=== PATIENT | male | born 1955 | race Caucasian/White ===

== ENCOUNTER 2023-12-14 16:21 | Emergency (ER) | payer OTHER, MEDICAID, SELFPAY ==
[2023-12-14] VITALS (13 sets, daily range): BP systolic 98–132; BP diastolic 53–67; PULSE 51–62; RESP 15–25; TEMP 36.4; O2SAT 93–96; BMI 36.1
--- NOTE | 2023-12-14 16:37 | DI.CT.S_ITS ---
PROCEDURE: CT ANGIO CHEST PE PROTOCOL INDICATIONS: Chest pain, shortness of breath, tachycardia TECHNIQUE: After the administration of intravenous contrast, 2 mm thick sections acquired from the pulmonary apices to the posterior costophrenic angles. 3-dimensional maximum intensity projection (MIP) coronal and sagittal reformats were then acquired through the thorax. For radiation dose reduction, the following was used: automated exposure control, adjustment of mA and/or kV according to patient size. COMPARISON: None. FINDINGS: Image quality: Artifact from left shoulder arthroplasty. Poor contrast opacification of the pulmonary arteries.. Pulmonary arteries: Pulmonary arteries are normal in size, and demonstrate no intraluminal filling defects to suggest central pulmonary embolism. Lower Neck: No enlarged lymph nodes. Thyroid: No thyroid nodules which require sonographic follow up, per consensus guidelines. Axillae: No enlarged lymph nodes. Chest Wall: Subcutaneous emphysema and stranding over the left shoulder and visualized upper arm, possibly postsurgical in etiology.. Bones: Left shoulder arthroplasty.. Degenerative changes of the spine. Lungs and Pleura: No pneumothorax or pleural effusions. Atelectasis versus consolidation at the left base. Heart: Heart size is mildly enlarged. No pericardial effusion. Thoracic Vessels: No aortic aneurysm. Mediastinum and Lin: No enlarged lymph nodes. Esophagus: No wall thickening. No hiatal hernia. Upper Abdomen: Nonobstructing 3 mm right renal stone. IMPRESSION: Poor contrast opacification of the pulmonary arteries. No pulmonary emboli are seen to the lobar pulmonary arteries. Left basilar atelectasis versus consolidation. Left shoulder arthroplasty. Subcutaneous emphysema and stranding surrounding the left shoulder, may be postsurgical in etiology. Dictated by: Barber Wilcox M.D. on 12/14/2023 at 19:21 Approved by: Barber Wilcox M.D. on 12/14/2023 at 19:26
--- NOTE | 2023-12-14 16:53 | ED_ITS ---
HPI - General Adult <Gary Clark DO - Last Filed: 12/15/23 07:13> General Chief complaint: Shortness of Breath/Dyspnea Stated complaint: post lt shoulder surg/SOB Time Seen by Provider: 12/14/23 16:36 Source: patient and family Mode of arrival: Wheelchair History of Present Illness HPI narrative: 68-year-old male. Has a history of a saddle pulmonary embolus. Has been on anticoagulation up until a couple days ago when he was switched to Lovenox and this was in preparation for a shoulder surgery for which she had yesterday. He was a total shoulder replacement on the left. He stated that today he started to develop shortness of breath. No chest pain. States that it is difficult for him to take a deep breath. No fevers. No lower extremity swelling. No coughing. Related Data Allergies Allergy/AdvReac Type Severity Reaction Status Date / Time methocarbamol Allergy Verified 12/14/23 16:26 Review of Systems <DO Aron Ram Last Filed: 12/15/23 07:13> Review of Systems ROS Unobtainable: All systems reviewed & are unremarkable except as noted in HPI and below Patient History <Gary Clark DO - Last Filed: 12/15/23 07:13> Social History Smoking Status: Former smoker Smoking Status: Former smoker Substance Use Type: does not use Exam <Gary Clark DO - Last Filed: 12/15/23 07:13> Initial Vital Signs Initial Vital Signs: Vital Signs Temperature 97.5 F L 12/14/23 16:26 Pulse Rate 60 12/14/23 16:26 Respiratory Rate 16 12/14/23 16:26 Blood Pressure 111/53 L 12/14/23 16:26 Pulse Oximetry 94 12/14/23 16:26 Oxygen Delivery Method Room Air 12/14/23 16:26 Const General: cooperative, comfortable and No ill appearing [facility] Head: normal to inspection and normocephalic Resp Effort & Inspection: normal respiratory effort and no cough Auscultation: clear to auscultation bilaterally, no rales, no rhonchi and no wheezes Cardio Rate: regular rate Rhythm: regular rhythm Skin Other: Surgical dressing clean an in place over the left shoulder Neuro Sensory Exam: no sensory deficits noted Extrem Other: Left shoulder in sling. No lower extremity swelling <Laura Chávez DO - Last Filed: 12/15/23 03:20> Initial Vital Signs Initial Vital Signs: Vital Signs Temperature 97.5 F L 12/14/23 16:26 Pulse Rate 60 12/14/23 16:26 Respiratory Rate 16 12/14/23 16:26 Blood Pressure 111/53 L 12/14/23 16:26 Pulse Oximetry 94 12/14/23 16:26 Oxygen Delivery Method Room Air 12/14/23 16:26 Course <Gary Clark DO - Last Filed: 12/15/23 07:13> Orders Ordered: Discontinued Medications Albuterol (Albuterol Hfa Prepack) 1 box MISC DIRECTED ONE Stop: 12/14/23 20:32 Last Admin: 12/14/23 20:46 Dose: 1 box Documented By: Albuterol/Ipratropium (Albuterol/Ipratropium 3 Ml Ampul) 3 ml INH NOW ONE Stop: 12/14/23 20:32 Last Admin: 12/14/23 20:46 Dose: 3 ml Documented By: AB Vital Signs Vital signs: Vital Signs - 8 hr 12/14/23 19:30 12/14/23 19:30 12/14/23 20:00 Pulse Rate 55 L Respiratory Rate 21 Blood Pressure 114/56 L 103/58 L Pulse Oximetry 96 Oxygen Delivery Method Room Air 12/14/23 20:00 12/14/23 20:30 12/14/23 20:31 Pulse Rate 53 L 54 L Respiratory Rate 15 20 Blood Pressure 127/58 L Pulse Oximetry 93 95 Oxygen Delivery Method Room Air Room Air 12/14/23 20:31 12/14/23 21:00 12/14/23 21:00 Pulse Rate 54 L 62 Respiratory Rate 22 22 Blood Pressure 132/67 Pulse Oximetry 94 94 Oxygen Delivery Method Room Air Room Air 12/14/23 21:24 Pulse Rate 60 Respiratory Rate 18 Blood Pressure Pulse Oximetry 95 Oxygen Delivery Method <Laura Chávez DO - Last Filed: 12/15/23 03:20> Orders Ordered: Discontinued Medications Albuterol (Albuterol Hfa Prepack) 1 box MISC DIRECTED ONE Stop: 12/14/23 20:32 Last Admin: 12/14/23 20:46 Dose: 1 box Documented By: Albuterol/Ipratropium (Albuterol/Ipratropium 3 Ml Ampul) 3 ml INH NOW ONE Stop: 12/14/23 20:32 Last Admin: 12/14/23 20:46 Dose: 3 ml Documented By: AB Vital Signs Vital signs: Vital Signs - 8 hr 12/14/23 19:30 12/14/23 19:30 12/14/23 20:00 Pulse Rate 55 L Respiratory Rate 21 Blood Pressure 114/56 L 103/58 L Pulse Oximetry 96 Oxygen Delivery Method Room Air 12/14/23 20:00 12/14/23 20:30 12/14/23 20:31 Pulse Rate 53 L 54 L Respiratory Rate 15 20 Blood Pressure 127/58 L Pulse Oximetry 93 95 Oxygen Delivery Method Room Air Room Air 12/14/23 20:31 12/14/23 21:00 12/14/23 21:00 Pulse Rate 54 L 62 Respiratory Rate 22 22 Blood Pressure 132/67 Pulse Oximetry 94 94 Oxygen Delivery Method Room Air Room Air 12/14/23 21:24 Pulse Rate 60 Respiratory Rate 18 Blood Pressure Pulse Oximetry 95 Oxygen Delivery Method Medical Decision Making <Gary Clark DO - Last Filed: 12/15/23 07:13> Lab Data 12/14/23 17:38 12/14/23 17:38 Labs: Lab Results 12/14/23 Range/Units 17:38 WBC 12.9 H (4.5-11.0) X10^3/uL RBC 4.23 L (4.5-5.9) X10^6/uL Hgb 12.8 L (13.5-17.5) g/dL Hct 38.8 L (41-53) % MCV 91.6 (80-100) fL MCH 30.3 (26-34) PG MCHC 33.1 (30-36) % RDW 14.4 (11.6-14.8) % Plt Count 169 (150-400) X10^3/uL Neut % (Auto) 82.4 H (50-75) % Lymph % (Auto) 9.0 L (25-40) % [place] % (Auto) 8.0 (3-14) % Eos % (Auto) 0.2 L (2-4) % Baso % (Auto) 0.4 (0-2) % Neut # (Auto) 72403 H (5226-0035) /uL Lymph # (Auto) 1200 (0878-0637) /uL [place] # (Auto) 1000 H (0-900) /uL Eos # (Auto) 0 (0-450) /uL Baso # (Auto) 100 (0-100) /uL Sodium 139 (137-145) mmol/L Potassium 4.0 (3.4-5.1) mmol/L Chloride 109 H (98-107) mmol/L Carbon Dioxide 27 (22-32) mmol/L BUN 22 H (9-20) mg/dL Creatinine 1.23 (0.66-1.25) mg/dL Estimated GFR > 60 (>60) mL/min BUN/Creatinine Ratio 17.9 (6-22) Glucose 129 H (80-110) mg/dL Calcium 8.9 (8.4-10.2) mg/dL Total Creatine Kinase 408 H (55-170) U/L Troponin I < 0.012 (0.01-0.034) ng/mL ECG Data Attestation: I personally reviewed and interpreted this ECG as follows: Interpretation: Sinus bradycardia Ventricular rate of 56 Normal axis Normal QRS No ST T wave changes MDM Narrative Medical decision making narrative: Patient states he can not take a deep breath. He has not hypoxic. Not tachypneic. Has a history of pulmonary embolism. Has been off of anticoagulation because of a left shoulder surgery. Plan will be to obtain labs. Will proceed with CT scan for evaluation. Care turned over to new provider to follow-up and disposition. <Laura Chávez DO - Last Filed: 12/15/23 03:20> Lab Data Labs: Lab Results 12/14/23 Range/Units 17:38 WBC 12.9 H (4.5-11.0) X10^3/uL RBC 4.23 L (4.5-5.9) X10^6/uL Hgb 12.8 L (13.5-17.5) g/dL Hct 38.8 L (41-53) % MCV 91.6 (80-100) fL MCH 30.3 (26-34) PG MCHC 33.1 (30-36) % RDW 14.4 (11.6-14.8) % Plt Count 169 (150-400) X10^3/uL Neut % (Auto) 82.4 H (50-75) % Lymph % (Auto) 9.0 L (25-40) % [place] % (Auto) 8.0 (3-14) % Eos % (Auto) 0.2 L (2-4) % Baso % (Auto) 0.4 (0-2) % Neut # (Auto) 43232 H (9983-9769) /uL Lymph # (Auto) 1200 (7912-7672) /uL [place] # (Auto) 1000 H (0-900) /uL Eos # (Auto) 0 (0-450) /uL Baso # (Auto) 100 (0-100) /uL Sodium 139 (137-145) mmol/L Potassium 4.0 (3.4-5.1) mmol/L Chloride 109 H (98-107) mmol/L Carbon Dioxide 27 (22-32) mmol/L BUN 22 H (9-20) mg/dL Creatinine 1.23 (0.66-1.25) mg/dL Estimated GFR > 60 (>60) mL/min BUN/Creatinine Ratio 17.9 (6-22) Glucose 129 H (80-110) mg/dL Calcium 8.9 (8.4-10.2) mg/dL Total Creatine Kinase 408 H (55-170) U/L Troponin I < 0.012 (0.01-0.034) ng/mL Imaging Data CT scan - chest: Radiologist's Impression: PROCEDURE: CT ANGIO CHEST PE PROTOCOL INDICATIONS: Chest pain, shortness of breath, tachycardia TECHNIQUE: After the administration of intravenous contrast, 2 mm thick sections acquired from the pulmonary apices to the posterior costophrenic angles. 3-dimensional maximum intensity projection (MIP) coronal and sagittal reformats were then acquired through the thorax. For radiation dose reduction, the following was used: automated exposure control, adjustment of mA and/or kV according to patient size. COMPARISON: None. FINDINGS: Image quality: Artifact from left shoulder arthroplasty. Poor contrast opacification of the pulmonary arteries.. Pulmonary arteries: Pulmonary arteries are normal in size, and demonstrate no intraluminal filling defects to suggest central pulmonary embolism. Lower Neck: No enlarged lymph nodes. Thyroid: No thyroid nodules which require sonographic follow up, per consensus guidelines. Axillae: No enlarged lymph nodes. Chest Wall: Subcutaneous emphysema and stranding over the left shoulder and visualized upper arm, possibly postsurgical in etiology.. Bones: Left shoulder arthroplasty.. Degenerative changes of the spine. Lungs and Pleura: No pneumothorax or pleural effusions. Atelectasis versus consolidation at the left base. Heart: Heart size is mildly enlarged. No pericardial effusion. Thoracic Vessels: No aortic aneurysm. Mediastinum and Lin: No enlarged lymph nodes. Esophagus: No wall thickening. No hiatal hernia. Upper Abdomen: Nonobstructing 3 mm right renal stone. IMPRESSION: Poor contrast opacification of the pulmonary arteries. No pulmonary emboli are seen to the lobar pulmonary arteries. Left basilar atelectasis versus consolidation. Left shoulder arthroplasty. Subcutaneous emphysema and stranding surrounding the left shoulder, may be postsurgical in etiology. Dictated by: Barber Wilcox M.D. on 12/14/2023 at 19:21 Approved by: Barber Wilcox M.D. on 12/14/2023 at 19:26 [facility] Narrative Medical decision making narrative: Patient states he can not take a deep breath. He has not hypoxic. Not tachypneic. Has a history of pulmonary embolism. Has been off of anticoagulation because of a left shoulder surgery. Plan will be to obtain labs. Will proceed with CT scan for evaluation. Care turned over to new provider to follow-up and disposition. Dr. Chávez-patient signed out to me by Dr. Clark I have seen evaluated patient myself. Had outpatient shoulder surgery done yesterday morning in [place]. He has previously had pulmonary embolism today he is noticed it does not feel like he can take deep breath. No fever chills. He does have some ongoing postoperative pain he feels like his nerve block is wearing off. He did take some of his home pain medications. He had a complicated course of COVID-19 in 2020 he was on oxygen for couple months after. He has had an ongoing cough since then. He does have a mild now but does not feel like his is significantly worse. He has no overall swelling. Blood work has been reviewed: WBC 12.9, hemoglobin 12.8 30.8, platelets 169, sodium 139, potassium 4.0, chloride 109, carbon dioxide 27, BUN 22, creatinine 1.2 glucose 129, troponin negative CT imaging does not show pulmonary embolism, questionable left atelectasis versus consolidation some subcutaneous emphysema surrounding left shoulder probably postoperative EKG reviewed Patient not hypoxic blood work shows mild leukocytosis I think it is stress related rather than infectious he is afebrile. He was given albuterol which did help a little. He has given an incentive spirometer to help with probable mild atelectasis postoperatively. At this time no need for antibiotics. Patient was given albuterol which he thinks has helped a little. He was also given spacer. This time patient is not hypoxic tachypneic or tachycardic recommend supportive care at home Discharge Plan Departure Patient Disposition: Home Clinical Impression: Atelectasis of left lung Instructions: Atelectasis Activity Restrictions/Additional Instructions: *You have been diagnosed with atelectasis *What to do: At this time CT scan did not show any evidence of pulmonary embolism. I was you use your albuterol inhaler and spacer as needed for increasing shortness of breath. Also use your incentive spirometer bout 10 times an hour while awake to help expand your lungs after surgery *Continue to take medications as directed Albuterol 1-2 puffs every 4 hours if needed for shortness of breath *Follow up with your primary care provider in 2-3 days or call [phone] *Return to ER if you should have increasing fever chest pain shortness of breath or any new, worsening or concerning symptoms Stand Alone Forms: Patient Portal/API
[2023-12-14 17:47] LABS: Add Manual Diff / Slide Review NO; Basophils Absolute Auto 100 /uL (0-100); Basophils Percent Auto 0.4 % (0-2); Eosinophils Absolute Auto 0 /uL (0-450); Eosinophils Percent Auto 0.2 % (2-4); Hematocrit 38.8 % (41-53); Hemoglobin 12.8 g/dL (13.5-17.5); Lymphocytes Absolute Auto 1200 /uL (1100-4500); Mean Corpuscular HGB Conc 33.1 % (30-36); Mean Corpuscular Hemoglobin 30.3 PG (26-34); Mean Corpuscular Volume 91.6 fL (80-100); Monocytes Absolute Auto 1000 /uL (0-900); Neutrophils Absolute Auto 10600 /uL (1500-7000); Neutrophils Percent Auto 82.4 % (50-75); Platelet Count 169 X10^3/uL (150-400); Red Blood Cell Count 4.23 X10^6/uL (4.5-5.9); Red Cell Distribution Width 14.4 % (11.6-14.8); White Blood Cell Count 12.9 X10^3/uL (4.5-11.0)
[2023-12-14 17:59] LABS: BUN Creatinine Ratio 17.9 (6-22); Blood Urea Nitrogen 22 mg/dL (9-20); Calcium 8.9 mg/dL (8.4-10.2); Carbon Dioxide 27 mmol/L (22-32); Chloride 109 mmol/L (98-107); Creatine Kinase 408 U/L (55-170); Estimated Glomerular Filt Rate > 60 mL/min (>60); Glucose 129 mg/dL (80-110); HEMOLYSIS < 15 (0-50); Sodium 139 mmol/L (137-145)
[2023-12-14 18:11] LABS: Troponin I < 0.012 ng/mL (0.01-0.034)
[2023-12-14] MEDS: ALBUTEROL HFA PREPACK 1 BOX MISC (20:46)
[2023-12-14] MEDS: ALBUTEROL/IPRATROPIUM 3 ML AMPUL INH (20:46)
== END 2023-12-14 21:42 | disposition home or self-care (01) ==
PROVIDERS: Emergency Medicine; Emergency Provider Emergency Medicine
DX: J98.11 Atelectasis (principal); R00.1 Bradycardia, unspecified; Z86.711 Personal history of pulmonary embolism; Z87.891 Personal history of nicotine dependence
CPT/HCPCS: 36415; 71275; 80048; 82550; 84484; 85025; 93005; 99284; Q9967

== ENCOUNTER 2023-12-22 14:20 | Emergency (ER) | payer OTHER, MEDICAID, SELFPAY ==
[2023-12-22] VITALS (8 sets, daily range): BP systolic 133–151; BP diastolic 63–68; PULSE 60–67; RESP 13–19; TEMP 36.4; O2SAT 94–97; BMI 37.5
--- NOTE | 2023-12-22 15:12 | DI.RAD.S_ITS ---
PROCEDURE: XR CHEST 1V INDICATIONS: Flu like symptoms TECHNIQUE: One view of the chest was acquired. COMPARISON: [facility], CT, CT ANGIO CHEST PE PROTOCOL, 12/14/2023, 16:47. [facility], CR, XR SHOULDER 2+ VIEWS LEFT, 12/21/2023, 13:32. [facility], CR, XR CHEST 2 VIEWS, 02/15/2023, 16:22. FINDINGS: Surgical changes and devices: Left shoulder arthroplasty hardware is seen. Lungs and pleura: On this semiupright portable chest examination, no large pneumothorax or large pleural effusions are seen. No focal infiltrates are seen. Mediastinum: Mediastinal contours appear normal. Heart size is normal. Bones and chest wall: No suspicious bony lesions. Age-appropriate bony degenerative changes are seen. Overlying soft tissues appear unremarkable. IMPRESSION: No acute cardiopulmonary abnormality is seen. Dictated by: Eddie Sykes M.D. on 12/22/2023 at 14:46 Approved by: Eddie Sykes M.D. on 12/22/2023 at 14:48
[2023-12-22 15:51] LABS: Add Manual Diff / Slide Review NO; Basophils Absolute Auto 100 /uL (0-100); Basophils Percent Auto 0.7 % (0-2); Eosinophils Absolute Auto 500 /uL (0-450); Eosinophils Percent Auto 5.7 % (2-4); Hematocrit 37.2 % (41-53); Hemoglobin 12.4 g/dL (13.5-17.5); Lymphocytes Absolute Auto 1200 /uL (1100-4500); Lymphocytes Percent Auto 14.7 % (25-40); Mean Corpuscular HGB Conc 33.4 % (30-36); Mean Corpuscular Hemoglobin 30.4 PG (26-34); Monocytes Absolute Auto 800 /uL (0-900); Monocytes Percent Auto 9.8 % (3-14); Neutrophils Absolute Auto 5600 /uL (1500-7000); Neutrophils Percent Auto 69.1 % (50-75); Platelet Count 247 X10^3/uL (150-400); Red Blood Cell Count 4.09 X10^6/uL (4.5-5.9); Red Cell Distribution Width 14.4 % (11.6-14.8); White Blood Cell Count 8.1 X10^3/uL (4.5-11.0)
[2023-12-22 15:56] LABS: Prothrombin Time 22.7 SECONDS (9.4-12.5)
[2023-12-22 15:58] LABS: PTT Partial Thromboplastin Tim 56 SECONDS (25.1-36.5)
[2023-12-22 16:01] LABS: Alanine Aminotransferase 19 IU/L (<50); Albumin 4.3 g/dL (3.5-5.0); Albumin Globulin Ratio 1.6 (1.0-2.8); Alkaline Phosphatase 75 U/L (38-126); Aspartate Aminotransferase 23 IU/L (17-59); BUN Creatinine Ratio 16.4 (6-22); Bilirubin Total 0.6 mg/dL (0.2-1.3); Blood Urea Nitrogen 22 mg/dL (9-20); Calcium 9.4 mg/dL (8.4-10.2); Carbon Dioxide 26 mmol/L (22-32); Chloride 109 mmol/L (98-107); Creatine Kinase 147 U/L (55-170); Estimated Glomerular Filt Rate 58 mL/min (>60); Globulin 2.7 g/dL (1.7-4.1); Glucose 101 mg/dL (80-110); HEMOLYSIS < 15 (0-50); Lipase 78 U/L (23-300); Magnesium 2.1 mg/dL (1.6-2.3); Potassium 4.2 mmol/L (3.4-5.1); Sodium 141 mmol/L (137-145)
[2023-12-22 16:12] LABS: Troponin I < 0.012 ng/mL (0.01-0.034)
[2023-12-22 16:37] LABS: NT-proBNP (BNP-Adult 18+) 124 pg/mL (<125)
--- NOTE | 2023-12-22 16:47 | ED_ITS ---
HPI - SOB/Dyspnea General Chief Complaint: Shortness of Breath/Dyspnea Stated Complaint: PITTING IN FEET FROM WATER RETENTION FROM SURGERY Time Seen by Provider: 12/22/23 16:34 Source: patient and family Mode of arrival: Ambulatory History of Present Illness HPI Narrative: Patient is a 68-year-old male history of saddle pulmonary embolus has been on Xarelto anticoagulation, recently had left shoulder surgery was taken off Xarelto for couple days then put on Lovenox he was actually seen evaluated here on December 13 with increasing shortness of breath. At that time he had a CT scan which did not show PE but did show some atelectasis. He reports that since then he has been sleeping in a recliner he can not quite get his legs elevated. Over the last week he has noted a 10 lb weight gain and significant swelling in his legs. He really can not say that he has any orthopnea he has not had any fever chills or cough. He is slightly short of breath with exertion but has not really been moving a lot. He has restarted his Xarelto on it has been on Xarelto for at least 2 weeks. He really complains of swelling in his legs. He has no prior history of congestive heart failure. Related Data Home Medications Medication Instructions Recorded Confirmed amlodipine 10 mg tablet 10 mg PO DAILY 12/22/23 12/22/23 atomoxetine 80 mg capsule 80 mg PO QAM 12/22/23 12/22/23 atorvastatin 10 mg tablet 10 mg PO ONCE PM 12/22/23 12/22/23 latanoprost 0.005 % eye drops 1 drp EYE-BOTH DAILY 12/22/23 12/22/23 lisinopril 40 mg tablet 40 mg PO DAILY 12/22/23 12/22/23 omeprazole 20 mg capsule,delayed 20 mg PO DAILY 12/22/23 12/22/23 release oxycodone 5 mg tablet 5 mg PO Q6H PRN moderate pain 12/22/23 12/22/23 rivaroxaban 20 mg tablet (Xarelto) 20 mg PO DAILY 12/22/23 12/22/23 Previous Rx's Medication Instructions Recorded furosemide 20 mg tablet (Lasix) 20 mg PO DAILY #7 tabs 12/22/23 Allergies Allergy/AdvReac Type Severity Reaction Status Date / Time methocarbamol Allergy Verified 12/22/23 14:34 Patient History Social History Smoking Status: Former smoker Smoking Status: Former smoker Substance Use Type: does not use Exam Initial Vital Signs Initial Vital Signs: Vital Signs Temperature 97.6 F 12/22/23 14:29 Pulse Rate 67 12/22/23 14:29 Respiratory Rate 16 12/22/23 14:29 Blood Pressure 151/68 H 12/22/23 14:29 Pulse Oximetry 94 12/22/23 14:29 Oxygen Delivery Method Room Air 12/22/23 14:29 GENERAL: Alert pleasant well-appearing 68 year male and in no acute distress. HEENT: Head atraumatic,EOMI, pupils reactive, face symmetric, moist mucous membranes CARDIOVASCULAR: Regular rate and rhythm without murmurs, rubs or gallops. RESPIRATORY: Breath sounds equal bilaterally, no wheezes rales or rhonchi. ABDOMEN: Soft, nontender. Normoactive bowel sounds all 4 quadrants. No guarding or rebound. EXTREMITIES: Normal range of motion, no clubbing. +3 pitting edema bilaterally Neurovascularly intact Postoperative changes noted in left shoulder with contusion distal radial pulse intact NEUROLOGICAL: Alert and oriented x4.Normal gait and speech. SKIN: Warm, dry, no laceration, no petechiae, no rashes or lesions. Course Orders Ordered: ED Orders 12/22/23 15:12 XR chest 1V Stat 12/22/23 15:13 EKG-12 Lead Stat 12/22/23 15:14 BNP [NT-proBNP (BNP-Adult 18+)] Stat 12/22/23 15:40 Complete Blood Count AUTO DIFF Stat Comprehensive Metabolic Panel Stat Lipase Stat Magnesium Stat PTT Partial Thromboplastin [place] Stat Prothrombin Time INR Stat Troponin & CK Cardiac Panel Stat Discontinued Medications Furosemide (Furosemide 40 Mg/4 Ml Vial) 20 mg IV NOW ONE Stop: 12/22/23 16:59 Last Admin: 12/22/23 17:23 Dose: 20 mg Documented By: SB Vital Signs Vital signs: Vital Signs - 8 hr 12/22/23 14:29 12/22/23 15:21 12/22/23 15:27 Temperature 97.6 F Pulse Rate 67 63 60 Respiratory Rate 16 15 Blood Pressure 151/68 H Pulse Oximetry 94 96 95 Oxygen Delivery Method Room Air 12/22/23 15:27 12/22/23 15:30 12/22/23 15:30 Temperature Pulse Rate 60 Respiratory Rate 13 Blood Pressure 141/66 H 133/63 Pulse Oximetry 94 Oxygen Delivery Method Room Air 12/22/23 16:00 12/22/23 16:00 12/22/23 16:30 Temperature Pulse Rate 61 Respiratory Rate 18 Blood Pressure 141/65 H 136/65 Pulse Oximetry 95 Oxygen Delivery Method 12/22/23 16:30 12/22/23 17:00 12/22/23 17:00 Temperature Pulse Rate 61 63 Respiratory Rate 17 19 Blood Pressure 136/65 Pulse Oximetry 97 95 Oxygen Delivery Method 12/22/23 17:28 12/22/23 17:28 Temperature Pulse Rate 60 Respiratory Rate 16 Blood Pressure 133/63 Pulse Oximetry 96 Oxygen Delivery Method Room Air MDM - SOB/Dyspnea Lab Data 12/22/23 15:40 12/22/23 15:40 Labs: Lab Results 12/22/23 12/22/23 Range/Units 15:14 15:40 WBC 8.1 (4.5-11.0) X10^3/uL RBC 4.09 L (4.5-5.9) X10^6/uL Hgb 12.4 L (13.5-17.5) g/dL Hct 37.2 L (41-53) % MCV 91.0 (80-100) fL MCH 30.4 (26-34) PG MCHC 33.4 (30-36) % RDW 14.4 (11.6-14.8) % Plt Count 247 (150-400) X10^3/uL Neut % (Auto) 69.1 (50-75) % Lymph % (Auto) 14.7 L (25-40) % [place] % (Auto) 9.8 (3-14) % Eos % (Auto) 5.7 H (2-4) % Baso % (Auto) 0.7 (0-2) % Neut # (Auto) 5600 (4192-0486) /uL Lymph # (Auto) 1200 (7559-2671) /uL [place] # (Auto) 800 (0-900) /uL Eos # (Auto) 500 H (0-450) /uL Baso # (Auto) 100 (0-100) /uL PT 22.7 H (9.4-12.5) SECONDS INR 2.0 H (0.9-1.3) APTT 56 H (25.1-36.5) SECONDS Sodium 141 (137-145) mmol/L Potassium 4.2 (3.4-5.1) mmol/L Chloride 109 H (98-107) mmol/L Carbon Dioxide 26 (22-32) mmol/L BUN 22 H (9-20) mg/dL Creatinine 1.34 H (0.66-1.25) mg/dL Estimated GFR 58 L (>60) mL/min BUN/Creatinine Ratio 16.4 (6-22) Glucose 101 (80-110) mg/dL Calcium 9.4 (8.4-10.2) mg/dL Magnesium 2.1 (1.6-2.3) mg/dL Total Bilirubin 0.6 (0.2-1.3) mg/dL AST 23 (17-59) IU/L ALT 19 (<50) IU/L Alkaline Phosphatase 75 (38-126) U/L Total Creatine Kinase 147 D (55-170) U/L Troponin I < 0.012 (0.01-0.034) ng/mL NT-Pro-B Natriuret Pep 124 (<125) pg/mL Total Protein 7.0 (6.3-8.2) g/dL Albumin 4.3 (3.5-5.0) g/dL Globulin 2.7 (1.7-4.1) g/dL Albumin/Globulin Ratio 1.6 (1.0-2.8) Lipase 78 (23-300) U/L Imaging Data Chest x-ray: Radiologist's Impression: PROCEDURE: XR CHEST 1V INDICATIONS: Flu like symptoms TECHNIQUE: One view of the chest was acquired. COMPARISON: [facility], CT, CT ANGIO CHEST PE PROTOCOL, 12/14/2023, 16:47. [facility], CR, XR SHOULDER 2+ VIEWS LEFT, 12/21/2023, 13:32. [facility], CR, XR CHEST 2 VIEWS, 02/15/2023, 16:22. FINDINGS: Surgical changes and devices: Left shoulder arthroplasty hardware is seen. Lungs and pleura: On this semiupright portable chest examination, no large pneumothorax or large pleural effusions are seen. No focal infiltrates are seen. Mediastinum: Mediastinal contours appear normal. Heart size is normal. Bones and chest wall: No suspicious bony lesions. Age-appropriate bony degenerative changes are seen. Overlying soft tissues appear unremarkable. IMPRESSION: No acute cardiopulmonary abnormality is seen. Dictated by: Eddie Sykes M.D. on 12/22/2023 at 14:46 ECG Data Interpretation: Sinus rhythm rate 60 NE interval 194 QRS [address] changes MDM Narrative Medical decision making narrative: Patient 68-year-old male postoperative left shoulder surgery presenting today with increased bilateral lower extremity edema and weight gain. He has no known history of congestive heart failure he has not hypoxic and afebrile. On exam he has significant bilateral +3 pitting edema Blood work has been reviewed no leukocytosis or anemia, INR 2.0, creatinine is 1.34 previously 1.23 electrolytes stable, troponin negative BNP 124 Chest x-ray no cardiopulmonary process Patient has no prior history of congestive heart failure. He has been sleeping with his legs lowered for couple of weeks I think this is contributing to his edema. BNP is not elevated at 124. He has not hypoxic or tachycardic he had a CT scan last week which does not show pulmonary embolism and he has been on Xarelto ever since. I think less likely PE. We discussed wearing compression socks will put him on diuretic for a couple of days. He was given his 1st dose of Lasix here in the ED 20 mg IV. Discharge Plan Departure Patient Disposition: Home Clinical Impression: Bilateral edema of lower extremity Instructions: DI for Peripheral Edema -- Bilateral Activity Restrictions/Additional Instructions: *You have been diagnosed with lower extremity edema *What to do: At this time tried elevate your legs as much as possible I do recommend that you try and get up and walk around least 1-2 times an hour as well. While sleeping try wearing compression socks which will also help with the swelling *Continue to take medications as directed Lasix 20 mg once a day for 4 days ( you will have extra. ) *Follow up with your primary care provider in 2-3 days or call [phone] *Return to ER if you should have increasing shortness of breath swelling fever or any new, worsening or concerning symptoms Prescriptions: New furosemide [Lasix] 20 mg tablet 20 mg PO DAILY Qty: 7 0RF No Action amlodipine 10 mg tablet 10 mg PO DAILY latanoprost 0.005 % drops 1 drp EYE-BOTH DAILY atorvastatin 10 mg tablet 10 mg PO ONCE PM omeprazole 20 mg capsule,delayed release(DR/EC) 20 mg PO DAILY lisinopril 40 mg tablet 40 mg PO DAILY oxycodone 5 mg tablet 5 mg PO Q6H PRN (Reason: moderate pain) atomoxetine 80 mg capsule 80 mg PO QAM Xarelto 20 mg tablet 20 mg PO DAILY Referrals: Miscellaneous,Doctor, MD [Primary Care Provider] - Stand Alone Forms: Patient Portal/API
[2023-12-22] MEDS: FUROSEMIDE 40 MG/4 ML VIAL 20 MG IV (17:23)
== END 2023-12-22 17:45 | disposition home or self-care (01) ==
PROVIDERS: Emergency Provider Emergency Medicine
DX: R60.0 Localized edema (principal); Z98.890 Other specified postprocedural states; Z79.01 Long term (current) use of anticoagulants; Z79.899 Other long term (current) drug therapy
CPT/HCPCS: 36415; 71045; 80053; 82550; 83690; 83735; 83880; 84484; 85025; 85610; 85730; 93005; 93041; 96374; 99284; J1940

== ENCOUNTER 2024-07-08 13:45 | Outpatient (RCR) | payer MEDICARE, MEDICAID, SELFPAY ==
--- NOTE | 2024-01-10 15:30 | PT.OIE ---
Current Diagnoses Other specific arthropathies, not elsewhere classified, left shoulder (01/10/24) Unspecified rotator cuff tear or rupture of left shoulder, not specified as traumatic (01/10/24) Weakness (01/10/24) Visit Care Team Role Provider Type Srini Siddiqui PA-C Family Provider Non-Staff Primary Care Provider Specialty: Medical Address: [address] [place] [address], [id number] Email: Jay Brown PA-C Attending Provider Non-Staff Referring Provider Specialty: Medical Address: [address] [place] [address], [id number] Email: Physical Therapy Initial Evaluation PT-OP-A Visit Information Start: 01/10/24 07:24 Freq: Status: Active Protocol: Document 01/10/24 08:18 NM (Rec: 01/10/24 09:46 NM [id number]) Out-Patient Physical Therapy Visit Information Visit Information Visit Type Initial Evaluation Visit Note pt late to session DOS: 12/13/23 Visit Start Time 08:20 Visit Stop Time 09:05 Visit Number 1 Evaluation Information Evaluation Date 01/10/24 Precautions Precautions Reverse TSA precautions: no ext/ADD/IR (subscapularis not repaired) sling for comfort see protocol for restrictions 6 weeks: 01/24/24; 8 weeks: 02/06; 12 weeks: 03/07/24 Phase I: 3-6 weeks: PROM up to FF 120 (scaption plane) and ER to tolerance(scaption), submaximal pain free isometrics in scapular plane ( avoid ext); AAROM of cervical spine, wrist, elbow, hand Phase II after week 6 as appropriate PT-OP-B Current Condition Start: 01/10/24 07:24 Freq: Status: Active Protocol: Document 01/10/24 08:18 NM (Rec: 01/10/24 09:46 NM [id number]) Current Condition History of Current Condition Onset Date DOS 12/13/23 Current Complaints mobility, pain, strength History of Current Condition Pt had surgery for L rTSA on , by Dr. Blas. He states that Dr. Blas repaired his rotator cuff in 2021, but it atrophied and retore again, which is when pt opted for shoulder replacement. Pt had rotator cuff arthropathy. 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 Previously, he had L shoulder snapping, popping, grinding. He has had his first follow up post-op, reports that everything going well. Pt reports that he was having trouble with sling and gave up on it. He was sleeping in reclining chair with arm across chest. Currently sleeping in bed, rolled toward his shoulder. Pt reports that a week ago, he had aching pain in his L shoulder after he grabbed a Trina pitcher with his L, felt a nasty pain in his L shoulder and was unable to lift anything including a teacup for days. Reports that was gradually getting better, until last night (01/08). Reports that he was holding the rosales with his L hand, which caused him to feel a sharp pain. He is left handed but able to use R hand for writing/eating/ADLs. He had follow up with doctor on . Pt reports that his has been helping him with dressing and all activities, but he feels bad that she has to do it all and wants to help. has been driving and helping pt with [employer] job. Has had 1 fall pre- surgery, but fell on R shoulder; states ankles giving out. He has not been performing any of the exercises from his doctor on Sunday. 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, 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 Current Functional Impairments (Reported) Functional Limitations- ADL's dressing assisting with dressing, ADLs, showering, grooming not sleeping with pillow behind arm Functional Limitations- Mobility/Gait strength loss Functional Limitations- 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- does [employer] ( unable to lift with both hands ), only using R hand right now Functional Limitations- Other going to bathroom driving PT-OP-C Subjective Start: 01/10/24 07:24 Freq: Status: Active Protocol: Document 01/10/24 08:18 NM (Rec: 01/10/24 09:46 NM [id number]) OP-PT Subjective Patient Comments Patient Comments see hx above for pt report Patient Questionnaires Quick Dash- Upper Extremity Quick Dash UE Score 70% impaired OP-PT Pain Assessment Location L shoulder Pain Location Details ant shldr, post shldr, post cuff/delt Intensity 5 Scale Used Numeric (0 - 10) Description Aching Description- Other reports 10/10 worst (tweak) Frequency Constant Radiating Location to elbow Variations/Patterns hx of back pain Pain Aggravating Factors Position,Activity Other Pain Aggravating Factors waking up d/t shldr pain 3x/ night (likes to sleep on L side) Pain Alleviating Factors Cold,Medication Other Pain Alleviating Factors ice 9 hours Home Pain Medication Use Pain Medications Used Yes: oxycodone, gabapentin, tylenol, ibuprofen Patient Goal get off medication completely Pain Behaviors Pain Behaviors Facial Grimacing,Guarding, Holding Area PT-OP-F Manual Assessment Start: 01/10/24 07:24 Freq: Status: Active Protocol: Document 01/10/24 08:18 NM (Rec: 01/10/24 09:46 NM [id number]) Manual Assessments Soft Tissue Assessment Soft Tissue Mobility Assessment Increased tenderness, decreased length of latissimus dorsi and pectoralis Joint Mobility Assessment Joint Mobility Assessment Empty end feel with forward flexion and scaption ER. No L shoulder clicking, popping, dislocation with passive ROM. Full elbow and wrist AROM PT-OP-H Neuro Start: 01/10/24 07:24 Freq: Status: Active Protocol: Document 01/10/24 08:18 NM (Rec: 01/10/24 09:46 NM [id number]) Sensation Evaluation Comments Summary Comments BUE equally intact to light touch sensation, small decrease on L side near axilla PT-OP-J Posture/Palpation/Skin Start: 01/10/24 07:24 Freq: Status: Active Protocol: Document 01/10/24 08:18 NM (Rec: 01/10/24 09:46 NM [id number]) Posture Evaluation Position Sitting Head/C-Spine Posture Forward Head T-Spine Posture Increased Kyphosis Shoulder Posture (L) Rounded,(R) Rounded,(L) Forward,(R) Forward,(L) Elevated Scapula Posture (L) Protracted,(R) Protracted, (L) Elevated Arm Posture (L) Internally Rotated,(R) Internally Rotated Comments Posture Comments Elbow positioned by side at 0 deg abd, no use of sling Palpation Assessment Location L shoulder Palpation Details Tenderness along anterior shoulder with palpation and posterior cuff. Denies pain with palpation Skin Assessment Incisional Assessment Incision Appearance/Comments clean/dry/intact. Glue beginning to peel. Good healing w/o signs of infection , redness Small indention above scar from infection from previous rotator cuff repair PT-OP-K Range of Motion Start: 01/10/24 07:24 Freq: Status: Active Protocol: Document 01/10/24 08:18 NM (Rec: 01/10/24 09:46 NM [id number]) Shoulder Goniometric Range of Motion Shoulder L PROM Flexion 115 Comments ER in scaption plane 20 deg; empty end feel R AROM Flexion 155 Abduction 150 External Rotation at 0 degrees Abduction 70 Comments scaption: 150 deg PT-OP-M Strength Start: 01/10/24 07:24 Freq: Status: Active Protocol: Document 01/10/24 08:18 NM (Rec: 01/10/24 09:46 NM [id number]) Shoulder Strength Shoulder Manual Muscle Testing Left Comments Did not formally assess due to precautions and protocol Right Flexion 4 Good Abduction (C5) 4 Good External Rotation 4 Good Internal Rotation 4 Good PT-OP-Q Treatments Start: 01/10/24 07:24 Freq: Status: Active Protocol: Document 01/10/24 08:18 NM (Rec: 01/10/24 09:46 NM [id number]) Therapeutic Exercises 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 sleeping position- pillow behind elbow to limit extension. Education to always be able to see elbow, no extension/IR/ADD 2. sitting position- pillow behind elbow to limit extension, arm supported and resting on pillow next to side 3. ADL/dressing positioning/ training- use of R arm when dressing 1st, assisting for now, practice wearing coat . Education not to reach across body with L arm, no washing armpits, washing hair, tuck in shirt dandre behind back 4. education on sling wear for comfort per protocol Self-Care/Home Management Treatment Education Patient Education Home Exercise Program,Pain Management Other Education HEP: submaximal towel squeezes , pendulums Education on not using ice continuously, use of ice 20 on /20 off pattern as needed with decreasing frequency Education on protocol, expected rehabilitation progression. Review of precautions, no AROM, no lifting PT-OP-T Assessment and Plan Start: 01/10/24 07:24 Freq: Status: Active Protocol: Document 01/10/24 08:18 NM (Rec: 01/10/24 09:46 NM [id number]) Physical Therapy Assessment Rehab Potential Rehabilitation Potential Good Evaluation Complexity Number of Personal Factors/Comorbidities 3 or More Number of Body Systems Impaired 1-2 Clinical Presentation at Evaluation Stable Impairments Impairments Activity Tolerance,Edema, Functional Activities, Functional Mobility,Gait, Integument,Pain,Posture,ROM, Sensation,Soft Tissue Mobility ,Strength Other Concerns Barriers to Rehabilitation Pt has hx of previously failed rotator cuff repair, not following protocol after surgery this time including 2 instances of lifting objects and attempting to actively use L arm Goals Five Impairment sleep Impairment pt wakes 3x/night Short Term Goal (STG) Pt will report that he is waking <3x/night due to L shoulder pain in order to demonstrate improved pain management and QOL STG Duration 03/06/24 [employer] Area Intelligence Officer Goal (LTG) Pt will report that he does not wake up at night due to L shoulder pain in order to demonstrate improved pain management and QOL LTG Duration 04/04/24 Four Impairment pain Impairment currently 5/10 pain at rest, 10/10 reported with activity Short Term Goal (STG) Pt will report 5/10 pain or less in L shoulder with activity in order to demonstrate improved symptom management and QOL STG Duration 03/06/24 [employer] Officer Goal (LTG) Pt will report 2/10 pain or less in L shoulder with activity in order to demonstrate improved symptom management and QOL LTG Duration 04/04/24 Three Impairment function, activity 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 Short Term Goal (STG) Pt will report that he is able to play piano with L shoulder pain <2/10 in order to demonstrate improved QOL and activity tolerance STG Duration 12/27/23 [employer] Officer Goal (LTG) Pt will report that he is able to play piano without limitation and without increase in baseline pain in order to demonstrate improved QOL and activity tolerance LTG Duration 04/04/24 Two Impairment strength Impairment did not assess due to precautions Short Term Goal (STG) Pt will have at least 3+/5 L shoulder flexion and abduction in scaption plane strength with pain less than 5/10 in order to demonstrate improved ability to lift objects STG Duration 03/06/24 [facility] Goal (LTG) Pt will have at least 4/5 L shoulder flexion and abduction in scaption plane strength in order to demonstrate improved ability to lift objects LTG Duration 04/04/24 One Impairment ROM Impairment PROM currently 115 deg FF, 20 deg ER in scaption plane Short Term Goal (STG) Pt will have at least 120 deg of passive L forward flexion, full passive ER in scaption plane with pain <2/10 STG Duration 02/21/24 [employer] Officer Goal (LTG) Pt will have at least 110 deg of active L forward shoulder flexion and functional ER of at least 30 degrees in scaption plane in order to demonstrate improved reaching and shoulder mobility for dressing/ADLs LTG Duration 04/04/24 Assessment Summary Assessment Pt is a 68 y.o. male presenting s/p L rTSA on . He is currently 4 weeks post-op. Pt had most recent follow up with surgeon on 01/06, where he had x-rays indicating joint was intact. Pt has hx of rotator cuff repair failure and arthopathy. He does not present with a sling and reports that he has not been wearing the sling for several weeks. Pt also has had 2 instances since surgery of using his L arm to attempt to lift a teacup and rosales, which resulted in extreme pain . Currently, pt has impairments in L shoulder strength, range of motion, pain management, and sleep. He has 115 deg of passive L shoulder flexion and 20 deg of passive L shoulder ER in scaption. Left shoulder strength not formally assessed due to precautions. 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 PT discussed exam findings with pt and created goals with pt. PT provided initial HEP and extensive education regarding positioning of shoulder. PT also reviewed precautions with pt, recommended use of sling, and education on avoiding AROM and lifting until pt is cleared by MD. PT also provided education to pt's about dressing and grooming assistance. Pt and pt 's verbalize agreement. Pt would benefit from skilled PT for L shoulder mobility and strengthening per protocol in order to improve ability to perform ADLs and QOL. Physical Therapy Plan Frequency and Duration Frequency of Treatment 2x/Week Duration of treatment (weeks) 12 Plan of Care Start Date 01/10/24 Plan of Care End Date 04/04/24 Therapeutic Interventions Therapeutic Interventions Gait Training,Home Exercise Program,Joint Mobilizations, Manual Therapy,Neuromuscular Re-education,Orthotic/ Prosthetic Management,Patient/ Caregiver Education,Self-Care/ Home Management,Sensory Integration,Soft Tissue Mobilization,Taping, Therapeutic Activities, Therapeutic Exercises Modalities Cold Pack/Ice Massage,Electric Stimulation,Hot Packs, Ultrasound Next Visit Focus/Plan Next Note Type Treatment Note Next Visit Plan PROM up to 120 FF and ER to tolerance in scapular plane until 6 weeks, then progress to phase II if appropriate Sub-maximal pain free deltoid isometrics in scapular plane ( no shoulder ext) table walks, pendulums, scapular retractions w/o shoulder ext, resisted wrist and biology laboratory assistant exercises clarify if gentle elbow resistance allowed due to biceps tenodesis
--- NOTE | 2024-01-15 15:45 | PT.OTN ---
Current Diagnoses Other specific arthropathies, not elsewhere classified, left shoulder (01/15/24) Unspecified rotator cuff tear or rupture of left shoulder, not specified as traumatic (01/15/24) Weakness (01/15/24) Physical Therapy Treatment Note PT-OP-A Visit Information Start: 01/10/24 07:24 Freq: Status: Active Protocol: Document 01/15/24 13:02 NM (Rec: 01/15/24 13:51 NM [id number]) Out-Patient Physical Therapy Visit Information Visit Information Visit Type Treatment Note Visit Start Time 13:01 Visit Stop Time 13:45 Visit Number 2 Evaluation Information Evaluation Date 01/10/24 Precautions Precautions Reverse TSA precautions: no ext/ADD/IR (subscapularis not repaired) sling for comfort see protocol for restrictions 6 weeks: 01/24/24; 8 weeks: 02/06; 12 weeks: 03/07/24 Phase I: 3-6 weeks: PROM up to FF 120 (scaption plane) and ER to tolerance(scaption), submaximal pain free isometrics in scapular plane ( avoid ext); AAROM of cervical spine, wrist, elbow, hand Phase II after week 6 as appropriate PT-OP-B Current Condition Start: 01/10/24 07:24 Freq: Status: Active Protocol: Document 01/10/24 08:18 NM (Rec: 01/10/24 09:46 NM [id number]) Current Condition History of Current Condition Onset Date DOS 12/13/23 Current Complaints mobility, pain, strength History of Current Condition Pt had surgery for L rTSA on , by Dr. Blas. He states that Dr. Blas repaired his rotator cuff in 2021, but it atrophied and retore again, which is when pt opted for shoulder replacement. Pt had rotator cuff arthropathy. 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 Previously, he had L shoulder snapping, popping, grinding. He has had his first follow up post-op, reports that everything going well. Pt reports that he was having trouble with sling and gave up on it. He was sleeping in reclining chair with arm across chest. Currently sleeping in bed, rolled toward his shoulder. Pt reports that a week ago, he had aching pain in his L shoulder after he grabbed a Trina pitcher with his L, felt a nasty pain in his L shoulder and was unable to lift anything including a teacup for days. Reports that was gradually getting better, until last night (01/08). Reports that he was holding the rosales with his L hand, which caused him to feel a sharp pain. He is left handed but able to use R hand for writing/eating/ADLs. He had follow up with doctor on . Pt reports that his has been helping him with dressing and all activities, but he feels bad that she has to do it all and wants to help. has been driving and helping pt with [employer] job. Has had 1 fall pre- surgery, but fell on R shoulder; states ankles giving out. He has not been performing any of the exercises from his doctor on Sunday. 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, 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 Current Functional Impairments (Reported) Functional Limitations- ADL's dressing assisting with dressing, ADLs, showering, grooming not sleeping with pillow behind arm Functional Limitations- Mobility/Gait strength loss Functional Limitations- 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 Pt reports that he laid down the other night without a pillow behind him; states it felt like it went out of joint. Pain reduced significantly with pendulums. Not wearing sling still. States constantly aches . He tried to grab a yogurt with his left arm while performing job. is reminding him of limitations and trying to assist, but pt reports feeling bad that is having to help him. L shoulder 3/10 at start of session PT-OP-F Manual Assessment Start: 01/10/24 07:24 Freq: Status: Active Protocol: Document 01/10/24 08:18 NM (Rec: 01/10/24 09:46 NM [id number]) Manual Assessments Soft Tissue Assessment Soft Tissue Mobility Assessment Increased tenderness, decreased length of latissimus dorsi and pectoralis Joint Mobility Assessment Joint Mobility Assessment Empty end feel with forward flexion and scaption ER. No L shoulder clicking, popping, dislocation with passive ROM. Full elbow and wrist AROM PT-OP-H Neuro Start: 01/10/24 07:24 Freq: Status: Active Protocol: Document 01/10/24 08:18 NM (Rec: 01/10/24 09:46 NM [id number]) Sensation Evaluation Comments Summary Comments BUE equally intact to light touch sensation, small decrease on L side near axilla PT-OP-J Posture/Palpation/Skin Start: 01/10/24 07:24 Freq: Status: Active Protocol: Document 01/10/24 08:18 NM (Rec: 01/10/24 09:46 NM [id number]) Posture Evaluation Position Sitting Head/C-Spine Posture Forward Head T-Spine Posture Increased Kyphosis Shoulder Posture (L) Rounded,(R) Rounded,(L) Forward,(R) Forward,(L) Elevated Scapula Posture (L) Protracted,(R) Protracted, (L) Elevated Arm Posture (L) Internally Rotated,(R) Internally Rotated Comments Posture Comments Elbow positioned by side at 0 deg abd, no use of sling Palpation Assessment Location L shoulder Palpation Details Tenderness along anterior shoulder with palpation and posterior cuff. Denies pain with palpation Skin Assessment Incisional Assessment Incision Appearance/Comments clean/dry/intact. Glue beginning to peel. Good healing w/o signs of infection , redness Small indention above scar from infection from previous rotator cuff repair PT-OP-K Range of Motion Start: 01/10/24 07:24 Freq: Status: Active Protocol: Document 01/10/24 08:18 NM (Rec: 01/10/24 09:46 NM [id number]) Shoulder Goniometric Range of Motion Shoulder L PROM Flexion 115 Comments ER in scaption plane 20 deg; empty end feel R AROM Flexion 155 Abduction 150 External Rotation at 0 degrees Abduction 70 Comments scaption: 150 deg PT-OP-M Strength Start: 01/10/24 07:24 Freq: Status: Active Protocol: Document 01/10/24 08:18 NM (Rec: 01/10/24 09:46 NM [id number]) Shoulder Strength Shoulder Manual Muscle Testing Left Comments Did not formally assess due to precautions and protocol Right Flexion 4 Good Abduction (C5) 4 Good External Rotation 4 Good Internal Rotation 4 Good PT-OP-Q Treatments Start: 01/10/24 07:24 Freq: Status: Active Protocol: Document 01/15/24 13:02 NM (Rec: 01/15/24 13:51 NM [id number]) Therapeutic Exercises Sitting Exercises scapular retraction Side left Equipment Used arms resting in front on pillow, L UE neutral and w/o ext Reps/Minutes 10x5 Comments decreased scapular retraction; cued retract/down, inc w/ reps table slides Sitting Exercise Name FF in scaption plane (with trunk flexion) Equipment Used towel in front for less friction Reps/Minutes 2x5 with 1 (up to 80 deg) Comments cued for form, maintain pain free and passive w/i ROM limits Standing Exercises isometrics Standing Exercise Name abduction Side left Resistance 10x5 Equipment Used 25% force, pillow against wall and Reps/Minutes 1. 1x10 with 3 hold against PT hand, 2. 2x5 with 3 hold @ wall Comments cued submaximal, pain free isometric; no increase baseline pain pendulums Standing Exercise Name PROM- fwd/back, CW, CCW Side left Equipment Used R arm positioned on table, leaning over, body performing movements Reps/Minutes 2x30 ea Comments improved passive motion today, cued neutral trunk Manual Therapy Treatment Manual Techniques PROM Type fwd flexion in scaption, ER in scaption Body Position Supine Reps/Duration 2x10 ea Comments Performed to pt tolerance, closely monitored for pain. Slow progression up to 90 deg fwd flexion and 20 deg ER in scaption plane. Increased muscle guarding, which causes pt to become tense and resist. PROM limit decreased until pt relaxes. Cued for diaphragmatic breathing for pain reduction, muscle relaxation Education on importance of early mobilization per protocol recommendations to promote improved ROM, decrease risk of shoulder freezing. Pt verbalizes agreement Self-Care/Home Management Treatment Education Patient Education Home Exercise Program,Joint Protection,Pain Management Caregiver Education Education to regarding PROM, HEP, current restrictions regarding activity tolerance and ability to perform Other Education 8 minutes- Education/review of current ROM restrictions. Clear emphasis of PROM only, no AROM, no lifting/no holding objects, use of sling for protection and reminder. Review of positioning in bed with pillow behind elbow to limit extension and for pain reduction. PT-OP-T Assessment and Plan Start: 01/10/24 07:24 Freq: Status: Active Protocol: Document 01/15/24 13:02 NM (Rec: 01/15/24 13:51 NM [id number]) Physical Therapy Assessment Goals Five Impairment sleep Impairment pt wakes 3x/night Short Term Goal (STG) Pt will report that he is waking <3x/night due to L shoulder pain in order to demonstrate improved pain management and QOL STG Duration 03/06/24 [employer] Goal (LTG) Pt will report that he does not wake up at night due to L shoulder pain in order to demonstrate improved pain management and QOL LTG Duration 04/04/24 Four Impairment pain Impairment currently 5/10 pain at rest, 10/10 reported with activity Short Term Goal (STG) Pt will report 5/10 pain or less in L shoulder with activity in order to demonstrate improved symptom management and QOL STG Duration 03/06/24 [employer] Goal (LTG) Pt will report 2/10 pain or less in L shoulder with activity in order to demonstrate improved symptom management and QOL LTG Duration 04/04/24 Three Impairment function, activity 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 Short Term Goal (STG) Pt will report that he is able to play piano with L shoulder pain <2/10 in order to demonstrate improved QOL and activity tolerance STG Duration 12/27/23 [employer] Goal (LTG) Pt will report that he is able to play piano without limitation and without increase in baseline pain in order to demonstrate improved QOL and activity tolerance LTG Duration 04/04/24 Two Impairment strength Impairment did not assess due to precautions Short Term Goal (STG) Pt will have at least 3+/5 L shoulder flexion and abduction in scaption plane strength with pain less than 5/10 in order to demonstrate improved ability to lift objects STG Duration 03/06/24 [employer] Goal (LTG) Pt will have at least 4/5 L shoulder flexion and abduction in scaption plane strength in order to demonstrate improved ability to lift objects LTG Duration 04/04/24 One Impairment ROM Impairment PROM currently 115 deg FF, 20 deg ER in scaption plane Short Term Goal (STG) Pt will have at least 120 deg of passive L forward flexion, full passive ER in scaption plane with pain <2/10 STG Duration 02/21/24 [employer] Goal (LTG) Pt will have at least 110 deg of active L forward shoulder flexion and functional ER of at least 30 degrees in scaption plane in order to demonstrate improved reaching and shoulder mobility for dressing/ADLs LTG Duration 04/04/24 Assessment Summary Assessment Pt tolerated session fair. He demonstrates increased muscle guarding and reports not wanting to move his arm due to fear of pain. He has not been compliant with following PROM restrictions and has had several attempts since evaluation of trying to use L arm AROM or to hold objects. PT provided extensive education again during session about pt's current limitations regarding ROM, lifting to both pt and . PT also strongly recommending to pt that he continue use of sling per protocol and as a reminder to limit LUE. Pt has L shoulder PROM up to 90 deg forward flexion, 20 deg ER in scaption plane. Initiated deltoid isometric into abduction at submaximal effort , in addition to scapular retraction activitation. PT reached out to referring surgeon's clinic regarding any restrictions related to biceps tenodesis. Pt would benefit from skilled PT for L shoulder mobility and strength per protocol in order to improve ability to participate in ADLs and return to PLOF. Physical Therapy Plan Frequency and Duration Frequency of Treatment 2x/Week Duration of treatment (weeks) 12 Plan of Care Start Date 01/10/24 Plan of Care End Date 04/04/24 Therapeutic Interventions Therapeutic Interventions Gait Training,Home Exercise Program,Joint Mobilizations, Manual Therapy,Neuromuscular Re-education,Orthotic/ Prosthetic Management,Patient/ Caregiver Education,Self-Care/ Home Management,Sensory Integration,Soft Tissue Mobilization,Taping, Therapeutic Activities, Therapeutic Exercises Modalities Cold Pack/Ice Massage,Electric Stimulation,Hot Packs, Ultrasound Next Visit Focus/Plan Next Note Type Treatment Note Next Visit Plan PROM up to 120 FF and ER to tolerance in scapular plane until 6 weeks, then progress to phase II if appropriate Sub-maximal pain free deltoid isometrics in scapular plane ( no shoulder ext) table walks, pendulums, scapular retractions w/o shoulder ext, resisted wrist and filling carrier exercises clarify if gentle elbow resistance allowed due to biceps tenodesis
--- NOTE | 2024-01-17 16:36 | PT.OTN ---
Current Diagnoses Other specific arthropathies, not elsewhere classified, left shoulder (01/17/24) Unspecified rotator cuff tear or rupture of left shoulder, not specified as traumatic (01/17/24) Weakness (01/17/24) Physical Therapy Treatment Note PT-OP-A Visit Information Start: 01/10/24 07:24 Freq: Status: Active Protocol: Document 01/17/24 14:37 AB (Rec: 01/17/24 16:35 AB [id number]) Out-Patient Physical Therapy Visit Information Visit Information Visit Type Treatment Note Visit Note pt late to session DOS: 12/13/23 Visit Start Time 15:23 Visit Stop Time 16:15 Visit Number 3 Number of REFORMATORY ATTENDANT Visits 1 Evaluation Information Evaluation Date 01/10/24 Precautions Precautions Reverse TSA precautions: no ext/ADD/IR (subscapularis not repaired) sling for comfort see protocol for restrictions 6 weeks: 01/24/24; 8 weeks: 02/06; 12 weeks: 03/07/24 Phase I: 3-6 weeks: PROM up to FF 120 (scaption plane) and ER to tolerance(scaption), submaximal pain free isometrics in scapular plane ( avoid ext); AAROM of cervical spine, wrist, elbow, hand Phase II after week 6 as appropriate PT-OP-B Current Condition Start: 01/10/24 07:24 Freq: Status: Active Protocol: Document 01/10/24 08:18 NM (Rec: 01/10/24 09:46 NM [id number]) Current Condition History of Current Condition Onset Date DOS 12/13/23 Current Complaints mobility, pain, strength History of Current Condition Pt had surgery for L rTSA on , by Dr. Blas. He states that Dr. Blas repaired his rotator cuff in 2021, but it atrophied and retore again, which is when pt opted for shoulder replacement. Pt had rotator cuff arthropathy. 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 Previously, he had L shoulder snapping, popping, grinding. He has had his first follow up post-op, reports that everything going well. Pt reports that he was having trouble with sling and gave up on it. He was sleeping in reclining chair with arm across chest. Currently sleeping in bed, rolled toward his shoulder. Pt reports that a week ago, he had aching pain in his L shoulder after he grabbed a Trina pitcher with his L, felt a nasty pain in his L shoulder and was unable to lift anything including a teacup for days. Reports that was gradually getting better, until last night (01/08). Reports that he was holding the rosales with his L hand, which caused him to feel a sharp pain. He is left handed but able to use R hand for writing/eating/ADLs. He had follow up with doctor on . Pt reports that his has been helping him with dressing and all activities, but he feels bad that she has to do it all and wants to help. has been driving and helping pt with [employer] job. Has had 1 fall pre- surgery, but fell on R shoulder; states ankles giving out. He has not been performing any of the exercises from his doctor on Sunday. 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 Current Functional Impairments (Reported) Functional Limitations- ADL's dressing assisting with dressing, ADLs, showering, grooming not sleeping with pillow behind arm Functional Limitations- Mobility/Gait strength loss Functional Limitations- 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 Patient reports he does have pain when in bed when moving. Patient advised to sleep in the recliner until seeing the MD again. 18 deg ER in scapular plane and 118 deg flexion in scapular plane PROM left shoulder start of session. PT-OP-F Manual Assessment Start: 01/10/24 07:24 Freq: Status: Active Protocol: Document 01/10/24 08:18 NM (Rec: 01/10/24 09:46 NM [id number]) Manual Assessments Soft Tissue Assessment Soft Tissue Mobility Assessment Increased tenderness, decreased length of latissimus dorsi and pectoralis Joint Mobility Assessment Joint Mobility Assessment Empty end feel with forward flexion and scaption ER. No L shoulder clicking, popping, dislocation with passive ROM. Full elbow and wrist AROM PT-OP-H Neuro Start: 01/10/24 07:24 Freq: Status: Active Protocol: Document 01/10/24 08:18 NM (Rec: 01/10/24 09:46 NM [id number]) Sensation Evaluation Comments Summary Comments BUE equally intact to light touch sensation, small decrease on L side near axilla PT-OP-J Posture/Palpation/Skin Start: 01/10/24 07:24 Freq: Status: Active Protocol: Document 01/10/24 08:18 NM (Rec: 01/10/24 09:46 NM [id number]) Posture Evaluation Position Sitting Head/C-Spine Posture Forward Head T-Spine Posture Increased Kyphosis Shoulder Posture (L) Rounded,(R) Rounded,(L) Forward,(R) Forward,(L) Elevated Scapula Posture (L) Protracted,(R) Protracted, (L) Elevated Arm Posture (L) Internally Rotated,(R) Internally Rotated Comments Posture Comments Elbow positioned by side at 0 deg abd, no use of sling Palpation Assessment Location L shoulder Palpation Details Tenderness along anterior shoulder with palpation and posterior cuff. Denies pain with palpation Skin Assessment Incisional Assessment Incision Appearance/Comments clean/dry/intact. Glue beginning to peel. Good healing w/o signs of infection , redness Small indention above scar from infection from previous rotator cuff repair PT-OP-K Range of Motion Start: 01/10/24 07:24 Freq: Status: Active Protocol: Document 01/10/24 08:18 NM (Rec: 01/10/24 09:46 NM [id number]) Shoulder Goniometric Range of Motion Shoulder L PROM Flexion 115 Comments ER in scaption plane 20 deg; empty end feel R AROM Flexion 155 Abduction 150 External Rotation at 0 degrees Abduction 70 Comments scaption: 150 deg PT-OP-M Strength Start: 01/10/24 07:24 Freq: Status: Active Protocol: Document 01/10/24 08:18 NM (Rec: 01/10/24 09:46 NM [id number]) Shoulder Strength Shoulder Manual Muscle Testing Left Comments Did not formally assess due to precautions and protocol Right Flexion 4 Good Abduction (C5) 4 Good External Rotation 4 Good Internal Rotation 4 Good PT-OP-Q Treatments Start: 01/10/24 07:24 Freq: Status: Active Protocol: Document 01/17/24 14:37 AB (Rec: 01/17/24 16:35 AB [id number]) Therapeutic Exercises Sitting Exercises scapular retraction Side bilateral Equipment Used arms resting in front on pillow, L UE neutral and w/o ext Reps/Minutes 10x 2 5sec Comments tactile table slides Sitting Exercise Name FF in scaption plane (with trunk flexion) Equipment Used towel in front for less friction Reps/Minutes 2x5 with 1 X 5 standing X 5 seated Comments cued for form, maintain pain free and passive w/i ROM limits Standing Exercises isometrics Standing Exercise Name abduction Side left Resistance 10x5 Equipment Used less 25% force, pillow against wall and Reps/Minutes 1. 1x10 with 3 hold against PT hand, 2. 2x5 with 3 hold @ wall Comments Verbal cues for pain free pendulums Standing Exercise Name PROM- fwd/back, CW, CCW Side left Equipment Used R arm positioned on table, leaning over, body performing movements Reps/Minutes X10 fwd back X 3 CW and CCW Comments improved passive motion today, cued neutral trunk Therapeutic Activity Therapeutic Activity donning and doffing sling. Reps/Minutes X2 Comments Visual and verbal cues. Patient ed to connect to lower waist strap connection of strap rides up into arm pit. Manual Therapy Treatment Manual Techniques PROM Type fwd flexion in scaption, ER in scaption Body Position Supine Comments Monitored for pain PT-OP-T Assessment and Plan Start: 01/10/24 07:24 Freq: Status: Active Protocol: Document 01/17/24 14:37 AB (Rec: 01/17/24 16:35 AB [id number]) Physical Therapy Assessment Assessment Summary Assessment Patient is 5 weeks post op. 35 deg PROM ER in scapular plane left UE post manual therapy. Patient able to chanelle and doff with very minimal verbal cues . Physical Therapy Plan Frequency and Duration Frequency of Treatment 2x/Week Duration of treatment (weeks) 12 Plan of Care Start Date 01/10/24 Plan of Care End Date 04/04/24 Next Visit Focus/Plan Next Note Type Treatment Note Next Visit Plan PROM up to 120 FF and ER to tolerance in scapular plane until 6 weeks, then progress to phase II if appropriate Sub-maximal pain free deltoid isometrics in scapular plane ( no shoulder ext) table walks, pendulums, scapular retractions w/o shoulder ext, resisted wrist and oceanology teacher exercises clarify if gentle elbow resistance allowed due to biceps tenodesis
--- NOTE | 2024-01-21 15:45 | PT.OTN ---
Current Diagnoses Other specific arthropathies, not elsewhere classified, left shoulder (01/21/24) Unspecified rotator cuff tear or rupture of left shoulder, not specified as traumatic (01/21/24) Weakness (01/21/24) Physical Therapy Treatment Note PT-OP-A Visit Information Start: 01/10/24 07:24 Freq: Status: Active Protocol: Document 01/21/24 13:48 NM (Rec: 01/21/24 14:36 NM [id number]) Out-Patient Physical Therapy Visit Information Visit Information Visit Type Treatment Note Visit Note DOS 12/13/23 Visit Start Time 13:48 Visit Stop Time 14:30 Visit Number 4 Evaluation Information Evaluation Date 01/10/24 Precautions Precautions Reverse TSA precautions: no ext/ADD/IR (subscapularis not repaired) sling for comfort see protocol for restrictions 6 weeks: 01/24/24; 8 weeks: 02/06; 12 weeks: 03/07/24 Phase I: 3-6 weeks: PROM up to FF 120 (scaption plane) and ER to tolerance(scaption), submaximal pain free isometrics in scapular plane ( avoid ext); AAROM of cervical spine, wrist, elbow, hand Phase II after week 6 as appropriate PT-OP-B Current Condition Start: 01/10/24 07:24 Freq: Status: Active Protocol: Document 01/10/24 08:18 NM (Rec: 01/10/24 09:46 NM [id number]) Current Condition History of Current Condition Onset Date DOS 12/13/23 Current Complaints mobility, pain, strength History of Current Condition Pt had surgery for L rTSA on , by Dr. Blas. He states that Dr. Blas repaired his rotator cuff in 2021, but it atrophied and retore again, which is when pt opted for shoulder replacement. Pt had rotator cuff arthropathy. 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 Previously, he had L shoulder snapping, popping, grinding. He has had his first follow up post-op, reports that everything going well. Pt reports that he was having trouble with sling and gave up on it. He was sleeping in reclining chair with arm across chest. Currently sleeping in bed, rolled toward his shoulder. Pt reports that a week ago, he had aching pain in his L shoulder after he grabbed a [employer] pitcher with his L, felt a nasty pain in his L shoulder and was unable to lift anything including a teacup for days. Reports that was gradually getting better, until last night (01/08). Reports that he was holding the rosales with his L hand, which caused him to feel a sharp pain. He is left handed but able to use R hand for writing/eating/ADLs. He had follow up with doctor on . Pt reports that his has been helping him with dressing and all activities, but he feels bad that she has to do it all and wants to help. has been driving and helping pt with [employer] job. Has had 1 fall pre- surgery, but fell on R shoulder; states ankles giving out. He has not been performing any of the exercises from his doctor on Sunday. 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, 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 Current Functional Impairments (Reported) Functional Limitations- ADL's dressing assisting with dressing, ADLs, showering, grooming not sleeping with pillow behind arm Functional Limitations- Mobility/Gait strength loss Functional Limitations- 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 States he tried to wet his hair earlier while bending forward and using both arms, which hurt hisL arm. Reports that wearing sling helps with pain. office reports that pt doesn't need to wear the sling but pt thinks he needs to wear 5 more weeks. Reports that pain levels compared to last weeks. Has been partially compliant with HEP but reports doesn't want to move arm because of possibility of pain. has been performing gentle PROM. Sleeping in bed on back with pillow under arm PT-OP-F Manual Assessment Start: 01/10/24 07:24 Freq: Status: Active Protocol: Document 01/10/24 08:18 NM (Rec: 01/10/24 09:46 NM [id number]) Manual Assessments Soft Tissue Assessment Soft Tissue Mobility Assessment Increased tenderness, decreased length of latissimus dorsi and pectoralis Joint Mobility Assessment Joint Mobility Assessment Empty end feel with forward flexion and scaption ER. No L shoulder clicking, popping, dislocation with passive ROM. Full elbow and wrist AROM PT-OP-H Neuro Start: 01/10/24 07:24 Freq: Status: Active Protocol: Document 01/10/24 08:18 NM (Rec: 01/10/24 09:46 NM [id number]) Sensation Evaluation Comments Summary Comments BUE equally intact to light touch sensation, small decrease on L side near axilla PT-OP-J Posture/Palpation/Skin Start: 01/10/24 07:24 Freq: Status: Active Protocol: Document 01/10/24 08:18 NM (Rec: 01/10/24 09:46 NM [id number]) Posture Evaluation Position Sitting Head/C-Spine Posture Forward Head T-Spine Posture Increased Kyphosis Shoulder Posture (L) Rounded,(R) Rounded,(L) Forward,(R) Forward,(L) Elevated Scapula Posture (L) Protracted,(R) Protracted, (L) Elevated Arm Posture (L) Internally Rotated,(R) Internally Rotated Comments Posture Comments Elbow positioned by side at 0 deg abd, no use of sling Palpation Assessment Location L shoulder Palpation Details Tenderness along anterior shoulder with palpation and posterior cuff. Denies pain with palpation Skin Assessment Incisional Assessment Incision Appearance/Comments clean/dry/intact. Glue beginning to peel. Good healing w/o signs of infection , redness Small indention above scar from infection from previous rotator cuff repair PT-OP-K Range of Motion Start: 01/10/24 07:24 Freq: Status: Active Protocol: Document 01/10/24 08:18 NM (Rec: 01/10/24 09:46 NM [id number]) Shoulder Goniometric Range of Motion Shoulder L PROM Flexion 115 Comments ER in scaption plane 20 deg; empty end feel R AROM Flexion 155 Abduction 150 External Rotation at 0 degrees Abduction 70 Comments scaption: 150 deg PT-OP-M Strength Start: 01/10/24 07:24 Freq: Status: Active Protocol: Document 01/10/24 08:18 NM (Rec: 01/10/24 09:46 NM [id number]) Shoulder Strength Shoulder Manual Muscle Testing Left Comments Did not formally assess due to precautions and protocol Right Flexion 4 Good Abduction (C5) 4 Good External Rotation 4 Good Internal Rotation 4 Good PT-OP-Q Treatments Start: 01/10/24 07:24 Freq: Status: Active Protocol: Document 01/21/24 13:48 NM (Rec: 01/21/24 14:36 NM [id number]) Therapeutic Exercises Sitting Exercises scapular shrugs Side bilateral Resistance AROM Equipment Used arms in front on pillows, neutral Reps/Minutes 1x10 with 3 hold Comments cued i don't know motion scapular retraction Side bilateral Equipment Used arms resting in front on pillow, L UE neutral and w/o ext Reps/Minutes 2x10 w/ 3 hold Comments cued verbal and tactile retract/add, gentle force, upright/neutral posture table slides Sitting Exercise Name FF in scaption plane (with trunk flexion) Reps/Minutes 2x5 with 2 hold Comments cued rest your head to maintain passive ROM, pain free; cued for form 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 1x10 with 3 hold, 2. 1x10 with 3 hold w/ wrist ext Standing Exercises isometrics Standing Exercise Name abduction Side left Equipment Used 25% force, towel roll between arm/body for form/pure abd Reps/Minutes 2x10 with 3 hold Comments verbal cues for pain free pendulums Standing Exercise Name PROM- fwd/back, CW, CCW Side left Equipment Used R arm positioned on table, leaning over, body performing movements Reps/Minutes x10 ea direction Comments cued neutral trunk, improved arm resting/dangle Manual Therapy Treatment Manual Techniques PROM Type fwd flexion in scaption, ER in scaption Comments up to 110 deg flexion and 30 deg ER in scaption Monitored for pain. Demos muscle guarding, cued for relaxation. Self-Care/Home Management Treatment Education Patient Education Home Exercise Program,Joint Protection,Pain Management Other Education Education to let L arm rest by side. Use sling while working or for general pain reduction but d/c only if surgeon wants Reviewed surgical precautions again, emphasized PROM only for now but educated pt on timeline PT-OP-T Assessment and Plan Start: 01/10/24 07:24 Freq: Status: Active Protocol: Document 01/21/24 13:48 NM (Rec: 01/21/24 14:36 NM [id number]) Physical Therapy Assessment Goals Five Impairment sleep Impairment pt wakes 3x/night Short Term Goal (STG) Pt will report that he is waking <3x/night due to L shoulder pain in order to demonstrate improved pain management and QOL STG Duration 03/06/24 Detention Goal (LTG) Pt will report that he does not wake up at night due to L shoulder pain in order to demonstrate improved pain management and QOL LTG Duration 04/04/24 Four Impairment pain Impairment currently 5/10 pain at rest, 10/10 reported with activity Short Term Goal (STG) Pt will report 5/10 pain or less in L shoulder with activity in order to demonstrate improved symptom management and QOL STG Duration 03/06/24 Detention Goal (LTG) Pt will report 2/10 pain or less in L shoulder with activity in order to demonstrate improved symptom management and QOL LTG Duration 04/04/24 Three Impairment function, activity 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 Short Term Goal (STG) Pt will report that he is able to play piano with L shoulder pain <2/10 in order to demonstrate improved QOL and activity tolerance STG Duration 12/27/23 Detention Goal (LTG) Pt will report that he is able to play piano without limitation and without increase in baseline pain in order to demonstrate improved QOL and activity tolerance LTG Duration 04/04/24 Two Impairment strength Impairment did not assess due to precautions Short Term Goal (STG) Pt will have at least 3+/5 L shoulder flexion and abduction in scaption plane strength with pain less than 5/10 in order to demonstrate improved ability to lift objects STG Duration 03/06/24 Furniture Detailer Goal (LTG) Pt will have at least 4/5 L shoulder flexion and abduction in scaption plane strength in order to demonstrate improved ability to lift objects LTG Duration 04/04/24 One Impairment ROM Impairment PROM currently 115 deg FF, 20 deg ER in scaption plane Short Term Goal (STG) Pt will have at least 120 deg of passive L forward flexion, full passive ER in scaption plane with pain <2/10 STG Duration 02/21/24 Furniture Detailer Goal (LTG) Pt will have at least 110 deg of active L forward shoulder flexion and functional ER of at least 30 degrees in scaption plane in order to demonstrate improved reaching and shoulder mobility for dressing/ADLs LTG Duration 04/04/24 Assessment Summary Assessment Pt currently 5.5 weeks post-op . During PROM, pt able to achieve 110 deg forward flexion in scapular plane and 30 deg ER in scapular plane. Pt cued consistently for correct form, submaximal movements with resisted sole sewer hand, periscapular activation. PT provided verbal and tactile cues for form, correct execution, and for posture. Tends to demonstrate forward flexed posture with rounded shoulders unless cued. Educated on importance of good posture with healing due to length-tension relationship with muscles. Pt continues to have difficulty with donning/ doffing sling but reports increased comfort with wearing it. Pt would benefit from skilled PT for L shoulder strengthening and mobility per protocol in order to improve ability to perform ADLs. Physical Therapy Plan Frequency and Duration Frequency of Treatment 2x/Week Duration of treatment (weeks) 12 Plan of Care Start Date 01/10/24 Plan of Care End Date 04/04/24 Therapeutic Interventions Therapeutic Interventions Gait Training,Home Exercise Program,Joint Mobilizations, Manual Therapy,Neuromuscular Re-education,Orthotic/ Prosthetic Management,Patient/ Caregiver Education,Self-Care/ Home Management,Sensory Integration,Soft Tissue Mobilization,Taping, Therapeutic Activities, Therapeutic Exercises Modalities Cold Pack/Ice Massage,Electric Stimulation,Hot Packs, Ultrasound Next Visit Focus/Plan Next Note Type Treatment Note Next Visit Plan Continue PROM up to 120 deg FF and ER to tolerance in scapular plane; cont deltoid isometrics (increase hold time if pain free). 6 weeks ()- start PROM Ir in scapular plane to tolerance, start AAROM to tolerance in supine w / cane, scapulothoracic rhythmic stabilization in supine PROM up to 120 FF and ER to tolerance in scapular plane until 6 weeks, then progress to phase II if appropriate Sub-maximal pain free deltoid isometrics in scapular plane ( no shoulder ext) table walks, pendulums, scapular retractions w/o shoulder ext, resisted wrist and sole sewer hand exercises clarify if gentle elbow resistance allowed due to biceps tenodesis
--- NOTE | 2024-01-21 16:36 | PT-OP ANOTE ---
PT called Dr. Blas's office again (last call on 01/15) for clarification regarding any precautions for his biceps due to tenodesis. Also asked for clarification on sling use and whether pt can perform flexion isometrics due to biceps. They are sending another message to surgeon
--- NOTE | 2024-01-23 13:26 | PT-OP ANOTE ---
Surgeon's office called on 01/22/24 with restrictions on biceps due to tenodesis: no strengthening for 1st 12 weeks after surgery; as tolerated strengthening after 12 weeks
--- NOTE | 2024-01-24 17:05 | PT.OTN ---
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 1 Evaluation Information Evaluation Date 01/10/24 Precautions Precautions Reverse TSA precautions: no ext/ADD/IR (subscapularis not repaired) sling for comfort see protocol for restrictions 6 weeks: 01/24/24; 8 weeks: 02/06; 12 weeks: 03/07/24 Phase I: 3-6 weeks: PROM up to FF 120 (scaption plane) and ER to tolerance(scaption), submaximal pain free isometrics in scapular plane ( avoid ext); AAROM of cervical spine, wrist, elbow, hand Phase II after week 6 as appropriate PT-OP-B Current Condition Start: 01/10/24 07:24 Freq: Status: Active Protocol: Document 01/10/24 08:18 NM (Rec: 01/10/24 09:46 NM [id number]) Current Condition History of Current Condition Onset Date DOS 12/13/23 Current Complaints mobility, pain, strength History of Current Condition Pt had surgery for L rTSA on , by Dr. Blas. He states that Dr. Blas repaired his rotator cuff in 2021, but it atrophied and retore again, which is when pt opted for shoulder replacement. Pt had rotator cuff arthropathy. 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 Previously, he had L shoulder snapping, popping, grinding. He has had his first follow up post-op, reports that everything going well. Pt reports that he was having trouble with sling and gave up on it. He was sleeping in reclining chair with arm across chest. Currently sleeping in bed, rolled toward his shoulder. Pt reports that a week ago, he had aching pain in his L shoulder after he grabbed a [employer] pitcher with his L, felt a nasty pain in his L shoulder and was unable to lift anything including a teacup for days. Reports that was gradually getting better, until last night (01/08). Reports that he was holding the rosales with his L hand, which caused him to feel a sharp pain. He is left handed but able to use R hand for writing/eating/ADLs. He had follow up with doctor on . Pt reports that his has been helping him with dressing and all activities, but he feels bad that she has to do it all and wants to help. has been driving and helping pt with [employer] job. Has had 1 fall pre- surgery, but fell on R shoulder; states ankles giving out. He has not been performing any of the exercises from his doctor on Sunday. 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, 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 Current Functional Impairments (Reported) Functional Limitations- ADL's dressing assisting with dressing, ADLs, showering, grooming not sleeping with pillow behind arm Functional Limitations- Mobility/Gait strength loss Functional Limitations- Work/School 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 PT-OP-F Manual Assessment Start: 01/10/24 07:24 Freq: Status: Active Protocol: Document 01/10/24 08:18 NM (Rec: 01/10/24 09:46 NM [id number]) Manual Assessments Soft Tissue Assessment Soft Tissue Mobility Assessment Increased tenderness, decreased length of latissimus dorsi and pectoralis Joint Mobility Assessment Joint Mobility Assessment Empty end feel with forward flexion and scaption ER. No L shoulder clicking, popping, dislocation with passive ROM. Full elbow and wrist AROM PT-OP-H Neuro Start: 01/10/24 07:24 Freq: Status: Active Protocol: Document 01/10/24 08:18 NM (Rec: 01/10/24 09:46 NM [id number]) Sensation Evaluation Comments Summary Comments BUE equally intact to light touch sensation, small decrease on L side near axilla PT-OP-J Posture/Palpation/Skin Start: 01/10/24 07:24 Freq: Status: Active Protocol: Document 01/10/24 08:18 NM (Rec: 01/10/24 09:46 NM [id number]) Posture Evaluation Position Sitting Head/C-Spine Posture Forward Head T-Spine Posture Increased Kyphosis Shoulder Posture (L) Rounded,(R) Rounded,(L) Forward,(R) Forward,(L) Elevated Scapula Posture (L) Protracted,(R) Protracted, (L) Elevated Arm Posture (L) Internally Rotated,(R) Internally Rotated Comments Posture Comments Elbow positioned by side at 0 deg abd, no use of sling Palpation Assessment Location L shoulder Palpation Details Tenderness along anterior shoulder with palpation and posterior cuff. Denies pain with palpation Skin Assessment Incisional Assessment Incision Appearance/Comments clean/dry/intact. Glue beginning to peel. Good healing w/o signs of infection , redness Small indention above scar from infection from previous rotator cuff repair PT-OP-K Range of Motion Start: 01/10/24 07:24 Freq: Status: Active Protocol: Document 01/10/24 08:18 NM (Rec: 01/10/24 09:46 NM [id number]) Shoulder Goniometric Range of Motion Shoulder L PROM Flexion 115 Comments ER in scaption plane 20 deg; empty end feel R AROM Flexion 155 Abduction 150 External Rotation at 0 degrees Abduction 70 Comments scaption: 150 deg PT-OP-M Strength Start: 01/10/24 07:24 Freq: Status: Active Protocol: Document 01/10/24 08:18 NM (Rec: 01/10/24 09:46 NM [id number]) Shoulder Strength Shoulder Manual Muscle Testing Left Comments Did not formally assess due to precautions and protocol Right Flexion 4 Good Abduction (C5) 4 Good External Rotation 4 Good Internal Rotation 4 Good PT-OP-Q Treatments Start: 01/10/24 07:24 Freq: Status: Active Protocol: Document 01/24/24 08:07 AB (Rec: 01/24/24 10:32 AB [id number]) Therapeutic Exercises Supine Exercises AROM scaption Supine Exercise Name with elbow flexed Side left Reps/Minutes X10 Sitting Exercises scapular retraction Side bilateral Reps/Minutes X10 X2 Manual Therapy Treatment Soft Tissue Mobilization left shoulder Body Location pec at axilla, scar tissue Mobilization Type Cross-Friction,Myofascial Release Intensity/Depth moderate and superficial Body Position Hooklying Joint Mobilizations scapular Joint left shoulder Direction depression and adduction Grade III Body Position Sidelying Reps/Duration X10 each Manual Techniques scapular Type isometrics Body Location depression and adduction Reps/Duration X10 Comments manual resistance PROM Type fwd flexion in scaption, ER in scaption PT-OP-T Assessment and Plan Start: 01/10/24 07:24 Freq: Status: Active Protocol: Document 01/24/24 08:07 AB (Rec: 01/24/24 10:32 AB [id number]) Physical Therapy Assessment Goals Five Impairment sleep Impairment pt wakes 3x/night Short Term Goal (STG) Pt will report that he is waking <3x/night due to L shoulder pain in order to demonstrate improved pain management and QOL STG Duration 03/06/24 Long-Term Goal (LTG) Pt will report that he does not wake up at night due to L shoulder pain in order to demonstrate improved pain management and QOL LTG Duration 04/04/24 Four Impairment pain Impairment currently 5/10 pain at rest, 10/10 reported with activity Short Term Goal (STG) Pt will report 5/10 pain or less in L shoulder with activity in order to demonstrate improved symptom management and QOL STG Duration 03/06/24 E Business Specialist Goal (LTG) Pt will report 2/10 pain or less in L shoulder with activity in order to demonstrate improved symptom management and QOL LTG Duration 04/04/24 Three Impairment function, activity 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 Short Term Goal (STG) Pt will report that he is able to play piano with L shoulder pain <2/10 in order to demonstrate improved QOL and activity tolerance STG Duration 12/27/23 E Business Specialist Goal (LTG) Pt will report that he is able to play piano without limitation and without increase in baseline pain in order to demonstrate improved QOL and activity tolerance LTG Duration 04/04/24 Two Impairment strength Impairment did not assess due to precautions Short Term Goal (STG) Pt will have at least 3+/5 L shoulder flexion and abduction in scaption plane strength with pain less than 5/10 in order to demonstrate improved ability to lift objects STG Duration 03/06/24 Long-Term Goal (LTG) Pt will have at least 4/5 L shoulder flexion and abduction in scaption plane strength in order to demonstrate improved ability to lift objects LTG Duration 04/04/24 One Impairment ROM Impairment PROM currently 115 deg FF, 20 deg ER in scaption plane Short Term Goal (STG) Pt will have at least 120 deg of passive L forward flexion, full passive ER in scaption plane with pain <2/10 STG Duration 02/21/24 Long-Term Goal (LTG) Pt will have at least 110 deg of active L forward shoulder flexion and functional ER of at least 30 degrees in scaption plane in order to demonstrate improved reaching and shoulder mobility for dressing/ADLs LTG Duration 04/04/24 Assessment Summary Assessment Post manual therapy PROM 32 ER in scapular plane 120 deg flexion in scapular plane. Patient reports feeling a little more sore end of session. Physical Therapy Plan Frequency and Duration Frequency of Treatment 2x/Week Duration of treatment (weeks) 12 Plan of Care Start Date 01/10/24 Plan of Care End Date 04/04/24 Next Visit Focus/Plan Next Note Type Treatment Note Next Visit Plan Continue PROM up to 120 deg FF and ER to tolerance in scapular plane; cont deltoid isometrics (increase hold time if pain free). 6 weeks ()- start PROM Ir in scapular plane to tolerance, start AAROM to tolerance in supine w / cane, scapulothoracic rhythmic stabilization in supine PROM up to 120 FF and ER to tolerance in scapular plane until 6 weeks, then progress to phase II if appropriate Sub-maximal pain free deltoid isometrics in scapular plane ( no shoulder ext) table walks, pendulums, scapular retractions w/o shoulder ext, resisted wrist and pipelines manager exercises No resistance for elbow flexion unit 12 weeks/3 mos post op
--- NOTE | 2024-01-29 16:27 | PT.OTN ---
Current Diagnoses Other specific arthropathies, not elsewhere classified, left shoulder (01/29/24) Unspecified rotator cuff tear or rupture of left shoulder, not specified as traumatic (01/29/24) Weakness (01/29/24) Physical Therapy Treatment Note PT-OP-A Visit Information Start: 01/10/24 07:24 Freq: Status: Active Protocol: Document 01/29/24 08:14 NM (Rec: 01/29/24 09:02 NM [id number]) Out-Patient Physical Therapy Visit Information Visit Information Visit Type Treatment Note Visit Note DOS 12/13/23 Visit Start Time 08:17 Visit Stop Time 09:00 Visit Number 6 Evaluation Information Evaluation Date 01/10/24 Precautions Precautions Reverse TSA precautions: no ext/ADD/IR (subscapularis not repaired) sling for comfort see protocol for restrictions 6 weeks: 01/24/24; 8 weeks: 02/06; 12 weeks: 03/07/24 Phase I: 3-6 weeks: PROM up to FF 120 (scaption plane) and ER to tolerance(scaption), submaximal pain free isometrics in scapular plane ( avoid ext); AAROM of cervical spine, wrist, elbow, hand Phase II after week 6 as appropriate PT-OP-B Current Condition Start: 01/10/24 07:24 Freq: Status: Active Protocol: Document 01/10/24 08:18 NM (Rec: 01/10/24 09:46 NM [id number]) Current Condition History of Current Condition Onset Date DOS 12/13/23 Current Complaints mobility, pain, strength History of Current Condition Pt had surgery for L rTSA on , by Dr. Blas. He states that Dr. Blas repaired his rotator cuff in 2021, but it atrophied and retore again, which is when pt opted for shoulder replacement. Pt had rotator cuff arthropathy. 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 Previously, he had L shoulder snapping, popping, grinding. He has had his first follow up post-op, reports that everything going well. Pt reports that he was having trouble with sling and gave up on it. He was sleeping in reclining chair with arm across chest. Currently sleeping in bed, rolled toward his shoulder. Pt reports that a week ago, he had aching pain in his L shoulder after he grabbed a [employer]ina pitcher with his L, felt a nasty pain in his L shoulder and was unable to lift anything including a teacup for days. Reports that was gradually getting better, until last night (01/08). Reports that he was holding the rosales with his L hand, which caused him to feel a sharp pain. He is left handed but able to use R hand for writing/eating/ADLs. He had follow up with doctor on . Pt reports that his has been helping him with dressing and all activities, but he feels bad that she has to do it all and wants to help. has been driving and helping pt with [employer] job. Has had 1 fall pre- surgery, but fell on R shoulder; states ankles giving out. He has not been performing any of the exercises from his doctor on Sunday. 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, 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 Current Functional Impairments (Reported) Functional Limitations- ADL's dressing assisting with dressing, ADLs, showering, grooming not sleeping with pillow behind arm Functional Limitations- Mobility/Gait strength loss Functional Limitations- 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 States he has been more careful about not using his arm. He has not worked for 4-5 days, been at home. States his pain goes up and down. Just took his last oxycodone but he has been trying to cut back.; still on gabapentin and tylenol. Has been sleeping both on his back with a pillow under arm and recliner PT-OP-F Manual Assessment Start: 01/10/24 07:24 Freq: Status: Active Protocol: Document 01/10/24 08:18 NM (Rec: 01/10/24 09:46 NM [id number]) Manual Assessments Soft Tissue Assessment Soft Tissue Mobility Assessment Increased tenderness, decreased length of latissimus dorsi and pectoralis Joint Mobility Assessment Joint Mobility Assessment Empty end feel with forward flexion and scaption ER. No L shoulder clicking, popping, dislocation with passive ROM. Full elbow and wrist AROM PT-OP-H Neuro Start: 01/10/24 07:24 Freq: Status: Active Protocol: Document 01/10/24 08:18 NM (Rec: 01/10/24 09:46 NM [id number]) Sensation Evaluation Comments Summary Comments BUE equally intact to light touch sensation, small decrease on L side near axilla PT-OP-J Posture/Palpation/Skin Start: 01/10/24 07:24 Freq: Status: Active Protocol: Document 01/10/24 08:18 NM (Rec: 01/10/24 09:46 NM [id number]) Posture Evaluation Position Sitting Head/C-Spine Posture Forward Head T-Spine Posture Increased Kyphosis Shoulder Posture (L) Rounded,(R) Rounded,(L) Forward,(R) Forward,(L) Elevated Scapula Posture (L) Protracted,(R) Protracted, (L) Elevated Arm Posture (L) Internally Rotated,(R) Internally Rotated Comments Posture Comments Elbow positioned by side at 0 deg abd, no use of sling Palpation Assessment Location L shoulder Palpation Details Tenderness along anterior shoulder with palpation and posterior cuff. Denies pain with palpation Skin Assessment Incisional Assessment Incision Appearance/Comments clean/dry/intact. Glue beginning to peel. Good healing w/o signs of infection , redness Small indention above scar from infection from previous rotator cuff repair PT-OP-K Range of Motion Start: 01/10/24 07:24 Freq: Status: Active Protocol: Document 01/10/24 08:18 NM (Rec: 01/10/24 09:46 NM [id number]) Shoulder Goniometric Range of Motion Shoulder L PROM Flexion 115 Comments ER in scaption plane 20 deg; empty end feel R AROM Flexion 155 Abduction 150 External Rotation at 0 degrees Abduction 70 Comments scaption: 150 deg PT-OP-M Strength Start: 01/10/24 07:24 Freq: Status: Active Protocol: Document 01/10/24 08:18 NM (Rec: 01/10/24 09:46 NM [id number]) Shoulder Strength Shoulder Manual Muscle Testing Left Comments Did not formally assess due to precautions and protocol Right Flexion 4 Good Abduction (C5) 4 Good External Rotation 4 Good Internal Rotation 4 Good PT-OP-Q Treatments Start: 01/10/24 07:24 Freq: Status: Active Protocol: Document 01/29/24 08:14 NM (Rec: 01/29/24 09:02 NM [id number]) Therapeutic Exercises Supine Exercises AROM scaption Supine Exercise Name with elbow flexed Side left Reps/Minutes 10 Comments cued slower motion to prevent jerking, minimize pain; 80 deg Sitting Exercises table slides Sitting Exercise Name FF in scaption plane (with trunk flexion) Reps/Minutes 10x2 Comments cued rest your head on table; 100 deg PROM with slight AAROM table slide Standing Exercises pendulums Standing Exercise Name PROM- fwd/back, CW, CCW Side left Equipment Used R arm positioned on table, leaning over, body performing movements Reps/Minutes x10 ea direction Comments cued neutral trunk, improved arm resting/dangle, post manual tx Manual Therapy Treatment Soft Tissue Mobilization left shoulder Body Location pec at axilla, scar tissue Mobilization Type Rolling Intensity/Depth moderate and superficial Body Position Hooklying Comments Monitored for pain and discomfort. Pt has good feedback response to gentle soft tissue mobilization Joint Mobilizations scapular Joint left shoulder Direction depression and adduction Grade II Body Position Sidelying Reps/Duration 10 ea Comments PROM, monitored for pain (did not have any) Manual Techniques AAROM Type Fwd flexion in scaption, ER in scaption Body Location GHJ Body Position Hooklying Comments Arm supported on pillow. PT assisting at elbow. Elbow flexed for both, monitored for pain AAROM to 90 deg FF scapular Type isometrics Body Location depression and adduction Reps/Duration 10 with 1-2 hold ea Comments manual resistance into PT hand , pain free. Cued for shoulder position to prevent forward shoulder PROM Type fwd flexion in scaption, ER in scaption Body Position Hooklying Comments Monitored for pain. Forward flexion performed with elbow flexed and extended; arm supported on pillow. Less guarding today. Up to 120 deg FF, 30 deg ER, and initiated 40 deg IR PROM Self-Care/Home Management Treatment Education Patient Education Home Exercise Program Other Education Educated to perform table slides at home as well during HEP for AAROM PT-OP-T Assessment and Plan Start: 01/10/24 07:24 Freq: Status: Active Protocol: Document 01/29/24 08:14 NM (Rec: 01/29/24 09:02 NM [id number]) Physical Therapy Assessment Goals Five Impairment sleep Impairment pt wakes 3x/night Short Term Goal (STG) Pt will report that he is waking <3x/night due to L shoulder pain in order to demonstrate improved pain management and QOL STG Duration 03/06/24 Fpc Goal (LTG) Pt will report that he does not wake up at night due to L shoulder pain in order to demonstrate improved pain management and QOL LTG Duration 04/04/24 Four Impairment pain Impairment currently 5/10 pain at rest, 10/10 reported with activity Short Term Goal (STG) Pt will report 5/10 pain or less in L shoulder with activity in order to demonstrate improved symptom management and QOL STG Duration 03/06/24 Fpc Goal (LTG) Pt will report 2/10 pain or less in L shoulder with activity in order to demonstrate improved symptom management and QOL LTG Duration 04/04/24 Three Impairment function, activity 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 Short Term Goal (STG) Pt will report that he is able to play piano with L shoulder pain <2/10 in order to demonstrate improved QOL and activity tolerance STG Duration 12/27/23 Fpc Goal (LTG) Pt will report that he is able to play piano without limitation and without increase in baseline pain in order to demonstrate improved QOL and activity tolerance LTG Duration 04/04/24 Two Impairment strength Impairment did not assess due to precautions Short Term Goal (STG) Pt will have at least 3+/5 L shoulder flexion and abduction in scaption plane strength with pain less than 5/10 in order to demonstrate improved ability to lift objects STG Duration 03/06/24 Fpc Goal (LTG) Pt will have at least 4/5 L shoulder flexion and abduction in scaption plane strength in order to demonstrate improved ability to lift objects LTG Duration 04/04/24 One Impairment ROM Impairment PROM currently 115 deg FF, 20 deg ER in scaption plane Short Term Goal (STG) Pt will have at least 120 deg of passive L forward flexion, full passive ER in scaption plane with pain <2/10 STG Duration 02/21/24 Fpc Goal (LTG) Pt will have at least 110 deg of active L forward shoulder flexion and functional ER of at least 30 degrees in scaption plane in order to demonstrate improved reaching and shoulder mobility for dressing/ADLs LTG Duration 04/04/24 Assessment Summary Assessment Pt tolerated well, reporting no increase in pain levels from 10/27. Currently 6.5 weeks post-op. Pt's PROM in scapular plane up to 120 deg forward flexion, 30 deg ER, and initiated passive IR up to 40 deg per protocol. AAROM to 90 deg, AROM to 80 deg. Continued with supine AROM, cueing for form. Pt largely pain free with AROM into forward flexion with elbow bent, but requires cues for gentle movement to prevent jerky motions. Educated to continue with isometrics and table slides at home. Pt would benefit from skilled PT for L shoulder mobility and strengthening per protocol in order to improve activity tolerance and ability to perform ADLs. Physical Therapy Plan Frequency and Duration Frequency of Treatment 2x/Week Duration of treatment (weeks) 12 Plan of Care Start Date 01/10/24 Plan of Care End Date 04/04/24 Therapeutic Interventions Therapeutic Interventions Gait Training,Home Exercise Program,Joint Mobilizations, Manual Therapy,Neuromuscular Re-education,Orthotic/ Prosthetic Management,Patient/ Caregiver Education,Self-Care/ Home Management,Sensory Integration,Soft Tissue Mobilization,Taping, Therapeutic Activities, Therapeutic Exercises Modalities Cold Pack/Ice Massage,Electric Stimulation,Hot Packs, Ultrasound Next Visit Focus/Plan Next Note Type Treatment Note Next Visit Plan -- AAROM>AROM, sofy with post delt into ext with neutral ( elbow equal with body, not past neutral) and increase hold time. PROM into IR (up to 50 deg) Continue [id number] up to 120 deg FF and ER to tolerance in scapular plane; cont deltoid isometrics ( increase hold time if pain free). 6 weeks (01/24/24)- start PROM Ir in scapular plane to tolerance, start AAROM to tolerance in supine w/ cane, scapulothoracic rhythmic stabilization in supine PROM up to 120 FF and ER to tolerance in scapular plane until 6 weeks, then progress to phase II if appropriate Sub-maximal pain free deltoid isometrics in scapular plane ( no shoulder ext) table walks, pendulums, scapular retractions w/o shoulder ext, resisted wrist and process improvement analyst exercises No resistance for elbow flexion unit 12 weeks/3 mos post op
--- NOTE | 2024-02-01 14:25 | PT.OTN ---
Current Diagnoses Other specific arthropathies, not elsewhere classified, left shoulder (02/01/24) Unspecified rotator cuff tear or rupture of left shoulder, not specified as traumatic (02/01/24) Weakness (02/01/24) Physical Therapy Treatment Note PT-OP-A Visit Information Start: 01/10/24 07:24 Freq: Status: Active Protocol: Document 02/01/24 08:10 AB (Rec: 02/01/24 09:01 AB [id number]) Out-Patient Physical Therapy Visit Information Visit Information Visit Type Treatment Note Visit Note DOS 12/13/23 Access Code: [email or web address] Visit Start Time 08:17 Visit Stop Time 08:59 Visit Number 7 Number of PAPER FEEDER Visits 1 Evaluation Information Evaluation Date 01/10/24 Precautions Precautions Reverse TSA precautions: no ext/ADD/IR (subscapularis not repaired) sling for comfort see protocol for restrictions 6 weeks: 01/24/24; 8 weeks: 02/06; 12 weeks: 03/07/24 Phase I: 3-6 weeks: PROM up to FF 120 (scaption plane) and ER to tolerance(scaption), submaximal pain free isometrics in scapular plane ( avoid ext); AAROM of cervical spine, wrist, elbow, hand Phase II after week 6 as appropriate PT-OP-B Current Condition Start: 01/10/24 07:24 Freq: Status: Active Protocol: Document 01/10/24 08:18 NM (Rec: 01/10/24 09:46 NM [id number]) Current Condition History of Current Condition Onset Date DOS 12/13/23 Current Complaints mobility, pain, strength History of Current Condition Pt had surgery for L rTSA on , by Dr. Blas. He states that Dr. Blas repaired his rotator cuff in 2021, but it atrophied and retore again, which is when pt opted for shoulder replacement. Pt had rotator cuff arthropathy. 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 Previously, he had L shoulder snapping, popping, grinding. He has had his first follow up post-op, reports that everything going well. Pt reports that he was having trouble with sling and gave up on it. He was sleeping in reclining chair with arm across chest. Currently sleeping in bed, rolled toward his shoulder. Pt reports that a week ago, he had aching pain in his L shoulder after he grabbed a [employer]ina pitcher with his L, felt a nasty pain in his L shoulder and was unable to lift anything including a teacup for days. Reports that was gradually getting better, until last night (01/08). Reports that he was holding the rosales with his L hand, which caused him to feel a sharp pain. He is left handed but able to use R hand for writing/eating/ADLs. He had follow up with doctor on . Pt reports that his has been helping him with dressing and all activities, but he feels bad that she has to do it all and wants to help. has been driving and helping pt with [employer] job. Has had 1 fall pre- surgery, but fell on R shoulder; states ankles giving out. He has not been performing any of the exercises from his doctor on Sunday. 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, 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 Current Functional Impairments (Reported) Functional Limitations- ADL's dressing assisting with dressing, ADLs, showering, grooming not sleeping with pillow behind arm Functional Limitations- Mobility/Gait strength loss Functional Limitations- 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 Patient reports the shoulder is slowly getting better, pain is less is slowing down on the pain meds. AROM left shoulder scaption 125 deg. PT-OP-F Manual Assessment Start: 01/10/24 07:24 Freq: Status: Active Protocol: Document 01/10/24 08:18 NM (Rec: 01/10/24 09:46 NM [id number]) Manual Assessments Soft Tissue Assessment Soft Tissue Mobility Assessment Increased tenderness, decreased length of latissimus dorsi and pectoralis Joint Mobility Assessment Joint Mobility Assessment Empty end feel with forward flexion and scaption ER. No L shoulder clicking, popping, dislocation with passive ROM. Full elbow and wrist AROM PT-OP-H Neuro Start: 01/10/24 07:24 Freq: Status: Active Protocol: Document 01/10/24 08:18 NM (Rec: 01/10/24 09:46 NM [id number]) Sensation Evaluation Comments Summary Comments BUE equally intact to light touch sensation, small decrease on L side near axilla PT-OP-J Posture/Palpation/Skin Start: 01/10/24 07:24 Freq: Status: Active Protocol: Document 01/10/24 08:18 NM (Rec: 01/10/24 09:46 NM [id number]) Posture Evaluation Position Sitting Head/C-Spine Posture Forward Head T-Spine Posture Increased Kyphosis Shoulder Posture (L) Rounded,(R) Rounded,(L) Forward,(R) Forward,(L) Elevated Scapula Posture (L) Protracted,(R) Protracted, (L) Elevated Arm Posture (L) Internally Rotated,(R) Internally Rotated Comments Posture Comments Elbow positioned by side at 0 deg abd, no use of sling Palpation Assessment Location L shoulder Palpation Details Tenderness along anterior shoulder with palpation and posterior cuff. Denies pain with palpation Skin Assessment Incisional Assessment Incision Appearance/Comments clean/dry/intact. Glue beginning to peel. Good healing w/o signs of infection , redness Small indention above scar from infection from previous rotator cuff repair PT-OP-K Range of Motion Start: 01/10/24 07:24 Freq: Status: Active Protocol: Document 01/10/24 08:18 NM (Rec: 01/10/24 09:46 NM [id number]) Shoulder Goniometric Range of Motion Shoulder L PROM Flexion 115 Comments ER in scaption plane 20 deg; empty end feel R AROM Flexion 155 Abduction 150 External Rotation at 0 degrees Abduction 70 Comments scaption: 150 deg PT-OP-M Strength Start: 01/10/24 07:24 Freq: Status: Active Protocol: Document 01/10/24 08:18 NM (Rec: 01/10/24 09:46 NM [id number]) Shoulder Strength Shoulder Manual Muscle Testing Left Comments Did not formally assess due to precautions and protocol Right Flexion 4 Good Abduction (C5) 4 Good External Rotation 4 Good Internal Rotation 4 Good PT-OP-Q Treatments Start: 01/10/24 07:24 Freq: Status: Active Protocol: Document 02/01/24 08:10 AB (Rec: 02/01/24 09:01 AB [id number]) Therapeutic Exercises Supine Exercises flexion with dowel Supine Exercise Name AAROM with dowel Side left Reps/Minutes X10 and X 5 Comments X10 supine X 5 reclined isometric shoulder extension Supine Exercise Name UE supported on pillow and towel roll to maintain alignment with trunk Side left Reps/Minutes X10 5 sec AROM scaption Supine Exercise Name with elbow flexed Side left Reps/Minutes 10 Comments cued slower motion to prevent jerking, minimize pain; 80 deg Sitting Exercises scapular retraction Side bilateral Reps/Minutes X10 X2 Manual Therapy Treatment Soft Tissue Mobilization left shoulder Body Location pec at axilla, scar tissue Mobilization Type Rolling Intensity/Depth moderate and superficial Body Position Hooklying Comments Monitored for pain and discomfort. Pt has good feedback response to gentle soft tissue mobilization Joint Mobilizations scapular Joint left shoulder Direction depression and adduction Grade II Body Position Sidelying Reps/Duration 10 ea Comments PROM, monitored for pain (did not have any) Manual Techniques scapular Type isometrics Body Location depression and adduction Reps/Duration 10 with 1-2 hold ea Comments manual resistance into PT hand , pain free. Cued for shoulder position to prevent forward shoulder PROM Type fwd flexion in scaption, ER in scaption Body Position Hooklying Comments Monitored for pain. Forward flexion performed with elbow flexed and extended; arm supported on pillow. Less guarding today. Up to 120 deg FF, 30 deg ER, and initiated 40 deg IR PROM PT-OP-T Assessment and Plan Start: 01/10/24 07:24 Freq: Status: Active Protocol: Document 02/01/24 08:10 AB (Rec: 02/01/24 09:01 AB [id number]) Physical Therapy Assessment Goals Five Impairment sleep Impairment pt wakes 3x/night Short Term Goal (STG) Pt will report that he is waking <3x/night due to L shoulder pain in order to demonstrate improved pain management and QOL STG Duration 03/06/24 Guest Relations Representative Goal (LTG) Pt will report that he does not wake up at night due to L shoulder pain in order to demonstrate improved pain management and QOL LTG Duration 04/04/24 Four Impairment pain Impairment currently 5/10 pain at rest, 10/10 reported with activity Short Term Goal (STG) Pt will report 5/10 pain or less in L shoulder with activity in order to demonstrate improved symptom management and QOL STG Duration 03/06/24 Long-Term Goal (LTG) Pt will report 2/10 pain or less in L shoulder with activity in order to demonstrate improved symptom management and QOL LTG Duration 04/04/24 Three Impairment function, activity 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 Short Term Goal (STG) Pt will report that he is able to play piano with L shoulder pain <2/10 in order to demonstrate improved QOL and activity tolerance STG Duration 12/27/23 Guest Relations Representative Goal (LTG) Pt will report that he is able to play piano without limitation and without increase in baseline pain in order to demonstrate improved QOL and activity tolerance LTG Duration 04/04/24 Two Impairment strength Impairment did not assess due to precautions Short Term Goal (STG) Pt will have at least 3+/5 L shoulder flexion and abduction in scaption plane strength with pain less than 5/10 in order to demonstrate improved ability to lift objects STG Duration 03/06/24 Guest Relations Representative Goal (LTG) Pt will have at least 4/5 L shoulder flexion and abduction in scaption plane strength in order to demonstrate improved ability to lift objects LTG Duration 04/04/24 One Impairment ROM Impairment PROM currently 115 deg FF, 20 deg ER in scaption plane Short Term Goal (STG) Pt will have at least 120 deg of passive L forward flexion, full passive ER in scaption plane with pain <2/10 STG Duration 02/21/24 Long-Term Goal (LTG) Pt will have at least 110 deg of active L forward shoulder flexion and functional ER of at least 30 degrees in scaption plane in order to demonstrate improved reaching and shoulder mobility for dressing/ADLs LTG Duration 04/04/24 Assessment Summary Assessment PROM 114 deg scaption left UE post manual therapy. AROM left shoulder scaption 101 deg end of session, rating pain 3.5/ 10 end of session. Physical Therapy Plan Frequency and Duration Frequency of Treatment 2x/Week Duration of treatment (weeks) 12 Plan of Care Start Date 01/10/24 Plan of Care End Date 04/04/24 Next Visit Focus/Plan Next Note Type Treatment Note Next Visit Plan -- AAROM>AROM, sofy with post delt into ext with neutral ( elbow equal with body, not past neutral) and increase hold time. PROM into IR (up to 50 deg) Continue [id number] up to 120 deg FF and ER to tolerance in scapular plane; cont deltoid isometrics ( increase hold time if pain free). 6 weeks (01/24/24)- start PROM Ir in scapular plane to tolerance, start AAROM to tolerance in supine w/ cane, scapulothoracic rhythmic stabilization in supine PROM up to 120 FF and ER to tolerance in scapular plane until 6 weeks, then progress to phase II if appropriate Sub-maximal pain free deltoid isometrics in scapular plane ( no shoulder ext) table walks, pendulums, scapular retractions w/o shoulder ext, resisted wrist and windows laptop technician exercises No resistance for elbow flexion unit 12 weeks/3 mos post op
--- NOTE | 2024-02-04 15:07 | PT.OTN ---
Current Diagnoses Other specific arthropathies, not elsewhere classified, left shoulder (02/04/24) Unspecified rotator cuff tear or rupture of left shoulder, not specified as traumatic (02/04/24) Weakness (02/04/24) Physical Therapy Treatment Note PT-OP-A Visit Information Start: 01/10/24 07:24 Freq: Status: Active Protocol: Document 02/04/24 08:13 AB (Rec: 02/04/24 09:46 AB [id number]) Out-Patient Physical Therapy Visit Information Visit Information Visit Type Treatment Note Visit Note DOS 12/13/23 Access Code: [email or web address] Visit Start Time 09:02 Visit Stop Time 09:43 Visit Number 8 Number of CEMENTER MACHINE Visits 2 Evaluation Information Evaluation Date 01/10/24 Precautions Precautions Reverse TSA precautions: no ext/ADD/IR (subscapularis not repaired) sling for comfort see protocol for restrictions 6 weeks: 01/24/24; 8 weeks: 02/06; 12 weeks: 03/07/24 Phase I: 3-6 weeks: PROM up to FF 120 (scaption plane) and ER to tolerance(scaption), submaximal pain free isometrics in scapular plane ( avoid ext); AAROM of cervical spine, wrist, elbow, hand Phase II after week 6 as appropriate PT-OP-B Current Condition Start: 01/10/24 07:24 Freq: Status: Active Protocol: Document 01/10/24 08:18 NM (Rec: 01/10/24 09:46 NM [id number]) Current Condition History of Current Condition Onset Date DOS 12/13/23 Current Complaints mobility, pain, strength History of Current Condition Pt had surgery for L rTSA on , by Dr. Blas. He states that Dr. Blas repaired his rotator cuff in 2021, but it atrophied and retore again, which is when pt opted for shoulder replacement. Pt had rotator cuff arthropathy. 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 Previously, he had L shoulder snapping, popping, grinding. He has had his first follow up post-op, reports that everything going well. Pt reports that he was having trouble with sling and gave up on it. He was sleeping in reclining chair with arm across chest. Currently sleeping in bed, rolled toward his shoulder. Pt reports that a week ago, he had aching pain in his L shoulder after he grabbed a Trina pitcher with his L, felt a nasty pain in his L shoulder and was unable to lift anything including a teacup for days. Reports that was gradually getting better, until last night (01/08). Reports that he was holding the rosales with his L hand, which caused him to feel a sharp pain. He is left handed but able to use R hand for writing/eating/ADLs. He had follow up with doctor on . Pt reports that his has been helping him with dressing and all activities, but he feels bad that she has to do it all and wants to help. has been driving and helping pt with [employer] job. Has had 1 fall pre- surgery, but fell on R shoulder; states ankles giving out. He has not been performing any of the exercises from his doctor on Sunday. 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 Current Functional Impairments (Reported) Functional Limitations- ADL's dressing assisting with dressing, ADLs, showering, grooming not sleeping with pillow behind arm Functional Limitations- Mobility/Gait strength loss Functional Limitations- 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 Patient reports the shoulder is the same, comments the exercises are going ok. Patient comments he does get sharp pain occaionally when moving the arm out. AROM left shoulder scaption. AROM left shoulder scaption 111 deg start of session in standing. / patient report patient occasionally uses left UE to grab something. PT-OP-F Manual Assessment Start: 01/10/24 07:24 Freq: Status: Active Protocol: Document 01/10/24 08:18 NM (Rec: 01/10/24 09:46 NM [id number]) Manual Assessments Soft Tissue Assessment Soft Tissue Mobility Assessment Increased tenderness, decreased length of latissimus dorsi and pectoralis Joint Mobility Assessment Joint Mobility Assessment Empty end feel with forward flexion and scaption ER. No L shoulder clicking, popping, dislocation with passive ROM. Full elbow and wrist AROM PT-OP-H Neuro Start: 01/10/24 07:24 Freq: Status: Active Protocol: Document 01/10/24 08:18 NM (Rec: 01/10/24 09:46 NM [id number]) Sensation Evaluation Comments Summary Comments BUE equally intact to light touch sensation, small decrease on L side near axilla PT-OP-J Posture/Palpation/Skin Start: 01/10/24 07:24 Freq: Status: Active Protocol: Document 01/10/24 08:18 NM (Rec: 01/10/24 09:46 NM [id number]) Posture Evaluation Position Sitting Head/C-Spine Posture Forward Head T-Spine Posture Increased Kyphosis Shoulder Posture (L) Rounded,(R) Rounded,(L) Forward,(R) Forward,(L) Elevated Scapula Posture (L) Protracted,(R) Protracted, (L) Elevated Arm Posture (L) Internally Rotated,(R) Internally Rotated Comments Posture Comments Elbow positioned by side at 0 deg abd, no use of sling Palpation Assessment Location L shoulder Palpation Details Tenderness along anterior shoulder with palpation and posterior cuff. Denies pain with palpation Skin Assessment Incisional Assessment Incision Appearance/Comments clean/dry/intact. Glue beginning to peel. Good healing w/o signs of infection , redness Small indention above scar from infection from previous rotator cuff repair PT-OP-K Range of Motion Start: 01/10/24 07:24 Freq: Status: Active Protocol: Document 01/10/24 08:18 NM (Rec: 01/10/24 09:46 NM [id number]) Shoulder Goniometric Range of Motion Shoulder L PROM Flexion 115 Comments ER in scaption plane 20 deg; empty end feel R AROM Flexion 155 Abduction 150 External Rotation at 0 degrees Abduction 70 Comments scaption: 150 deg PT-OP-M Strength Start: 01/10/24 07:24 Freq: Status: Active Protocol: Document 01/10/24 08:18 NM (Rec: 01/10/24 09:46 NM [id number]) Shoulder Strength Shoulder Manual Muscle Testing Left Comments Did not formally assess due to precautions and protocol Right Flexion 4 Good Abduction (C5) 4 Good External Rotation 4 Good Internal Rotation 4 Good PT-OP-Q Treatments Start: 01/10/24 07:24 Freq: Status: Active Protocol: Document 02/04/24 08:13 AB (Rec: 02/04/24 09:46 AB [id number]) Therapeutic Exercises Supine Exercises flexion with dowel Supine Exercise Name AAROM with dowel Side left Reps/Minutes X10 isometric shoulder extension Supine Exercise Name UE supported on pillow and towel roll to maintain alignment with trunk AROM scaption Supine Exercise Name with elbow flexed/reclined this session Side left Reps/Minutes 10 Standing Exercises isometrics Standing Exercise Name abduction Side left Reps/Minutes 2x10 with 3 hold Comments verbal cues for pain free Manual Therapy Treatment Soft Tissue Mobilization left shoulder Body Location pec at axilla, scar tissue Mobilization Type Rolling Intensity/Depth moderate and superficial Body Position Hooklying Comments Monitored for pain and discomfort. Pt has good feedback response to gentle soft tissue mobilization Joint Mobilizations scapular Joint left shoulder Direction depression and adduction Grade II Body Position Sidelying Reps/Duration 10 ea Comments PROM, monitored for pain (did not have any) Manual Techniques scapular Type isometrics Body Location depression and adduction Reps/Duration 10 with 1-2 hold ea Comments manual resistance into PT hand , pain free. Cued for shoulder position to prevent forward shoulder PROM Type fwd flexion in scaption, ER in scaption Body Position Hooklying Comments Monitored for pain. Forward flexion performed with elbow flexed and extended; arm supported on pillow. Less guarding today. Up to 120 deg FF, 30 deg ER, and initiated 40 deg IR PROM Self-Care/Home Management Treatment Education Other Education reclined shoulder flexion with elbow bent PT-OP-T Assessment and Plan Start: 01/10/24 07:24 Freq: Status: Active Protocol: Document 02/04/24 08:13 AB (Rec: 02/04/24 09:46 AB [id number]) Physical Therapy Assessment Goals Five Impairment sleep Impairment pt wakes 3x/night Short Term Goal (STG) Pt will report that he is waking <3x/night due to L shoulder pain in order to demonstrate improved pain management and QOL STG Duration 03/06/24 Papier Mache' Molder Goal (LTG) Pt will report that he does not wake up at night due to L shoulder pain in order to demonstrate improved pain management and QOL LTG Duration 04/04/24 Four Impairment pain Impairment currently 5/10 pain at rest, 10/10 reported with activity Short Term Goal (STG) Pt will report 5/10 pain or less in L shoulder with activity in order to demonstrate improved symptom management and QOL STG Duration 03/06/24 Residential Goal (LTG) Pt will report 2/10 pain or less in L shoulder with activity in order to demonstrate improved symptom management and QOL LTG Duration 04/04/24 Three Impairment function, activity 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 Short Term Goal (STG) Pt will report that he is able to play piano with L shoulder pain <2/10 in order to demonstrate improved QOL and activity tolerance STG Duration 12/27/23 Papier Mache' Molder Goal (LTG) Pt will report that he is able to play piano without limitation and without increase in baseline pain in order to demonstrate improved QOL and activity tolerance LTG Duration 04/04/24 Two Impairment strength Impairment did not assess due to precautions Short Term Goal (STG) Pt will have at least 3+/5 L shoulder flexion and abduction in scaption plane strength with pain less than 5/10 in order to demonstrate improved ability to lift objects STG Duration 03/06/24 Residential Goal (LTG) Pt will have at least 4/5 L shoulder flexion and abduction in scaption plane strength in order to demonstrate improved ability to lift objects LTG Duration 04/04/24 One Impairment ROM Impairment PROM currently 115 deg FF, 20 deg ER in scaption plane Short Term Goal (STG) Pt will have at least 120 deg of passive L forward flexion, full passive ER in scaption plane with pain <2/10 STG Duration 02/21/24 Residential Goal (LTG) Pt will have at least 110 deg of active L forward shoulder flexion and functional ER of at least 30 degrees in scaption plane in order to demonstrate improved reaching and shoulder mobility for dressing/ADLs LTG Duration 04/04/24 Assessment Summary Assessment AROM left shoulder scaption end of session in standing 113 deg. Slight increase compared to start of session, patient reports he took only 3 Ibuprofen and 2 Tylenol prior to this session. Physical Therapy Plan Frequency and Duration Frequency of Treatment 2x/Week Duration of treatment (weeks) 12 Plan of Care Start Date 01/10/24 Plan of Care End Date 04/04/24 Next Visit Focus/Plan Next Note Type Treatment Note Next Visit Plan -- AAROM>AROM, sofy with post delt into ext with neutral ( elbow equal with body, not past neutral) and increase hold time. PROM into IR (up to 50 deg) Continue [id number] up to 120 deg FF and ER to tolerance in scapular plane; cont deltoid isometrics ( increase hold time if pain free). 6 weeks (01/24/24)- start PROM Ir in scapular plane to tolerance, start AAROM to tolerance in supine w/ cane, scapulothoracic rhythmic stabilization in supine PROM up to 120 FF and ER to tolerance in scapular plane until 6 weeks, then progress to phase II if appropriate Sub-maximal pain free deltoid isometrics in scapular plane ( no shoulder ext) table walks, pendulums, scapular retractions w/o shoulder ext, resisted wrist and youth worker exercises No resistance for elbow flexion unit 12 weeks/3 mos post op
--- NOTE | 2024-02-07 15:38 | PT.OTN ---
Current Diagnoses Other specific arthropathies, not elsewhere classified, left shoulder (02/07/24) Unspecified rotator cuff tear or rupture of left shoulder, not specified as traumatic (02/07/24) Weakness (02/07/24) Physical Therapy Treatment Note PT-OP-A Visit Information Start: 01/10/24 07:24 Freq: Status: Active Protocol: Document 02/07/24 09:49 NM (Rec: 02/07/24 10:33 NM [id number]) Out-Patient Physical Therapy Visit Information Visit Information Visit Type Treatment Note Visit Start Time 09:49 Visit Stop Time 10:30 Visit Number 9 Evaluation Information Evaluation Date 01/10/24 Precautions Precautions Reverse TSA precautions: no ext/ADD/IR (subscapularis not repaired) sling for comfort see protocol for restrictions 6 weeks: 01/24/24; 8 weeks: 02/06; 12 weeks: 03/07/24 Phase I: 3-6 weeks: PROM up to FF 120 (scaption plane) and ER to tolerance(scaption), submaximal pain free isometrics in scapular plane ( avoid ext); AAROM of cervical spine, wrist, elbow, hand Phase II after week 6 as appropriate PT-OP-B Current Condition Start: 01/10/24 07:24 Freq: Status: Active Protocol: Document 01/10/24 08:18 NM (Rec: 01/10/24 09:46 NM [id number]) Current Condition History of Current Condition Onset Date DOS 12/13/23 Current Complaints mobility, pain, strength History of Current Condition Pt had surgery for L rTSA on , by Dr. Blas. He states that Dr. Blas repaired his rotator cuff in 2021, but it atrophied and retore again, which is when pt opted for shoulder replacement. Pt had rotator cuff arthropathy. 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 Previously, he had L shoulder snapping, popping, grinding. He has had his first follow up post-op, reports that everything going well. Pt reports that he was having trouble with sling and gave up on it. He was sleeping in reclining chair with arm across chest. Currently sleeping in bed, rolled toward his shoulder. Pt reports that a week ago, he had aching pain in his L shoulder after he grabbed a Trina pitcher with his L, felt a nasty pain in his L shoulder and was unable to lift anything including a teacup for days. Reports that was gradually getting better, until last night (01/08). Reports that he was holding the rosales with his L hand, which caused him to feel a sharp pain. He is left handed but able to use R hand for writing/eating/ADLs. He had follow up with doctor on . Pt reports that his has been helping him with dressing and all activities, but he feels bad that she has to do it all and wants to help. has been driving and helping pt with [employer] job. Has had 1 fall pre- surgery, but fell on R shoulder; states ankles giving out. He has not been performing any of the exercises from his doctor on Sunday. 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, 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 Current Functional Impairments (Reported) Functional Limitations- ADL's dressing assisting with dressing, ADLs, showering, grooming not sleeping with pillow behind arm Functional Limitations- Mobility/Gait strength loss Functional Limitations- 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 Took pain meds only 1 yesterday, but thinks he is having withdrawals from oxycodone ( only 1 a day). States 2/10 in L shoulder. Sleeping is better but still sore from leaning on shoulder, still has pillow under arm but lies on in [address] PT-OP-F Manual Assessment Start: 01/10/24 07:24 Freq: Status: Active Protocol: Document 01/10/24 08:18 NM (Rec: 01/10/24 09:46 NM [id number]) Manual Assessments Soft Tissue Assessment Soft Tissue Mobility Assessment Increased tenderness, decreased length of latissimus dorsi and pectoralis Joint Mobility Assessment Joint Mobility Assessment Empty end feel with forward flexion and scaption ER. No L shoulder clicking, popping, dislocation with passive ROM. Full elbow and wrist AROM PT-OP-H Neuro Start: 01/10/24 07:24 Freq: Status: Active Protocol: Document 01/10/24 08:18 NM (Rec: 01/10/24 09:46 NM [id number]) Sensation Evaluation Comments Summary Comments BUE equally intact to light touch sensation, small decrease on L side near axilla PT-OP-J Posture/Palpation/Skin Start: 01/10/24 07:24 Freq: Status: Active Protocol: Document 01/10/24 08:18 NM (Rec: 01/10/24 09:46 NM [id number]) Posture Evaluation Position Sitting Head/C-Spine Posture Forward Head T-Spine Posture Increased Kyphosis Shoulder Posture (L) Rounded,(R) Rounded,(L) Forward,(R) Forward,(L) Elevated Scapula Posture (L) Protracted,(R) Protracted, (L) Elevated Arm Posture (L) Internally Rotated,(R) Internally Rotated Comments Posture Comments Elbow positioned by side at 0 deg abd, no use of sling Palpation Assessment Location L shoulder Palpation Details Tenderness along anterior shoulder with palpation and posterior cuff. Denies pain with palpation Skin Assessment Incisional Assessment Incision Appearance/Comments clean/dry/intact. Glue beginning to peel. Good healing w/o signs of infection , redness Small indention above scar from infection from previous rotator cuff repair PT-OP-K Range of Motion Start: 01/10/24 07:24 Freq: Status: Active Protocol: Document 01/10/24 08:18 NM (Rec: 01/10/24 09:46 NM [id number]) Shoulder Goniometric Range of Motion Shoulder L PROM Flexion 115 Comments ER in scaption plane 20 deg; empty end feel R AROM Flexion 155 Abduction 150 External Rotation at 0 degrees Abduction 70 Comments scaption: 150 deg PT-OP-M Strength Start: 01/10/24 07:24 Freq: Status: Active Protocol: Document 01/10/24 08:18 NM (Rec: 01/10/24 09:46 NM [id number]) Shoulder Strength Shoulder Manual Muscle Testing Left Comments Did not formally assess due to precautions and protocol Right Flexion 4 Good Abduction (C5) 4 Good External Rotation 4 Good Internal Rotation 4 Good PT-OP-Q Treatments Start: 01/10/24 07:24 Freq: Status: Active Protocol: Document 02/07/24 09:49 NM (Rec: 02/07/24 10:33 NM [id number]) Therapeutic Exercises Supine Exercises ER with dowel Supine Exercise Name AAROM in scaption Side left Equipment Used dowel Reps/Minutes 10 Comments 30 deg max; cued pain free, R assisting L flexion with dowel Supine Exercise Name AAROM with dowel Side left Reps/Minutes 10 Comments 120 deg; cued pain free, R assisting L Sitting Exercises scapular retraction Side bilateral Reps/Minutes 2x10 with 5 Comments cued to maintain relaxed shoulders to prevent UT compensation Standing Exercises isometrics Standing Exercise Name 1. ER, 2. IR, 3. ADD, 4. ext in neutral Side left Equipment Used towel for ADD, pillow behind arm for ext; PT providing resistance for ER/IR Reps/Minutes 10x3 hold ea Comments verbal cues for pain free, fatiguing; edu not to perform at home Manual Therapy Treatment Soft Tissue Mobilization left shoulder Body Location pec at axilla, scar tissue, biceps muscle belly, UT, scalenes Mobilization Type Rolling Intensity/Depth moderate and superficial Body Position Hooklying Comments Monitored for pain and discomfort. Pt has good feedback response to gentle soft tissue mobilization Manual Techniques AAROM Type Fwd flexion in scaption, ER in scaption Body Location GHJ Body Position Hooklying Comments Arm supported on pillow. PT assisting at elbow. Elbow flexed for both, monitored for pain AAROM to 90 deg FF PROM Type fwd flexion in scaption, ER in scaption Body Position Hooklying Comments Monitored for pain. Forward flexion performed with elbow flexed and extended; arm supported on pillow. Less guarding today. Up to 120 deg FF, 30 deg ER, and initiated 40 deg IR PROM Self-Care/Home Management Treatment Education Other Education Educated not to drive until cleared by PT-OP-T Assessment and Plan Start: 01/10/24 07:24 Freq: Status: Active Protocol: Document 02/07/24 09:49 NM (Rec: 02/07/24 10:33 NM [id number]) Physical Therapy Assessment Goals Five Impairment sleep Impairment pt wakes 3x/night Short Term Goal (STG) Pt will report that he is waking <3x/night due to L shoulder pain in order to demonstrate improved pain management and QOL 02/07/24: waking at least 2x/ night STG Duration 03/06/24 MET Drum [place]ater Goal (LTG) Pt will report that he does not wake up at night due to L shoulder pain in order to demonstrate improved pain management and QOL LTG Duration 04/04/24 Four Impairment pain Impairment currently 5/10 pain at rest, 10/10 reported with activity Short Term Goal (STG) Pt will report 5/10 pain or less in L shoulder with activity in order to demonstrate improved symptom management and QOL STG Duration 03/06/24 Drum [place] Goal (LTG) Pt will report 2/10 pain or less in L shoulder with activity in order to demonstrate improved symptom management and QOL LTG Duration 04/04/24 Three Impairment function, activity 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 Short Term Goal (STG) Pt will report that he is able to play piano with L shoulder pain <2/10 in order to demonstrate improved QOL and activity tolerance STG Duration 12/27/23 Drum [place] Goal (LTG) Pt will report that he is able to play piano without limitation and without increase in baseline pain in order to demonstrate improved QOL and activity tolerance LTG Duration 04/04/24 Two Impairment strength Impairment did not assess due to precautions Short Term Goal (STG) Pt will have at least 3+/5 L shoulder flexion and abduction in scaption plane strength with pain less than 5/10 in order to demonstrate improved ability to lift objects STG Duration 03/06/24 Drum [place]ater Goal (LTG) Pt will have at least 4/5 L shoulder flexion and abduction in scaption plane strength in order to demonstrate improved ability to lift objects LTG Duration 04/04/24 One Impairment ROM Impairment PROM currently 115 deg FF, 20 deg ER in scaption plane Short Term Goal (STG) Pt will have at least 120 deg of passive L forward flexion, full passive ER in scaption plane with pain <2/10 STG Duration 02/21/24 [place] Goal (LTG) Pt will have at least 110 deg of active L forward shoulder flexion and functional ER of at least 30 degrees in scaption plane in order to demonstrate improved reaching and shoulder mobility for dressing/ADLs LTG Duration 04/04/24 Assessment Summary Assessment Pt tolerated session well. In supine, he has 120 deg forward flexion scaption AAROM, 110 AROM in scaption while supine with elbow slightly flexed. Pt occasionally has pain with descent but usually if not controlling L arm descent despite cueing. Initiated AAROM ER with dowel and isometrics with ER/IR/ADD/ neutral ext. For AAROM, verbal and tactile feedback utilized for pt to remain within ROM allowed by protocol. Pt pain free with isometrics but requires cueing for both form and correct execution. Pt only 2.5/10 L shoulder pain at end of session. Educated on joint safety including not driving until cleared by MD and scapular control/posture to limit anterior shoulder tightness. Pt would benefit from skilled PT for L shoulder mobility and strengthening per protocol in order to improve activity tolerance. Physical Therapy Plan Frequency and Duration Frequency of Treatment 2x/Week Duration of treatment (weeks) 12 Plan of Care Start Date 01/10/24 Plan of Care End Date 04/04/24 Therapeutic Interventions Therapeutic Interventions Gait Training,Home Exercise Program,Joint Mobilizations, Manual Therapy,Neuromuscular Re-education,Orthotic/ Prosthetic Management,Patient/ Caregiver Education,Self-Care/ Home Management,Sensory Integration,Soft Tissue Mobilization,Taping, Therapeutic Activities, Therapeutic Exercises Modalities Cold Pack/Ice Massage,Electric Stimulation,Hot Packs, Ultrasound Next Visit Focus/Plan Next Note Type Progress Note Next Visit Plan Review and add to HEP if good for: isometrics IR/ER/Ext in neutral -- AAROM>AROM, sofy with post delt into ext with neutral ( elbow equal with body, not past neutral) and increase hold time. PROM into IR (up to 50 deg) Continue FLAN-GUBDC-KWTI up to 120 deg FF and ER to tolerance in scapular plane; cont deltoid isometrics ( increase hold time if pain free). 6 weeks (01/24/24)- start PROM Ir in scapular plane to tolerance, start AAROM to tolerance in supine w/ cane, scapulothoracic rhythmic stabilization in supine PROM up to 120 FF and ER to tolerance in scapular plane until 6 weeks, then progress to phase II if appropriate Sub-maximal pain free deltoid isometrics in scapular plane ( no shoulder ext) table walks, pendulums, scapular retractions w/o shoulder ext, resisted wrist and molder machine exercises No resistance for elbow flexion unit 12 weeks/3 mos post op
--- NOTE | 2024-02-12 15:41 | PT.OTN ---
Current Diagnoses Other specific arthropathies, not elsewhere classified, left shoulder (02/12/24) Unspecified rotator cuff tear or rupture of left shoulder, not specified as traumatic (02/12/24) Weakness (02/12/24) Physical Therapy Treatment Note PT-OP-A Visit Information Start: 01/10/24 07:24 Freq: Status: Active Protocol: Document 02/12/24 09:48 NM (Rec: 02/12/24 10:30 NM [id number]) Out-Patient Physical Therapy Visit Information Visit Information Visit Type Progress Note Visit Start Time 09:50 Visit Stop Time 10:28 Visit Number 10 Evaluation Information Evaluation Date 01/10/24 Precautions Precautions Reverse TSA precautions: no ext/ADD/IR (subscapularis not repaired) sling for comfort see protocol for restrictions 6 weeks: 01/24/24; 8 weeks: 02/06; 12 weeks: 03/07/24 Phase I: 3-6 weeks: PROM up to FF 120 (scaption plane) and ER to tolerance(scaption), submaximal pain free isometrics in scapular plane ( avoid ext); AAROM of cervical spine, wrist, elbow, hand Phase II after week 6 as appropriate PT-OP-B Current Condition Start: 01/10/24 07:24 Freq: Status: Active Protocol: Document 01/10/24 08:18 NM (Rec: 01/10/24 09:46 NM [id number]) Current Condition History of Current Condition Onset Date DOS 12/13/23 Current Complaints mobility, pain, strength History of Current Condition Pt had surgery for L rTSA on , by Dr. Blas. He states that Dr. Blas repaired his rotator cuff in 2021, but it atrophied and retore again, which is when pt opted for shoulder replacement. Pt had rotator cuff arthropathy. 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 Previously, he had L shoulder snapping, popping, grinding. He has had his first follow up post-op, reports that everything going well. Pt reports that he was having trouble with sling and gave up on it. He was sleeping in reclining chair with arm across chest. Currently sleeping in bed, rolled toward his shoulder. Pt reports that a week ago, he had aching pain in his L shoulder after he grabbed a Trina pitcher with his L, felt a nasty pain in his L shoulder and was unable to lift anything including a teacup for days. Reports that was gradually getting better, until last night (01/08). Reports that he was holding the rosales with his L hand, which caused him to feel a sharp pain. He is left handed but able to use R hand for writing/eating/ADLs. He had follow up with doctor on . Pt reports that his has been helping him with dressing and all activities, but he feels bad that she has to do it all and wants to help. has been driving and helping pt with [employer] job. Has had 1 fall pre- surgery, but fell on R shoulder; states ankles giving out. He has not been performing any of the exercises from his doctor on Sunday. 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, 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 Current Functional Impairments (Reported) Functional Limitations- ADL's dressing assisting with dressing, ADLs, showering, grooming not sleeping with pillow behind arm Functional Limitations- Mobility/Gait strength loss Functional Limitations- 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 Tried to give a hug the other day, which bothered his arm. Has doing everything R handed or helping him. Has been doing shoulder AAROM with dowel, scapular retractions, elbow/ hands. Was doing weeding with R hand yesterday PT-OP-F Manual Assessment Start: 01/10/24 07:24 Freq: Status: Active Protocol: Document 01/10/24 08:18 NM (Rec: 01/10/24 09:46 NM [id number]) Manual Assessments Soft Tissue Assessment Soft Tissue Mobility Assessment Increased tenderness, decreased length of latissimus dorsi and pectoralis Joint Mobility Assessment Joint Mobility Assessment Empty end feel with forward flexion and scaption ER. No L shoulder clicking, popping, dislocation with passive ROM. Full elbow and wrist AROM PT-OP-H Neuro Start: 01/10/24 07:24 Freq: Status: Active Protocol: Document 01/10/24 08:18 NM (Rec: 01/10/24 09:46 NM [id number]) Sensation Evaluation Comments Summary Comments BUE equally intact to light touch sensation, small decrease on L side near axilla PT-OP-J Posture/Palpation/Skin Start: 01/10/24 07:24 Freq: Status: Active Protocol: Document 01/10/24 08:18 NM (Rec: 01/10/24 09:46 NM [id number]) Posture Evaluation Position Sitting Head/C-Spine Posture Forward Head T-Spine Posture Increased Kyphosis Shoulder Posture (L) Rounded,(R) Rounded,(L) Forward,(R) Forward,(L) Elevated Scapula Posture (L) Protracted,(R) Protracted, (L) Elevated Arm Posture (L) Internally Rotated,(R) Internally Rotated Comments Posture Comments Elbow positioned by side at 0 deg abd, no use of sling Palpation Assessment Location L shoulder Palpation Details Tenderness along anterior shoulder with palpation and posterior cuff. Denies pain with palpation Skin Assessment Incisional Assessment Incision Appearance/Comments clean/dry/intact. Glue beginning to peel. Good healing w/o signs of infection , redness Small indention above scar from infection from previous rotator cuff repair PT-OP-K Range of Motion Start: 01/10/24 07:24 Freq: Status: Active Protocol: Document 02/12/24 09:48 NM (Rec: 02/12/24 10:30 NM [id number]) Shoulder Goniometric Range of Motion Shoulder L AROM Flexion 110 Comments 02/12/24: reclined- 30 deg ER scaption L PROM Flexion 115 Comments ER in scaption plane 20 deg; empty end feel 02/12/24: 120 deg forward flexion, 30 deg ER in scaption , 50 deg IR in scaption PT-OP-M Strength Start: 01/10/24 07:24 Freq: Status: Active Protocol: Document 02/12/24 09:48 NM (Rec: 02/12/24 10:30 NM [id number]) Shoulder Strength Shoulder Manual Muscle Testing Left Comments Did not formally assess due to precautions and protocol 02/12/24: AROM began in reclining position, against gravity PT-OP-Q Treatments Start: 01/10/24 07:24 Freq: Status: Active Protocol: Document 02/12/24 09:48 NM (Rec: 02/12/24 10:30 NM [id number]) Therapeutic Exercises Supine Exercises ER with dowel Supine Exercise Name AAROM in scaption: 1. supine, 2. reclined Side left Equipment Used dowel, R assist L Reps/Minutes 1. 10, 2.5 Comments 30 deg ER in scaption; pain free, cued for ROM flexion with dowel Supine Exercise Name AAROM with dowel: 1. supine, 2 . reclined Side left Equipment Used dowel, R assist L Reps/Minutes 1. 10, 2. 5 Comments 115 deg forward flexion, cued pain free, cued for ROM AROM scaption Supine Exercise Name 1. supine, 2. reclined Side left Reps/Minutes 5 ea Comments challenging, but pain free, slow motion; 110 deg fwd flex, 30 degER scaption Sitting Exercises scapular retraction Side bilateral Reps/Minutes 1x10 with 5 Comments cued to maintain relaxed shoulders to prevent UT compensation Standing Exercises isometrics Standing Exercise Name 1. ER, 2. IR, 3. ADD, 4. ext in neutral, 5. ABD Side left Equipment Used towel for ADD, pillow behind arm for ext; PT providing resistance for ER/IR Reps/Minutes 10x5 hold ea, ~50% effort Comments ER/IR/ADD added to HEP Manual Therapy Treatment Soft Tissue Mobilization left shoulder Body Location pec at axilla, scar tissue, biceps muscle belly, UT, scalenes Mobilization Type Rolling Intensity/Depth moderate and superficial Body Position Hooklying Comments Monitored for pain and discomfort. Pt has good feedback response to gentle soft tissue mobilization Joint Mobilizations scapular Joint left shoulder Direction depression and adduction Grade II Body Position Sidelying Reps/Duration 10 ea Comments PROM, monitored for pain (did not have any) Manual Techniques AAROM Type Fwd flexion in scaption, ER in scaption Body Location GHJ Body Position Hooklying Comments Arm supported on pillow. PT assisting at elbow. Elbow flexed for both, monitored for pain AAROM to 115 deg FF, 30 deg ER scapular Type isometrics Body Location depression and adduction Reps/Duration 10 with 3 hold ea Comments manual resistance into PT hand , pain free. Cued for shoulder position to prevent forward shoulder PROM Type fwd flexion in scaption, ER in scaption Body Position Hooklying Comments Monitored for pain. Forward flexion performed with elbow flexed and extended; arm supported on pillow. Less guarding today. Up to 120 deg FF, 30 deg ER, and 50 deg IR PROM PT-OP-T Assessment and Plan Start: 01/10/24 07:24 Freq: Status: Active Protocol: Document 02/12/24 09:48 NM (Rec: 02/12/24 10:30 NM [id number]) Physical Therapy Assessment Goals Five Impairment sleep Impairment pt wakes 3x/night Short Term Goal (STG) Pt will report that he is waking <3x/night due to L shoulder pain in order to demonstrate improved pain management and QOL 02/07/24: waking at least 2x/ night STG Duration 03/06/24 MET Usp Goal (LTG) Pt will report that he does not wake up at night due to L shoulder pain in order to demonstrate improved pain management and QOL LTG Duration 04/04/24 Four Impairment pain Impairment currently 5/10 pain at rest, 10/10 reported with activity Short Term Goal (STG) Pt will report 5/10 pain or less in L shoulder with activity in order to demonstrate improved symptom management and QOL STG Duration 03/06/24 Usp Goal (LTG) Pt will report 2/10 pain or less in L shoulder with activity in order to demonstrate improved symptom management and QOL LTG Duration 04/04/24 Three Impairment function, activity 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 Short Term Goal (STG) Pt will report that he is able to play piano with L shoulder pain <2/10 in order to demonstrate improved QOL and activity tolerance STG Duration 02/26/24 Geographic Analyst Goal (LTG) Pt will report that he is able to play piano without limitation and without increase in baseline pain in order to demonstrate improved QOL and activity tolerance LTG Duration 04/04/24 Two Impairment strength Impairment did not assess due to precautions Short Term Goal (STG) Pt will have at least 3+/5 L shoulder flexion and abduction in scaption plane strength with pain less than 5/10 in order to demonstrate improved ability to lift objects 02/12/24: initiated AROM against gravity in reclined STG Duration 03/06/24 Geographic Analyst Goal (LTG) Pt will have at least 4/5 L shoulder flexion and abduction in scaption plane strength in order to demonstrate improved ability to lift objects LTG Duration 04/04/24 One Impairment ROM Impairment PROM currently 115 deg FF, 20 deg ER in scaption plane Short Term Goal (STG) Pt will have at least 120 deg of passive L forward flexion, full passive ER in scaption plane with pain <2/10 02/12/24: 120 deg forward flexion passively, 30 deg ER in scaption passively STG Duration 02/21/24 MET Usp Goal (LTG) Pt will have at least 110 deg of active L forward shoulder flexion and functional ER of at least 30 degrees in scaption plane in order to demonstrate improved reaching and shoulder mobility for dressing/ADLs LTG Duration 04/04/24 Progress Towards Goals Progress Towards Goals Progressing Toward Goals Progress Comments slow progress due to protocol Assessment Summary Assessment Pt currently 8.5 weeks post-op . Progressed from supine to reclining for AAROM and AROM to begin working against gravity. AROM in reclining currently 110 Forward flexion, 30 ER; PROM 120 deg Forward flexion, 30 deg ER, 50 deg IR. Continued with L shoulder isometrics; pt cued for form, but with good carryover and able to perform well without increased pain. Added isometrics to HEP, which education to perform with submaximal activation and to remain pain free with activation. Pt demonstrates improved scapular activation in sidelying with periscapular isometrics, but requires consistent verbal and tactile cues for scapular positioning to limit anterior shoulder translation due to rounded shoulders posture. Pt would benefit from skilled PT for L shoulder mobility and strengthening per protocol in order to return to PLOF and improve activity tolerance. Physical Therapy Plan Frequency and Duration Frequency of Treatment 2x/Week Duration of treatment (weeks) 12 Plan of Care Start Date 01/10/24 Plan of Care End Date 04/04/24 Therapeutic Interventions Therapeutic Interventions Gait Training,Home Exercise Program,Joint Mobilizations, Manual Therapy,Neuromuscular Re-education,Orthotic/ Prosthetic Management,Patient/ Caregiver Education,Self-Care/ Home Management,Sensory Integration,Soft Tissue Mobilization,Taping, Therapeutic Activities, Therapeutic Exercises Modalities Cold Pack/Ice Massage,Electric Stimulation,Hot Packs, Ultrasound Next Visit Focus/Plan Next Note Type Treatment Note Next Visit Plan Review and add to HEP if appropriate: AAROM ER -- AAROM>AROM, sofy ER/IR/ABD/ ADD/with post delt into ext with neutral (elbow equal with body, not past neutral) and increase hold time. PROM into IR (up to 50 deg). No resistance yet with AROM even if 9 weeks at this time Continue [id number] up to 120 deg FF and ER to tolerance in scapular plane and progress to sit and standing; cont deltoid isometrics (increase hold time if pain free). 6 weeks ()- start PROM Ir in scapular plane to tolerance, start AAROM to tolerance in supine w / cane, scapulothoracic rhythmic stabilization in supine PROM up to 120 FF and ER to tolerance in scapular plane until 6 weeks, then progress to phase II if appropriate Sub-maximal pain free deltoid isometrics in scapular plane ( no shoulder ext) table walks, pendulums, scapular retractions w/o shoulder ext, resisted wrist and shoulder pad molder exercises No resistance for elbow flexion unit 12 weeks/3 mos post op
--- NOTE | 2024-02-14 12:47 | PT.OTN ---
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 of DOUBLE NEEDLE OPERATOR Visits 1 Evaluation Information Evaluation Date 01/10/24 Precautions Precautions Reverse TSA precautions: no ext/ADD/IR (subscapularis not repaired) sling for comfort see protocol for restrictions 6 weeks: 01/24/24; 8 weeks: 02/06; 12 weeks: 03/07/24 Phase I: 3-6 weeks: PROM up to FF 120 (scaption plane) and ER to tolerance(scaption), submaximal pain free isometrics in scapular plane ( avoid ext); AAROM of cervical spine, wrist, elbow, hand Phase II after week 6 as appropriate PT-OP-B Current Condition Start: 01/10/24 07:24 Freq: Status: Active Protocol: Document 01/10/24 08:18 NM (Rec: 01/10/24 09:46 NM [id number]) Current Condition History of Current Condition Onset Date DOS 12/13/23 Current Complaints mobility, pain, strength History of Current Condition Pt had surgery for L rTSA on , by Dr. Blas. He states that Dr. Blas repaired his rotator cuff in 2021, but it atrophied and retore again, which is when pt opted for shoulder replacement. Pt had rotator cuff arthropathy. 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 Previously, he had L shoulder snapping, popping, grinding. He has had his first follow up post-op, reports that everything going well. Pt reports that he was having trouble with sling and gave up on it. He was sleeping in reclining chair with arm across chest. Currently sleeping in bed, rolled toward his shoulder. Pt reports that a week ago, he had aching pain in his L shoulder after he grabbed a [employer]ina pitcher with his L, felt a nasty pain in his L shoulder and was unable to lift anything including a teacup for days. Reports that was gradually getting better, until last night (01/08). Reports that he was holding the rosales with his L hand, which caused him to feel a sharp pain. He is left handed but able to use R hand for writing/eating/ADLs. He had follow up with doctor on . Pt reports that his has been helping him with dressing and all activities, but he feels bad that she has to do it all and wants to help. has been driving and helping pt with [employer] job. Has had 1 fall pre- surgery, but fell on R shoulder; states ankles giving out. He has not been performing any of the exercises from his doctor on Sunday. 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 Current Functional Impairments (Reported) Functional Limitations- ADL's dressing assisting with dressing, ADLs, showering, grooming not sleeping with pillow behind arm Functional Limitations- Mobility/Gait strength loss Functional Limitations- 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 Patient reports taking Ibuprofen yesterday, but has been trying to get away from pain meds and Gabapentin. Pt ed to speak to MD regarding weaning off Gabapentin. Patient rates pain 2/10 post left shoulder. AROM left shoulder scaption 115 deg. PT-OP-F Manual Assessment Start: 01/10/24 07:24 Freq: Status: Active Protocol: Document 01/10/24 08:18 NM (Rec: 01/10/24 09:46 NM [id number]) Manual Assessments Soft Tissue Assessment Soft Tissue Mobility Assessment Increased tenderness, decreased length of latissimus dorsi and pectoralis Joint Mobility Assessment Joint Mobility Assessment Empty end feel with forward flexion and scaption ER. No L shoulder clicking, popping, dislocation with passive ROM. Full elbow and wrist AROM PT-OP-H Neuro Start: 01/10/24 07:24 Freq: Status: Active Protocol: Document 01/10/24 08:18 NM (Rec: 01/10/24 09:46 NM [id number]) Sensation Evaluation Comments Summary Comments BUE equally intact to light touch sensation, small decrease on L side near axilla PT-OP-J Posture/Palpation/Skin Start: 01/10/24 07:24 Freq: Status: Active Protocol: Document 01/10/24 08:18 NM (Rec: 01/10/24 09:46 NM [id number]) Posture Evaluation Position Sitting Head/C-Spine Posture Forward Head T-Spine Posture Increased Kyphosis Shoulder Posture (L) Rounded,(R) Rounded,(L) Forward,(R) Forward,(L) Elevated Scapula Posture (L) Protracted,(R) Protracted, (L) Elevated Arm Posture (L) Internally Rotated,(R) Internally Rotated Comments Posture Comments Elbow positioned by side at 0 deg abd, no use of sling Palpation Assessment Location L shoulder Palpation Details Tenderness along anterior shoulder with palpation and posterior cuff. Denies pain with palpation Skin Assessment Incisional Assessment Incision Appearance/Comments clean/dry/intact. Glue beginning to peel. Good healing w/o signs of infection , redness Small indention above scar from infection from previous rotator cuff repair PT-OP-K Range of Motion Start: 01/10/24 07:24 Freq: Status: Active Protocol: Document 02/12/24 09:48 NM (Rec: 02/12/24 10:30 NM [id number]) Shoulder Goniometric Range of Motion Shoulder L AROM Flexion 110 Comments 6/25/24: reclined- 30 deg ER scaption L PROM Flexion 115 Comments ER in scaption plane 20 deg; empty end feel 02/12/24: 120 deg forward flexion, 30 deg ER in scaption , 50 deg IR in scaption PT-OP-M Strength Start: 01/10/24 07:24 Freq: Status: Active Protocol: Document 02/12/24 09:48 NM (Rec: 02/12/24 10:30 NM [id number]) Shoulder Strength Shoulder Manual Muscle Testing Left Comments Did not formally assess due to precautions and protocol 02/12/24: AROM began in reclining position, against gravity PT-OP-Q Treatments Start: 01/10/24 07:24 Freq: Status: Active Protocol: Document 02/14/24 08:15 AB (Rec: 02/14/24 12:47 AB [id number]) Therapeutic Exercises Supine Exercises flexion with dowel Supine Exercise Name 1. without dowel/supine 2. reclined Reps/Minutes 1. elbow ext X 1 flexed X 10 2 . Sidelying Exercises shoulder ER Side left Reps/Minutes x2 Comments verbal cues to perform in pain free range/ not john Sitting Exercises seated shoulder ER Sitting Exercise Name AROM Equipment Used Pillows under UE, arm within line of sight Reps/Minutes X10 Comments verbal cues to perform in pain free range scapular retraction Side bilateral Reps/Minutes 1x10 with 5 Comments cued to maintain relaxed shoulders to prevent UT compensation Standing Exercises scapular depression Standing Exercise Name UE's in sight Side bilateral Reps/Minutes X10 for 3-5 seconds Comments verbal and visual cues Manual Therapy Treatment Soft Tissue Mobilization left shoulder Body Location pec at axilla, scar tissue, biceps muscle belly, UT, scalenes Mobilization Type Rolling Intensity/Depth moderate and superficial Body Position Hooklying Comments Monitored for pain and discomfort. Pt has good feedback response to gentle soft tissue mobilization Joint Mobilizations scapular Joint left shoulder Direction depression and adduction Grade II Body Position Sidelying Reps/Duration 10 ea Comments PROM, monitored for pain (did not have any) Manual Techniques scapular Type isometrics Body Location depression and adduction Reps/Duration 10 with 3 hold ea Comments manual resistance into PT hand , pain free. Cued for shoulder position to prevent forward shoulder PT-OP-T Assessment and Plan Start: 01/10/24 07:24 Freq: Status: Active Protocol: Document 02/14/24 08:15 AB (Rec: 02/14/24 12:47 AB [id number]) Physical Therapy Assessment Goals Five Impairment sleep Impairment pt wakes 3x/night Short Term Goal (STG) Pt will report that he is waking <3x/night due to L shoulder pain in order to demonstrate improved pain management and QOL 02/07/24: waking at least 2x/ night STG Duration 03/06/24 MET Correction Goal (LTG) Pt will report that he does not wake up at night due to L shoulder pain in order to demonstrate improved pain management and QOL LTG Duration 04/04/24 Four Impairment pain Impairment currently 5/10 pain at rest, 10/10 reported with activity Short Term Goal (STG) Pt will report 5/10 pain or less in L shoulder with activity in order to demonstrate improved symptom management and QOL STG Duration 03/06/24 Assistant Store Manager Operations Goal (LTG) Pt will report 2/10 pain or less in L shoulder with activity in order to demonstrate improved symptom management and QOL LTG Duration 04/04/24 Three Impairment function, activity 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 Short Term Goal (STG) Pt will report that he is able to play piano with L shoulder pain <2/10 in order to demonstrate improved QOL and activity tolerance STG Duration 02/26/24 Assistant Store Manager Operations Goal (LTG) Pt will report that he is able to play piano without limitation and without increase in baseline pain in order to demonstrate improved QOL and activity tolerance LTG Duration 04/04/24 Two Impairment strength Impairment did not assess due to precautions Short Term Goal (STG) Pt will have at least 3+/5 L shoulder flexion and abduction in scaption plane strength with pain less than 5/10 in order to demonstrate improved ability to lift objects 02/12/24: initiated AROM against gravity in reclined STG Duration 03/06/24 Assistant Store Manager Operations Goal (LTG) Pt will have at least 4/5 L shoulder flexion and abduction in scaption plane strength in order to demonstrate improved ability to lift objects LTG Duration 04/04/24 One Impairment ROM Impairment PROM currently 115 deg FF, 20 deg ER in scaption plane Short Term Goal (STG) Pt will have at least 120 deg of passive L forward flexion, full passive ER in scaption plane with pain <2/10 02/12/24: 120 deg forward flexion passively, 30 deg ER in scaption passively STG Duration 02/21/24 MET Assistant Store Manager Operations Goal (LTG) Pt will have at least 110 deg of active L forward shoulder flexion and functional ER of at least 30 degrees in scaption plane in order to demonstrate improved reaching and shoulder mobility for dressing/ADLs LTG Duration 04/04/24 Assessment Summary Assessment Dinesh 9 weeks post op today. Reviewed precautions of no lifting any weight or bearing weight IE no pushing grocery carts. 118 deg AROM left shoulder scaption end of session. Physical Therapy Plan Frequency and Duration Frequency of Treatment 2x/Week Duration of treatment (weeks) 12 Plan of Care Start Date 01/10/24 Plan of Care End Date 04/04/24 Next Visit Focus/Plan Next Note Type Treatment Note Next Visit Plan Review and add to HEP if appropriate: AAROM ER -- AAROM>AROM, sofy ER/IR/ABD/ ADD/with post delt into ext with neutral (elbow equal with body, not past neutral) and increase hold time. PROM into IR (up to 50 deg). No resistance yet with AROM even if 9 weeks at this time Continue [id number]-OQJSH-LPIG up to 120 deg FF and ER to tolerance in scapular plane and progress to sit and standing; cont deltoid isometrics (increase hold time if pain free). 6 weeks ()- start PROM Ir in scapular plane to tolerance, start AAROM to tolerance in supine w / cane, scapulothoracic rhythmic stabilization in supine PROM up to 120 FF and ER to tolerance in scapular plane until 6 weeks, then progress to phase II if appropriate Sub-maximal pain free deltoid isometrics in scapular plane ( no shoulder ext) table walks, pendulums, scapular retractions w/o shoulder ext, resisted wrist and suture winder hand exercises No resistance for elbow flexion unit 12 weeks/3 mos post op * March 06 2024 is 12 weeks post op
--- NOTE | 2024-02-18 12:56 | PT.OTN ---
Current Diagnoses Other specific arthropathies, not elsewhere classified, left shoulder (02/18/24) Unspecified rotator cuff tear or rupture of left shoulder, not specified as traumatic (02/18/24) Weakness (02/18/24) Physical Therapy Treatment Note PT-OP-A Visit Information Start: 01/10/24 07:24 Freq: Status: Active Protocol: Document 02/18/24 08:16 NM (Rec: 02/18/24 09:03 NM [id number]) Out-Patient Physical Therapy Visit Information Visit Information Visit Type Treatment Note Visit Start Time 08:18 Visit Stop Time 08:58 Visit Number 12 Evaluation Information Evaluation Date 01/10/24 Precautions Precautions Reverse TSA precautions: no ext/ADD/IR (subscapularis not repaired) sling for comfort see protocol for restrictions 6 weeks: 01/24/24; 8 weeks: 02/06; 12 weeks: 03/07/24 Phase I: 3-6 weeks: PROM up to FF 120 (scaption plane) and ER to tolerance(scaption), submaximal pain free isometrics in scapular plane ( avoid ext); AAROM of cervical spine, wrist, elbow, hand Phase II after week 6 as appropriate PT-OP-B Current Condition Start: 01/10/24 07:24 Freq: Status: Active Protocol: Document 01/10/24 08:18 NM (Rec: 01/10/24 09:46 NM [id number]) Current Condition History of Current Condition Onset Date DOS 12/13/23 Current Complaints mobility, pain, strength History of Current Condition Pt had surgery for L rTSA on , by Dr. Blas. He states that Dr. Blas repaired his rotator cuff in 2021, but it atrophied and retore again, which is when pt opted for shoulder replacement. Pt had rotator cuff arthropathy. 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 Previously, he had L shoulder snapping, popping, grinding. He has had his first follow up post-op, reports that everything going well. Pt reports that he was having trouble with sling and gave up on it. He was sleeping in reclining chair with arm across chest. Currently sleeping in bed, rolled toward his shoulder. Pt reports that a week ago, he had aching pain in his L shoulder after he grabbed a Trina pitcher with his L, felt a nasty pain in his L shoulder and was unable to lift anything including a teacup for days. Reports that was gradually getting better, until last night (01/08). Reports that he was holding the rosales with his L hand, which caused him to feel a sharp pain. He is left handed but able to use R hand for writing/eating/ADLs. He had follow up with doctor on . Pt reports that his has been helping him with dressing and all activities, but he feels bad that she has to do it all and wants to help. has been driving and helping pt with [employer] job. Has had 1 fall pre- surgery, but fell on R shoulder; states ankles giving out. He has not been performing any of the exercises from his doctor on Sunday. 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, 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 Current Functional Impairments (Reported) Functional Limitations- ADL's dressing assisting with dressing, ADLs, showering, grooming not sleeping with pillow behind arm Functional Limitations- Mobility/Gait strength loss Functional Limitations- Work/School 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 Played piano over the weekend, states he stands to the L side so he doesn't have to reach, denies pain. He held his granddaughter over the weekend in his R arm, did not lift her. Pt sees Dr. Blas tomorrow on 02/18 PT-OP-F Manual Assessment Start: 01/10/24 07:24 Freq: Status: Active Protocol: Document 01/10/24 08:18 NM (Rec: 01/10/24 09:46 NM [id number]) Manual Assessments Soft Tissue Assessment Soft Tissue Mobility Assessment Increased tenderness, decreased length of latissimus dorsi and pectoralis Joint Mobility Assessment Joint Mobility Assessment Empty end feel with forward flexion and scaption ER. No L shoulder clicking, popping, dislocation with passive ROM. Full elbow and wrist AROM PT-OP-H Neuro Start: 01/10/24 07:24 Freq: Status: Active Protocol: Document 01/10/24 08:18 NM (Rec: 01/10/24 09:46 NM [id number]) Sensation Evaluation Comments Summary Comments BUE equally intact to light touch sensation, small decrease on L side near axilla PT-OP-J Posture/Palpation/Skin Start: 01/10/24 07:24 Freq: Status: Active Protocol: Document 01/10/24 08:18 NM (Rec: 01/10/24 09:46 NM [id number]) Posture Evaluation Position Sitting Head/C-Spine Posture Forward Head T-Spine Posture Increased Kyphosis Shoulder Posture (L) Rounded,(R) Rounded,(L) Forward,(R) Forward,(L) Elevated Scapula Posture (L) Protracted,(R) Protracted, (L) Elevated Arm Posture (L) Internally Rotated,(R) Internally Rotated Comments Posture Comments Elbow positioned by side at 0 deg abd, no use of sling Palpation Assessment Location L shoulder Palpation Details Tenderness along anterior shoulder with palpation and posterior cuff. Denies pain with palpation Skin Assessment Incisional Assessment Incision Appearance/Comments clean/dry/intact. Glue beginning to peel. Good healing w/o signs of infection , redness Small indention above scar from infection from previous rotator cuff repair PT-OP-K Range of Motion Start: 01/10/24 07:24 Freq: Status: Active Protocol: Document 02/12/24 09:48 NM (Rec: 02/12/24 10:30 NM [id number]) Shoulder Goniometric Range of Motion Shoulder L AROM Flexion 110 Comments 02/12/24: reclined- 30 deg ER scaption L PROM Flexion 115 Comments ER in scaption plane 20 deg; empty end feel 02/12/24: 120 deg forward flexion, 30 deg ER in scaption , 50 deg IR in scaption PT-OP-M Strength Start: 01/10/24 07:24 Freq: Status: Active Protocol: Document 02/12/24 09:48 NM (Rec: 02/12/24 10:30 NM [id number]) Shoulder Strength Shoulder Manual Muscle Testing Left Comments Did not formally assess due to precautions and protocol 02/12/24: AROM began in reclining position, against gravity PT-OP-Q Treatments Start: 01/10/24 07:24 Freq: Status: Active Protocol: Document 02/18/24 08:16 NM (Rec: 02/18/24 09:03 NM [id number]) Therapeutic Exercises Supine Exercises ER with dowel Supine Exercise Name AAROM in scaption: reclined Side left Equipment Used dowel, R assist L Reps/Minutes 10 Comments 30-40 deg ER in scaption; pain free flexion with dowel Supine Exercise Name 1. wash cloth in supine, 2. reclined Side left Equipment Used elbow extended Reps/Minutes 10 ea Comments 120 deg forward flexion, pt recognicse limite AROM scaption Supine Exercise Name forward flexion Side left Resistance AROM Equipment Used pillow behind arm while reclined Reps/Minutes 2x5 Comments 120 deg without dowel; Sidelying Exercises shoulder ER Side left Resistance AROM Equipment Used towel roll Reps/Minutes 5 Comments cued to perform w/i pain free range, form, scapular setting/ positioning Sitting Exercises seated shoulder ER Sitting Exercise Name AROM Side left Equipment Used Pillows under UE, arm within line of sight Reps/Minutes 10 ea Comments verbal cues to maintain w/i pain free range, prevent abduction w/ rot Standing Exercises AROM Standing Exercise Name 1. forward flexion in scaption , 2. ER in scaption Side left Resistance AROM Reps/Minutes 1 Comments 100 deg forward flex before UT comp, 40 deg ER in scaption Manual Therapy Treatment Consent Patient gave verbal consent for manual Yes treatment Soft Tissue Mobilization left shoulder Body Location pec at axilla, scar tissue, biceps muscle belly, UT, scalenes Mobilization Type Rolling Intensity/Depth moderate and superficial Body Position Hooklying Comments Increased tightness of L pecs, UT, scalenes. Reduced with soft tissue mobilization, good feed back prior to remaining manual treatment Joint Mobilizations scapular Joint left shoulder Direction depression and adduction Grade II Body Position Sidelying Reps/Duration 10 ea Comments PROM, pain free Manual Techniques scapular Type isometrics Body Location depression and adduction Reps/Duration 10 with 10 hold ea Comments manual resistance into PT hand , pain free. Cued for shoulder position to prevent forward shoulder. Improved control but tends to demo scapular elevation PT-OP-T Assessment and Plan Start: 01/10/24 07:24 Freq: Status: Active Protocol: Document 02/18/24 08:16 NM (Rec: 02/18/24 09:03 NM [id number]) Physical Therapy Assessment Goals Five Impairment sleep Impairment pt wakes 3x/night Short Term Goal (STG) Pt will report that he is waking <3x/night due to L shoulder pain in order to demonstrate improved pain management and QOL 02/07/24: waking at least 2x/ night STG Duration 03/06/24 MET Correction Goal (LTG) Pt will report that he does not wake up at night due to L shoulder pain in order to demonstrate improved pain management and QOL LTG Duration 04/04/24 Four Impairment pain Impairment currently 5/10 pain at rest, 10/10 reported with activity Short Term Goal (STG) Pt will report 5/10 pain or less in L shoulder with activity in order to demonstrate improved symptom management and QOL STG Duration 03/06/24 Correction Goal (LTG) Pt will report 2/10 pain or less in L shoulder with activity in order to demonstrate improved symptom management and QOL LTG Duration 04/04/24 Three Impairment function, activity 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 Short Term Goal (STG) Pt will report that he is able to play piano with L shoulder pain <2/10 in order to demonstrate improved QOL and activity tolerance STG Duration 02/26/24 Bobtailer Goal (LTG) Pt will report that he is able to play piano without limitation and without increase in baseline pain in order to demonstrate improved QOL and activity tolerance LTG Duration 04/04/24 Two Impairment strength Impairment did not assess due to precautions Short Term Goal (STG) Pt will have at least 3+/5 L shoulder flexion and abduction in scaption plane strength with pain less than 5/10 in order to demonstrate improved ability to lift objects 02/12/24: initiated AROM against gravity in reclined STG Duration 03/06/24 Bobtailer Goal (LTG) Pt will have at least 4/5 L shoulder flexion and abduction in scaption plane strength in order to demonstrate improved ability to lift objects LTG Duration 04/04/24 One Impairment ROM Impairment PROM currently 115 deg FF, 20 deg ER in scaption plane Short Term Goal (STG) Pt will have at least 120 deg of passive L forward flexion, full passive ER in scaption plane with pain <2/10 02/12/24: 120 deg forward flexion passively, 30 deg ER in scaption passively STG Duration 02/21/24 MET Bobtailer Goal (LTG) Pt will have at least 110 deg of active L forward shoulder flexion and functional ER of at least 30 degrees in scaption plane in order to demonstrate improved reaching and shoulder mobility for dressing/ADLs LTG Duration 04/04/24 Assessment Summary Assessment Pt tolerated session well. Currently 9 weeks and 4 days post op. He is progressing well with his L shoulder AROM, currently 120 deg consistently in supine and reclined for forward flexion and 30 to 40 deg ER in scaption plane. Continued with progression from reclined to standing with AROM. Able to achieve 100 deg with elbow extended in standing before demonstrating upper trapezius compensation with forward flexion, 40 deg ER in scaption plane. Re-trialed sidelying ER in scaption; pt able to perform with moderate cueing for limited reps without pain but fatigues easily, which then leads to pain. PT educated pt again on not performing any weightbearing with L shoulder at this time to maintain precautions until cleared by MD or per protocol. PT also recommended pt wait to play piano until cleared by MD. Pt would benefit from skilled PT for L shoulder ROM and strengthening per protocol in order to improve activity tolerance and promote independence. Physical Therapy Plan Frequency and Duration Frequency of Treatment 2x/Week Duration of treatment (weeks) 12 Plan of Care Start Date 01/10/24 Plan of Care End Date 04/04/24 Therapeutic Interventions Therapeutic Interventions Gait Training,Home Exercise Program,Joint Mobilizations, Manual Therapy,Neuromuscular Re-education,Orthotic/ Prosthetic Management,Patient/ Caregiver Education,Self-Care/ Home Management,Sensory Integration,Soft Tissue Mobilization,Taping, Therapeutic Activities, Therapeutic Exercises Modalities Cold Pack/Ice Massage,Electric Stimulation,Hot Packs, Ultrasound Next Visit Focus/Plan Next Note Type Treatment Note Next Visit Plan Review and add to HEP if appropriate: AAROM ER -- AAROM>AROM reclined>sit> stand forward flex and ER in scaption, No resistance yet with AROM even if 9 weeks at this time. As needed, review L shoulder isometrics (neutral extension) Up to 120 deg FF, ER to tolerance in scaption plane No resistance for elbow flexion unit 12 weeks/3 mos post op * March 06 2024 is 12 weeks post op
--- NOTE | 2024-02-20 15:20 | PT.OTN ---
Current Diagnoses Other specific arthropathies, not elsewhere classified, left shoulder (02/20/24) Unspecified rotator cuff tear or rupture of left shoulder, not specified as traumatic (02/20/24) Weakness (02/20/24) Physical Therapy Treatment Note PT-OP-A Visit Information Start: 01/10/24 07:24 Freq: Status: Active Protocol: Document 02/20/24 10:35 NM (Rec: 02/20/24 11:19 NM [id number]) Out-Patient Physical Therapy Visit Information Visit Information Visit Type Treatment Note Visit Start Time 10:36 Visit Stop Time 11:15 Visit Number 13 PT-OP-B Current Condition Start: 01/10/24 07:24 Freq: Status: Active Protocol: Document 01/10/24 08:18 NM (Rec: 01/10/24 09:46 NM [id number]) Current Condition History of Current Condition Onset Date DOS 12/13/23 Current Complaints mobility, pain, strength History of Current Condition Pt had surgery for L rTSA on , by Dr. Blas. He states that Dr. Blas repaired his rotator cuff in 2021, but it atrophied and retore again, which is when pt opted for shoulder replacement. Pt had rotator cuff arthropathy. 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 Previously, he had L shoulder snapping, popping, grinding. He has had his first follow up post-op, reports that everything going well. Pt reports that he was having trouble with sling and gave up on it. He was sleeping in reclining chair with arm across chest. Currently sleeping in bed, rolled toward his shoulder. Pt reports that a week ago, he had aching pain in his L shoulder after he grabbed a Trina pitcher with his L, felt a nasty pain in his L shoulder and was unable to lift anything including a teacup for days. Reports that was gradually getting better, until last night (01/08). Reports that he was holding the rosales with his L hand, which caused him to feel a sharp pain. He is left handed but able to use R hand for writing/eating/ADLs. He had follow up with doctor on . Pt reports that his has been helping him with dressing and all activities, but he feels bad that she has to do it all and wants to help. has been driving and helping pt with [employer] job. Has had 1 fall pre- surgery, but fell on R shoulder; states ankles giving out. He has not been performing any of the exercises from his doctor on Sunday. 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 Current Functional Impairments (Reported) Functional Limitations- ADL's dressing assisting with dressing, ADLs, showering, grooming not sleeping with pillow behind arm Functional Limitations- Mobility/Gait strength loss Functional Limitations- 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 No longer on pain meds. Reports L shoulder always aching. Surgeon LIA Brown pleased with AROM, next follow up in 6 weeks (03/31). Has not taken pain meds for a week. Reports 2-10/27. Sore after last session PT-OP-F Manual Assessment Start: 01/10/24 07:24 Freq: Status: Active Protocol: Document 01/10/24 08:18 NM (Rec: 01/10/24 09:46 NM [id number]) Manual Assessments Soft Tissue Assessment Soft Tissue Mobility Assessment Increased tenderness, decreased length of latissimus dorsi and pectoralis Joint Mobility Assessment Joint Mobility Assessment Empty end feel with forward flexion and scaption ER. No L shoulder clicking, popping, dislocation with passive ROM. Full elbow and wrist AROM PT-OP-H Neuro Start: 01/10/24 07:24 Freq: Status: Active Protocol: Document 01/10/24 08:18 NM (Rec: 01/10/24 09:46 NM [id number]) Sensation Evaluation Comments Summary Comments BUE equally intact to light touch sensation, small decrease on L side near axilla PT-OP-J Posture/Palpation/Skin Start: 01/10/24 07:24 Freq: Status: Active Protocol: Document 01/10/24 08:18 NM (Rec: 01/10/24 09:46 NM [id number]) Posture Evaluation Position Sitting Head/C-Spine Posture Forward Head T-Spine Posture Increased Kyphosis Shoulder Posture (L) Rounded,(R) Rounded,(L) Forward,(R) Forward,(L) Elevated Scapula Posture (L) Protracted,(R) Protracted, (L) Elevated Arm Posture (L) Internally Rotated,(R) Internally Rotated Comments Posture Comments Elbow positioned by side at 0 deg abd, no use of sling Palpation Assessment Location L shoulder Palpation Details Tenderness along anterior shoulder with palpation and posterior cuff. Denies pain with palpation Skin Assessment Incisional Assessment Incision Appearance/Comments clean/dry/intact. Glue beginning to peel. Good healing w/o signs of infection , redness Small indention above scar from infection from previous rotator cuff repair PT-OP-K Range of Motion Start: 01/10/24 07:24 Freq: Status: Active Protocol: Document 02/12/24 09:48 NM (Rec: 02/12/24 10:30 NM [id number]) Shoulder Goniometric Range of Motion Shoulder L AROM Flexion 110 Comments 02/12/24: reclined- 30 deg ER scaption L PROM Flexion 115 Comments ER in scaption plane 20 deg; empty end feel 02/12/24: 120 deg forward flexion, 30 deg ER in scaption , 50 deg IR in scaption PT-OP-M Strength Start: 01/10/24 07:24 Freq: Status: Active Protocol: Document 02/12/24 09:48 NM (Rec: 02/12/24 10:30 NM [id number]) Shoulder Strength Shoulder Manual Muscle Testing Left Comments Did not formally assess due to precautions and protocol 02/12/24: AROM began in reclining position, against gravity PT-OP-Q Treatments Start: 01/10/24 07:24 Freq: Status: Active Protocol: Document 02/20/24 10:35 NM (Rec: 02/20/24 11:19 NM [id number]) Therapeutic Exercises Supine Exercises ER with dowel Supine Exercise Name AAROM in scaption: reclined Side left Equipment Used dowel, R assist L Reps/Minutes 10 Comments 30 deg ER in scaption; pain free Sidelying Exercises shoulder ER Sidelying Exercise Name post AAROM with dowel Side left Resistance AROM Equipment Used towel roll Reps/Minutes 2x5 Comments cued scapular setting; improved ROM from neutral Sitting Exercises seated shoulder ER Sitting Exercise Name AROM Side left Equipment Used Pillows under UE, arm within line of sight, towel roll under arm Reps/Minutes 10 ea Comments post supine AROM, 45 deg Standing Exercises AROM Standing Exercise Name forward flexion in scaption Equipment Used mirror for visual cues Reps/Minutes 4 Comments 110 deg before UT comp, UT comp at 3rd rep isometrics Standing Exercise Name extension from neutral (not behind body) w/ longer lever Side left Equipment Used pillow Reps/Minutes 5x5 ea Comments pain free; cued submaximal Manual Therapy Treatment Consent Patient gave verbal consent for manual Yes treatment Soft Tissue Mobilization left shoulder Body Location pec at axilla, scar tissue, rhomboids, UT, scalenes Mobilization Type Rolling Intensity/Depth moderate and superficial Body Position Hooklying Comments Neutral position of L arm for pec mobilization at axilla, still tight but less tightness along axilla with positioning . Educated on not maintainin arm across body for long periods of time. Gentle mobilization of rhomboids, UT, scalenes. Joint Mobilizations scapular Joint left shoulder Direction depression and adduction Grade II Body Position Sidelying Reps/Duration 10 ea Comments PROM, pain free Manual Techniques scar mobilization Type rolling, lifting, twisting Reps/Duration 2 min Comments Education on gentle rolling and lifting along scar, superficial only Completely intact scar. Monitored for pain scapular Type isometrics Body Location depression and adduction Comments 1. manual resistance into PT hand, pain free. Cued for shoulder position to prevent forward shoulder. Improved control but tends to demo scapular elevation, 10x10 2. alternating isometrics: elevation/depression 5x5 ea direction, then protraction/ retraction, 55 ea PT-OP-T Assessment and Plan Start: 01/10/24 07:24 Freq: Status: Active Protocol: Document 02/20/24 10:35 NM (Rec: 02/20/24 11:19 NM [id number]) Physical Therapy Assessment Goals Five Impairment sleep Impairment pt wakes 3x/night Short Term Goal (STG) Pt will report that he is waking <3x/night due to L shoulder pain in order to demonstrate improved pain management and QOL 02/07/24: waking at least 2x/ night STG Duration 03/06/24 [facility] Help Desk Support Specialist Goal (LTG) Pt will report that he does not wake up at night due to L shoulder pain in order to demonstrate improved pain management and QOL LTG Duration 04/04/24 Four Impairment pain Impairment currently 5/10 pain at rest, 10/10 reported with activity Short Term Goal (STG) Pt will report 5/10 pain or less in L shoulder with activity in order to demonstrate improved symptom management and QOL STG Duration 03/06/24 Help Desk Support Specialist Goal (LTG) Pt will report 2/10 pain or less in L shoulder with activity in order to demonstrate improved symptom management and QOL LTG Duration 04/04/24 Three Impairment function, activity 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 Short Term Goal (STG) Pt will report that he is able to play piano with L shoulder pain <2/10 in order to demonstrate improved QOL and activity tolerance STG Duration 02/26/24 Help Desk Support Specialist Goal (LTG) Pt will report that he is able to play piano without limitation and without increase in baseline pain in order to demonstrate improved QOL and activity tolerance LTG Duration 04/04/24 Two Impairment strength Impairment did not assess due to precautions Short Term Goal (STG) Pt will have at least 3+/5 L shoulder flexion and abduction in scaption plane strength with pain less than 5/10 in order to demonstrate improved ability to lift objects 02/12/24: initiated AROM against gravity in reclined STG Duration 03/06/24 Nursing Home Goal (LTG) Pt will have at least 4/5 L shoulder flexion and abduction in scaption plane strength in order to demonstrate improved ability to lift objects LTG Duration 04/04/24 One Impairment ROM Impairment PROM currently 115 deg FF, 20 deg ER in scaption plane Short Term Goal (STG) Pt will have at least 120 deg of passive L forward flexion, full passive ER in scaption plane with pain <2/10 02/12/24: 120 deg forward flexion passively, 30 deg ER in scaption passively STG Duration 02/21/24 MET Help Desk Support Specialist Goal (LTG) Pt will have at least 110 deg of active L forward shoulder flexion and functional ER of at least 30 degrees in scaption plane in order to demonstrate improved reaching and shoulder mobility for dressing/ADLs LTG Duration 04/04/24 Assessment Summary Assessment Pt currently 9 weeks 6 days. Reports soreness but no increase in pain at end of session. Pt progressing toward goals. Currently 45 deg ER in scaption and 110 deg forward flexion in scaption before demonstrates upper trap compensation in standing. PT educated pt on proper scapular mechanics, avoiding poor elevation mechanics as gaining strength. Educated to use mirror at home to limit compensations. Pt with improved tolerance for sidelying L shoulder ER from neutral, able to complete 2 sets of 5 with cueing for scapular setting. Not ready for resistance at this time. Progressed to long lever shoulder extension with scapular depression isometric, with L arm remaining in neutral. Pt would benefit from skilled PT for progression with L shoulder strength and mobility per protocol in order to improve activity tolerance and ADLs Physical Therapy Plan Frequency and Duration Frequency of Treatment 2x/Week Duration of treatment (weeks) 12 Plan of Care Start Date 01/10/24 Plan of Care End Date 04/04/24 Therapeutic Interventions Therapeutic Interventions Gait Training,Home Exercise Program,Joint Mobilizations, Manual Therapy,Neuromuscular Re-education,Orthotic/ Prosthetic Management,Patient/ Caregiver Education,Self-Care/ Home Management,Sensory Integration,Soft Tissue Mobilization,Taping, Therapeutic Activities, Therapeutic Exercises Modalities Cold Pack/Ice Massage,Electric Stimulation,Hot Packs, Ultrasound Next Visit Focus/Plan Next Note Type Treatment Note Next Visit Plan Review and add to HEP if appropriate: AROM ER in sidelying, review isometrics for home compliance -- AAROM>AROM reclined>sit> stand forward flex and ER in scaption, AROM ER in sidelying (progress 1# if able) vs No resistance yet with AROM. Continue with good isometric periscapular and L shoulder ER /IR/ADD/ABD/Ext. As needed, review L shoulder isometrics ( neutral extension) with elbow ext Up to 120 deg FF, ER to tolerance in scaption plane No resistance for elbow flexion unit 12 weeks/3 mos post op * March 06 2024 is 12 weeks post op
--- NOTE | 2024-02-27 12:59 | PT.OTN ---
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 1 Evaluation Information Evaluation Date 01/10/24 Precautions Precautions Reverse TSA precautions: no ext/ADD/IR (subscapularis not repaired) sling for comfort see protocol for restrictions 6 weeks: 01/24/24; 8 weeks: 02/06; 12 weeks: 03/07/24 Phase I: 3-6 weeks: PROM up to FF 120 (scaption plane) and ER to tolerance(scaption), submaximal pain free isometrics in scapular plane ( avoid ext); AAROM of cervical spine, wrist, elbow, hand Phase II after week 6 as appropriate PT-OP-B Current Condition Start: 01/10/24 07:24 Freq: Status: Active Protocol: Document 01/10/24 08:18 NM (Rec: 01/10/24 09:46 NM [id number]) Current Condition History of Current Condition Onset Date DOS 12/13/23 Current Complaints mobility, pain, strength History of Current Condition Pt had surgery for L rTSA on , by Dr. Blas. He states that Dr. Blas repaired his rotator cuff in 2021, but it atrophied and retore again, which is when pt opted for shoulder replacement. Pt had rotator cuff arthropathy. 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 Previously, he had L shoulder snapping, popping, grinding. He has had his first follow up post-op, reports that everything going well. Pt reports that he was having trouble with sling and gave up on it. He was sleeping in reclining chair with arm across chest. Currently sleeping in bed, rolled toward his shoulder. Pt reports that a week ago, he had aching pain in his L shoulder after he grabbed a Trina pitcher with his L, felt a nasty pain in his L shoulder and was unable to lift anything including a teacup for days. Reports that was gradually getting better, until last night (01/08). Reports that he was holding the rosales with his L hand, which caused him to feel a sharp pain. He is left handed but able to use R hand for writing/eating/ADLs. He had follow up with doctor on . Pt reports that his has been helping him with dressing and all activities, but he feels bad that she has to do it all and wants to help. has been driving and helping pt with [employer] job. Has had 1 fall pre- surgery, but fell on R shoulder; states ankles giving out. He has not been performing any of the exercises from his doctor on Sunday. 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, 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 Current Functional Impairments (Reported) Functional Limitations- ADL's dressing assisting with dressing, ADLs, showering, grooming not sleeping with pillow behind arm Functional Limitations- Mobility/Gait strength loss Functional Limitations- 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 Patient reports using pain meds less, thinks he is taking pain med 2-3X a week. Patient reports having shoulder pain with reaching out to side, supinating forearm and extending elbow. AROM left shoulder scaption 119 deg with pain lowering UE. Patient late this session. PT-OP-F Manual Assessment Start: 01/10/24 07:24 Freq: Status: Active Protocol: Document 01/10/24 08:18 NM (Rec: 01/10/24 09:46 NM [id number]) Manual Assessments Soft Tissue Assessment Soft Tissue Mobility Assessment Increased tenderness, decreased length of latissimus dorsi and pectoralis Joint Mobility Assessment Joint Mobility Assessment Empty end feel with forward flexion and scaption ER. No L shoulder clicking, popping, dislocation with passive ROM. Full elbow and wrist AROM PT-OP-H Neuro Start: 01/10/24 07:24 Freq: Status: Active Protocol: Document 01/10/24 08:18 NM (Rec: 01/10/24 09:46 NM [id number]) Sensation Evaluation Comments Summary Comments BUE equally intact to light touch sensation, small decrease on L side near axilla PT-OP-J Posture/Palpation/Skin Start: 01/10/24 07:24 Freq: Status: Active Protocol: Document 01/10/24 08:18 NM (Rec: 01/10/24 09:46 NM [id number]) Posture Evaluation Position Sitting Head/C-Spine Posture Forward Head T-Spine Posture Increased Kyphosis Shoulder Posture (L) Rounded,(R) Rounded,(L) Forward,(R) Forward,(L) Elevated Scapula Posture (L) Protracted,(R) Protracted, (L) Elevated Arm Posture (L) Internally Rotated,(R) Internally Rotated Comments Posture Comments Elbow positioned by side at 0 deg abd, no use of sling Palpation Assessment Location L shoulder Palpation Details Tenderness along anterior shoulder with palpation and posterior cuff. Denies pain with palpation Skin Assessment Incisional Assessment Incision Appearance/Comments clean/dry/intact. Glue beginning to peel. Good healing w/o signs of infection , redness Small indention above scar from infection from previous rotator cuff repair PT-OP-K Range of Motion Start: 01/10/24 07:24 Freq: Status: Active Protocol: Document 02/12/24 09:48 NM (Rec: 02/12/24 10:30 NM [id number]) Shoulder Goniometric Range of Motion Shoulder L AROM Flexion 110 Comments 02/12/24: reclined- 30 deg ER scaption L PROM Flexion 115 Comments ER in scaption plane 20 deg; empty end feel 02/12/24: 120 deg forward flexion, 30 deg ER in scaption , 50 deg IR in scaption PT-OP-M Strength Start: 01/10/24 07:24 Freq: Status: Active Protocol: Document 02/12/24 09:48 NM (Rec: 02/12/24 10:30 NM [id number]) Shoulder Strength Shoulder Manual Muscle Testing Left Comments Did not formally assess due to precautions and protocol 02/12/24: AROM began in reclining position, against gravity PT-OP-Q Treatments Start: 01/10/24 07:24 Freq: Status: Active Protocol: Document 02/27/24 08:10 AB (Rec: 02/27/24 10:31 AB [id number]) Therapeutic Exercises Sidelying Exercises shoulder ER Sidelying Exercise Name AROM HEP Side left Equipment Used towel roll Reps/Minutes X15 Comments verbal and tactile cues Other Exercises reclined shoulder scaption Other Exercise Name HEP Side left Reps/Minutes 10 X Comments verbal cues, monitored for pain Manual Therapy Treatment Soft Tissue Mobilization left shoulder Body Location pec at axilla, scar tissue, rhomboids, UT, scalenes, bicepts belly Mobilization Type Rolling Intensity/Depth moderate and superficial Body Position Hooklying Comments Neutral position of L arm for pec mobilization at axilla, still tight but less tightness along axilla with positioning . Educated on not maintainin arm across body for long periods of time. Gentle mobilization of rhomboids, UT, scalenes. Joint Mobilizations scapular Joint left shoulder Direction depression and adduction Grade II Body Position Sidelying Reps/Duration 10 ea Comments PROM, pain free Manual Techniques scapular Type isometrics Body Location depression and adduction Reps/Duration X10 5 sec hold PT-OP-T Assessment and Plan Start: 01/10/24 07:24 Freq: Status: Active Protocol: Document 02/27/24 08:10 AB (Rec: 02/27/24 10:31 AB [id number]) Physical Therapy Assessment Goals Five Impairment sleep Impairment pt wakes 3x/night Short Term Goal (STG) Pt will report that he is waking <3x/night due to L shoulder pain in order to demonstrate improved pain management and QOL 02/07/24: waking at least 2x/ night STG Duration 03/06/24 MET Retirement Goal (LTG) Pt will report that he does not wake up at night due to L shoulder pain in order to demonstrate improved pain management and QOL LTG Duration 04/04/24 Four Impairment pain Impairment currently 5/10 pain at rest, 10/10 reported with activity Short Term Goal (STG) Pt will report 5/10 pain or less in L shoulder with activity in order to demonstrate improved symptom management and QOL STG Duration 03/06/24 Retirement Goal (LTG) Pt will report 2/10 pain or less in L shoulder with activity in order to demonstrate improved symptom management and QOL LTG Duration 04/04/24 Three Impairment function, activity 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 Short Term Goal (STG) Pt will report that he is able to play piano with L shoulder pain <2/10 in order to demonstrate improved QOL and activity tolerance STG Duration 02/26/24 Retirement Goal (LTG) Pt will report that he is able to play piano without limitation and without increase in baseline pain in order to demonstrate improved QOL and activity tolerance LTG Duration 04/04/24 Two Impairment strength Impairment did not assess due to precautions Short Term Goal (STG) Pt will have at least 3+/5 L shoulder flexion and abduction in scaption plane strength with pain less than 5/10 in order to demonstrate improved ability to lift objects 02/12/24: initiated AROM against gravity in reclined STG Duration 03/06/24 Retirement Goal (LTG) Pt will have at least 4/5 L shoulder flexion and abduction in scaption plane strength in order to demonstrate improved ability to lift objects LTG Duration 04/04/24 One Impairment ROM Impairment PROM currently 115 deg FF, 20 deg ER in scaption plane Short Term Goal (STG) Pt will have at least 120 deg of passive L forward flexion, full passive ER in scaption plane with pain <2/10 02/12/24: 120 deg forward flexion passively, 30 deg ER in scaption passively STG Duration 02/21/24 MET Logistics Support Goal (LTG) Pt will have at least 110 deg of active L forward shoulder flexion and functional ER of at least 30 degrees in scaption plane in order to demonstrate improved reaching and shoulder mobility for dressing/ADLs LTG Duration 8/16/24 Assessment Summary Assessment Patient is 10 weeks 6 days post op. End of session AROM left shoulder 120 deg scaption with reports of less pain lowering the UE. Physical Therapy Plan Frequency and Duration Frequency of Treatment 2x/Week Duration of treatment (weeks) 12 Plan of Care Start Date 01/10/24 Plan of Care End Date 04/04/24 Next Visit Focus/Plan Next Note Type Treatment Note Next Visit Plan Review and add to HEP if appropriate: review isometrics for home compliance -- AAROM>AROM reclined>sit> stand forward flex and ER in scaption, AROM ER in sidelying (progress 1# if able) vs No resistance yet with AROM. Continue with good isometric periscapular and L shoulder ER /IR/ADD/ABD/Ext. As needed, review L shoulder isometrics ( neutral extension) with elbow ext Up to 120 deg FF, ER to tolerance in scaption plane No resistance for elbow flexion unit 12 weeks/3 mos post op * March 06 2024 is 12 weeks post op
--- NOTE | 2024-02-29 12:49 | PT.OTN ---
Current Diagnoses Other specific arthropathies, not elsewhere classified, left shoulder (02/29/24) Unspecified rotator cuff tear or rupture of left shoulder, not specified as traumatic (02/29/24) Weakness (02/29/24) Physical Therapy Treatment Note PT-OP-A Visit Information Start: 01/10/24 07:24 Freq: Status: Active Protocol: Document 02/29/24 08:09 AB (Rec: 02/29/24 12:48 AB [id number]) Out-Patient Physical Therapy Visit Information Visit Information Visit Type Treatment Note Visit Note Access Code: [email or web address] Visit Start Time 09:49 Visit Stop Time 10:30 Visit Number 15 Number of AR MANAGER Visits 2 Evaluation Information Evaluation Date 01/10/24 Precautions Precautions Reverse TSA precautions: no ext/ADD/IR (subscapularis not repaired) sling for comfort see protocol for restrictions 6 weeks: 01/24/24; 8 weeks: 02/06; 12 weeks: 03/07/24 Phase I: 3-6 weeks: PROM up to FF 120 (scaption plane) and ER to tolerance(scaption), submaximal pain free isometrics in scapular plane ( avoid ext); AAROM of cervical spine, wrist, elbow, hand Phase II after week 6 as appropriate PT-OP-B Current Condition Start: 01/10/24 07:24 Freq: Status: Active Protocol: Document 01/10/24 08:18 NM (Rec: 01/10/24 09:46 NM [id number]) Current Condition History of Current Condition Onset Date DOS 12/13/23 Current Complaints mobility, pain, strength History of Current Condition Pt had surgery for L rTSA on , by Dr. Blas. He states that Dr. Blas repaired his rotator cuff in 2021, but it atrophied and retore again, which is when pt opted for shoulder replacement. Pt had rotator cuff arthropathy. 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 Previously, he had L shoulder snapping, popping, grinding. He has had his first follow up post-op, reports that everything going well. Pt reports that he was having trouble with sling and gave up on it. He was sleeping in reclining chair with arm across chest. Currently sleeping in bed, rolled toward his shoulder. Pt reports that a week ago, he had aching pain in his L shoulder after he grabbed a Trina pitcher with his L, felt a nasty pain in his L shoulder and was unable to lift anything including a teacup for days. Reports that was gradually getting better, until last night (01/08). Reports that he was holding the rosales with his L hand, which caused him to feel a sharp pain. He is left handed but able to use R hand for writing/eating/ADLs. He had follow up with doctor on . Pt reports that his has been helping him with dressing and all activities, but he feels bad that she has to do it all and wants to help. has been driving and helping pt with [employer] job. Has had 1 fall pre- surgery, but fell on R shoulder; states ankles giving out. He has not been performing any of the exercises from his doctor on Sunday. 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, 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 Current Functional Impairments (Reported) Functional Limitations- ADL's dressing assisting with dressing, ADLs, showering, grooming not sleeping with pillow behind arm Functional Limitations- Mobility/Gait strength loss Functional Limitations- 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 AROM left shoulder scaption 110 deg start of session. PT-OP-F Manual Assessment Start: 01/10/24 07:24 Freq: Status: Active Protocol: Document 01/10/24 08:18 NM (Rec: 01/10/24 09:46 NM [id number]) Manual Assessments Soft Tissue Assessment Soft Tissue Mobility Assessment Increased tenderness, decreased length of latissimus dorsi and pectoralis Joint Mobility Assessment Joint Mobility Assessment Empty end feel with forward flexion and scaption ER. No L shoulder clicking, popping, dislocation with passive ROM. Full elbow and wrist AROM PT-OP-H Neuro Start: 01/10/24 07:24 Freq: Status: Active Protocol: Document 01/10/24 08:18 NM (Rec: 01/10/24 09:46 NM [id number]) Sensation Evaluation Comments Summary Comments BUE equally intact to light touch sensation, small decrease on L side near axilla PT-OP-J Posture/Palpation/Skin Start: 01/10/24 07:24 Freq: Status: Active Protocol: Document 01/10/24 08:18 NM (Rec: 01/10/24 09:46 NM [id number]) Posture Evaluation Position Sitting Head/C-Spine Posture Forward Head T-Spine Posture Increased Kyphosis Shoulder Posture (L) Rounded,(R) Rounded,(L) Forward,(R) Forward,(L) Elevated Scapula Posture (L) Protracted,(R) Protracted, (L) Elevated Arm Posture (L) Internally Rotated,(R) Internally Rotated Comments Posture Comments Elbow positioned by side at 0 deg abd, no use of sling Palpation Assessment Location L shoulder Palpation Details Tenderness along anterior shoulder with palpation and posterior cuff. Denies pain with palpation Skin Assessment Incisional Assessment Incision Appearance/Comments clean/dry/intact. Glue beginning to peel. Good healing w/o signs of infection , redness Small indention above scar from infection from previous rotator cuff repair PT-OP-K Range of Motion Start: 01/10/24 07:24 Freq: Status: Active Protocol: Document 02/12/24 09:48 NM (Rec: 02/12/24 10:30 NM [id number]) Shoulder Goniometric Range of Motion Shoulder L AROM Flexion 110 Comments 02/12/24: reclined- 30 deg ER scaption L PROM Flexion 115 Comments ER in scaption plane 20 deg; empty end feel 02/12/24: 120 deg forward flexion, 30 deg ER in scaption , 50 deg IR in scaption PT-OP-M Strength Start: 01/10/24 07:24 Freq: Status: Active Protocol: Document 02/12/24 09:48 NM (Rec: 02/12/24 10:30 NM [id number]) Shoulder Strength Shoulder Manual Muscle Testing Left Comments Did not formally assess due to precautions and protocol 02/12/24: AROM began in reclining position, against gravity PT-OP-Q Treatments Start: 01/10/24 07:24 Freq: Status: Active Protocol: Document 02/29/24 08:09 AB (Rec: 02/29/24 12:48 AB [id number]) Therapeutic Exercises Sidelying Exercises shoulder ER Sidelying Exercise Name AROM on HEP Side left Equipment Used towel roll Reps/Minutes X15 Comments verbal and tactile cues, HEP review Sitting Exercises table slides Sitting Exercise Name FF in scaption plane (with trunk flexion) Reps/Minutes 10x Comments cued rest your head on table; 100 deg PROM with slight AAROM table slide Standing Exercises scapular depression Standing Exercise Name UE's in sight Side bilateral Reps/Minutes X10 for 3-5 seconds Comments verbal and visual cues isometrics Standing Exercise Name extension & abduction from neutral (not behind body) w/ longer lever Side left Equipment Used pillow Reps/Minutes 10x5 ea Comments pain free; cued submaximal Other Exercises reclined shoulder scaption Other Exercise Name HEP Side left Reps/Minutes 10 X Comments verbal cues, monitored for pain Manual Therapy Treatment Soft Tissue Mobilization left shoulder Body Location pec at axilla, scar tissue, rhomboids, UT, scalenes, bicepts belly Mobilization Type Rolling Intensity/Depth moderate and superficial Body Position Hooklying Comments Neutral position of L arm for pec mobilization at axilla, still tight but less tightness along axilla with positioning . Educated on not maintainin arm across body for long periods of time. Gentle mobilization of rhomboids, UT, scalenes. Joint Mobilizations scapular Joint left shoulder Direction depression and adduction Grade II Body Position Sidelying Reps/Duration 10 ea Comments PROM, pain free PT-OP-T Assessment and Plan Start: 01/10/24 07:24 Freq: Status: Active Protocol: Document 02/29/24 08:09 AB (Rec: 02/29/24 12:48 AB [id number]) Physical Therapy Assessment Goals Five Impairment sleep Impairment pt wakes 3x/night Short Term Goal (STG) Pt will report that he is waking <3x/night due to L shoulder pain in order to demonstrate improved pain management and QOL 02/07/24: waking at least 2x/ night STG Duration 03/06/24 MET Mcc Goal (LTG) Pt will report that he does not wake up at night due to L shoulder pain in order to demonstrate improved pain management and QOL LTG Duration 04/04/24 Four Impairment pain Impairment currently 5/10 pain at rest, 10/10 reported with activity Short Term Goal (STG) Pt will report 5/10 pain or less in L shoulder with activity in order to demonstrate improved symptom management and QOL STG Duration 03/06/24 Mcc Goal (LTG) Pt will report 2/10 pain or less in L shoulder with activity in order to demonstrate improved symptom management and QOL LTG Duration 04/04/24 Three Impairment function, activity 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 Short Term Goal (STG) Pt will report that he is able to play piano with L shoulder pain <2/10 in order to demonstrate improved QOL and activity tolerance STG Duration 02/26/24 Mcc Goal (LTG) Pt will report that he is able to play piano without limitation and without increase in baseline pain in order to demonstrate improved QOL and activity tolerance LTG Duration 04/04/24 Two Impairment strength Impairment did not assess due to precautions Short Term Goal (STG) Pt will have at least 3+/5 L shoulder flexion and abduction in scaption plane strength with pain less than 5/10 in order to demonstrate improved ability to lift objects 02/12/24: initiated AROM against gravity in reclined STG Duration 03/06/24 Mcc Goal (LTG) Pt will have at least 4/5 L shoulder flexion and abduction in scaption plane strength in order to demonstrate improved ability to lift objects LTG Duration 04/04/24 One Impairment ROM Impairment PROM currently 115 deg FF, 20 deg ER in scaption plane Short Term Goal (STG) Pt will have at least 120 deg of passive L forward flexion, full passive ER in scaption plane with pain <2/10 02/12/24: 120 deg forward flexion passively, 30 deg ER in scaption passively STG Duration 02/21/24 MET Mcc Goal (LTG) Pt will have at least 110 deg of active L forward shoulder flexion and functional ER of at least 30 degrees in scaption plane in order to demonstrate improved reaching and shoulder mobility for dressing/ADLs LTG Duration 04/04/24 Assessment Summary Assessment Patient is 11 weeks one day post op. Post manual therapy and exercise AROM left shoulder scaption 124 deg Physical Therapy Plan Frequency and Duration Frequency of Treatment 2x/Week Duration of treatment (weeks) 12 Plan of Care Start Date 01/10/24 Plan of Care End Date 04/04/24 Next Visit Focus/Plan Next Note Type Treatment Note Next Visit Plan Review and add to HEP if appropriate: review isometrics for home compliance -- AAROM>AROM reclined>sit> stand forward flex and ER in scaption, AROM ER in sidelying (progress 1# if able) vs No resistance yet with AROM. Continue with good isometric periscapular and L shoulder ER /IR/ADD/ABD/Ext. As needed, review L shoulder isometrics ( neutral extension) with elbow ext Up to 120 deg FF, ER to tolerance in scaption plane No resistance for elbow flexion unit 12 weeks/3 mos post op * March 06 2024 is 12 weeks post op
--- NOTE | 2024-03-03 12:46 | PT.OTN ---
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 AND RECEIVING 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 Visits 3 Evaluation Information Evaluation Date 01/10/24 Precautions Precautions Reverse TSA precautions: no ext/ADD/IR (subscapularis not repaired) sling for comfort see protocol for restrictions 6 weeks: 01/24/24; 8 weeks: 02/06; 12 weeks: 03/07/24 Phase I: 3-6 weeks: PROM up to FF 120 (scaption plane) and ER to tolerance(scaption), submaximal pain free isometrics in scapular plane ( avoid ext); AAROM of cervical spine, wrist, elbow, hand Phase II after week 6 as appropriate PT-OP-B Current Condition Start: 01/10/24 07:24 Freq: Status: Active Protocol: Document 01/10/24 08:18 NM (Rec: 01/10/24 09:46 NM [id number]) Current Condition History of Current Condition Onset Date DOS 12/13/23 Current Complaints mobility, pain, strength History of Current Condition Pt had surgery for L rTSA on , by Dr. Blas. He states that Dr. Blas repaired his rotator cuff in 2021, but it atrophied and retore again, which is when pt opted for shoulder replacement. Pt had rotator cuff arthropathy. 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 Previously, he had L shoulder snapping, popping, grinding. He has had his first follow up post-op, reports that everything going well. Pt reports that he was having trouble with sling and gave up on it. He was sleeping in reclining chair with arm across chest. Currently sleeping in bed, rolled toward his shoulder. Pt reports that a week ago, he had aching pain in his L shoulder after he grabbed a [employer]ina pitcher with his L, felt a nasty pain in his L shoulder and was unable to lift anything including a teacup for days. Reports that was gradually getting better, until last night (01/08). Reports that he was holding the rosales with his L hand, which caused him to feel a sharp pain. He is left handed but able to use R hand for writing/eating/ADLs. He had follow up with doctor on . Pt reports that his has been helping him with dressing and all activities, but he feels bad that she has to do it all and wants to help. has been driving and helping pt with [employer] job. Has had 1 fall pre- surgery, but fell on R shoulder; states ankles giving out. He has not been performing any of the exercises from his doctor on Sunday. 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 Current Functional Impairments (Reported) Functional Limitations- ADL's dressing assisting with dressing, ADLs, showering, grooming not sleeping with pillow behind arm Functional Limitations- Mobility/Gait strength loss Functional Limitations- 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 Patient reports shoulder is a little sore from sleeping on it. Did no door dash this weekend. PT-OP-F Manual Assessment Start: 01/10/24 07:24 Freq: Status: Active Protocol: Document 01/10/24 08:18 NM (Rec: 01/10/24 09:46 NM [id number]) Manual Assessments Soft Tissue Assessment Soft Tissue Mobility Assessment Increased tenderness, decreased length of latissimus dorsi and pectoralis Joint Mobility Assessment Joint Mobility Assessment Empty end feel with forward flexion and scaption ER. No L shoulder clicking, popping, dislocation with passive ROM. Full elbow and wrist AROM PT-OP-H Neuro Start: 01/10/24 07:24 Freq: Status: Active Protocol: Document 01/10/24 08:18 NM (Rec: 01/10/24 09:46 NM [id number]) Sensation Evaluation Comments Summary Comments BUE equally intact to light touch sensation, small decrease on L side near axilla PT-OP-J Posture/Palpation/Skin Start: 01/10/24 07:24 Freq: Status: Active Protocol: Document 01/10/24 08:18 NM (Rec: 01/10/24 09:46 NM [id number]) Posture Evaluation Position Sitting Head/C-Spine Posture Forward Head T-Spine Posture Increased Kyphosis Shoulder Posture (L) Rounded,(R) Rounded,(L) Forward,(R) Forward,(L) Elevated Scapula Posture (L) Protracted,(R) Protracted, (L) Elevated Arm Posture (L) Internally Rotated,(R) Internally Rotated Comments Posture Comments Elbow positioned by side at 0 deg abd, no use of sling Palpation Assessment Location L shoulder Palpation Details Tenderness along anterior shoulder with palpation and posterior cuff. Denies pain with palpation Skin Assessment Incisional Assessment Incision Appearance/Comments clean/dry/intact. Glue beginning to peel. Good healing w/o signs of infection , redness Small indention above scar from infection from previous rotator cuff repair PT-OP-K Range of Motion Start: 01/10/24 07:24 Freq: Status: Active Protocol: Document 02/12/24 09:48 NM (Rec: 02/12/24 10:30 NM [id number]) Shoulder Goniometric Range of Motion Shoulder L AROM Flexion 110 Comments 02/12/24: reclined- 30 deg ER scaption L PROM Flexion 115 Comments ER in scaption plane 20 deg; empty end feel 02/12/24: 120 deg forward flexion, 30 deg ER in scaption , 50 deg IR in scaption PT-OP-M Strength Start: 01/10/24 07:24 Freq: Status: Active Protocol: Document 02/12/24 09:48 NM (Rec: 02/12/24 10:30 NM [id number]) Shoulder Strength Shoulder Manual Muscle Testing Left Comments Did not formally assess due to precautions and protocol 02/12/24: AROM began in reclining position, against gravity PT-OP-Q Treatments Start: 01/10/24 07:24 Freq: Status: Active Protocol: Document 03/03/24 08:06 AB (Rec: 03/03/24 12:45 AB [id number]) Therapeutic Exercises Sidelying Exercises shoulder ER Sidelying Exercise Name AROM on HEP Side left Equipment Used with UE at side and with folded pillow under elbow Reps/Minutes X15 X2 Comments verbal and tactile cues, HEP review Sitting Exercises seated shoulder ER Sitting Exercise Name AROM Side left Reps/Minutes X10 Comments Verbal and visual cues, monitored for pain Standing Exercises scapular depression Standing Exercise Name UE's in sight Side bilateral Reps/Minutes X15 for 3-5 seconds Comments verbal and visual cues isometrics Standing Exercise Name extension & abduction from neutral (not behind body) w/ longer lever Side left Equipment Used pillow Reps/Minutes X15 5 sec each Comments monitored for pain Other Exercises reclined shoulder scaption Other Exercise Name HEP elbows flexed, initiated with elbow extended, not john, then john Side left Reps/Minutes X1 then 10 X 2 Comments verbal cues, monitored for pain john X 10 with elbow ext post elbow flexed Manual Therapy Treatment Soft Tissue Mobilization left shoulder Body Location pec at axilla, scar tissue, rhomboids, UT, scalenes, bicepts belly Mobilization Type Rolling Intensity/Depth moderate and superficial Body Position Hooklying Comments Neutral position of L arm for pec mobilization at axilla, still tight but less tightness along axilla with positioning . Educated on not maintainin arm across body for long periods of time. Gentle mobilization of rhomboids, UT, scalenes. Joint Mobilizations scapular Joint left shoulder Direction depression and adduction Grade II Body Position Sidelying Reps/Duration 10 ea Comments PROM, pain free PT-OP-T Assessment and Plan Start: 01/10/24 07:24 Freq: Status: Active Protocol: Document 03/03/24 08:06 AB (Rec: 03/03/24 12:45 AB [id number]) Physical Therapy Assessment Goals Five Impairment sleep Impairment pt wakes 3x/night Short Term Goal (STG) Pt will report that he is waking <3x/night due to L shoulder pain in order to demonstrate improved pain management and QOL 02/07/24: waking at least 2x/ night STG Duration 03/06/24 [facility] Family Resource Management Professor Goal (LTG) Pt will report that he does not wake up at night due to L shoulder pain in order to demonstrate improved pain management and QOL LTG Duration 04/04/24 Four Impairment pain Impairment currently 5/10 pain at rest, 10/10 reported with activity Short Term Goal (STG) Pt will report 5/10 pain or less in L shoulder with activity in order to demonstrate improved symptom management and QOL STG Duration 03/06/24 Family Resource Management Professor Goal (LTG) Pt will report 2/10 pain or less in L shoulder with activity in order to demonstrate improved symptom management and QOL LTG Duration 04/04/24 Three Impairment function, activity 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 Short Term Goal (STG) Pt will report that he is able to play piano with L shoulder pain <2/10 in order to demonstrate improved QOL and activity tolerance STG Duration 02/26/24 Family Resource Management Professor Goal (LTG) Pt will report that he is able to play piano without limitation and without increase in baseline pain in order to demonstrate improved QOL and activity tolerance LTG Duration 04/04/24 Two Impairment strength Impairment did not assess due to precautions Short Term Goal (STG) Pt will have at least 3+/5 L shoulder flexion and abduction in scaption plane strength with pain less than 5/10 in order to demonstrate improved ability to lift objects 02/12/24: initiated AROM against gravity in reclined STG Duration 03/06/24 Nursing Home Goal (LTG) Pt will have at least 4/5 L shoulder flexion and abduction in scaption plane strength in order to demonstrate improved ability to lift objects LTG Duration 04/04/24 One Impairment ROM Impairment PROM currently 115 deg FF, 20 deg ER in scaption plane Short Term Goal (STG) Pt will have at least 120 deg of passive L forward flexion, full passive ER in scaption plane with pain <2/10 02/12/24: 120 deg forward flexion passively, 30 deg ER in scaption passively STG Duration 02/21/24 [facility] Family Resource Management Professor Goal (LTG) Pt will have at least 110 deg of active L forward shoulder flexion and functional ER of at least 30 degrees in scaption plane in order to demonstrate improved reaching and shoulder mobility for dressing/ADLs LTG Duration 04/04/24 Assessment Summary Assessment Patient is 11 weeks 4 days post op. 124 deg AROM left shoulder flexion end of session. Physical Therapy Plan Frequency and Duration Frequency of Treatment 2x/Week Duration of treatment (weeks) 12 Plan of Care Start Date 01/10/24 Plan of Care End Date 04/04/24 Next Visit Focus/Plan Next Note Type Treatment Note Next Visit Plan Review and add to HEP if appropriate: review isometrics for home compliance -- AAROM>AROM reclined>sit> stand forward flex and ER in scaption, AROM ER in sidelying (progress 1# if able) vs No resistance yet with AROM. Continue with good isometric periscapular and L shoulder ER /IR/ADD/ABD/Ext. As needed, review L shoulder isometrics ( neutral extension) with elbow ext Up to 120 deg FF, ER to tolerance in scaption plane No resistance for elbow flexion unit 12 weeks/3 mos post op * March 06 2024 is 12 weeks post op, progress protocol this session
--- NOTE | 2024-03-06 15:42 | PT.OTN ---
Current Diagnoses Other specific arthropathies, not elsewhere classified, left shoulder (03/06/24) Unspecified rotator cuff tear or rupture of left shoulder, not specified as traumatic (03/06/24) Weakness (03/06/24) Physical Therapy Treatment Note PT-OP-A Visit Information Start: 01/10/24 07:24 Freq: Status: Active Protocol: Document 03/06/24 09:48 NM (Rec: 03/06/24 10:29 NM [id number]) Out-Patient Physical Therapy Visit Information Visit Information Visit Type Treatment Note Visit Start Time 09:49 Visit Stop Time 10:29 Visit Number 17 Evaluation Information Evaluation Date 01/10/24 Precautions Precautions Reverse TSA precautions: no ext/ADD/IR (subscapularis not repaired) sling for comfort see protocol for restrictions 6 weeks: 01/24/24; 8 weeks: 02/06; 12 weeks: 03/07/24 Phase I: 3-6 weeks: PROM up to FF 120 (scaption plane) and ER to tolerance(scaption), submaximal pain free isometrics in scapular plane ( avoid ext); AAROM of cervical spine, wrist, elbow, hand Phase II after week 6 as appropriate PT-OP-B Current Condition Start: 01/10/24 07:24 Freq: Status: Active Protocol: Document 01/10/24 08:18 NM (Rec: 01/10/24 09:46 NM [id number]) Current Condition History of Current Condition Onset Date DOS 12/13/23 Current Complaints mobility, pain, strength History of Current Condition Pt had surgery for L rTSA on , by Dr. Blas. He states that Dr. Blas repaired his rotator cuff in 2021, but it atrophied and retore again, which is when pt opted for shoulder replacement. Pt had rotator cuff arthropathy. 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 Previously, he had L shoulder snapping, popping, grinding. He has had his first follow up post-op, reports that everything going well. Pt reports that he was having trouble with sling and gave up on it. He was sleeping in reclining chair with arm across chest. Currently sleeping in bed, rolled toward his shoulder. Pt reports that a week ago, he had aching pain in his L shoulder after he grabbed a [employer] pitcher with his L, felt a nasty pain in his L shoulder and was unable to lift anything including a teacup for days. Reports that was gradually getting better, until last night (01/08). Reports that he was holding the rosales with his L hand, which caused him to feel a sharp pain. He is left handed but able to use R hand for writing/eating/ADLs. He had follow up with doctor on . Pt reports that his has been helping him with dressing and all activities, but he feels bad that she has to do it all and wants to help. has been driving and helping pt with [employer] job. Has had 1 fall pre- surgery, but fell on R shoulder; states ankles giving out. He has not been performing any of the exercises from his doctor on Sunday. 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 Current Functional Impairments (Reported) Functional Limitations- ADL's dressing assisting with dressing, ADLs, showering, grooming not sleeping with pillow behind arm Functional Limitations- Mobility/Gait strength loss Functional Limitations- 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 States pain better managed. Sore after last session, achy and tired after. Reports no pain at rest right now, just achy. States doing exercises but forgets some of them (has been doing ER/flexion). Helped his weed right handed recently, lifted bucket only with R hand. State tender down posterior cuff and posterior arm. Couldn't sleep on L shoulder (states at 45 deg angle on shoulder), has been sleeping on his R arm. States takes pain meds 2x/wk PT-OP-F Manual Assessment Start: 01/10/24 07:24 Freq: Status: Active Protocol: Document 01/10/24 08:18 NM (Rec: 01/10/24 09:46 NM [id number]) Manual Assessments Soft Tissue Assessment Soft Tissue Mobility Assessment Increased tenderness, decreased length of latissimus dorsi and pectoralis Joint Mobility Assessment Joint Mobility Assessment Empty end feel with forward flexion and scaption ER. No L shoulder clicking, popping, dislocation with passive ROM. Full elbow and wrist AROM PT-OP-H Neuro Start: 01/10/24 07:24 Freq: Status: Active Protocol: Document 01/10/24 08:18 NM (Rec: 01/10/24 09:46 NM [id number]) Sensation Evaluation Comments Summary Comments BUE equally intact to light touch sensation, small decrease on L side near axilla PT-OP-J Posture/Palpation/Skin Start: 01/10/24 07:24 Freq: Status: Active Protocol: Document 01/10/24 08:18 NM (Rec: 01/10/24 09:46 NM [id number]) Posture Evaluation Position Sitting Head/C-Spine Posture Forward Head T-Spine Posture Increased Kyphosis Shoulder Posture (L) Rounded,(R) Rounded,(L) Forward,(R) Forward,(L) Elevated Scapula Posture (L) Protracted,(R) Protracted, (L) Elevated Arm Posture (L) Internally Rotated,(R) Internally Rotated Comments Posture Comments Elbow positioned by side at 0 deg abd, no use of sling Palpation Assessment Location L shoulder Palpation Details Tenderness along anterior shoulder with palpation and posterior cuff. Denies pain with palpation Skin Assessment Incisional Assessment Incision Appearance/Comments clean/dry/intact. Glue beginning to peel. Good healing w/o signs of infection , redness Small indention above scar from infection from previous rotator cuff repair PT-OP-K Range of Motion Start: 01/10/24 07:24 Freq: Status: Active Protocol: Document 02/12/24 09:48 NM (Rec: 02/12/24 10:30 NM [id number]) Shoulder Goniometric Range of Motion Shoulder L AROM Flexion 110 Comments 02/12/24: reclined- 30 deg ER scaption L PROM Flexion 115 Comments ER in scaption plane 20 deg; empty end feel 02/12/24: 120 deg forward flexion, 30 deg ER in scaption , 50 deg IR in scaption PT-OP-M Strength Start: 01/10/24 07:24 Freq: Status: Active Protocol: Document 02/12/24 09:48 NM (Rec: 02/12/24 10:30 NM [id number]) Shoulder Strength Shoulder Manual Muscle Testing Left Comments Did not formally assess due to precautions and protocol 02/12/24: AROM began in reclining position, against gravity PT-OP-Q Treatments Start: 01/10/24 07:24 Freq: Status: Active Protocol: Document 03/06/24 09:48 NM (Rec: 03/06/24 10:29 NM [id number]) Therapeutic Exercises Sidelying Exercises shoulder ER Sidelying Exercise Name AROM Side left Equipment Used with UE at side and with folded pillow under elbow Reps/Minutes 2x15 Comments cued scapular setting prior to ER; feels burn Standing Exercises AAROM Standing Exercise Name 1. FF in scaption, 2. ER in scaption Side left Equipment Used dowel, towel roll for body on ER Reps/Minutes 10 ea Comments no UT comp w/ mirror for visual feedback AROM Standing Exercise Name 1. forward flexion in scaption , 2. W/Robbery with scap retract Equipment Used mirror for visual cues Reps/Minutes 1. 5, 2. 10 with brief hold Comments 110 deg start of session, 115 deg end of session isometrics Standing Exercise Name extension & abduction from neutral (not behind body) w/ longer lever Side left Equipment Used pillow Reps/Minutes 10x 5 sec each Comments monitored for pain Manual Therapy Treatment Consent Patient gave verbal consent for manual Yes treatment Soft Tissue Mobilization left shoulder Body Location pec at axilla, scar tissue, rhomboids, UT, scalenes, biceps belly, lat Mobilization Type Rolling Intensity/Depth moderate and superficial Body Position Hooklying Comments Neutral position of L arm for pec mobilization at axilla, still tight but less tightness along axilla with positioning . Tightness and tenderness at L lat, rhomboid Joint Mobilizations scapular Joint left shoulder Direction depression and adduction Grade II Body Position Sidelying Reps/Duration 10 ea Comments PROM, pain free PT-OP-T Assessment and Plan Start: 01/10/24 07:24 Freq: Status: Active Protocol: Document 03/06/24 09:48 NM (Rec: 03/06/24 10:29 NM [id number]) Physical Therapy Assessment Goals Five Impairment sleep Impairment pt wakes 3x/night Short Term Goal (STG) Pt will report that he is waking <3x/night due to L shoulder pain in order to demonstrate improved pain management and QOL 02/07/24: waking at least 2x/ night STG Duration 03/06/24 MET Senior Research Analyst Goal (LTG) Pt will report that he does not wake up at night due to L shoulder pain in order to demonstrate improved pain management and QOL LTG Duration 04/04/24 Four Impairment pain Impairment currently 5/10 pain at rest, 10/10 reported with activity Short Term Goal (STG) Pt will report 5/10 pain or less in L shoulder with activity in order to demonstrate improved symptom management and QOL STG Duration 03/06/24 Detention Goal (LTG) Pt will report 2/10 pain or less in L shoulder with activity in order to demonstrate improved symptom management and QOL LTG Duration 04/04/24 Three Impairment function, activity 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 Short Term Goal (STG) Pt will report that he is able to play piano with L shoulder pain <2/10 in order to demonstrate improved QOL and activity tolerance STG Duration 02/26/24 Detention Goal (LTG) Pt will report that he is able to play piano without limitation and without increase in baseline pain in order to demonstrate improved QOL and activity tolerance LTG Duration 04/04/24 Two Impairment strength Impairment did not assess due to precautions Short Term Goal (STG) Pt will have at least 3+/5 L shoulder flexion and abduction in scaption plane strength with pain less than 5/10 in order to demonstrate improved ability to lift objects 02/12/24: initiated AROM against gravity in reclined STG Duration 03/06/24 Detention Goal (LTG) Pt will have at least 4/5 L shoulder flexion and abduction in scaption plane strength in order to demonstrate improved ability to lift objects LTG Duration 04/04/24 One Impairment ROM Impairment PROM currently 115 deg FF, 20 deg ER in scaption plane Short Term Goal (STG) Pt will have at least 120 deg of passive L forward flexion, full passive ER in scaption plane with pain <2/10 02/12/24: 120 deg forward flexion passively, 30 deg ER in scaption passively STG Duration 02/21/24 MET Senior Research Analyst Goal (LTG) Pt will have at least 110 deg of active L forward shoulder flexion and functional ER of at least 30 degrees in scaption plane in order to demonstrate improved reaching and shoulder mobility for dressing/ADLs LTG Duration 04/04/24 Assessment Summary Assessment Pt is currently 11 weeks 6 days post op. Tolerated session well without increase in L shoulder pain. Continued with isometrics as pt not able to start strengthening yet per protocol and instruction by surgeon until 12 weeks. Pt continues to progress with AROM in sidelying and standing . Currently L shoulder AROM for flexion in scaption up to deg 115 deg at end of session, ER in scaption up to 50 deg. Pt would benefit from skilled PT for L shoulder mobility and strength per protocol in order to improve ability to perform ADLs. Physical Therapy Plan Frequency and Duration Frequency of Treatment 2x/Week Duration of treatment (weeks) 12 Plan of Care Start Date 01/10/24 Plan of Care End Date 04/04/24 Therapeutic Interventions Therapeutic Interventions Gait Training,Home Exercise Program,Joint Mobilizations, Manual Therapy,Neuromuscular Re-education,Orthotic/ Prosthetic Management,Patient/ Caregiver Education,Self-Care/ Home Management,Sensory Integration,Soft Tissue Mobilization,Taping, Therapeutic Activities, Therapeutic Exercises Modalities Cold Pack/Ice Massage,Electric Stimulation,Hot Packs, Ultrasound Next Visit Focus/Plan Next Note Type Treatment Note Next Visit Plan Review and add to HEP if appropriate: review isometrics for home compliance begin sofy flexion, trial ER with 1#, stair slide, washcloth press -- AAROM>AROM reclined>sit> stand forward flex and ER in scaption, AROM ER in sidelying (progress 1# if able) vs No resistance yet with AROM. Continue with good isometric periscapular and L shoulder ER /IR/ADD/ABD/Ext. As needed, review L shoulder isometrics ( neutral extension) with elbow ext Up to 120 deg FF, ER to tolerance in scaption plane No resistance for elbow flexion unit 12 weeks/3 mos post op * March 06 2024 is 12 weeks post op, progress protocol this session
--- NOTE | 2024-03-11 12:54 | PT.OTN ---
Current Diagnoses Other specific arthropathies, not elsewhere classified, left shoulder (03/11/24) Unspecified rotator cuff tear or rupture of left shoulder, not specified as traumatic (03/11/24) Weakness (03/11/24) Physical Therapy Treatment Note PT-OP-A Visit Information Start: 01/10/24 07:24 Freq: Status: Active Protocol: Document 03/11/24 10:32 NM (Rec: 03/11/24 11:11 NM [id number]) Out-Patient Physical Therapy Visit Information Visit Information Visit Type Treatment Note Visit Start Time 10:33 Visit Stop Time 11:13 Visit Number 18 Evaluation Information Evaluation Date 01/10/24 Precautions Precautions Reverse TSA precautions: no ext/ADD/IR (subscapularis not repaired) sling for comfort see protocol for restrictions 6 weeks: 01/24/24; 8 weeks: 02/06; 12 weeks: 03/07/24 Phase I: 3-6 weeks: PROM up to FF 120 (scaption plane) and ER to tolerance(scaption), submaximal pain free isometrics in scapular plane ( avoid ext); AAROM of cervical spine, wrist, elbow, hand Phase II after week 6 as appropriate PT-OP-B Current Condition Start: 01/10/24 07:24 Freq: Status: Active Protocol: Document 01/10/24 08:18 NM (Rec: 01/10/24 09:46 NM [id number]) Current Condition History of Current Condition Onset Date DOS 12/13/23 Current Complaints mobility, pain, strength History of Current Condition Pt had surgery for L rTSA on , by Dr. Blas. He states that Dr. Blas repaired his rotator cuff in 2021, but it atrophied and retore again, which is when pt opted for shoulder replacement. Pt had rotator cuff arthropathy. 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 Previously, he had L shoulder snapping, popping, grinding. He has had his first follow up post-op, reports that everything going well. Pt reports that he was having trouble with sling and gave up on it. He was sleeping in reclining chair with arm across chest. Currently sleeping in bed, rolled toward his shoulder. Pt reports that a week ago, he had aching pain in his L shoulder after he grabbed a [employer]ina pitcher with his L, felt a nasty pain in his L shoulder and was unable to lift anything including a teacup for days. Reports that was gradually getting better, until last night (01/08). Reports that he was holding the rosales with his L hand, which caused him to feel a sharp pain. He is left handed but able to use R hand for writing/eating/ADLs. He had follow up with doctor on . Pt reports that his has been helping him with dressing and all activities, but he feels bad that she has to do it all and wants to help. has been driving and helping pt with [employer] job. Has had 1 fall pre- surgery, but fell on R shoulder; states ankles giving out. He has not been performing any of the exercises from his doctor on Sunday. 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, 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 Current Functional Impairments (Reported) Functional Limitations- ADL's dressing assisting with dressing, ADLs, showering, grooming not sleeping with pillow behind arm Functional Limitations- Mobility/Gait strength loss Functional Limitations- 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 States L shoulder sore this morning, achy -09/29. States that he tosses and turns a lot at night. Reports spotty with exercises (says doing lifting arm up, elbow thing, no shoulder blades, sidelying ER) . Has appt with surgeon in early march PT-OP-F Manual Assessment Start: 01/10/24 07:24 Freq: Status: Active Protocol: Document 01/10/24 08:18 NM (Rec: 01/10/24 09:46 NM [id number]) Manual Assessments Soft Tissue Assessment Soft Tissue Mobility Assessment Increased tenderness, decreased length of latissimus dorsi and pectoralis Joint Mobility Assessment Joint Mobility Assessment Empty end feel with forward flexion and scaption ER. No L shoulder clicking, popping, dislocation with passive ROM. Full elbow and wrist AROM PT-OP-H Neuro Start: 01/10/24 07:24 Freq: Status: Active Protocol: Document 01/10/24 08:18 NM (Rec: 01/10/24 09:46 NM [id number]) Sensation Evaluation Comments Summary Comments BUE equally intact to light touch sensation, small decrease on L side near axilla PT-OP-J Posture/Palpation/Skin Start: 01/10/24 07:24 Freq: Status: Active Protocol: Document 01/10/24 08:18 NM (Rec: 01/10/24 09:46 NM [id number]) Posture Evaluation Position Sitting Head/C-Spine Posture Forward Head T-Spine Posture Increased Kyphosis Shoulder Posture (L) Rounded,(R) Rounded,(L) Forward,(R) Forward,(L) Elevated Scapula Posture (L) Protracted,(R) Protracted, (L) Elevated Arm Posture (L) Internally Rotated,(R) Internally Rotated Comments Posture Comments Elbow positioned by side at 0 deg abd, no use of sling Palpation Assessment Location L shoulder Palpation Details Tenderness along anterior shoulder with palpation and posterior cuff. Denies pain with palpation Skin Assessment Incisional Assessment Incision Appearance/Comments clean/dry/intact. Glue beginning to peel. Good healing w/o signs of infection , redness Small indention above scar from infection from previous rotator cuff repair PT-OP-K Range of Motion Start: 01/10/24 07:24 Freq: Status: Active Protocol: Document 02/12/24 09:48 NM (Rec: 02/12/24 10:30 NM [id number]) Shoulder Goniometric Range of Motion Shoulder L AROM Flexion 110 Comments 02/12/24: reclined- 30 deg ER scaption L PROM Flexion 115 Comments ER in scaption plane 20 deg; empty end feel 02/12/24: 120 deg forward flexion, 30 deg ER in scaption , 50 deg IR in scaption PT-OP-M Strength Start: 01/10/24 07:24 Freq: Status: Active Protocol: Document 02/12/24 09:48 NM (Rec: 02/12/24 10:30 NM [id number]) Shoulder Strength Shoulder Manual Muscle Testing Left Comments Did not formally assess due to precautions and protocol 02/12/24: AROM began in reclining position, against gravity PT-OP-Q Treatments Start: 01/10/24 07:24 Freq: Status: Active Protocol: Document 03/11/24 10:32 NM (Rec: 03/11/24 11:11 NM [id number]) Therapeutic Exercises Supine Exercises washcloth press Supine Exercise Name supine Side bilateral Reps/Minutes 10 ea Comments achy in shoulder; scaption plane flexion with dowel Supine Exercise Name supine Side bilateral Resistance AROM Equipment Used washcloth Reps/Minutes 10 Comments 120 deg in scaption plane Sitting Exercises elbow flexion/extension Sitting Exercise Name 1. supine on pillow, 2. seated Side left Reps/Minutes 10 Comments cued supination; feels tight Standing Exercises scapular depression Standing Exercise Name UE's in sight Side bilateral Reps/Minutes 15x5 Comments verbal and visual cues to prevent fwd trunk flex/ant humeral rest position isometrics Standing Exercise Name 1. flexion (HEP)-short lever, 2. LL ext from neutral, 3. LL abd Side left Equipment Used pillow Reps/Minutes 10 with 5 hold Comments monitored for pain; flexion in sitting Manual Therapy Treatment Consent Patient gave verbal consent for manual Yes treatment Soft Tissue Mobilization left shoulder Body Location pec at axilla, UT, scalenes, LS, periscapular, biceps muscle belly Mobilization Type Rolling Intensity/Depth moderate and superficial Body Position Hooklying,sidelying Comments Neutral position of L arm for pec mobilization at axilla, still tight but less tightness along axilla with positioning . Tightness and tenderness at L lat, rhomboid Joint Mobilizations scapular Joint left shoulder Direction depression and adduction Grade III Body Position Sidelying Reps/Duration 10 ea Comments monitored for pain. demos tendency for elevation PT-OP-T Assessment and Plan Start: 01/10/24 07:24 Freq: Status: Active Protocol: Document 03/11/24 10:32 NM (Rec: 03/11/24 11:11 NM [id number]) Physical Therapy Assessment Goals Five Impairment sleep Impairment pt wakes 3x/night Short Term Goal (STG) Pt will report that he is waking <3x/night due to L shoulder pain in order to demonstrate improved pain management and QOL 02/07/24: waking at least 2x/ night STG Duration 03/06/24 MET Mcc Goal (LTG) Pt will report that he does not wake up at night due to L shoulder pain in order to demonstrate improved pain management and QOL LTG Duration 04/04/24 Four Impairment pain Impairment currently 5/10 pain at rest, 10/10 reported with activity Short Term Goal (STG) Pt will report 5/10 pain or less in L shoulder with activity in order to demonstrate improved symptom management and QOL STG Duration 03/06/24 Design Specialist Goal (LTG) Pt will report 2/10 pain or less in L shoulder with activity in order to demonstrate improved symptom management and QOL LTG Duration 04/04/24 Three Impairment function, activity 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 Short Term Goal (STG) Pt will report that he is able to play piano with L shoulder pain <2/10 in order to demonstrate improved QOL and activity tolerance STG Duration 02/26/24 Design Specialist Goal (LTG) Pt will report that he is able to play piano without limitation and without increase in baseline pain in order to demonstrate improved QOL and activity tolerance LTG Duration 04/04/24 Two Impairment strength Impairment did not assess due to precautions Short Term Goal (STG) Pt will have at least 3+/5 L shoulder flexion and abduction in scaption plane strength with pain less than 5/10 in order to demonstrate improved ability to lift objects 02/12/24: initiated AROM against gravity in reclined STG Duration 03/06/24 Design Specialist Goal (LTG) Pt will have at least 4/5 L shoulder flexion and abduction in scaption plane strength in order to demonstrate improved ability to lift objects LTG Duration 04/04/24 One Impairment ROM Impairment PROM currently 115 deg FF, 20 deg ER in scaption plane Short Term Goal (STG) Pt will have at least 120 deg of passive L forward flexion, full passive ER in scaption plane with pain <2/10 02/12/24: 120 deg forward flexion passively, 30 deg ER in scaption passively STG Duration 02/21/24 MET Design Specialist Goal (LTG) Pt will have at least 110 deg of active L forward shoulder flexion and functional ER of at least 30 degrees in scaption plane in order to demonstrate improved reaching and shoulder mobility for dressing/ADLs LTG Duration 04/04/24 Assessment Summary Assessment Pt now 12 weeks post op; per protocol, able to begin strengthening and use of biceps/ant delt today. Has 118 deg L shoulder flex in scaption. Tolerated session well with mild increase in pain when pt moved his L arm with elbow flexed up to stretch lat after PT instructed him not to stretch. Educated pt allowed to do soft tissue mobilization of lat using RUE only at this time due to tissue repair. Initiated submaximal shoulder flexion isometric, which pt tolerated fair with cueing to maintain submaximal and isometric. Good deltoid activation. Pt fatigues quickly with gentle strengthening activities; pt educated that strengthening takes at least 6-8 weeks for results to occur. Physical Therapy Plan Frequency and Duration Frequency of Treatment 2x/Week Duration of treatment (weeks) 12 Plan of Care Start Date 01/10/24 Plan of Care End Date 04/04/24 Therapeutic Interventions Therapeutic Interventions Gait Training,Home Exercise Program,Joint Mobilizations, Manual Therapy,Neuromuscular Re-education,Orthotic/ Prosthetic Management,Patient/ Caregiver Education,Self-Care/ Home Management,Sensory Integration,Soft Tissue Mobilization,Taping, Therapeutic Activities, Therapeutic Exercises Modalities Cold Pack/Ice Massage,Electric Stimulation,Hot Packs, Ultrasound Next Visit Focus/Plan Next Note Type Treatment Note Next Visit Plan review sofy flexion and add to HEP. CS stretch begin sofy flexion, trial ER with 1#, stair slide with wash cloth, washcloth press ( supine>recline>sit>stand) -- AROM reclined>sit>stand forward flex and ER in scaption, AROM ER in sidelying (progress 1# if able) ER to tolerance in scaption, 120 deg FF in scaption PN to ext plan on 03/18 or 03/28
--- NOTE | 2024-03-14 12:42 | PT.OTN ---
Current Diagnoses Other specific arthropathies, not elsewhere classified, left shoulder (03/14/24) Unspecified rotator cuff tear or rupture of left shoulder, not specified as traumatic (03/14/24) Weakness (03/14/24) Physical Therapy Treatment Note PT-OP-A Visit Information Start: 01/10/24 07:24 Freq: Status: Active Protocol: Document 03/14/24 10:31 AB (Rec: 03/14/24 12:42 AB [id number]) Out-Patient Physical Therapy Visit Information Visit Information Visit Type Treatment Note Visit Note Access Code: [email or web address] Visit Start Time 10:33 Visit Stop Time 11:15 Visit Number 19 Number of APPLIED ANTHROPOLOGIST Visits 1 Evaluation Information Evaluation Date 01/10/24 Precautions Precautions Reverse TSA precautions: no ext/ADD/IR (subscapularis not repaired) sling for comfort see protocol for restrictions 6 weeks: 01/24/24; 8 weeks: 02/06; 12 weeks: 03/07/24 Phase I: 3-6 weeks: PROM up to FF 120 (scaption plane) and ER to tolerance(scaption), submaximal pain free isometrics in scapular plane ( avoid ext); AAROM of cervical spine, wrist, elbow, hand Phase II after week 6 as appropriate PT-OP-B Current Condition Start: 01/10/24 07:24 Freq: Status: Active Protocol: Document 01/10/24 08:18 NM (Rec: 01/10/24 09:46 NM [id number]) Current Condition History of Current Condition Onset Date DOS 12/13/23 Current Complaints mobility, pain, strength History of Current Condition Pt had surgery for L rTSA on , by Dr. Blas. He states that Dr. Blas repaired his rotator cuff in 2021, but it atrophied and retore again, which is when pt opted for shoulder replacement. Pt had rotator cuff arthropathy. 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 Previously, he had L shoulder snapping, popping, grinding. He has had his first follow up post-op, reports that everything going well. Pt reports that he was having trouble with sling and gave up on it. He was sleeping in reclining chair with arm across chest. Currently sleeping in bed, rolled toward his shoulder. Pt reports that a week ago, he had aching pain in his L shoulder after he grabbed a [employer] pitcher with his L, felt a nasty pain in his L shoulder and was unable to lift anything including a teacup for days. Reports that was gradually getting better, until last night (01/08). Reports that he was holding the rosales with his L hand, which caused him to feel a sharp pain. He is left handed but able to use R hand for writing/eating/ADLs. He had follow up with doctor on . Pt reports that his has been helping him with dressing and all activities, but he feels bad that she has to do it all and wants to help. has been driving and helping pt with [employer] job. Has had 1 fall pre- surgery, but fell on R shoulder; states ankles giving out. He has not been performing any of the exercises from his doctor on Sunday. 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, 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 Current Functional Impairments (Reported) Functional Limitations- ADL's dressing assisting with dressing, ADLs, showering, grooming not sleeping with pillow behind arm Functional Limitations- Mobility/Gait strength loss Functional Limitations- 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 Patient rates shoulder pain left shoulder 1- 2/ start of session. AROM left shoulder scaption 120 deg start of session. PT-OP-F Manual Assessment Start: 01/10/24 07:24 Freq: Status: Active Protocol: Document 01/10/24 08:18 NM (Rec: 01/10/24 09:46 NM [id number]) Manual Assessments Soft Tissue Assessment Soft Tissue Mobility Assessment Increased tenderness, decreased length of latissimus dorsi and pectoralis Joint Mobility Assessment Joint Mobility Assessment Empty end feel with forward flexion and scaption ER. No L shoulder clicking, popping, dislocation with passive ROM. Full elbow and wrist AROM PT-OP-H Neuro Start: 01/10/24 07:24 Freq: Status: Active Protocol: Document 01/10/24 08:18 NM (Rec: 01/10/24 09:46 NM [id number]) Sensation Evaluation Comments Summary Comments BUE equally intact to light touch sensation, small decrease on L side near axilla PT-OP-J Posture/Palpation/Skin Start: 01/10/24 07:24 Freq: Status: Active Protocol: Document 01/10/24 08:18 NM (Rec: 01/10/24 09:46 NM [id number]) Posture Evaluation Position Sitting Head/C-Spine Posture Forward Head T-Spine Posture Increased Kyphosis Shoulder Posture (L) Rounded,(R) Rounded,(L) Forward,(R) Forward,(L) Elevated Scapula Posture (L) Protracted,(R) Protracted, (L) Elevated Arm Posture (L) Internally Rotated,(R) Internally Rotated Comments Posture Comments Elbow positioned by side at 0 deg abd, no use of sling Palpation Assessment Location L shoulder Palpation Details Tenderness along anterior shoulder with palpation and posterior cuff. Denies pain with palpation Skin Assessment Incisional Assessment Incision Appearance/Comments clean/dry/intact. Glue beginning to peel. Good healing w/o signs of infection , redness Small indention above scar from infection from previous rotator cuff repair PT-OP-K Range of Motion Start: 01/10/24 07:24 Freq: Status: Active Protocol: Document 02/12/24 09:48 NM (Rec: 02/12/24 10:30 NM [id number]) Shoulder Goniometric Range of Motion Shoulder L AROM Flexion 110 Comments 02/12/24: reclined- 30 deg ER scaption L PROM Flexion 115 Comments ER in scaption plane 20 deg; empty end feel 02/12/24: 120 deg forward flexion, 30 deg ER in scaption , 50 deg IR in scaption PT-OP-M Strength Start: 01/10/24 07:24 Freq: Status: Active Protocol: Document 02/12/24 09:48 NM (Rec: 02/12/24 10:30 NM [id number]) Shoulder Strength Shoulder Manual Muscle Testing Left Comments Did not formally assess due to precautions and protocol 02/12/24: AROM began in reclining position, against gravity PT-OP-Q Treatments Start: 01/10/24 07:24 Freq: Status: Active Protocol: Document 03/14/24 10:31 AB (Rec: 03/14/24 12:42 AB [id number]) Therapeutic Exercises Sidelying Exercises shoulder ER Sidelying Exercise Name AROM HEP Side left Resistance 1 lb added to HEP Equipment Used with UE at side and with folded pillow under elbow Reps/Minutes X10 without weight X 10 with 1 lb Standing Exercises AROM flexion slide Standing Exercise Name on stair rail Side left Reps/Minutes X15 Comments Verbal and visual cues isometrics Standing Exercise Name 1 flex HEP, 2 abd, 3 add HEP Side left Equipment Used towel Reps/Minutes X10 long lever each, with elbow flex X 5 flex and add Comments long lever for all, then X 5 flex and abd for HEP Other Exercises reclined shoulder scaption Other Exercise Name AROM HEP Side left Resistance 1lb Reps/Minutes X10 Comments verbal cues Manual Therapy Treatment Soft Tissue Mobilization left shoulder Body Location pec at axilla, UT, scalenes, LS, periscapular, biceps muscle belly Mobilization Type Rolling Intensity/Depth moderate and superficial Body Position Hooklying,sidelying Comments Neutral position of L arm for pec mobilization at axilla, still tight but less tightness along axilla with positioning . Tightness and tenderness at L lat, rhomboid Joint Mobilizations scapular Joint left shoulder Direction depression and adduction Grade III Body Position Sidelying Reps/Duration 10 ea Comments monitored for pain. demos tendency for elevation Manual Techniques lat pin stretch for scaptiion Body Location left shoulder Body Position Sidelying Reps/Duration X10 scapular Type isometrics Body Location depression and adduction Reps/Duration X10 5 sec hold PT-OP-T Assessment and Plan Start: 01/10/24 07:24 Freq: Status: Active Protocol: Document 03/14/24 10:31 AB (Rec: 03/14/24 12:42 AB [id number]) Physical Therapy Assessment Goals Five Impairment sleep Impairment pt wakes 3x/night Short Term Goal (STG) Pt will report that he is waking <3x/night due to L shoulder pain in order to demonstrate improved pain management and QOL 02/07/24: waking at least 2x/ night STG Duration 03/06/24 MET Snf Goal (LTG) Pt will report that he does not wake up at night due to L shoulder pain in order to demonstrate improved pain management and QOL LTG Duration 04/04/24 Four Impairment pain Impairment currently 5/10 pain at rest, 10/10 reported with activity Short Term Goal (STG) Pt will report 5/10 pain or less in L shoulder with activity in order to demonstrate improved symptom management and QOL STG Duration 03/06/24 Snf Goal (LTG) Pt will report 2/10 pain or less in L shoulder with activity in order to demonstrate improved symptom management and QOL LTG Duration 04/04/24 Three Impairment function, activity 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 Short Term Goal (STG) Pt will report that he is able to play piano with L shoulder pain <2/10 in order to demonstrate improved QOL and activity tolerance STG Duration 02/26/24 Snf Goal (LTG) Pt will report that he is able to play piano without limitation and without increase in baseline pain in order to demonstrate improved QOL and activity tolerance LTG Duration 04/04/24 Two Impairment strength Impairment did not assess due to precautions Short Term Goal (STG) Pt will have at least 3+/5 L shoulder flexion and abduction in scaption plane strength with pain less than 5/10 in order to demonstrate improved ability to lift objects 02/12/24: initiated AROM against gravity in reclined STG Duration 03/06/24 Snf Goal (LTG) Pt will have at least 4/5 L shoulder flexion and abduction in scaption plane strength in order to demonstrate improved ability to lift objects LTG Duration 04/04/24 One Impairment ROM Impairment PROM currently 115 deg FF, 20 deg ER in scaption plane Short Term Goal (STG) Pt will have at least 120 deg of passive L forward flexion, full passive ER in scaption plane with pain <2/10 02/12/24: 120 deg forward flexion passively, 30 deg ER in scaption passively STG Duration 02/21/24 MET Marker Maker Goal (LTG) Pt will have at least 110 deg of active L forward shoulder flexion and functional ER of at least 30 degrees in scaption plane in order to demonstrate improved reaching and shoulder mobility for dressing/ADLs LTG Duration 04/04/24 Assessment Summary Assessment AROM left shoulder scaption 120 deg left shoulder, with reports of less pain lowering UE, but pain persists. Patient fatigues easily with 1 lb weight with ER and scaption reclined this session. Physical Therapy Plan Frequency and Duration Frequency of Treatment 2x/Week Duration of treatment (weeks) 12 Plan of Care Start Date 01/10/24 Plan of Care End Date 04/04/24 Next Visit Focus/Plan Next Note Type Progress Note Next Visit Plan CS stretch assess john to, stair slide with wash cloth, washcloth press (supine>recline>sit> stand) -- AROM reclined>sit>stand forward flex with 1 # and ER in scaption, ER to tolerance in scaption, 120 deg FF in scaption PN to ext plan on 03/18 or 03/28
--- NOTE | 2024-03-18 12:37 | PT.OTN ---
Current Diagnoses Other specific arthropathies, not elsewhere classified, left shoulder (03/18/24) Unspecified rotator cuff tear or rupture of left shoulder, not specified as traumatic (03/18/24) Weakness (03/18/24) Physical Therapy Treatment Note PT-OP-A Visit Information Start: 01/10/24 07:24 Freq: Status: Active Protocol: Document 03/18/24 10:33 NM (Rec: 03/18/24 11:18 NM [id number]) Out-Patient Physical Therapy Visit Information Visit Information Visit Type Treatment Note Visit Start Time 10:34 Visit Stop Time 11:14 Visit Number 20 PT-OP-B Current Condition Start: 01/10/24 07:24 Freq: Status: Active Protocol: Document 01/10/24 08:18 NM (Rec: 01/10/24 09:46 NM [id number]) Current Condition History of Current Condition Onset Date DOS 12/13/23 Current Complaints mobility, pain, strength History of Current Condition Pt had surgery for L rTSA on , by Dr. Blas. He states that Dr. Blas repaired his rotator cuff in 2021, but it atrophied and retore again, which is when pt opted for shoulder replacement. Pt had rotator cuff arthropathy. 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 Previously, he had L shoulder snapping, popping, grinding. He has had his first follow up post-op, reports that everything going well. Pt reports that he was having trouble with sling and gave up on it. He was sleeping in reclining chair with arm across chest. Currently sleeping in bed, rolled toward his shoulder. Pt reports that a week ago, he had aching pain in his L shoulder after he grabbed a [employer] pitcher with his L, felt a nasty pain in his L shoulder and was unable to lift anything including a teacup for days. Reports that was gradually getting better, until last night (01/08). Reports that he was holding the rosales with his L hand, which caused him to feel a sharp pain. He is left handed but able to use R hand for writing/eating/ADLs. He had follow up with doctor on . Pt reports that his has been helping him with dressing and all activities, but he feels bad that she has to do it all and wants to help. 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 Has had 1 fall pre- surgery, but fell on R shoulder; states ankles giving out. He has not been performing any of the exercises from his doctor on Sunday. 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 Current Functional Impairments (Reported) Functional Limitations- ADL's dressing assisting with dressing, ADLs, showering, grooming not sleeping with pillow behind arm Functional Limitations- Mobility/Gait strength loss Functional Limitations- 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 Has been compliant with [place]ometrics at [place]. Has follow up with Dr. Blas on 03/31. PT-OP-F Manual Assessment Start: 01/10/24 07:24 Freq: Status: Active Protocol: Document 01/10/24 08:18 NM (Rec: 01/10/24 09:46 NM [id number]) Manual Assessments Soft Tissue Assessment Soft Tissue Mobility Assessment Increased tenderness, decreased length of latissimus dorsi and pectoralis Joint Mobility Assessment Joint Mobility Assessment Empty end feel with forward flexion and scaption ER. No L shoulder clicking, popping, dislocation with passive ROM. Full elbow and wrist AROM PT-OP-H Neuro Start: 01/10/24 07:24 Freq: Status: Active Protocol: Document 01/10/24 08:18 NM (Rec: 01/10/24 09:46 NM [id number]) Sensation Evaluation Comments Summary Comments BUE equally intact to light touch sensation, small decrease on L side near axilla PT-OP-J Posture/Palpation/Skin Start: 01/10/24 07:24 Freq: Status: Active Protocol: Document 01/10/24 08:18 NM (Rec: 01/10/24 09:46 NM [id number]) Posture Evaluation Position Sitting Head/C-Spine Posture Forward Head T-Spine Posture Increased Kyphosis Shoulder Posture (L) Rounded,(R) Rounded,(L) Forward,(R) Forward,(L) Elevated Scapula Posture (L) Protracted,(R) Protracted, (L) Elevated Arm Posture (L) Internally Rotated,(R) Internally Rotated Comments Posture Comments Elbow positioned by side at 0 deg abd, no use of sling Palpation Assessment Location L shoulder Palpation Details Tenderness along anterior shoulder with palpation and posterior cuff. Denies pain with palpation Skin Assessment Incisional Assessment Incision Appearance/Comments clean/dry/intact. Glue beginning to peel. Good healing w/o signs of infection , redness Small indention above scar from infection from previous rotator cuff repair PT-OP-K Range of Motion Start: 01/10/24 07:24 Freq: Status: Active Protocol: Document 03/18/24 10:33 NM (Rec: 03/18/24 11:18 NM [id number]) Shoulder Goniometric Range of Motion Shoulder L AROM Flexion 110 Comments 02/12/24: reclined- 30 deg ER scaption 03/18/24: 55 deg ER, 120 deg flexion PT-OP-M Strength Start: 01/10/24 07:24 Freq: Status: Active Protocol: Document 03/18/24 10:33 NM (Rec: 03/18/24 11:18 NM [id number]) Shoulder Strength Shoulder Manual Muscle Testing Left Comments Did not formally assess due to precautions and protocol 02/12/24: AROM began in reclining position, against gravity 03/18/24: PT-OP-Q Treatments Start: 01/10/24 07:24 Freq: Status: Active Protocol: Document 03/18/24 10:33 NM (Rec: 03/18/24 11:18 NM [id number]) Therapeutic Exercises Sidelying Exercises shoulder ER Sidelying Exercise Name AROM Side left Resistance 1# Equipment Used with UE at side and with folded pillow under elbow Reps/Minutes 3x5 Comments Feels burn, pain free Sitting Exercises cervical spine stretch Sitting Exercise Name UT, LS, scalene Side bilateral Reps/Minutes 1x30 ea Comments no overpressure Standing Exercises AROM flexion slide Standing Exercise Name on stair rail Side left Reps/Minutes 10 Comments cued form, remain w/i 120 deg flex; pain free isometrics Standing Exercise Name long lever: flex, abd, add Side left Equipment Used towel Reps/Minutes 10x5 ea, only 5 long lever for abd rest short lever Comments HEP review; cued submaximal Manual Therapy Treatment Consent Patient gave verbal consent for manual Yes treatment Soft Tissue Mobilization left shoulder Body Location pec at axilla, UT, scalenes, LS, periscapular, biceps muscle belly Mobilization Type Rolling Intensity/Depth moderate and superficial Body Position Hooklying,sidelying Comments Neutral position of L arm for pec mobilization at axilla, still tight but less tightness along axilla with positioning . Less tightness of pec, lat today. Increased tightness of UT, LS, and scalenes Joint Mobilizations scapular Joint left shoulder Direction depression and adduction, protraction/retraction Grade III Body Position Sidelying Reps/Duration 10 ea Comments Monitored for pain. 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) Pt will report that he does not wake up at night due to L shoulder pain in order to demonstrate improved pain management and QOL LTG Duration 04/04/24 Four Impairment pain Impairment currently 5/10 pain at rest, 10/10 reported with activity Short Term Goal (STG) Pt will report 5/10 pain or less in L shoulder with activity in order to demonstrate improved symptom management and QOL STG Duration 03/06/24 Senior Living Goal (LTG) Pt will report 2/10 pain or less in L shoulder with activity in order to demonstrate improved symptom management and QOL LTG Duration 04/04/24 Three Impairment function, activity 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 Short Term Goal (STG) Pt will report that he is able to play piano with L shoulder pain <2/10 in order to demonstrate improved QOL and activity tolerance STG Duration 02/26/24 Senior Living Goal (LTG) Pt will report that he is able to play piano without limitation and without increase in baseline pain in order to demonstrate improved QOL and activity tolerance LTG Duration 04/04/24 Two Impairment strength Impairment did not assess due to precautions Short Term Goal (STG) Pt will have at least 3+/5 L shoulder flexion and abduction in scaption plane strength with pain less than 5/10 in order to demonstrate improved ability to lift objects 02/12/24: initiated AROM against gravity in reclined STG Duration 03/06/24 Senior Living Goal (LTG) Pt will have at least 4/5 L shoulder flexion and abduction in scaption plane strength in order to demonstrate improved ability to lift objects LTG Duration 04/04/24 One Impairment ROM Impairment PROM currently 115 deg FF, 20 deg ER in scaption plane Short Term Goal (STG) Pt will have at least 120 deg of passive L forward flexion, full passive ER in scaption plane with pain <2/10 02/12/24: 120 deg forward flexion passively, 30 deg ER in scaption passively STG Duration 02/21/24 MET Senior Living Goal (LTG) Pt will have at least 110 deg of active L forward shoulder flexion and functional ER of at least 30 degrees in scaption plane in order to demonstrate improved reaching and shoulder mobility for dressing/ADLs LTG Duration 04/04/24 Assessment Summary Assessment Pt tolerated session well. Currently pt is 13 weeks and 5 days post op. L shoulder AROM 120 deg at start and end of session, even with fatigue; L shoulder ER in scaption to 55 deg. Pt continues to progress toward goals. Able to tolerate increase in reps with L shoulder sidelying ER with 1# dumbbell. Fatigues quickly so limited reps. Continued with longer lever isometrics globally; pt requires cues to remain pain free with submaximal isometrics. Good tolerance for longer lever in flexion but requires regression to shorter lever arm with abduction due to mild pain with isometric after pt states did not perform submaximally. Trialed AROM shoulder flexion in scaption with gentle resisted lowering to decrease pt reports of discomfort in L shoulder after reaching; states less pain. Pt would benefit from skilled PT for L shoulder mobility and strengthening in order to improve activity tolerance and ability to perform ADLs. Physical Therapy Plan Frequency and Duration Frequency of Treatment 2x/Week Duration of treatment (weeks) 12 Plan of Care Start Date 01/10/24 Plan of Care End Date 04/04/24 Therapeutic Interventions Therapeutic Interventions Gait Training,Home Exercise Program,Joint Mobilizations, Manual Therapy,Neuromuscular Re-education,Orthotic/ Prosthetic Management,Patient/ Caregiver Education,Self-Care/ Home Management,Sensory Integration,Soft Tissue Mobilization,Taping, Therapeutic Activities, Therapeutic Exercises Modalities Cold Pack/Ice Massage,Electric Stimulation,Hot Packs, Ultrasound Next Visit Focus/Plan Next Note Type Progress Note Next Visit Plan serratus punch, trial bicep curl in reclined vs supine, wall slide, sofy ER/IR w/ band vs wall; cont AROM assess john to, stair slide with wash cloth, washcloth press (supine>recline>sit> stand) -- AROM reclined>sit>stand forward flex with 1 # and ER in scaption, ER to tolerance in scaption, 120 deg FF in scaption PN to ext plan on 03/18 or 03/28
--- NOTE | 2024-03-24 16:01 | PT.OTN ---
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 1 Evaluation Information Evaluation Date 01/10/24 Precautions Precautions Reverse TSA precautions: no ext/ADD/IR (subscapularis not repaired) sling for comfort see protocol for restrictions 6 weeks: 01/24/24; 8 weeks: 02/06; 12 weeks: 03/07/24 Phase I: 3-6 weeks: PROM up to FF 120 (scaption plane) and ER to tolerance(scaption), submaximal pain free isometrics in scapular plane ( avoid ext); AAROM of cervical spine, wrist, elbow, hand Phase II after week 6 as appropriate PT-OP-B Current Condition Start: 01/10/24 07:24 Freq: Status: Active Protocol: Document 01/10/24 08:18 NM (Rec: 01/10/24 09:46 NM [id number]) Current Condition History of Current Condition Onset Date DOS 12/13/23 Current Complaints mobility, pain, strength History of Current Condition Pt had surgery for L rTSA on , by Dr. Blas. He states that Dr. Blas repaired his rotator cuff in 2021, but it atrophied and retore again, which is when pt opted for shoulder replacement. Pt had rotator cuff arthropathy. 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 Previously, he had L shoulder snapping, popping, grinding. He has had his first follow up post-op, reports that everything going well. Pt reports that he was having trouble with sling and gave up on it. He was sleeping in reclining chair with arm across chest. Currently sleeping in bed, rolled toward his shoulder. Pt reports that a week ago, he had aching pain in his L shoulder after he grabbed a Trina pitcher with his L, felt a nasty pain in his L shoulder and was unable to lift anything including a teacup for days. Reports that was gradually getting better, until last night (01/08). Reports that he was holding the rosales with his L hand, which caused him to feel a sharp pain. He is left handed but able to use R hand for writing/eating/ADLs. He had follow up with doctor on . Pt reports that his has been helping him with dressing and all activities, but he feels bad that she has to do it all and wants to help. has been driving and helping pt with [employer] job. Has had 1 fall pre- surgery, but fell on R shoulder; states ankles giving out. He has not been performing any of the exercises from his doctor on Sunday. 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 Current Functional Impairments (Reported) Functional Limitations- ADL's dressing assisting with dressing, ADLs, showering, grooming not sleeping with pillow behind arm Functional Limitations- Mobility/Gait strength loss Functional Limitations- 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 He reports currently pain levels are very low, usually 1-2/10. has been minimally compliant with HEP, but told myself I need to do better. 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 He reports only taking ibuprofen 2x last week due to achiness. States that his ROM has improved since starting PT , can dry himself off better ( states does not reach behind back). Wants to improve with his strength, reports that he can't push himself up on bed. PT-OP-F Manual Assessment Start: 01/10/24 07:24 Freq: Status: Active Protocol: Document 01/10/24 08:18 NM (Rec: 01/10/24 09:46 NM [id number]) Manual Assessments Soft Tissue Assessment Soft Tissue Mobility Assessment Increased tenderness, decreased length of latissimus dorsi and pectoralis Joint Mobility Assessment Joint Mobility Assessment Empty end feel with forward flexion and scaption ER. No L shoulder clicking, popping, dislocation with passive ROM. Full elbow and wrist AROM PT-OP-H Neuro Start: 01/10/24 07:24 Freq: Status: Active Protocol: Document 01/10/24 08:18 NM (Rec: 01/10/24 09:46 NM [id number]) Sensation Evaluation Comments Summary Comments BUE equally intact to light touch sensation, small decrease on L side near axilla PT-OP-J Posture/Palpation/Skin Start: 01/10/24 07:24 Freq: Status: Active Protocol: Document 01/10/24 08:18 NM (Rec: 01/10/24 09:46 NM [id number]) Posture Evaluation Position Sitting Head/C-Spine Posture Forward Head T-Spine Posture Increased Kyphosis Shoulder Posture (L) Rounded,(R) Rounded,(L) Forward,(R) Forward,(L) Elevated Scapula Posture (L) Protracted,(R) Protracted, (L) Elevated Arm Posture (L) Internally Rotated,(R) Internally Rotated Comments Posture Comments Elbow positioned by side at 0 deg abd, no use of sling Palpation Assessment Location L shoulder Palpation Details Tenderness along anterior shoulder with palpation and posterior cuff. Denies pain with palpation Skin Assessment Incisional Assessment Incision Appearance/Comments clean/dry/intact. Glue beginning to peel. Good healing w/o signs of infection , redness Small indention above scar from infection from previous rotator cuff repair PT-OP-K Range of Motion Start: 01/10/24 07:24 Freq: Status: Active Protocol: Document 03/24/24 12:59 NM (Rec: 03/24/24 13:49 NM [id number]) Shoulder Goniometric Range of Motion Shoulder L AROM Flexion 120 External Rotation at 0 degrees Abduction 60 Comments 02/12/24: reclined- 30 deg ER scaption 03/18/24: 55 deg ER, 120 deg flexion 03/24/24: 60 deg ER in scaption, 120 deg flexion PT-OP-M Strength Start: 01/10/24 07:24 Freq: Status: Active Protocol: Document 03/24/24 12:59 NM (Rec: 03/24/24 13:49 NM [id number]) Shoulder Strength Shoulder Manual Muscle Testing Left Flexion 3+ Fair+ External Rotation 3+ Fair+ Comments Did not formally assess due to precautions and protocol 02/12/24: AROM began in reclining position, against gravity 03/24/24: 3+/5 against gravity; able to perform exercises with 1# db PT-OP-Q Treatments Start: 01/10/24 07:24 Freq: Status: Active Protocol: Document 03/24/24 12:59 NM (Rec: 03/24/24 13:49 NM [id number]) Therapeutic Exercises Supine Exercises washcloth press Supine Exercise Name 1. supine, 2. reclined Side bilateral Reps/Minutes 10 ea position Comments pain free in shoulder AROM scaption Supine Exercise Name reclined with towel following towel press Side bilateral Resistance AROM Equipment Used towel Reps/Minutes 10 Comments pain free Sidelying Exercises shoulder ER Sidelying Exercise Name AROM Side left Resistance 2#>1# Equipment Used with UE at side and with folded pillow under elbow Reps/Minutes 2# 8, 1# 10 Comments pain free Sitting Exercises elbow flexion/extension Sitting Exercise Name bicep curl Side left Resistance 1# db Equipment Used arms on pillow Reps/Minutes 4x5 Comments pain free but feels activation in shoulder Standing Exercises rows Standing Exercise Name neutral position to avoid ext; Row walkout Side bilateral Resistance level 1 band Equipment Used scap squeeze> walk bwd then return and reset scapula Reps/Minutes 2x10 Comments pain free Other Exercises reclined shoulder scaption Other Exercise Name AROM HEP review Side left Resistance 1# db Reps/Minutes 5 Comments verbal cues for correct execution; pain free but fatigued at end of session Manual Therapy Treatment Consent Patient gave verbal consent for manual Yes treatment Soft Tissue Mobilization left shoulder Body Location pec at axilla, UT, scalenes, LS, periscapular, biceps muscle belly Mobilization Type Rolling Intensity/Depth moderate and superficial Body Position Hooklying,sidelying Comments Neutral position of L arm for pec mobilization at axilla, still tight but less tightness along axilla with positioning . Less tightness and tenderness of pec, lat today. Less tightness of UT, LS, and scalenes today as well Joint Mobilizations scapular Joint left shoulder Direction depression and adduction Grade III Body Position Sidelying Reps/Duration 2x10 Comments Monitored for pain, performed prior to arm elevation exercises. Improved scapular mobility PT-OP-T Assessment and Plan Start: 01/10/24 07:24 Freq: Status: Active Protocol: Document 03/24/24 12:59 NM (Rec: 03/24/24 13:49 NM [id number]) Physical Therapy Assessment Goals Five Impairment sleep Impairment pt wakes 3x/night Short Term Goal (STG) Pt will report that he is waking <3x/night due to L shoulder pain in order to demonstrate improved pain management and QOL 02/07/24: waking at least 2x/ night STG Duration 03/06/24 MET Care Home Goal (LTG) Pt will report that he wakes up 1 or fewer times at night due to L shoulder pain in order to demonstrate improved pain management and QOL 03/24/24: 2-4x/night LTG Duration 06/20/24; 04/04/24-NOT MET, GOAL UPDATED 03/24/24 Four Impairment pain Impairment currently 5/10 pain at rest, 10/10 reported with activity Short Term Goal (STG) Pt will report 5/10 pain or less in L shoulder with activity in order to demonstrate improved symptom management and QOL STG Duration 03/06/24 Care Home Goal (LTG) Pt will report 2/10 pain or less in L shoulder with activity in order to demonstrate improved symptom management and QOL 03/24/24: Pt consistently reports 1-2/10 L shoulder pain with activity, none at rest unless he does a movement that bites LTG Duration 06/20/24; 04/04/24- PROGRESSING Three Impairment function, activity 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 Short Term Goal (STG) Pt will report that he is able to play piano with L shoulder pain <2/10 in order to demonstrate improved QOL and activity tolerance STG Duration 02/26/24 Care Home Goal (LTG) Pt will report that he is able to play piano without limitation and without increase in baseline pain in order to demonstrate improved QOL and activity tolerance 03/24/24: pt reports that he is able to play piano without limitation due to mobility or pain LTG Duration 04/04/24 MET Two Impairment strength Impairment did not assess due to precautions Short Term Goal (STG) Pt will have at least 3+/5 L shoulder flexion and abduction in scaption plane strength with pain less than 5/10 in order to demonstrate improved ability to lift objects 02/12/24: initiated AROM against gravity in reclined 03/24/24: currently 3+/5 against gravity; recently progressed to 1# db for reclined fwd flexion, pain 1-2/10 STG Duration 03/06/24 MET Care Home Goal (LTG) Pt will have at least 4/5 L shoulder flexion and abduction in scaption plane strength in order to demonstrate improved ability to lift objects LTG Duration 06/20/24; 04/04/24-NOT MET One Impairment ROM Impairment PROM currently 115 deg FF, 20 deg ER in scaption plane Short Term Goal (STG) Pt will have at least 120 deg of passive L forward flexion, full passive ER in scaption plane with pain <2/10 02/12/24: 120 deg forward flexion passively, 30 deg ER in scaption passively STG Duration 02/21/24 MET Care Home Goal (LTG) Pt will have at least 110 deg of active L forward shoulder flexion and functional ER of at least 30 degrees in scaption plane in order to demonstrate improved reaching and shoulder mobility for dressing/ADLs 03/24/24: 120 deg L shoulder flexion maintained over several weeks w/o pain >1-2/10 , 60 deg ER from scaption LTG Duration 04/04/24 MET Progress Towards Goals Progress Towards Goals Progressing Toward Goals,Slow Progress due to Noncompliance, Slow Progress - Other,Goals Met Assessment Summary Assessment Pt tolerated session well. Currently 14 weeks post-op. Pt progressing slowly toward goals. Continues to have 120 deg L shoulder flexion in scaption. Emphasis on anterior delt strengthening. Pt able to progress to 1# for reclined flexion and 2# for sidelying ER; however, only 1# for HEP due to minimal compliance at this time. PT educated pt on importance of compliance with HEP to maximize progression. Trialed rows to neutral position; pt has improved scapular control, able to perform with good execution while maintaining nuetral shoulder position to limit extension and maintain precautions. Pt had good feedback for 1# bicep curl today; no pain but had to be educated not to trial at home yet until tolerance for exercise determined and to prevent pt from using heavier resistance as he reports that he used to do 10-15# up to the day before surgery. PT strongly educated against lifting more than 3# at this time and to not perform heavily resisted bicep curls at home. Physical Therapy Plan Frequency and Duration Frequency of Treatment 1-2x/wk Duration of treatment (weeks) 12 Plan of Care Start Date 03/24/24 Plan of Care End Date 06/20/24 Therapeutic Interventions Therapeutic Interventions Gait Training,Home Exercise Program,Joint Mobilizations, Manual Therapy,Neuromuscular Re-education,Orthotic/ Prosthetic Management,Patient/ Caregiver Education,Self-Care/ Home Management,Sensory Integration,Soft Tissue Mobilization,Taping, Therapeutic Activities, Therapeutic Exercises Modalities Cold Pack/Ice Massage,Electric Stimulation,Hot Packs, Ultrasound Next Visit Focus/Plan Next Note Type Treatment Note Next Visit Plan Review row walk back and 2# ER in sideying. review isometric shoulder ext/abd/flex long lever as needed. serratus punch in supine, trial bicep curl in reclined 1-3#, wall slide with pillow case, sofy ER/IR w/ band vs wall; -- AROM reclined>sit>stand forward flex with 1 # and ER in scaption ER to tolerance in scaption, 120 deg FF in scaption
--- NOTE | 2024-03-24 16:02 | PT.OPPOC ---
Physical, Occupational & Speech Therapy At [facility] Current Diagnoses Other specific arthropathies, not elsewhere classified, left shoulder (03/24/24) Unspecified rotator cuff tear or rupture of left shoulder, not specified as traumatic (03/24/24) Weakness (03/24/24) Visit Care Team Role Provider Type Srini Siddiqui PA-C Family Provider Non-Staff Primary Care Provider Specialty: Medical Address: [address] [place] [address], [id number] Email: Jay Brown PA-C Attending Provider Non-Staff Referring Provider Specialty: Medical Address: [address] [place] [address], [id number] Email: Plan Of Care PT-OP-B Current Condition Start: 01/10/24 07:24 Freq: Status: Active Protocol: Document 01/10/24 08:18 NM (Rec: 01/10/24 09:46 NM [id number]) Current Condition History of Current Condition Onset Date DOS 12/13/23 Current Complaints mobility, pain, strength History of Current Condition Pt had surgery for L rTSA on , by Dr. Blas. He states that Dr. Blas repaired his rotator cuff in 2021, but it atrophied and retore again, which is when pt opted for shoulder replacement. Pt had rotator cuff arthropathy. 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 Previously, he had L shoulder snapping, popping, grinding. He has had his first follow up post-op, reports that everything going well. Pt reports that he was having trouble with sling and gave up on it. He was sleeping in reclining chair with arm across chest. Currently sleeping in bed, rolled toward his shoulder. Pt reports that a week ago, he had aching pain in his L shoulder after he grabbed a Trina pitcher with his L, felt a nasty pain in his L shoulder and was unable to lift anything including a teacup for days. Reports that was gradually getting better, until last night (01/08). Reports that he was holding the rosales with his L hand, which caused him to feel a sharp pain. He is left handed but able to use R hand for writing/eating/ADLs. He had follow up with doctor on . Pt reports that his has been helping him with dressing and all activities, but he feels bad that she has to do it all and wants to help. has been driving and helping pt with [employer] job. Has had 1 fall pre- surgery, but fell on R shoulder; states ankles giving out. He has not been performing any of the exercises from his doctor on Sunday. 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, 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 Current Functional Impairments (Reported) Functional Limitations- ADL's dressing assisting with dressing, ADLs, showering, grooming not sleeping with pillow behind arm Functional Limitations- Mobility/Gait strength loss Functional Limitations- 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 [employer] ( unable to lift with both hands ), only using R hand right now Functional Limitations- Other going to bathroom driving PT-OP-T Assessment and Plan Start: 01/10/24 07:24 Freq: Status: Active Protocol: Document 03/24/24 12:59 NM (Rec: 03/24/24 13:49 NM [id number]) Physical Therapy Assessment Goals Five Impairment sleep Impairment pt wakes 3x/night Short Term Goal (STG) Pt will report that he is waking <3x/night due to L shoulder pain in order to demonstrate improved pain management and QOL 02/07/24: waking at least 2x/ night STG Duration 03/06/24 MET Sheet Layer Goal (LTG) Pt will report that he wakes up 1 or fewer times at night due to L shoulder pain in order to demonstrate improved pain management and QOL 03/24/24: 2-4x/night LTG Duration 06/20/24; 04/04/24-NOT MET, GOAL UPDATED 03/24/24 Four Impairment pain Impairment currently 5/10 pain at rest, 10/10 reported with activity Short Term Goal (STG) Pt will report 5/10 pain or less in L shoulder with activity in order to demonstrate improved symptom management and QOL STG Duration 03/06/24 Sheet Layer Goal (LTG) Pt will report 2/10 pain or less in L shoulder with activity in order to demonstrate improved symptom management and QOL 03/24/24: Pt consistently reports 1-2/10 L shoulder pain with activity, none at rest unless he does a movement that bites LTG Duration 06/20/24; 04/04/24- PROGRESSING Three Impairment function, activity 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 Short Term Goal (STG) Pt will report that he is able to play piano with L shoulder pain <2/10 in order to demonstrate improved QOL and activity tolerance STG Duration 02/26/24 Senior Living Goal (LTG) Pt will report that he is able to play piano without limitation and without increase in baseline pain in order to demonstrate improved QOL and activity tolerance 03/24/24: pt reports that he is able to play piano without limitation due to mobility or pain LTG Duration 04/04/24 MET Two Impairment strength Impairment did not assess due to precautions Short Term Goal (STG) Pt will have at least 3+/5 L shoulder flexion and abduction in scaption plane strength with pain less than 5/10 in order to demonstrate improved ability to lift objects 02/12/24: initiated AROM against gravity in reclined 03/24/24: currently 3+/5 against gravity; recently progressed to 1# db for reclined fwd flexion, pain 1-2/10 STG Duration 03/06/24 MET Senior Living Goal (LTG) Pt will have at least 4/5 L shoulder flexion and abduction in scaption plane strength in order to demonstrate improved ability to lift objects LTG Duration 06/20/24; 04/04/24-NOT MET One Impairment ROM Impairment PROM currently 115 deg FF, 20 deg ER in scaption plane Short Term Goal (STG) Pt will have at least 120 deg of passive L forward flexion, full passive ER in scaption plane with pain <2/10 02/12/24: 120 deg forward flexion passively, 30 deg ER in scaption passively STG Duration 02/21/24 MET Sheet Layer Goal (LTG) Pt will have at least 110 deg of active L forward shoulder flexion and functional ER of at least 30 degrees in scaption plane in order to demonstrate improved reaching and shoulder mobility for dressing/ADLs 03/24/24: 120 deg L shoulder flexion maintained over several weeks w/o pain >1-2/10 , 60 deg ER from scaption LTG Duration 04/04/24 MET Progress Towards Goals Progress Towards Goals Progressing Toward Goals,Slow Progress due to Noncompliance, Slow Progress - Other,Goals Met Assessment Summary Assessment Pt has been seen x20 visits since evaluation in December 2023 s /p LrTSA. Pt is progressing well toward goals, meeting several LTGs. Pt consistently has 120 deg L shoulder flexion in scaption and 60 deg ER in scaption (pt tolerance). He has been educated to not push ROM past these degrees. Pt's strength is slowly progressing . He is currently undergoing progression for anterior deltoid and periscapular strengthening. Pt fatigues easily but is slowly progressing up to 1# against gravity. 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 Pt continues to report difficulty with sleeping. He is currently able to play piano without limitation, which was his primary concern. At this time, pt would benefit from skilled PT for L shoulder strengthening in order to improve ability to reach, perform ADLs, and be able to return to work with minimal limitations and to demonstrate improved QOL. Physical Therapy Plan Frequency and Duration Frequency of Treatment 1-2x/wk Duration of treatment (weeks) 12 Plan of Care Start Date 03/24/24 Plan of Care End Date 06/20/24 Therapeutic Interventions Therapeutic Interventions Gait Training,Home Exercise Program,Joint Mobilizations, Manual Therapy,Neuromuscular Re-education,Orthotic/ Prosthetic Management,Patient/ Caregiver Education,Self-Care/ Home Management,Sensory Integration,Soft Tissue Mobilization,Taping, Therapeutic Activities, Therapeutic Exercises Modalities Cold Pack/Ice Massage,Electric Stimulation,Hot Packs, Ultrasound Next Visit Focus/Plan Next Note Type Treatment Note Next Visit Plan Review row walk back and 2# ER in sideying. review isometric shoulder ext/abd/flex long lever as needed. serratus punch in supine, trial bicep curl in reclined 1-3#, wall slide with pillow case, sofy ER/IR w/ band vs wall; -- AROM reclined>sit>stand forward flex with 1 # and ER in scaption ER to tolerance in scaption, 120 deg FF in scaption Plan of Care Dates Plan of Care Start Date 03/24/24 Plan of Care End Date 06/20/24 Electronically Signed by: Letitia Wu, PT 03/24/24 3152 If you are in agreement with this Plan of Care, please return a signed and dated copy. I have reviewed this Plan of Care and certify that the skilled therapy services above are required to meet the patient?s needs. Physician Signature Date Printed Name and Credentials Clinical Instructor Signature Printed Name and Credentials
--- NOTE | 2024-03-28 16:37 | PT.OTN ---
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 Precautions Precautions Reverse TSA precautions: no ext/ADD/IR (subscapularis not repaired) sling for comfort see protocol for restrictions 6 weeks: 01/24/24; 8 weeks: 02/06; 12 weeks: 03/07/24 Phase I: 3-6 weeks: PROM up to FF 120 (scaption plane) and ER to tolerance(scaption), submaximal pain free isometrics in scapular plane ( avoid ext); AAROM of cervical spine, wrist, elbow, hand Phase II after week 6 as appropriate PT-OP-B Current Condition Start: 01/10/24 07:24 Freq: Status: Active Protocol: Document 01/10/24 08:18 NM (Rec: 01/10/24 09:46 NM [id number]) Current Condition History of Current Condition Onset Date DOS 12/13/23 Current Complaints mobility, pain, strength History of Current Condition Pt had surgery for L rTSA on , by Dr. Blas. He states that Dr. Blas repaired his rotator cuff in 2021, but it atrophied and retore again, which is when pt opted for shoulder replacement. Pt had rotator cuff arthropathy. 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 Previously, he had L shoulder snapping, popping, grinding. He has had his first follow up post-op, reports that everything going well. Pt reports that he was having trouble with sling and gave up on it. He was sleeping in reclining chair with arm across chest. Currently sleeping in bed, rolled toward his shoulder. Pt reports that a week ago, he had aching pain in his L shoulder after he grabbed a [employer] pitcher with his L, felt a nasty pain in his L shoulder and was unable to lift anything including a teacup for days. Reports that was gradually getting better, until last night (01/08). Reports that he was holding the rosales with his L hand, which caused him to feel a sharp pain. He is left handed but able to use R hand for writing/eating/ADLs. He had follow up with doctor on . Pt reports that his has been helping him with dressing and all activities, but he feels bad that she has to do it all and wants to help. has been driving and helping pt with [employer] job. Has had 1 fall pre- surgery, but fell on R shoulder; states ankles giving out. He has not been performing any of the exercises from his doctor on Sunday. 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, 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 Current Functional Impairments (Reported) Functional Limitations- ADL's dressing assisting with dressing, ADLs, showering, grooming not sleeping with pillow behind arm Functional Limitations- Mobility/Gait strength loss Functional Limitations- 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 Patient reports follow up with is Mar [id number]. AROM left shoulder flexion 120 deg. PT-OP-F Manual Assessment Start: 01/10/24 07:24 Freq: Status: Active Protocol: Document 01/10/24 08:18 NM (Rec: 01/10/24 09:46 NM [id number]) Manual Assessments Soft Tissue Assessment Soft Tissue Mobility Assessment Increased tenderness, decreased length of latissimus dorsi and pectoralis Joint Mobility Assessment Joint Mobility Assessment Empty end feel with forward flexion and scaption ER. No L shoulder clicking, popping, dislocation with passive ROM. Full elbow and wrist AROM PT-OP-H Neuro Start: 01/10/24 07:24 Freq: Status: Active Protocol: Document 01/10/24 08:18 NM (Rec: 01/10/24 09:46 NM [id number]) Sensation Evaluation Comments Summary Comments BUE equally intact to light touch sensation, small decrease on L side near axilla PT-OP-J Posture/Palpation/Skin Start: 01/10/24 07:24 Freq: Status: Active Protocol: Document 01/10/24 08:18 NM (Rec: 01/10/24 09:46 NM [id number]) Posture Evaluation Position Sitting Head/C-Spine Posture Forward Head T-Spine Posture Increased Kyphosis Shoulder Posture (L) Rounded,(R) Rounded,(L) Forward,(R) Forward,(L) Elevated Scapula Posture (L) Protracted,(R) Protracted, (L) Elevated Arm Posture (L) Internally Rotated,(R) Internally Rotated Comments Posture Comments Elbow positioned by side at 0 deg abd, no use of sling Palpation Assessment Location L shoulder Palpation Details Tenderness along anterior shoulder with palpation and posterior cuff. Denies pain with palpation Skin Assessment Incisional Assessment Incision Appearance/Comments clean/dry/intact. Glue beginning to peel. Good healing w/o signs of infection , redness Small indention above scar from infection from previous rotator cuff repair PT-OP-K Range of Motion Start: 01/10/24 07:24 Freq: Status: Active Protocol: Document 03/24/24 12:59 NM (Rec: 03/24/24 13:49 NM [id number]) Shoulder Goniometric Range of Motion Shoulder L AROM Flexion 120 External Rotation at 0 degrees Abduction 60 Comments 02/12/24: reclined- 30 deg ER scaption 03/18/24: 55 deg ER, 120 deg flexion 03/24/24: 60 deg ER in scaption, 120 deg flexion PT-OP-M Strength Start: 01/10/24 07:24 Freq: Status: Active Protocol: Document 03/24/24 12:59 NM (Rec: 03/24/24 13:49 NM [id number]) Shoulder Strength Shoulder Manual Muscle Testing Left Flexion 3+ Fair+ External Rotation 3+ Fair+ Comments Did not formally assess due to precautions and protocol 02/12/24: AROM began in reclining position, against gravity 03/24/24: 3+/5 against gravity; able to perform exercises with 1# db PT-OP-Q Treatments Start: 01/10/24 07:24 Freq: Status: Active Protocol: Document 03/28/24 14:32 AB (Rec: 03/28/24 16:36 AB [id number]) Therapeutic Exercises Supine Exercises reclined bicep curl Supine Exercise Name HEP Side bilateral Resistance 1lb Reps/Minutes 15 X2 Comments monitored for pain, verbal cues serratus punch Side bilateral Resistance 1lb Reps/Minutes X15 flexion with dowel Supine Exercise Name reclined AROM flexion HEP Side bilateral Resistance 1lb Reps/Minutes X10 Sidelying Exercises shoulder ER Side left Resistance 1# and 2 # Equipment Used with UE at side and with folded pillow under elbow Reps/Minutes X10 w/o band X10 with 1 # X10 with 2# Standing Exercises Isometric reactive shoulder IR and ER Standing Exercise Name HEP Side left Resistance level one band Reps/Minutes X15 Comments Verbal cues rows Standing Exercise Name neutral position to avoid ext; Row walkout Side bilateral Resistance level 1 band Equipment Used scap squeeze> walk bwd then return and reset scapula Reps/Minutes 2x10 Comments pain free scapular depression Standing Exercise Name UE's in sight Side bilateral Reps/Minutes 15x5 Comments verbal and visual cues to prevent fwd trunk flex/ant humeral rest position Manual Therapy Treatment Soft Tissue Mobilization left shoulder Body Location pec at axilla, UT, scalenes, LS, periscapular, biceps muscle belly Mobilization Type Rolling Intensity/Depth moderate and superficial Body Position Hooklying,sidelying Comments Neutral position of L arm for pec mobilization at axilla, still tight but less tightness along axilla with positioning . Less tightness and tenderness of pec, lat today. Less tightness of UT, LS, and scalenes today as well Joint Mobilizations scapular Joint left shoulder Direction depression and adduction Grade III Body Position Sidelying Reps/Duration 2x10 Comments Monitored for pain, performed prior to arm elevation exercises. Improved scapular mobility Manual Techniques lat pin stretch for scaptiion Body Location left shoulder Body Position Sidelying Reps/Duration X10 scapular Type isometrics Body Location depression and adduction Reps/Duration X10 5 sec hold PT-OP-T Assessment and Plan Start: 01/10/24 07:24 Freq: Status: Active Protocol: Document 03/28/24 14:32 AB (Rec: 03/28/24 16:36 AB [id number]) Physical Therapy Assessment Goals Five Impairment sleep Impairment pt wakes 3x/night Short Term Goal (STG) Pt will report that he is waking <3x/night due to L shoulder pain in order to demonstrate improved pain management and QOL 02/07/24: waking at least 2x/ night STG Duration 03/06/24 MET Snf Goal (LTG) Pt will report that he wakes up 1 or fewer times at night due to L shoulder pain in order to demonstrate improved pain management and QOL 03/24/24: 2-4x/night LTG Duration 06/20/24; 04/04/24-NOT MET, GOAL UPDATED 03/24/24 Four Impairment pain Impairment currently 5/10 pain at rest, 10/10 reported with activity Short Term Goal (STG) Pt will report 5/10 pain or less in L shoulder with activity in order to demonstrate improved symptom management and QOL STG Duration 03/06/24 Snf Goal (LTG) Pt will report 2/10 pain or less in L shoulder with activity in order to demonstrate improved symptom management and QOL 03/24/24: Pt consistently reports 1-2/10 L shoulder pain with activity, none at rest unless he does a movement that bites LTG Duration 06/20/24; 04/04/24- PROGRESSING Three Impairment function, activity 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 Short Term Goal (STG) Pt will report that he is able to play piano with L shoulder pain <2/10 in order to demonstrate improved QOL and activity tolerance STG Duration 02/26/24 Snf Goal (LTG) Pt will report that he is able to play piano without limitation and without increase in baseline pain in order to demonstrate improved QOL and activity tolerance 03/24/24: pt reports that he is able to play piano without limitation due to mobility or pain LTG Duration 04/04/24 MET Two Impairment strength Impairment did not assess due to precautions Short Term Goal (STG) Pt will have at least 3+/5 L shoulder flexion and abduction in scaption plane strength with pain less than 5/10 in order to demonstrate improved ability to lift objects 02/12/24: initiated AROM against gravity in reclined 03/24/24: currently 3+/5 against gravity; recently progressed to 1# db for reclined fwd flexion, pain 1-2/10 STG Duration 03/06/24 MET Snf Goal (LTG) Pt will have at least 4/5 L shoulder flexion and abduction in scaption plane strength in order to demonstrate improved ability to lift objects LTG Duration 06/20/24; 04/04/24-NOT MET One Impairment ROM Impairment PROM currently 115 deg FF, 20 deg ER in scaption plane Short Term Goal (STG) Pt will have at least 120 deg of passive L forward flexion, full passive ER in scaption plane with pain <2/10 02/12/24: 120 deg forward flexion passively, 30 deg ER in scaption passively STG Duration 02/21/24 MET Disease Management Nurse Goal (LTG) Pt will have at least 110 deg of active L forward shoulder flexion and functional ER of at least 30 degrees in scaption plane in order to demonstrate improved reaching and shoulder mobility for dressing/ADLs 03/24/24: 120 deg L shoulder flexion maintained over several weeks w/o pain >1-2/10 , 60 deg ER from scaption LTG Duration 04/04/24 MET Assessment Summary Assessment AROM left shoulder scaption 124 deg end of session with reports of a little pain lowering the UE. Physical Therapy Plan Frequency and Duration Frequency of Treatment 1-2x/wk Duration of treatment (weeks) 12 Plan of Care Start Date 03/24/24 Plan of Care End Date 06/20/24 Next Visit Focus/Plan Next Note Type Treatment Note Next Visit Plan review isometric shoulder ext/ abd/flex long lever as needed. wall slide with pillow case, sofy ER/IR w/ band vs wall; -- AROM reclined>sit>stand forward ER in scaption ER to tolerance in scaption, 120 deg FF in scaption 6
--- NOTE | 2024-04-01 16:24 | PT.OTN ---
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 Precautions Precautions Reverse TSA precautions: no ext/ADD/IR (subscapularis not repaired) sling for comfort see protocol for restrictions 6 weeks: 01/24/24; 8 weeks: 02/06; 12 weeks: 03/07/24 Phase I: 3-6 weeks: PROM up to FF 120 (scaption plane) and ER to tolerance(scaption), submaximal pain free isometrics in scapular plane ( avoid ext); AAROM of cervical spine, wrist, elbow, hand Phase II after week 6 as appropriate PT-OP-B Current Condition Start: 01/10/24 07:24 Freq: Status: Active Protocol: Document 01/10/24 08:18 NM (Rec: 01/10/24 09:46 NM [id number]) Current Condition History of Current Condition Onset Date DOS 12/13/23 Current Complaints mobility, pain, strength History of Current Condition Pt had surgery for L rTSA on , by Dr. Blas. He states that Dr. Blas repaired his rotator cuff in 2021, but it atrophied and retore again, which is when pt opted for shoulder replacement. Pt had rotator cuff arthropathy. 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 Previously, he had L shoulder snapping, popping, grinding. He has had his first follow up post-op, reports that everything going well. Pt reports that he was having trouble with sling and gave up on it. He was sleeping in reclining chair with arm across chest. Currently sleeping in bed, rolled toward his shoulder. Pt reports that a week ago, he had aching pain in his L shoulder after he grabbed a [employer] pitcher with his L, felt a nasty pain in his L shoulder and was unable to lift anything including a teacup for days. Reports that was gradually getting better, until last night (01/08). Reports that he was holding the rosales with his L hand, which caused him to feel a sharp pain. He is left handed but able to use R hand for writing/eating/ADLs. He had follow up with doctor on . Pt reports that his has been helping him with dressing and all activities, but he feels bad that she has to do it all and wants to help. has been driving and helping pt with [employer] job. Has had 1 fall pre- surgery, but fell on R shoulder; states ankles giving out. He has not been performing any of the exercises from his doctor on Sunday. 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 Current Functional Impairments (Reported) Functional Limitations- ADL's dressing assisting with dressing, ADLs, showering, grooming not sleeping with pillow behind arm Functional Limitations- Mobility/Gait strength loss Functional Limitations- 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 Pt reports has not taken ibuprofen in the last week. Pt reports has not done much HEP between sessions, been busy planning a conference coming up this weeken. Pt reports able to reach back into back pocket. Pt reports wakes up after around 2 hours from shoulder discomfort after laying partially on shoulder during night time. PT-OP-F Manual Assessment Start: 01/10/24 07:24 Freq: Status: Active Protocol: Document 01/10/24 08:18 NM (Rec: 01/10/24 09:46 NM [id number]) Manual Assessments Soft Tissue Assessment Soft Tissue Mobility Assessment Increased tenderness, decreased length of latissimus dorsi and pectoralis Joint Mobility Assessment Joint Mobility Assessment Empty end feel with forward flexion and scaption ER. No L shoulder clicking, popping, dislocation with passive ROM. Full elbow and wrist AROM PT-OP-H Neuro Start: 01/10/24 07:24 Freq: Status: Active Protocol: Document 01/10/24 08:18 NM (Rec: 01/10/24 09:46 NM [id number]) Sensation Evaluation Comments Summary Comments BUE equally intact to light touch sensation, small decrease on L side near axilla PT-OP-J Posture/Palpation/Skin Start: 01/10/24 07:24 Freq: Status: Active Protocol: Document 01/10/24 08:18 NM (Rec: 01/10/24 09:46 NM [id number]) Posture Evaluation Position Sitting Head/C-Spine Posture Forward Head T-Spine Posture Increased Kyphosis Shoulder Posture (L) Rounded,(R) Rounded,(L) Forward,(R) Forward,(L) Elevated Scapula Posture (L) Protracted,(R) Protracted, (L) Elevated Arm Posture (L) Internally Rotated,(R) Internally Rotated Comments Posture Comments Elbow positioned by side at 0 deg abd, no use of sling Palpation Assessment Location L shoulder Palpation Details Tenderness along anterior shoulder with palpation and posterior cuff. Denies pain with palpation Skin Assessment Incisional Assessment Incision Appearance/Comments clean/dry/intact. Glue beginning to peel. Good healing w/o signs of infection , redness Small indention above scar from infection from previous rotator cuff repair PT-OP-K Range of Motion Start: 01/10/24 07:24 Freq: Status: Active Protocol: Document 03/24/24 12:59 NM (Rec: 03/24/24 13:49 NM [id number]) Shoulder Goniometric Range of Motion Shoulder L AROM Flexion 120 External Rotation at 0 degrees Abduction 60 Comments 02/12/24: reclined- 30 deg ER scaption 03/18/24: 55 deg ER, 120 deg flexion 03/24/24: 60 deg ER in scaption, 120 deg flexion PT-OP-M Strength Start: 01/10/24 07:24 Freq: Status: Active Protocol: Document 03/24/24 12:59 NM (Rec: 03/24/24 13:49 NM [id number]) Shoulder Strength Shoulder Manual Muscle Testing Left Flexion 3+ Fair+ External Rotation 3+ Fair+ Comments Did not formally assess due to precautions and protocol 02/12/24: AROM began in reclining position, against gravity 03/24/24: 3+/5 against gravity; able to perform exercises with 1# db PT-OP-Q Treatments Start: 01/10/24 07:24 Freq: Status: Active Protocol: Document 04/01/24 15:20 SW (Rec: 04/01/24 16:24 SW [id number]) Therapeutic Exercises Supine Exercises reclined bicep curl Supine Exercise Name HEP Side bilateral Resistance 1lb Reps/Minutes 15 X2 Comments monitored for pain, verbal cues serratus punch Side bilateral Resistance 1lb Reps/Minutes X15 flexion with dowel Supine Exercise Name reclined AROM flexion HEP Side bilateral Resistance 1lb Reps/Minutes X10 Sidelying Exercises shoulder ER Side left Resistance 1# and 2 # Equipment Used with UE at side and with folded pillow under elbow Reps/Minutes X10 w/o band X10 with 1 # X10 with 2# Sitting Exercises elbow flexion/extension Sitting Exercise Name bicep curl Side left Resistance 1# db Equipment Used arms on pillow Reps/Minutes 4x5 Comments pain free but feels activation in shoulder Standing Exercises Isometric reactive shoulder IR and ER Standing Exercise Name Isometric IR/ER Side left Resistance level one band Reps/Minutes 2x6 ea Comments Verbal cues for slow, control rows Standing Exercise Name neutral position to avoid ext; Row walkout Side bilateral Resistance level 1 band Equipment Used scap squeeze> walk bwd then return and reset scapula Reps/Minutes 2x10 Comments pain free Other Exercises reclined shoulder scaption Other Exercise Name AROM HEP review Side left Resistance 1# db Reps/Minutes 5 Comments verbal cues for correct execution; pain free but fatigued at end of session Self-Care/Home Management Treatment Education Patient Education Home Exercise Program,Pain Management Other Education Pt education on HEP, pt education on ice for any mm soreness post session as needed. Encouraged pt carryover of HEP as able, within pt busy upcoming weekend. PT-OP-T Assessment and Plan Start: 01/10/24 07:24 Freq: Status: Active Protocol: Document 04/01/24 15:20 (Rec: 04/01/24 16:24 [id number]) Physical Therapy Assessment Goals Five Impairment sleep Impairment pt wakes 3x/night Short Term Goal (STG) Pt will report that he is waking <3x/night due to L shoulder pain in order to demonstrate improved pain management and QOL 02/07/24: waking at least 2x/ night STG Duration 03/06/24 MET Data Security Administrator Goal (LTG) Pt will report that he wakes up 1 or fewer times at night due to L shoulder pain in order to demonstrate improved pain management and QOL 03/24/24: 2-4x/night LTG Duration 06/20/24; 04/04/24-NOT MET, GOAL UPDATED 03/24/24 Four Impairment pain Impairment currently 5/10 pain at rest, 10/10 reported with activity Short Term Goal (STG) Pt will report 5/10 pain or less in L shoulder with activity in order to demonstrate improved symptom management and QOL STG Duration 03/06/24 Retirement Goal (LTG) Pt will report 2/10 pain or less in L shoulder with activity in order to demonstrate improved symptom management and QOL 03/24/24: Pt consistently reports 1-2/10 L shoulder pain with activity, none at rest unless he does a movement that bites LTG Duration 06/20/24; 04/04/24- PROGRESSING Three Impairment function, activity 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 Short Term Goal (STG) Pt will report that he is able to play piano with L shoulder pain <2/10 in order to demonstrate improved QOL and activity tolerance STG Duration 02/26/24 Retirement Goal (LTG) Pt will report that he is able to play piano without limitation and without increase in baseline pain in order to demonstrate improved QOL and activity tolerance 03/24/24: pt reports that he is able to play piano without limitation due to mobility or pain LTG Duration 04/04/24 MET Two Impairment strength Impairment did not assess due to precautions Short Term Goal (STG) Pt will have at least 3+/5 L shoulder flexion and abduction in scaption plane strength with pain less than 5/10 in order to demonstrate improved ability to lift objects 02/12/24: initiated AROM against gravity in reclined 03/24/24: currently 3+/5 against gravity; recently progressed to 1# db for reclined fwd flexion, pain 1-2/10 STG Duration 03/06/24 MET Retirement Goal (LTG) Pt will have at least 4/5 L shoulder flexion and abduction in scaption plane strength in order to demonstrate improved ability to lift objects LTG Duration 06/20/24; 04/04/24-NOT MET One Impairment ROM Impairment PROM currently 115 deg FF, 20 deg ER in scaption plane Short Term Goal (STG) Pt will have at least 120 deg of passive L forward flexion, full passive ER in scaption plane with pain <2/10 02/12/24: 120 deg forward flexion passively, 30 deg ER in scaption passively STG Duration 02/21/24 MET Retirement Goal (LTG) Pt will have at least 110 deg of active L forward shoulder flexion and functional ER of at least 30 degrees in scaption plane in order to demonstrate improved reaching and shoulder mobility for dressing/ADLs 03/24/24: 120 deg L shoulder flexion maintained over several weeks w/o pain >1-2/10 , 60 deg ER from scaption LTG Duration 04/04/24 MET Assessment Summary Assessment Pt reports decreased pain, able to discontinue ibuprofen over the last week. Minimal pain level at end of session today. Pt tolerated exercises well, a few grabs of pain that pt has been experiencing throughout recovery, and fatigue reported with strengthening. Pt very quick to fatigue with isometric IR/ER with band. Pt had followup apt, pt reports surgeon was pleased with pt recovery and ROM. Physical Therapy Plan Frequency and Duration Frequency of Treatment 1-2x/wk Duration of treatment (weeks) 12 Plan of Care Start Date 03/24/24 Plan of Care End Date 06/20/24 Therapeutic Interventions Therapeutic Interventions Gait Training,Home Exercise Program,Joint Mobilizations, Manual Therapy,Neuromuscular Re-education,Orthotic/ Prosthetic Management,Patient/ Caregiver Education,Self-Care/ Home Management,Sensory Integration,Soft Tissue Mobilization,Taping, Therapeutic Activities, Therapeutic Exercises Modalities Cold Pack/Ice Massage,Electric Stimulation,Hot Packs, Ultrasound Next Visit Focus/Plan Next Note Type Treatment Note Next Visit Plan review isometric shoulder ext/ abd/flex long lever as needed. wall slide with pillow case, sofy ER/IR w/ band vs wall; -- AROM reclined>sit>stand forward ER in scaption ER to tolerance in scaption, 120 deg FF in scaption
--- NOTE | 2024-04-09 12:00 | PT.OTN ---
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 Precautions Precautions Reverse TSA precautions: no ext/ADD/IR (subscapularis not repaired) sling for comfort see protocol for restrictions 6 weeks: 01/24/24; 8 weeks: 02/06; 12 weeks: 03/07/24 Phase I: 3-6 weeks: PROM up to FF 120 (scaption plane) and ER to tolerance(scaption), submaximal pain free isometrics in scapular plane ( avoid ext); AAROM of cervical spine, wrist, elbow, hand Phase II after week 6 as appropriate PT-OP-B Current Condition Start: 01/10/24 07:24 Freq: Status: Active Protocol: Document 01/10/24 08:18 NM (Rec: 01/10/24 09:46 NM [id number]) Current Condition History of Current Condition Onset Date DOS 12/13/23 Current Complaints mobility, pain, strength History of Current Condition Pt had surgery for L rTSA on , by Dr. Blas. He states that Dr. Blas repaired his rotator cuff in 2021, but it atrophied and retore again, which is when pt opted for shoulder replacement. Pt had rotator cuff arthropathy. 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 Previously, he had L shoulder snapping, popping, grinding. He has had his first follow up post-op, reports that everything going well. Pt reports that he was having trouble with sling and gave up on it. He was sleeping in reclining chair with arm across chest. Currently sleeping in bed, rolled toward his shoulder. Pt reports that a week ago, he had aching pain in his L shoulder after he grabbed a [employer] pitcher with his L, felt a nasty pain in his L shoulder and was unable to lift anything including a teacup for days. Reports that was gradually getting better, until last night (01/08). Reports that he was holding the rosales with his L hand, which caused him to feel a sharp pain. He is left handed but able to use R hand for writing/eating/ADLs. He had follow up with doctor on . Pt reports that his has been helping him with dressing and all activities, but he feels bad that she has to do it all and wants to help. has been driving and helping pt with [employer] job. Has had 1 fall pre- surgery, but fell on R shoulder; states ankles giving out. He has not been performing any of the exercises from his doctor on Sunday. 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, 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 Current Functional Impairments (Reported) Functional Limitations- ADL's dressing assisting with dressing, ADLs, showering, grooming not sleeping with pillow behind arm Functional Limitations- Mobility/Gait strength loss Functional Limitations- 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 Patient with sleeping persists, or if he tweaks it moving it a way it doesn't want to go. AROM 120 deg scaption left shoulder start of session. PT-OP-F Manual Assessment Start: 01/10/24 07:24 Freq: Status: Active Protocol: Document 01/10/24 08:18 NM (Rec: 01/10/24 09:46 NM [id number]) Manual Assessments Soft Tissue Assessment Soft Tissue Mobility Assessment Increased tenderness, decreased length of latissimus dorsi and pectoralis Joint Mobility Assessment Joint Mobility Assessment Empty end feel with forward flexion and scaption ER. No L shoulder clicking, popping, dislocation with passive ROM. Full elbow and wrist AROM PT-OP-H Neuro Start: 01/10/24 07:24 Freq: Status: Active Protocol: Document 01/10/24 08:18 NM (Rec: 01/10/24 09:46 NM [id number]) Sensation Evaluation Comments Summary Comments BUE equally intact to light touch sensation, small decrease on L side near axilla PT-OP-J Posture/Palpation/Skin Start: 01/10/24 07:24 Freq: Status: Active Protocol: Document 01/10/24 08:18 NM (Rec: 01/10/24 09:46 NM [id number]) Posture Evaluation Position Sitting Head/C-Spine Posture Forward Head T-Spine Posture Increased Kyphosis Shoulder Posture (L) Rounded,(R) Rounded,(L) Forward,(R) Forward,(L) Elevated Scapula Posture (L) Protracted,(R) Protracted, (L) Elevated Arm Posture (L) Internally Rotated,(R) Internally Rotated Comments Posture Comments Elbow positioned by side at 0 deg abd, no use of sling Palpation Assessment Location L shoulder Palpation Details Tenderness along anterior shoulder with palpation and posterior cuff. Denies pain with palpation Skin Assessment Incisional Assessment Incision Appearance/Comments clean/dry/intact. Glue beginning to peel. Good healing w/o signs of infection , redness Small indention above scar from infection from previous rotator cuff repair PT-OP-K Range of Motion Start: 01/10/24 07:24 Freq: Status: Active Protocol: Document 03/24/24 12:59 NM (Rec: 03/24/24 13:49 NM [id number]) Shoulder Goniometric Range of Motion Shoulder L AROM Flexion 120 External Rotation at 0 degrees Abduction 60 Comments 02/12/24: reclined- 30 deg ER scaption 03/18/24: 55 deg ER, 120 deg flexion 03/24/24: 60 deg ER in scaption, 120 deg flexion PT-OP-M Strength Start: 01/10/24 07:24 Freq: Status: Active Protocol: Document 03/24/24 12:59 NM (Rec: 03/24/24 13:49 NM [id number]) Shoulder Strength Shoulder Manual Muscle Testing Left Flexion 3+ Fair+ External Rotation 3+ Fair+ Comments Did not formally assess due to precautions and protocol 02/12/24: AROM began in reclining position, against gravity 03/24/24: 3+/5 against gravity; able to perform exercises with 1# db PT-OP-Q Treatments Start: 01/10/24 07:24 Freq: Status: Active Protocol: Document 04/09/24 08:13 AB (Rec: 04/09/24 10:31 AB [id number]) Therapeutic Exercises Standing Exercises wall slide scaption Side bilateral Reps/Minutes X8 Comments Verbal cues to step to wall, slide then lift UE off wall step back and lowe rhythmic oscillation Side left Equipment Used yellow therabar Reps/Minutes 30 seconds Isometric reactive shoulder IR and ER Standing Exercise Name Isometric IR/ER Side left Resistance level one band Reps/Minutes X15 each Comments verbal cues to avoid UE movement rows Standing Exercise Name neutral position to avoid ext; Row walkout Side bilateral Resistance level 3 band Reps/Minutes X15 X2 scapular depression Standing Exercise Name UE's in sight Side bilateral Reps/Minutes 15x1 for 5 sec holds Comments verbal and visual cues to prevent fwd trunk flex/ant humeral rest position Manual Therapy Treatment Soft Tissue Mobilization left shoulder Body Location pec at axilla, UT, scalenes, LS, periscapular, biceps muscle belly Mobilization Type Cross-Friction,Rolling, Sustained Pressure Intensity/Depth moderate and superficial Body Position Hooklying,sidelying Comments Neutral position of L arm for pec mobilization at axilla, still tight but less tightness along axilla with positioning . Less tightness and tenderness of pec, lat today. Less tightness of UT, LS, and scalenes today as well Joint Mobilizations scapular Joint left shoulder Direction depression and adduction Grade III Body Position Sidelying Reps/Duration 2x10 Comments Monitored for pain, performed prior to arm elevation exercises. Improved scapular mobility Manual Techniques scapular Type isometrics Body Location depression and adduction Reps/Duration X10 5 sec hold PT-OP-T Assessment and Plan Start: 01/10/24 07:24 Freq: Status: Active Protocol: Document 04/09/24 08:13 AB (Rec: 04/09/24 10:31 AB [id number]) Physical Therapy Assessment Goals Five Impairment sleep Impairment pt wakes 3x/night Short Term Goal (STG) Pt will report that he is waking <3x/night due to L shoulder pain in order to demonstrate improved pain management and QOL 02/07/24: waking at least 2x/ night STG Duration 03/06/24 MET [facility] Rough Goal (LTG) Pt will report that he wakes up 1 or fewer times at night due to L shoulder pain in order to demonstrate improved pain management and QOL 03/24/24: 2-4x/night LTG Duration 06/20/24; 04/04/24-NOT MET, GOAL UPDATED 03/24/24 Four Impairment pain Impairment currently 5/10 pain at rest, 10/10 reported with activity Short Term Goal (STG) Pt will report 5/10 pain or less in L shoulder with activity in order to demonstrate improved symptom management and QOL STG Duration 03/06/24 Carpenter Rough Goal (LTG) Pt will report 2/10 pain or less in L shoulder with activity in order to demonstrate improved symptom management and QOL 03/24/24: Pt consistently reports 1-2/10 L shoulder pain with activity, none at rest unless he does a movement that bites LTG Duration 06/20/24; 04/04/24- PROGRESSING Three Impairment function, activity 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 Short Term Goal (STG) Pt will report that he is able to play piano with L shoulder pain <2/10 in order to demonstrate improved QOL and activity tolerance STG Duration 02/26/24 Penitentiary Goal (LTG) Pt will report that he is able to play piano without limitation and without increase in baseline pain in order to demonstrate improved QOL and activity tolerance 03/24/24: pt reports that he is able to play piano without limitation due to mobility or pain LTG Duration 04/04/24 MET Two Impairment strength Impairment did not assess due to precautions Short Term Goal (STG) Pt will have at least 3+/5 L shoulder flexion and abduction in scaption plane strength with pain less than 5/10 in order to demonstrate improved ability to lift objects 02/12/24: initiated AROM against gravity in reclined 03/24/24: currently 3+/5 against gravity; recently progressed to 1# db for reclined fwd flexion, pain 1-2/10 STG Duration 03/06/24 MET Pen[facility]iary Goal (LTG) Pt will have at least 4/5 L shoulder flexion and abduction in scaption plane strength in order to demonstrate improved ability to lift objects LTG Duration 06/20/24; 04/04/24-NOT MET One Impairment ROM Impairment PROM currently 115 deg FF, 20 deg ER in scaption plane Short Term Goal (STG) Pt will have at least 120 deg of passive L forward flexion, full passive ER in scaption plane with pain <2/10 02/12/24: 120 deg forward flexion passively, 30 deg ER in scaption passively STG Duration 02/21/24 MET Penitentiary Goal (LTG) Pt will have at least 110 deg of active L forward shoulder flexion and functional ER of at least 30 degrees in scaption plane in order to demonstrate improved reaching and shoulder mobility for dressing/ADLs 03/24/24: 120 deg L shoulder flexion maintained over several weeks w/o pain >1-2/10 , 60 deg ER from scaption LTG Duration 04/04/24 MET Assessment Summary Assessment 123 deg AROM left shoulder flexion end of session reporting persisting pain lowering UE, but less than start of session. Physical Therapy Plan Frequency and Duration Frequency of Treatment 1-2x/wk Duration of treatment (weeks) 12 Plan of Care Start Date 03/24/24 Plan of Care End Date 06/20/24 Next Visit Focus/Plan Next Note Type Treatment Note Next Visit Plan review isometric shoulder ext/ abd/flex long lever as needed. -- AROM reclined>sit>stand forward ER in scaption ER to tolerance in scaption, 120 deg FF in scaption
--- NOTE | 2024-04-11 12:47 | PT.OTN ---
Current Diagnoses Other specific arthropathies, not elsewhere classified, left shoulder (04/11/24) Unspecified rotator cuff tear or rupture of left shoulder, not specified as traumatic (04/11/24) Weakness (04/11/24) Physical Therapy Treatment Note PT-OP-A Visit Information Start: 01/10/24 07:24 Freq: Status: Active Protocol: Document 04/11/24 09:55 NM (Rec: 04/11/24 10:33 NM [id number]) Out-Patient Physical Therapy Visit Information Visit Information Visit Type Treatment Note Visit Start Time 09:54 Visit Stop Time 10:32 Visit Number 25 Evaluation Information Evaluation Date 01/10/24 Precautions Precautions Reverse TSA precautions: no ext/ADD/IR (subscapularis not repaired) sling for comfort see protocol for restrictions 6 weeks: 01/24/24; 8 weeks: 02/06; 12 weeks: 03/07/24 Phase I: 3-6 weeks: PROM up to FF 120 (scaption plane) and ER to tolerance(scaption), submaximal pain free isometrics in scapular plane ( avoid ext); AAROM of cervical spine, wrist, elbow, hand Phase II after week 6 as appropriate PT-OP-B Current Condition Start: 01/10/24 07:24 Freq: Status: Active Protocol: Document 01/10/24 08:18 NM (Rec: 01/10/24 09:46 NM [id number]) Current Condition History of Current Condition Onset Date DOS 12/13/23 Current Complaints mobility, pain, strength History of Current Condition Pt had surgery for L rTSA on , by Dr. Blas. He states that Dr. Blas repaired his rotator cuff in 2021, but it atrophied and retore again, which is when pt opted for shoulder replacement. Pt had rotator cuff arthropathy. 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 Previously, he had L shoulder snapping, popping, grinding. He has had his first follow up post-op, reports that everything going well. Pt reports that he was having trouble with sling and gave up on it. He was sleeping in reclining chair with arm across chest. Currently sleeping in bed, rolled toward his shoulder. Pt reports that a week ago, he had aching pain in his L shoulder after he grabbed a [employer] pitcher with his L, felt a nasty pain in his L shoulder and was unable to lift anything including a teacup for days. Reports that was gradually getting better, until last night (01/08). Reports that he was holding the rosales with his L hand, which caused him to feel a sharp pain. He is left handed but able to use R hand for writing/eating/ADLs. He had follow up with doctor on . Pt reports that his has been helping him with dressing and all activities, but he feels bad that she has to do it all and wants to help. has been driving and helping pt with [employer] job. Has had 1 fall pre- surgery, but fell on R shoulder; states ankles giving out. He has not been performing any of the exercises from his doctor on Sunday. 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 Current Functional Impairments (Reported) Functional Limitations- ADL's dressing assisting with dressing, ADLs, showering, grooming not sleeping with pillow behind arm Functional Limitations- Mobility/Gait strength loss Functional Limitations- 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 Pt reports mild compliance with HEP due to conference (states only had time to eat 1 meal) and has been waiting every other day for strengthening PT-OP-F Manual Assessment Start: 01/10/24 07:24 Freq: Status: Active Protocol: Document 01/10/24 08:18 NM (Rec: 01/10/24 09:46 NM [id number]) Manual Assessments Soft Tissue Assessment Soft Tissue Mobility Assessment Increased tenderness, decreased length of latissimus dorsi and pectoralis Joint Mobility Assessment Joint Mobility Assessment Empty end feel with forward flexion and scaption ER. No L shoulder clicking, popping, dislocation with passive ROM. Full elbow and wrist AROM PT-OP-H Neuro Start: 01/10/24 07:24 Freq: Status: Active Protocol: Document 01/10/24 08:18 NM (Rec: 01/10/24 09:46 NM [id number]) Sensation Evaluation Comments Summary Comments BUE equally intact to light touch sensation, small decrease on L side near axilla PT-OP-J Posture/Palpation/Skin Start: 01/10/24 07:24 Freq: Status: Active Protocol: Document 01/10/24 08:18 NM (Rec: 01/10/24 09:46 NM [id number]) Posture Evaluation Position Sitting Head/C-Spine Posture Forward Head T-Spine Posture Increased Kyphosis Shoulder Posture (L) Rounded,(R) Rounded,(L) Forward,(R) Forward,(L) Elevated Scapula Posture (L) Protracted,(R) Protracted, (L) Elevated Arm Posture (L) Internally Rotated,(R) Internally Rotated Comments Posture Comments Elbow positioned by side at 0 deg abd, no use of sling Palpation Assessment Location L shoulder Palpation Details Tenderness along anterior shoulder with palpation and posterior cuff. Denies pain with palpation Skin Assessment Incisional Assessment Incision Appearance/Comments clean/dry/intact. Glue beginning to peel. Good healing w/o signs of infection , redness Small indention above scar from infection from previous rotator cuff repair PT-OP-K Range of Motion Start: 01/10/24 07:24 Freq: Status: Active Protocol: Document 03/24/24 12:59 NM (Rec: 03/24/24 13:49 NM [id number]) Shoulder Goniometric Range of Motion Shoulder L AROM Flexion 120 External Rotation at 0 degrees Abduction 60 Comments 6/25/24: reclined- 30 deg ER scaption 03/18/24: 55 deg ER, 120 deg flexion 03/24/24: 60 deg ER in scaption, 120 deg flexion PT-OP-M Strength Start: 01/10/24 07:24 Freq: Status: Active Protocol: Document 03/24/24 12:59 NM (Rec: 03/24/24 13:49 NM [id number]) Shoulder Strength Shoulder Manual Muscle Testing Left Flexion 3+ Fair+ External Rotation 3+ Fair+ Comments Did not formally assess due to precautions and protocol 02/12/24: AROM began in reclining position, against gravity 03/24/24: 3+/5 against gravity; able to perform exercises with 1# db PT-OP-Q Treatments Start: 01/10/24 07:24 Freq: Status: Active Protocol: Document 04/11/24 09:55 NM (Rec: 04/11/24 10:33 NM [id number]) Therapeutic Exercises Sitting Exercises cervical spine stretch Sitting Exercise Name UT, LS, scalene Side bilateral Reps/Minutes 5x5 breaths Comments post manual tx Standing Exercises shoulder flex/ext Standing Exercise Name ext to neutral w/ eccentric flex Side left Resistance level 1 band Reps/Minutes 2x5 Comments pain free; cued for breathwork to limit tension wall slide scaption Side bilateral Reps/Minutes 10 Isometric reactive shoulder IR and ER Standing Exercise Name Isometric IR/ER (HEP review) Side left Resistance level one band Equipment Used towel roll btwn body Reps/Minutes 2x10 ea Comments cued for form, scapular setting rows Standing Exercise Name 1. row walkout (isometric to neutral), 2. Row to neutral ( isotonic) Side bilateral Resistance 1. level 3 band, 2. level 1 band Reps/Minutes 1. 10, 2. 10 (w/ PT tactile cue to neutral position) Comments tactile cue for better scap retraction; pain free Other Exercises reclined shoulder scaption Other Exercise Name 1. HEP review reclined, 2. sitting (trialed in PT) Side left Resistance 1# db Reps/Minutes 1. 10, 2. 10 Comments pain free but fatiguing Manual Therapy Treatment Consent Patient gave verbal consent for manual Yes treatment Soft Tissue Mobilization left shoulder Body Location pec at axilla, UT, scalenes, LS, periscapular, biceps muscle belly Mobilization Type Cross-Friction,Rolling, Sustained Pressure Intensity/Depth moderate and superficial Body Position Hooklying,sidelying Comments Neutral position of L arm for pec mobilization at axilla, still tight but less tightness along axilla with positioning . Less tightness of pec, lat today. Mild tightness of UT, LS, and scalenes. No tenderness today. Joint Mobilizations scapular Joint left shoulder Direction depression and adduction Grade III Body Position Sidelying Reps/Duration 10 Comments Monitored for pain, performed prior to arm elevation exercises. Improved scapular mobility PT-OP-T Assessment and Plan Start: 01/10/24 07:24 Freq: Status: Active Protocol: Document 04/11/24 09:55 NM (Rec: 04/11/24 10:33 NM [id number]) Physical Therapy Assessment Goals Five Impairment sleep Impairment pt wakes 3x/night Short Term Goal (STG) Pt will report that he is waking <3x/night due to L shoulder pain in order to demonstrate improved pain management and QOL 02/07/24: waking at least 2x/ night STG Duration 03/06/24 MET Snf Goal (LTG) Pt will report that he wakes up 1 or fewer times at night due to L shoulder pain in order to demonstrate improved pain management and QOL 03/24/24: 2-4x/night 04/11/24: a few times per night LTG Duration 06/20/24; 04/04/24-NOT MET, GOAL UPDATED 03/24/24 Four Impairment pain Impairment currently 5/10 pain at rest, 10/10 reported with activity Short Term Goal (STG) Pt will report 5/10 pain or less in L shoulder with activity in order to demonstrate improved symptom management and QOL STG Duration 03/06/24 Workforce Specialist Goal (LTG) Pt will report 2/10 pain or less in L shoulder with activity in order to demonstrate improved symptom management and QOL 03/24/24: Pt consistently reports 1-2/10 L shoulder pain with activity, none at rest unless he does a movement that bites LTG Duration 06/20/24; 04/04/24- PROGRESSING Three Impairment function, activity 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 Short Term Goal (STG) Pt will report that he is able to play piano with L shoulder pain <2/10 in order to demonstrate improved QOL and activity tolerance STG Duration 02/26/24 Workforce Specialist Goal (LTG) Pt will report that he is able to play piano without limitation and without increase in baseline pain in order to demonstrate improved QOL and activity tolerance 03/24/24: pt reports that he is able to play piano without limitation due to mobility or pain LTG Duration 04/04/24 MET Two Impairment strength Impairment did not assess due to precautions Short Term Goal (STG) Pt will have at least 3+/5 L shoulder flexion and abduction in scaption plane strength with pain less than 5/10 in order to demonstrate improved ability to lift objects 02/12/24: initiated AROM against gravity in reclined 03/24/24: currently 3+/5 against gravity; recently progressed to 1# db for reclined fwd flexion, pain 1-2/10 STG Duration 03/06/24 MET Workforce Specialist Goal (LTG) Pt will have at least 4/5 L shoulder flexion and abduction in scaption plane strength in order to demonstrate improved ability to lift objects LTG Duration 06/20/24; 04/04/24-NOT MET One Impairment ROM Impairment PROM currently 115 deg FF, 20 deg ER in scaption plane Short Term Goal (STG) Pt will have at least 120 deg of passive L forward flexion, full passive ER in scaption plane with pain <2/10 02/12/24: 120 deg forward flexion passively, 30 deg ER in scaption passively STG Duration 02/21/24 MET Workforce Specialist Goal (LTG) Pt will have at least 110 deg of active L forward shoulder flexion and functional ER of at least 30 degrees in scaption plane in order to demonstrate improved reaching and shoulder mobility for dressing/ADLs 03/24/24: 120 deg L shoulder flexion maintained over several weeks w/o pain >1-2/10 , 60 deg ER from scaption LTG Duration 04/04/24 MET Assessment Summary Assessment Pt tolerated session well. Maintains 125 deg L shoulder flexion in scaption. Pt able to progress to 1# flexion without compensation in sitting L shoulder flexion; pt fatigues at 10 reps, but pain free. Trialed resisted extension to neutral with eccentric flexion, which pt able to perform well with cueing for breathwork. Progressed to resisted row to neutral. Reviewed ER/IR isometric, which is challenging for pt. Requires cues for correct execution. Continues to have tightness in cervical paraspinals, reduced with both stretching and soft tissue mobilization. States L shoulder discomfort at end of session. Pt would benefit from skilled PT for L shoulder strengthening in order to improve ability to lift and reach for ADL within post-op restrictions. Physical Therapy Plan Frequency and Duration Frequency of Treatment 1-2x/wk Duration of treatment (weeks) 12 Plan of Care Start Date 03/24/24 Plan of Care End Date 06/20/24 Therapeutic Interventions Therapeutic Interventions Gait Training,Home Exercise Program,Joint Mobilizations, Manual Therapy,Neuromuscular Re-education,Orthotic/ Prosthetic Management,Patient/ Caregiver Education,Self-Care/ Home Management,Sensory Integration,Soft Tissue Mobilization,Taping, Therapeutic Activities, Therapeutic Exercises Modalities Cold Pack/Ice Massage,Electric Stimulation,Hot Packs, Ultrasound Next Visit Focus/Plan Next Note Type Treatment Note Next Visit Plan Trial isotonic ER/IR, standing flexion with 1#, review wall slide and row review isometric shoulder ext/ abd/flex long lever as needed. -- AROM reclined>sit>stand forward ER in scaption ER to tolerance in scaption, 120 deg FF in scaption
--- NOTE | 2024-04-15 09:44 | PT.OTN ---
Current Diagnoses Other specific arthropathies, not elsewhere classified, left shoulder (04/15/24) Unspecified rotator cuff tear or rupture of left shoulder, not specified as traumatic (04/15/24) Weakness (04/15/24) Physical Therapy Treatment Note PT-OP-A Visit Information Start: 01/10/24 07:24 Freq: Status: Active Protocol: Document 04/15/24 09:00 NM (Rec: 04/15/24 09:44 NM [id number]) Out-Patient Physical Therapy Visit Information Visit Information Visit Type Treatment Note Visit Start Time 09:00 Visit Stop Time 09:40 Visit Number 26 Number of PRODUCT LISTER Visits 0 Evaluation Information Evaluation Date 01/10/24 Precautions Precautions Reverse TSA precautions: no ext/ADD/IR (subscapularis not repaired) sling for comfort see protocol for restrictions 6 weeks: 01/24/24; 8 weeks: 02/06; 12 weeks: 03/07/24 Phase I: 3-6 weeks: PROM up to FF 120 (scaption plane) and ER to tolerance(scaption), submaximal pain free isometrics in scapular plane ( avoid ext); AAROM of cervical spine, wrist, elbow, hand Phase II after week 6 as appropriate PT-OP-B Current Condition Start: 01/10/24 07:24 Freq: Status: Active Protocol: Document 01/10/24 08:18 NM (Rec: 01/10/24 09:46 NM [id number]) Current Condition History of Current Condition Onset Date DOS 12/13/23 Current Complaints mobility, pain, strength History of Current Condition Pt had surgery for L rTSA on , by Dr. Blas. He states that Dr. Blas repaired his rotator cuff in 2021, but it atrophied and retore again, which is when pt opted for shoulder replacement. Pt had rotator cuff arthropathy. 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 Previously, he had L shoulder snapping, popping, grinding. He has had his first follow up post-op, reports that everything going well. Pt reports that he was having trouble with sling and gave up on it. He was sleeping in reclining chair with arm across chest. Currently sleeping in bed, rolled toward his shoulder. Pt reports that a week ago, he had aching pain in his L shoulder after he grabbed a [employer] pitcher with his L, felt a nasty pain in his L shoulder and was unable to lift anything including a teacup for days. Reports that was gradually getting better, until last night (01/08). Reports that he was holding the rosales with his L hand, which caused him to feel a sharp pain. He is left handed but able to use R hand for writing/eating/ADLs. He had follow up with doctor on . Pt reports that his has been helping him with dressing and all activities, but he feels bad that she has to do it all and wants to help. has been driving and helping pt with [employer] job. Has had 1 fall pre- surgery, but fell on R shoulder; states ankles giving out. He has not been performing any of the exercises from his doctor on Sunday. 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 Current Functional Impairments (Reported) Functional Limitations- ADL's dressing assisting with dressing, ADLs, showering, grooming not sleeping with pillow behind arm Functional Limitations- Mobility/Gait strength loss Functional Limitations- 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 States that the HEP with rubber band in the door wore him out (e.g. isometric rows, low rows); forgot to try doing reclined shoulder flexion. Pt reports L shoulder 08/29, just aches and he needs to be careful PT-OP-F Manual Assessment Start: 01/10/24 07:24 Freq: Status: Active Protocol: Document 01/10/24 08:18 NM (Rec: 01/10/24 09:46 NM [id number]) Manual Assessments Soft Tissue Assessment Soft Tissue Mobility Assessment Increased tenderness, decreased length of latissimus dorsi and pectoralis Joint Mobility Assessment Joint Mobility Assessment Empty end feel with forward flexion and scaption ER. No L shoulder clicking, popping, dislocation with passive ROM. Full elbow and wrist AROM PT-OP-H Neuro Start: 01/10/24 07:24 Freq: Status: Active Protocol: Document 01/10/24 08:18 NM (Rec: 01/10/24 09:46 NM [id number]) Sensation Evaluation Comments Summary Comments BUE equally intact to light touch sensation, small decrease on L side near axilla PT-OP-J Posture/Palpation/Skin Start: 01/10/24 07:24 Freq: Status: Active Protocol: Document 01/10/24 08:18 NM (Rec: 01/10/24 09:46 NM [id number]) Posture Evaluation Position Sitting Head/C-Spine Posture Forward Head T-Spine Posture Increased Kyphosis Shoulder Posture (L) Rounded,(R) Rounded,(L) Forward,(R) Forward,(L) Elevated Scapula Posture (L) Protracted,(R) Protracted, (L) Elevated Arm Posture (L) Internally Rotated,(R) Internally Rotated Comments Posture Comments Elbow positioned by side at 0 deg abd, no use of sling Palpation Assessment Location L shoulder Palpation Details Tenderness along anterior shoulder with palpation and posterior cuff. Denies pain with palpation Skin Assessment Incisional Assessment Incision Appearance/Comments clean/dry/intact. Glue beginning to peel. Good healing w/o signs of infection , redness Small indention above scar from infection from previous rotator cuff repair PT-OP-K Range of Motion Start: 01/10/24 07:24 Freq: Status: Active Protocol: Document 03/24/24 12:59 NM (Rec: 03/24/24 13:49 NM [id number]) Shoulder Goniometric Range of Motion Shoulder L AROM Flexion 120 External Rotation at 0 degrees Abduction 60 Comments 02/12/24: reclined- 30 deg ER scaption 03/18/24: 55 deg ER, 120 deg flexion 03/24/24: 60 deg ER in scaption, 120 deg flexion PT-OP-M Strength Start: 01/10/24 07:24 Freq: Status: Active Protocol: Document 03/24/24 12:59 NM (Rec: 03/24/24 13:49 NM [id number]) Shoulder Strength Shoulder Manual Muscle Testing Left Flexion 3+ Fair+ External Rotation 3+ Fair+ Comments Did not formally assess due to precautions and protocol 02/12/24: AROM began in reclining position, against gravity 03/24/24: 3+/5 against gravity; able to perform exercises with 1# db PT-OP-Q Treatments Start: 01/10/24 07:24 Freq: Status: Active Protocol: Document 04/15/24 09:00 NM (Rec: 04/15/24 09:44 NM [id number]) Therapeutic Exercises Sidelying Exercises shoulder ER Side left Resistance 2# Equipment Used with UE at side and with folded pillow under elbow Reps/Minutes 2x10 Comments pain free; challenging; cue to limit trunk bwd rot as fatigues Standing Exercises wall slide scaption Standing Exercise Name window wipes: 1. fwd flex in scaption, 2. abduction at eye level Side left Reps/Minutes 5 ea Comments pain free Isometric reactive shoulder IR and ER Standing Exercise Name Isometric IR/ER (HEP review) Side left Resistance level 2 band Equipment Used towel roll btwn body Reps/Minutes 10 ea Comments cued for form, scapular setting, remain w/i small ROM to facilitate form rows Standing Exercise Name Row to neutral (isotonic) Side bilateral Resistance level 1 band Reps/Minutes 2x10 (w/ PT tactile cue to neutral position) Comments tactile cue for better scap retraction; pain free Other Exercises reclined shoulder scaption Other Exercise Name sitting (edu to change from reclined to sitting for HEP- no HO) Side left Resistance 1# db Reps/Minutes 2x10 Comments pain free but fatiguing; cued control eccentric lower a little more Manual Therapy Treatment Consent Patient gave verbal consent for manual Yes treatment Soft Tissue Mobilization left shoulder Body Location lat, UT, LS, rhomboids Mobilization Type Cross-Friction,Rolling, Sustained Pressure Intensity/Depth moderate and superficial Body Position Sidelying Comments Emphasis on lat to reduce tightness with mobility, perform with gentle pin and stretch Joint Mobilizations scapular Joint left shoulder Direction depression and adduction Grade III Body Position Sidelying Reps/Duration 10 Comments Monitored for pain, performed prior to arm elevation exercises. Improved scapular mobility PT-OP-T Assessment and Plan Start: 01/10/24 07:24 Freq: Status: Active Protocol: Document 04/15/24 09:00 NM (Rec: 04/15/24 09:44 NM [id number]) Physical Therapy Assessment Goals Five Impairment sleep Impairment pt wakes 3x/night Short Term Goal (STG) Pt will report that he is waking <3x/night due to L shoulder pain in order to demonstrate improved pain management and QOL 02/07/24: waking at least 2x/ night STG Duration 03/06/24 MET Long-Term Goal (LTG) Pt will report that he wakes up 1 or fewer times at night due to L shoulder pain in order to demonstrate improved pain management and QOL 03/24/24: 2-4x/night 04/11/24: a few times per night LTG Duration 06/20/24; 04/04/24-NOT MET, GOAL UPDATED 03/24/24 Four Impairment pain Impairment currently 5/10 pain at rest, 10/10 reported with activity Short Term Goal (STG) Pt will report 5/10 pain or less in L shoulder with activity in order to demonstrate improved symptom management and QOL STG Duration 03/06/24 Long-Term Goal (LTG) Pt will report 2/10 pain or less in L shoulder with activity in order to demonstrate improved symptom management and QOL 03/24/24: Pt consistently reports 1-2/10 L shoulder pain with activity, none at rest unless he does a movement that bites LTG Duration 06/20/24; 04/04/24- PROGRESSING Three Impairment function, activity 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 Short Term Goal (STG) Pt will report that he is able to play piano with L shoulder pain <2/10 in order to demonstrate improved QOL and activity tolerance STG Duration 02/26/24 Long-Term Goal (LTG) Pt will report that he is able to play piano without limitation and without increase in baseline pain in order to demonstrate improved QOL and activity tolerance 03/24/24: pt reports that he is able to play piano without limitation due to mobility or pain LTG Duration 04/04/24 MET Two Impairment strength Impairment did not assess due to precautions Short Term Goal (STG) Pt will have at least 3+/5 L shoulder flexion and abduction in scaption plane strength with pain less than 5/10 in order to demonstrate improved ability to lift objects 02/12/24: initiated AROM against gravity in reclined 03/24/24: currently 3+/5 against gravity; recently progressed to 1# db for reclined fwd flexion, pain 1-2/10 STG Duration 03/06/24 MET Long-Term Goal (LTG) Pt will have at least 4/5 L shoulder flexion and abduction in scaption plane strength in order to demonstrate improved ability to lift objects LTG Duration 06/20/24; 04/04/24-NOT MET One Impairment ROM Impairment PROM currently 115 deg FF, 20 deg ER in scaption plane Short Term Goal (STG) Pt will have at least 120 deg of passive L forward flexion, full passive ER in scaption plane with pain <2/10 02/12/24: 120 deg forward flexion passively, 30 deg ER in scaption passively STG Duration 02/21/24 MET Long-Term Goal (LTG) Pt will have at least 110 deg of active L forward shoulder flexion and functional ER of at least 30 degrees in scaption plane in order to demonstrate improved reaching and shoulder mobility for dressing/ADLs 03/24/24: 120 deg L shoulder flexion maintained over several weeks w/o pain >1-2/10 , 60 deg ER from scaption LTG Duration 04/04/24 MET Assessment Summary Assessment Pt tolerated session well, demonstrates good effort. Pt able to progress to 2# db for sidelying ER with increased reps, in addition to seated 1# db shoulder flexion in scaption. Also progressed to level 2 band for isometric ER/ IR. PT cued pt for scapular setting prior to each activity to encourage correct scapular placement. Pt fatigues quickly. PT initiated conversation to transition down to 1x/wk but pt is reluctant; PT educated pt on importance of performing HEP for carryover between sessions . Pt verbalizes agreement and would benefit from skilled PT for L shoulder strengthening in order to improve ability to perform ADLs and IADLs. Physical Therapy Plan Frequency and Duration Frequency of Treatment 1-2x/wk Duration of treatment (weeks) 12 Plan of Care Start Date 03/24/24 Plan of Care End Date 06/20/24 Therapeutic Interventions Therapeutic Interventions Gait Training,Home Exercise Program,Joint Mobilizations, Manual Therapy,Neuromuscular Re-education,Orthotic/ Prosthetic Management,Patient/ Caregiver Education,Self-Care/ Home Management,Sensory Integration,Soft Tissue Mobilization,Taping, Therapeutic Activities, Therapeutic Exercises Modalities Cold Pack/Ice Massage,Electric Stimulation,Hot Packs, Ultrasound Next Visit Focus/Plan Next Note Type Treatment Note Next Visit Plan Condense HEP. ADL review with towel drying and washing body. Trial isotonic ER/IR, standing flexion with 1#, review wall slide and row review isometric shoulder ext/ abd/flex long lever as needed. -- AROM reclined>sit>stand forward ER in scaption ER to tolerance in scaption, 120 deg FF in scaption
--- NOTE | 2024-04-18 12:56 | PT.OTN ---
Current Diagnoses Other specific arthropathies, not elsewhere classified, left shoulder (04/18/24) Unspecified rotator cuff tear or rupture of left shoulder, not specified as traumatic (04/18/24) Weakness (04/18/24) Physical Therapy Treatment Note PT-OP-A Visit Information Start: 01/10/24 07:24 Freq: Status: Active Protocol: Document 04/18/24 09:47 NM (Rec: 04/18/24 10:32 NM [id number]) Out-Patient Physical Therapy Visit Information Visit Information Visit Type Treatment Note Visit Start Time 09:48 Visit Stop Time 10:28 Visit Number 27 Evaluation Information Evaluation Date 01/10/24 Precautions Precautions Reverse TSA precautions: no ext/ADD/IR (subscapularis not repaired) sling for comfort see protocol for restrictions 6 weeks: 01/24/24; 8 weeks: 02/06; 12 weeks: 03/07/24 Phase I: 3-6 weeks: PROM up to FF 120 (scaption plane) and ER to tolerance(scaption), submaximal pain free isometrics in scapular plane ( avoid ext); AAROM of cervical spine, wrist, elbow, hand Phase II after week 6 as appropriate PT-OP-B Current Condition Start: 01/10/24 07:24 Freq: Status: Active Protocol: Document 01/10/24 08:18 NM (Rec: 01/10/24 09:46 NM [id number]) Current Condition History of Current Condition Onset Date DOS 12/13/23 Current Complaints mobility, pain, strength History of Current Condition Pt had surgery for L rTSA on , by Dr. Blas. He states that Dr. Blas repaired his rotator cuff in 2021, but it atrophied and retore again, which is when pt opted for shoulder replacement. Pt had rotator cuff arthropathy. 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 Previously, he had L shoulder snapping, popping, grinding. He has had his first follow up post-op, reports that everything going well. Pt reports that he was having trouble with sling and gave up on it. He was sleeping in reclining chair with arm across chest. Currently sleeping in bed, rolled toward his shoulder. Pt reports that a week ago, he had aching pain in his L shoulder after he grabbed a [employer]ina pitcher with his L, felt a nasty pain in his L shoulder and was unable to lift anything including a teacup for days. Reports that was gradually getting better, until last night (01/08). Reports that he was holding the rosales with his L hand, which caused him to feel a sharp pain. He is left handed but able to use R hand for writing/eating/ADLs. He had follow up with doctor on . Pt reports that his has been helping him with dressing and all activities, but he feels bad that she has to do it all and wants to help. has been driving and helping pt with [employer] job. Has had 1 fall pre- surgery, but fell on R shoulder; states ankles giving out. He has not been performing any of the exercises from his doctor on Sunday. 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 Current Functional Impairments (Reported) Functional Limitations- ADL's dressing assisting with dressing, ADLs, showering, grooming not sleeping with pillow behind arm Functional Limitations- Mobility/Gait strength loss Functional Limitations- 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 He reports no changes from last session. Pt hurt his L knee, planning to start using a cane in R hand ( PT educated to use on R hand). Pt reports that he has almost fallen several times in past several days. Forgot to bring HEP for condensation today because had an argument with PT-OP-F Manual Assessment Start: 01/10/24 07:24 Freq: Status: Active Protocol: Document 01/10/24 08:18 NM (Rec: 01/10/24 09:46 NM [id number]) Manual Assessments Soft Tissue Assessment Soft Tissue Mobility Assessment Increased tenderness, decreased length of latissimus dorsi and pectoralis Joint Mobility Assessment Joint Mobility Assessment Empty end feel with forward flexion and scaption ER. No L shoulder clicking, popping, dislocation with passive ROM. Full elbow and wrist AROM PT-OP-H Neuro Start: 01/10/24 07:24 Freq: Status: Active Protocol: Document 01/10/24 08:18 NM (Rec: 01/10/24 09:46 NM [id number]) Sensation Evaluation Comments Summary Comments BUE equally intact to light touch sensation, small decrease on L side near axilla PT-OP-J Posture/Palpation/Skin Start: 01/10/24 07:24 Freq: Status: Active Protocol: Document 01/10/24 08:18 NM (Rec: 01/10/24 09:46 NM [id number]) Posture Evaluation Position Sitting Head/C-Spine Posture Forward Head T-Spine Posture Increased Kyphosis Shoulder Posture (L) Rounded,(R) Rounded,(L) Forward,(R) Forward,(L) Elevated Scapula Posture (L) Protracted,(R) Protracted, (L) Elevated Arm Posture (L) Internally Rotated,(R) Internally Rotated Comments Posture Comments Elbow positioned by side at 0 deg abd, no use of sling Palpation Assessment Location L shoulder Palpation Details Tenderness along anterior shoulder with palpation and posterior cuff. Denies pain with palpation Skin Assessment Incisional Assessment Incision Appearance/Comments clean/dry/intact. Glue beginning to peel. Good healing w/o signs of infection , redness Small indention above scar from infection from previous rotator cuff repair PT-OP-K Range of Motion Start: 01/10/24 07:24 Freq: Status: Active Protocol: Document 03/24/24 12:59 NM (Rec: 03/24/24 13:49 NM [id number]) Shoulder Goniometric Range of Motion Shoulder L AROM Flexion 120 External Rotation at 0 degrees Abduction 60 Comments 02/12/24: reclined- 30 deg ER scaption 03/18/24: 55 deg ER, 120 deg flexion 03/24/24: 60 deg ER in scaption, 120 deg flexion PT-OP-M Strength Start: 01/10/24 07:24 Freq: Status: Active Protocol: Document 03/24/24 12:59 NM (Rec: 03/24/24 13:49 NM [id number]) Shoulder Strength Shoulder Manual Muscle Testing Left Flexion 3+ Fair+ External Rotation 3+ Fair+ Comments Did not formally assess due to precautions and protocol 02/12/24: AROM began in reclining position, against gravity 03/24/24: 3+/5 against gravity; able to perform exercises with 1# db PT-OP-Q Treatments Start: 01/10/24 07:24 Freq: Status: Active Protocol: Document 04/18/24 09:47 NM (Rec: 04/18/24 10:32 NM [id number]) Therapeutic Exercises Sitting Exercises ER towel slides Sitting Exercise Name ~ washing back (L arm in ER/ flex, R arm in IR/ext) Side left Resistance R assist L, AROM Equipment Used large towel Reps/Minutes 2 min Comments re-edu to never reach behind back lat stretch Sitting Exercise Name ~table slides Side bilateral Reps/Minutes 3x10 Comments seated due to knee pain Standing Exercises flexion + ER miniband Side bilateral Resistance level 1 band Reps/Minutes 2x5 Comments challenging, pain free ER/IR band Standing Exercise Name HEP Side left Resistance level 1 band (1 band for ER, 2 for IR) Equipment Used towel roll btwn body for scaption Reps/Minutes 2x10 w/ break in between sets Comments pain free but challenging Isometric reactive shoulder IR and ER Standing Exercise Name changed to isotonic Manual Therapy Treatment Consent Patient gave verbal consent for manual Yes treatment Soft Tissue Mobilization left shoulder Body Location lat, UT, LS, rhomboids Mobilization Type Cross-Friction,Rolling, Sustained Pressure Intensity/Depth moderate and superficial Body Position Sidelying Comments Emphasis on lat to reduce tightness with mobility, perform with gentle pin and stretch Joint Mobilizations scapular Joint left shoulder Direction depression and adduction Grade III Body Position Sidelying Reps/Duration 10 Comments Monitored for pain, performed prior to arm elevation exercises. Improved scapular mobility Manual Techniques lat pin stretch for scaptiion Body Location left shoulder Body Position Sidelying Reps/Duration 10 PT-OP-T Assessment and Plan Start: 01/10/24 07:24 Freq: Status: Active Protocol: Document 04/18/24 09:47 NM (Rec: 04/18/24 10:32 NM [id number]) Physical Therapy Assessment Goals Five Impairment sleep Impairment pt wakes 3x/night Short Term Goal (STG) Pt will report that he is waking <3x/night due to L shoulder pain in order to demonstrate improved pain management and QOL 02/07/24: waking at least 2x/ night STG Duration 03/06/24 MET Pbx Supervisor Goal (LTG) Pt will report that he wakes up 1 or fewer times at night due to L shoulder pain in order to demonstrate improved pain management and QOL 03/24/24: 2-4x/night 04/11/24: a few times per night LTG Duration 06/20/24; 04/04/24-NOT MET, GOAL UPDATED 03/24/24 Four Impairment pain Impairment currently 5/10 pain at rest, 10/10 reported with activity Short Term Goal (STG) Pt will report 5/10 pain or less in L shoulder with activity in order to demonstrate improved symptom management and QOL STG Duration 03/06/24 Halfway Goal (LTG) Pt will report 2/10 pain or less in L shoulder with activity in order to demonstrate improved symptom management and QOL 03/24/24: Pt consistently reports 1-2/10 L shoulder pain with activity, none at rest unless he does a movement that bites LTG Duration 06/20/24; 04/04/24- PROGRESSING Three Impairment function, activity 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 Short Term Goal (STG) Pt will report that he is able to play piano with L shoulder pain <2/10 in order to demonstrate improved QOL and activity tolerance STG Duration 02/26/24 Halfway Goal (LTG) Pt will report that he is able to play piano without limitation and without increase in baseline pain in order to demonstrate improved QOL and activity tolerance 03/24/24: pt reports that he is able to play piano without limitation due to mobility or pain LTG Duration 04/04/24 MET Two Impairment strength Impairment did not assess due to precautions Short Term Goal (STG) Pt will have at least 3+/5 L shoulder flexion and abduction in scaption plane strength with pain less than 5/10 in order to demonstrate improved ability to lift objects 02/12/24: initiated AROM against gravity in reclined 03/24/24: currently 3+/5 against gravity; recently progressed to 1# db for reclined fwd flexion, pain 1-2/10 STG Duration 03/06/24 MET Halfway Goal (LTG) Pt will have at least 4/5 L shoulder flexion and abduction in scaption plane strength in order to demonstrate improved ability to lift objects LTG Duration 06/20/24; 04/04/24-NOT MET One Impairment ROM Impairment PROM currently 115 deg FF, 20 deg ER in scaption plane Short Term Goal (STG) Pt will have at least 120 deg of passive L forward flexion, full passive ER in scaption plane with pain <2/10 02/12/24: 120 deg forward flexion passively, 30 deg ER in scaption passively STG Duration 02/21/24 MET Halfway Goal (LTG) Pt will have at least 110 deg of active L forward shoulder flexion and functional ER of at least 30 degrees in scaption plane in order to demonstrate improved reaching and shoulder mobility for dressing/ADLs 03/24/24: 120 deg L shoulder flexion maintained over several weeks w/o pain >1-2/10 , 60 deg ER from scaption LTG Duration 04/04/24 MET Assessment Summary Assessment Pt tolerated session well and increased resistance/ progression of exercises. Progressed to isotonic ER/IR with band; ER is more challenging for pt. Pt also able to perform miniband flexion and ER with increased ROM and without pain in limited reps. Continued with addressing lat length and mobility to improve overall pain symptoms and pain management. PT educated pt on washing back with L arm remaining in ER/flexion to maintain precautions but to work on washing back. Pt able to perform with cueing initially and improved confidence with reps. No pain in L shoulder at end of session. Pt would benefit from skilled PT for L shoulder strengthening in order to improve ability to perform ADLs for reaching and lifting within precautions. Physical Therapy Plan Frequency and Duration Frequency of Treatment 1-2x/wk Duration of treatment (weeks) 12 Plan of Care Start Date 03/24/24 Plan of Care End Date 06/20/24 Therapeutic Interventions Therapeutic Interventions Gait Training,Home Exercise Program,Joint Mobilizations, Manual Therapy,Neuromuscular Re-education,Orthotic/ Prosthetic Management,Patient/ Caregiver Education,Self-Care/ Home Management,Sensory Integration,Soft Tissue Mobilization,Taping, Therapeutic Activities, Therapeutic Exercises Modalities Cold Pack/Ice Massage,Electric Stimulation,Hot Packs, Ultrasound Next Visit Focus/Plan Next Note Type Treatment Note Next Visit Plan Condense HEP. recheck tolerance to isotonic ER/IR, standing flexion with 1#, miniband flex, flex w/ longer lever, wall slider serratus review isometric shoulder ext/ abd/flex long lever as needed. -- AROM reclined>sit>stand forward ER in scaption ER to tolerance in scaption, 120 deg FF in scaption
--- NOTE | 2024-04-23 12:57 | PT.OTN ---
Current Diagnoses Other specific arthropathies, not elsewhere classified, left shoulder (04/23/24) Unspecified rotator cuff tear or rupture of left shoulder, not specified as traumatic (04/23/24) Weakness (04/23/24) Physical Therapy Treatment Note PT-OP-A Visit Information Start: 01/10/24 07:24 Freq: Status: Active Protocol: Document 04/23/24 09:41 NM (Rec: 04/23/24 10:34 NM [id number]) Out-Patient Physical Therapy Visit Information Visit Information Visit Type Progress Note Visit Start Time 09:48 Visit Stop Time 09:28 Visit Number 28 Evaluation Information Evaluation Date 01/10/24 Precautions Precautions Reverse TSA precautions: no ext/ADD/IR (subscapularis not repaired) sling for comfort see protocol for restrictions 6 weeks: 01/24/24; 8 weeks: 02/06; 12 weeks: 03/07/24 Phase I: 3-6 weeks: PROM up to FF 120 (scaption plane) and ER to tolerance(scaption), submaximal pain free isometrics in scapular plane ( avoid ext); AAROM of cervical spine, wrist, elbow, hand Phase II after week 6 as appropriate PT-OP-B Current Condition Start: 01/10/24 07:24 Freq: Status: Active Protocol: Document 01/10/24 08:18 NM (Rec: 01/10/24 09:46 NM [id number]) Current Condition History of Current Condition Onset Date DOS 12/13/23 Current Complaints mobility, pain, strength History of Current Condition Pt had surgery for L rTSA on , by Dr. Blas. He states that Dr. Blas repaired his rotator cuff in 2021, but it atrophied and retore again, which is when pt opted for shoulder replacement. Pt had rotator cuff arthropathy. 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 Previously, he had L shoulder snapping, popping, grinding. He has had his first follow up post-op, reports that everything going well. Pt reports that he was having trouble with sling and gave up on it. He was sleeping in reclining chair with arm across chest. Currently sleeping in bed, rolled toward his shoulder. Pt reports that a week ago, he had aching pain in his L shoulder after he grabbed a [employer] pitcher with his L, felt a nasty pain in his L shoulder and was unable to lift anything including a teacup for days. Reports that was gradually getting better, until last night (01/08). Reports that he was holding the rosales with his L hand, which caused him to feel a sharp pain. He is left handed but able to use R hand for writing/eating/ADLs. He had follow up with doctor on . Pt reports that his has been helping him with dressing and all activities, but he feels bad that she has to do it all and wants to help. has been driving and helping pt with [employer] job. Has had 1 fall pre- surgery, but fell on R shoulder; states ankles giving out. He has not been performing any of the exercises from his doctor on Sunday. 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 Current Functional Impairments (Reported) Functional Limitations- ADL's dressing assisting with dressing, ADLs, showering, grooming not sleeping with pillow behind arm Functional Limitations- Mobility/Gait strength loss Functional Limitations- 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 He reports 0/10 pain. Pt reports that sleeping is sore from waking up from sleeping on arm, states 2-3x. He has a follow up with his surgeon at end of May. Pt forgot to bring his HEP again. States that he has not been doing HEP and has forgot PT-OP-F Manual Assessment Start: 01/10/24 07:24 Freq: Status: Active Protocol: Document 01/10/24 08:18 NM (Rec: 01/10/24 09:46 NM [id number]) Manual Assessments Soft Tissue Assessment Soft Tissue Mobility Assessment Increased tenderness, decreased length of latissimus dorsi and pectoralis Joint Mobility Assessment Joint Mobility Assessment Empty end feel with forward flexion and scaption ER. No L shoulder clicking, popping, dislocation with passive ROM. Full elbow and wrist AROM PT-OP-H Neuro Start: 01/10/24 07:24 Freq: Status: Active Protocol: Document 01/10/24 08:18 NM (Rec: 01/10/24 09:46 NM [id number]) Sensation Evaluation Comments Summary Comments BUE equally intact to light touch sensation, small decrease on L side near axilla PT-OP-J Posture/Palpation/Skin Start: 01/10/24 07:24 Freq: Status: Active Protocol: Document 01/10/24 08:18 NM (Rec: 01/10/24 09:46 NM [id number]) Posture Evaluation Position Sitting Head/C-Spine Posture Forward Head T-Spine Posture Increased Kyphosis Shoulder Posture (L) Rounded,(R) Rounded,(L) Forward,(R) Forward,(L) Elevated Scapula Posture (L) Protracted,(R) Protracted, (L) Elevated Arm Posture (L) Internally Rotated,(R) Internally Rotated Comments Posture Comments Elbow positioned by side at 0 deg abd, no use of sling Palpation Assessment Location L shoulder Palpation Details Tenderness along anterior shoulder with palpation and posterior cuff. Denies pain with palpation Skin Assessment Incisional Assessment Incision Appearance/Comments clean/dry/intact. Glue beginning to peel. Good healing w/o signs of infection , redness Small indention above scar from infection from previous rotator cuff repair PT-OP-K Range of Motion Start: 01/10/24 07:24 Freq: Status: Active Protocol: Document 04/23/24 09:41 NM (Rec: 04/23/24 10:34 NM [id number]) Shoulder Goniometric Range of Motion Shoulder L AROM Flexion 125 External Rotation at 0 degrees Abduction 60 Comments 02/12/24: reclined- 30 deg ER scaption 03/18/24: 55 deg ER, 120 deg flexion 03/24/24: 60 deg ER in scaption, 120 deg flexion 04/23/24: 125 deg flexion in scaption, 60 deg scaption ER PT-OP-M Strength Start: 01/10/24 07:24 Freq: Status: Active Protocol: Document 04/23/24 09:41 NM (Rec: 04/23/24 10:34 NM [id number]) Shoulder Strength Shoulder Manual Muscle Testing Left Flexion 3+ Fair+ External Rotation 3+ Fair+ Comments Did not formally assess due to precautions and protocol 02/12/24: AROM began in reclining position, against gravity 03/24/24: 3+/5 against gravity; able to perform exercises with 1# db 04/23/24: 4-/5 for all; progressing to 2# flexion and ER PT-OP-Q Treatments Start: 01/10/24 07:24 Freq: Status: Active Protocol: Document 04/23/24 09:41 NM (Rec: 04/23/24 10:34 NM [id number]) Therapeutic Exercises Supine Exercises AROM scaption Supine Exercise Name fwd flexion in scaption plane Side left Resistance 2# Equipment Used pillow under arm for support at end range Reps/Minutes 10 Comments pain free but challenging; 110 deg flex Sidelying Exercises shoulder ER Side left Resistance 2# db Equipment Used with UE at side and with folded pillow under elbow Reps/Minutes 10, 5, 5 (too fatigued to complete full set of 10 twice) -edu qual>quant Comments pain free; challenging; cue to limit trunk bwd rot as fatigues Sitting Exercises elbow flexion/extension Sitting Exercise Name bicep curl Side left Resistance 2# db > 3# db Equipment Used arms on pillow Reps/Minutes 2x10 Comments pain free but feels activation in shoulder Standing Exercises serratus anterior Standing Exercise Name wall slide w/ band Side bilateral Resistance level 1 band Reps/Minutes 10 Comments fatiguing ER/IR band Standing Exercise Name HEP review Side left Resistance level 1 band Equipment Used towel roll btwn body for scaption Reps/Minutes 2x10 w/ break in between sets Comments pain free but challenging shoulder flex/ext Side left Resistance 1# db Reps/Minutes 10 Comments full ROM Manual Therapy Treatment Consent Patient gave verbal consent for manual Yes treatment Soft Tissue Mobilization left shoulder Body Location lat, UT, LS, rhomboids, subscapularis Mobilization Type Cross-Friction,Rolling, Sustained Pressure Intensity/Depth moderate and superficial Body Position Sidelying Comments Tenderness at lat and subscapularis border, reduced with rolling proximal > distal Joint Mobilizations scapular Joint left shoulder Direction depression and adduction Grade III Body Position Sidelying Reps/Duration 10 Comments Monitored for pain, performed prior to arm elevation exercises. Improved scapular mobility PT-OP-T Assessment and Plan Start: 01/10/24 07:24 Freq: Status: Active Protocol: Document 04/23/24 09:41 NM (Rec: 04/23/24 10:34 NM [id number]) Physical Therapy Assessment Goals Five Impairment sleep Impairment pt wakes 3x/night Short Term Goal (STG) Pt will report that he is waking <3x/night due to L shoulder pain in order to demonstrate improved pain management and QOL 02/07/24: waking at least 2x/ night STG Duration 03/06/24 MET Business Representative Goal (LTG) Pt will report that he wakes up 1 or fewer times at night due to L shoulder pain in order to demonstrate improved pain management and QOL 03/24/24: 2-4x/night 04/11/24: a few times per night 04/23/24: pt still reporting that his L shoulder wakes him a 2-3x per night due to sleeping position with his LTG Duration 06/20/24; 04/23/24-NOT MET, GOAL UPDATED 03/24/24 Four Impairment pain Impairment currently 5/10 pain at rest, 10/10 reported with activity Short Term Goal (STG) Pt will report 5/10 pain or less in L shoulder with activity in order to demonstrate improved symptom management and QOL STG Duration 03/06/24 Business Representative Goal (LTG) Pt will report 2/10 pain or less in L shoulder with activity in order to demonstrate improved symptom management and QOL 03/24/24: Pt consistently reports 1-2/10 L shoulder pain with activity, none at rest unless he does a movement that bites 04/23/24: 0/10 today before session, 1/10 reported during session LTG Duration 06/20/24; PROGRESSING, MET Three Impairment function, activity 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 Short Term Goal (STG) Pt will report that he is able to play piano with L shoulder pain <2/10 in order to demonstrate improved QOL and activity tolerance STG Duration 02/26/24 Business Representative Goal (LTG) Pt will report that he is able to play piano without limitation and without increase in baseline pain in order to demonstrate improved QOL and activity tolerance 03/24/24: pt reports that he is able to play piano without limitation due to mobility or pain LTG Duration 04/04/24 MET Two Impairment strength Impairment did not assess due to precautions Short Term Goal (STG) Pt will have at least 3+/5 L shoulder flexion and abduction in scaption plane strength with pain less than 5/10 in order to demonstrate improved ability to lift objects 02/12/24: initiated AROM against gravity in reclined 03/24/24: currently 3+/5 against gravity; recently progressed to 1# db for reclined fwd flexion, pain 1-2/10 STG Duration 03/06/24 MET Business Representative Goal (LTG) Pt will have at least 4/5 L shoulder flexion and abduction in scaption plane strength in order to demonstrate improved ability to lift objects 04/23/24: 4-/5; progression with lifting 1-2# in standing wit L arm LTG Duration 06/20/24; 04/23/24-NOT MET One Impairment ROM Impairment PROM currently 115 deg FF, 20 deg ER in scaption plane Short Term Goal (STG) Pt will have at least 120 deg of passive L forward flexion, full passive ER in scaption plane with pain <2/10 02/12/24: 120 deg forward flexion passively, 30 deg ER in scaption passively STG Duration 02/21/24 MET Business Representative Goal (LTG) Pt will have at least 110 deg of active L forward shoulder flexion and functional ER of at least 30 degrees in scaption plane in order to demonstrate improved reaching and shoulder mobility for dressing/ADLs 03/24/24: 120 deg L shoulder flexion maintained over several weeks w/o pain >1-2/10 , 60 deg ER from scaption LTG Duration 04/04/24 MET Assessment Summary Assessment Pt tolerated session well. Able to progress to 2# db shoulder flexion in supine, 1# db flexion in standing with good form and no compensation or pain. Pt with improved tolerance for L shoulder ER and IR with resistance band, able to perform ER with 2 bands today at lowest resistance. Cued only for form . PT educated pt on importance of compliance with HEP, as pt admits to not performing HEP frequently; issued exercise log to help with compliance and carryover. Pt would benefit from skilled PT per protocol to improve L shoulder strength for reaching, lifting ADLs. Physical Therapy Plan Frequency and Duration Frequency of Treatment 1-2x/wk Duration of treatment (weeks) 12 Plan of Care Start Date 03/24/24 Plan of Care End Date 06/20/24 Therapeutic Interventions Therapeutic Interventions Gait Training,Home Exercise Program,Joint Mobilizations, Manual Therapy,Neuromuscular Re-education,Orthotic/ Prosthetic Management,Patient/ Caregiver Education,Self-Care/ Home Management,Sensory Integration,Soft Tissue Mobilization,Taping, Therapeutic Activities, Therapeutic Exercises Modalities Cold Pack/Ice Massage,Electric Stimulation,Hot Packs, Ultrasound Next Visit Focus/Plan Next Note Type Treatment Note Next Visit Plan Condense HEP. ask compliance with exercise log progress resistance as able with isotonic ER/IR at 0 deg abd, wall slide with band at wall, supine > reclined > sit> standing flexion with 1-2# ( progress 2# from supine), miniband flex. progress resistance for row and low row , lat pull down with respect to neutral shoulder position w / body ROM limits: ER to tolerance in scaption, 120 deg FF in scaption
--- NOTE | 2024-04-25 12:58 | PT.OTN ---
Current Diagnoses Other specific arthropathies, not elsewhere classified, left shoulder (04/25/24) Unspecified rotator cuff tear or rupture of left shoulder, not specified as traumatic (04/25/24) Weakness (04/25/24) Physical Therapy Treatment Note PT-OP-A Visit Information Start: 01/10/24 07:24 Freq: Status: Active Protocol: Document 04/25/24 08:13 AB (Rec: 04/25/24 12:16 AB [id number]) Out-Patient Physical Therapy Visit Information Visit Information Visit Type Treatment Note Visit Start Time 09:47 Visit Stop Time 10:30 Visit Number 29 Number of CEMENT [employer] MAINTENANCE Visits 1 Evaluation Information Evaluation Date 01/10/24 Precautions Precautions Reverse TSA precautions: no ext/ADD/IR (subscapularis not repaired) sling for comfort see protocol for restrictions 6 weeks: 01/24/24; 8 weeks: 02/06; 12 weeks: 03/07/24 Phase I: 3-6 weeks: PROM up to FF 120 (scaption plane) and ER to tolerance(scaption), submaximal pain free isometrics in scapular plane ( avoid ext); AAROM of cervical spine, wrist, elbow, hand Phase II after week 6 as appropriate PT-OP-B Current Condition Start: 01/10/24 07:24 Freq: Status: Active Protocol: Document 01/10/24 08:18 NM (Rec: 01/10/24 09:46 NM [id number]) Current Condition History of Current Condition Onset Date DOS 12/13/23 Current Complaints mobility, pain, strength History of Current Condition Pt had surgery for L rTSA on , by Dr. Blas. He states that Dr. Blas repaired his rotator cuff in 2021, but it atrophied and retore again, which is when pt opted for shoulder replacement. Pt had rotator cuff arthropathy. 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 Previously, he had L shoulder snapping, popping, grinding. He has had his first follow up post-op, reports that everything going well. Pt reports that he was having trouble with sling and gave up on it. He was sleeping in reclining chair with arm across chest. Currently sleeping in bed, rolled toward his shoulder. Pt reports that a week ago, he had aching pain in his L shoulder after he grabbed a [employer]ina pitcher with his L, felt a nasty pain in his L shoulder and was unable to lift anything including a teacup for days. Reports that was gradually getting better, until last night (01/08). Reports that he was holding the rosales with his L hand, which caused him to feel a sharp pain. He is left handed but able to use R hand for writing/eating/ADLs. He had follow up with doctor on . Pt reports that his has been helping him with dressing and all activities, but he feels bad that she has to do it all and wants to help. has been driving and helping pt with [employer] job. Has had 1 fall pre- surgery, but fell on R shoulder; states ankles giving out. He has not been performing any of the exercises from his doctor on Sunday. 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, 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 Current Functional Impairments (Reported) Functional Limitations- ADL's dressing assisting with dressing, ADLs, showering, grooming not sleeping with pillow behind arm Functional Limitations- Mobility/Gait strength loss Functional Limitations- Work/School 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 Patient reports the band exercises are painful moving arm out with band (ER.) Patient reports he doesn't lift anything heavy with the left arm does occasionally hold a light grocery bag. Patient reports top weight allowed is 20 lbs per MD per patient. PT-OP-F Manual Assessment Start: 01/10/24 07:24 Freq: Status: Active Protocol: Document 01/10/24 08:18 NM (Rec: 01/10/24 09:46 NM [id number]) Manual Assessments Soft Tissue Assessment Soft Tissue Mobility Assessment Increased tenderness, decreased length of latissimus dorsi and pectoralis Joint Mobility Assessment Joint Mobility Assessment Empty end feel with forward flexion and scaption ER. No L shoulder clicking, popping, dislocation with passive ROM. Full elbow and wrist AROM PT-OP-H Neuro Start: 01/10/24 07:24 Freq: Status: Active Protocol: Document 01/10/24 08:18 NM (Rec: 01/10/24 09:46 NM [id number]) Sensation Evaluation Comments Summary Comments BUE equally intact to light touch sensation, small decrease on L side near axilla PT-OP-J Posture/Palpation/Skin Start: 01/10/24 07:24 Freq: Status: Active Protocol: Document 01/10/24 08:18 NM (Rec: 01/10/24 09:46 NM [id number]) Posture Evaluation Position Sitting Head/C-Spine Posture Forward Head T-Spine Posture Increased Kyphosis Shoulder Posture (L) Rounded,(R) Rounded,(L) Forward,(R) Forward,(L) Elevated Scapula Posture (L) Protracted,(R) Protracted, (L) Elevated Arm Posture (L) Internally Rotated,(R) Internally Rotated Comments Posture Comments Elbow positioned by side at 0 deg abd, no use of sling Palpation Assessment Location L shoulder Palpation Details Tenderness along anterior shoulder with palpation and posterior cuff. Denies pain with palpation Skin Assessment Incisional Assessment Incision Appearance/Comments clean/dry/intact. Glue beginning to peel. Good healing w/o signs of infection , redness Small indention above scar from infection from previous rotator cuff repair PT-OP-K Range of Motion Start: 01/10/24 07:24 Freq: Status: Active Protocol: Document 04/23/24 09:41 NM (Rec: 04/23/24 10:34 NM [id number]) Shoulder Goniometric Range of Motion Shoulder L AROM Flexion 125 External Rotation at 0 degrees Abduction 60 Comments 02/12/24: reclined- 30 deg ER scaption 03/18/24: 55 deg ER, 120 deg flexion 03/24/24: 60 deg ER in scaption, 120 deg flexion 04/23/24: 125 deg flexion in scaption, 60 deg scaption ER PT-OP-M Strength Start: 01/10/24 07:24 Freq: Status: Active Protocol: Document 04/23/24 09:41 NM (Rec: 04/23/24 10:34 NM [id number]) Shoulder Strength Shoulder Manual Muscle Testing Left Flexion 3+ Fair+ External Rotation 3+ Fair+ Comments Did not formally assess due to precautions and protocol 02/12/24: AROM began in reclining position, against gravity 03/24/24: 3+/5 against gravity; able to perform exercises with 1# db 04/23/24: 4-/5 for all; progressing to 2# flexion and ER PT-OP-Q Treatments Start: 01/10/24 07:24 Freq: Status: Active Protocol: Document 04/25/24 08:13 AB (Rec: 04/25/24 12:16 AB [id number]) Therapeutic Exercises 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 [employer] Supine Exercise Name no foam roller HEP review Side bilateral Reps/Minutes 4 min Comments verbal cues for breathing from diaphragm flexion with dowel Supine Exercise Name HEP review Side bilateral Resistance 2lb Reps/Minutes 2X10 Standing Exercises push up plus Side bilateral Reps/Minutes X15 Comments verbal and visual cues monitored for pain ER/IR band Standing Exercise Name HEP review Side left Resistance level 1 band Equipment Used towel roll btwn body for scaption Reps/Minutes X10 IR X 6 ER then X 2 ER Isomet reactive Comments PT ed to trial/perfom isomet react at home if having pain with ER with band shoulder flex/ext Side left Resistance 1# db Reps/Minutes 10 Comments full ROM Manual Therapy Treatment Consent Patient gave verbal consent for manual Yes treatment Soft Tissue Mobilization left shoulder Body Location lat, UT, LS, rhomboids, subscapularis Mobilization Type Cross-Friction,Rolling, Sustained Pressure Intensity/Depth moderate and superficial Body Position Sidelying Comments and hooklying Joint Mobilizations scapular Joint left shoulder Direction depression and adduction Grade III Body Position Sidelying Reps/Duration 10 Comments Monitored for pain, performed prior to arm elevation exercises. Improved scapular mobility PT-OP-T Assessment and Plan Start: 01/10/24 07:24 Freq: Status: Active Protocol: Document 04/25/24 08:13 AB (Rec: 04/25/24 12:16 AB [id number]) Physical Therapy Assessment Goals Five Impairment sleep Impairment pt wakes 3x/night Short Term Goal (STG) Pt will report that he is waking <3x/night due to L shoulder pain in order to demonstrate improved pain management and QOL 02/07/24: waking at least 2x/ night STG Duration 03/06/24 MET Crop Or Grain Farmer Goal (LTG) Pt will report that he wakes up 1 or fewer times at night due to L shoulder pain in order to demonstrate improved pain management and QOL 03/24/24: 2-4x/night 04/11/24: a few times per night 04/23/24: pt still reporting that his L shoulder wakes him a 2-3x per night due to sleeping position with his LTG Duration 06/20/24; 04/23/24-NOT MET, GOAL UPDATED 03/24/24 Four Impairment pain Impairment currently 5/10 pain at rest, 10/10 reported with activity Short Term Goal (STG) Pt will report 5/10 pain or less in L shoulder with activity in order to demonstrate improved symptom management and QOL STG Duration 03/06/24 Crop Or Grain Farmer Goal (LTG) Pt will report 2/10 pain or less in L shoulder with activity in order to demonstrate improved symptom management and QOL 03/24/24: Pt consistently reports 1-2/10 L shoulder pain with activity, none at rest unless he does a movement that bites 04/23/24: 0/10 today before session, 1/10 reported during session LTG Duration 06/20/24; PROGRESSING, MET Three Impairment function, activity 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 Short Term Goal (STG) Pt will report that he is able to play piano with L shoulder pain <2/10 in order to demonstrate improved QOL and activity tolerance STG Duration 02/26/24 Shelter Goal (LTG) Pt will report that he is able to play piano without limitation and without increase in baseline pain in order to demonstrate improved QOL and activity tolerance 03/24/24: pt reports that he is able to play piano without limitation due to mobility or pain LTG Duration 04/04/24 MET Two Impairment strength Impairment did not assess due to precautions Short Term Goal (STG) Pt will have at least 3+/5 L shoulder flexion and abduction in scaption plane strength with pain less than 5/10 in order to demonstrate improved ability to lift objects 02/12/24: initiated AROM against gravity in reclined 03/24/24: currently 3+/5 against gravity; recently progressed to 1# db for reclined fwd flexion, pain 1-2/10 STG Duration 03/06/24 MET Crop Or Grain Farmer Goal (LTG) Pt will have at least 4/5 L shoulder flexion and abduction in scaption plane strength in order to demonstrate improved ability to lift objects 04/23/24: 4-/5; progression with lifting 1-2# in standing wit L arm LTG Duration 06/20/24; 04/23/24-NOT MET One Impairment ROM Impairment PROM currently 115 deg FF, 20 deg ER in scaption plane Short Term Goal (STG) Pt will have at least 120 deg of passive L forward flexion, full passive ER in scaption plane with pain <2/10 02/12/24: 120 deg forward flexion passively, 30 deg ER in scaption passively STG Duration 02/21/24 MET Shelter Goal (LTG) Pt will have at least 110 deg of active L forward shoulder flexion and functional ER of at least 30 degrees in scaption plane in order to demonstrate improved reaching and shoulder mobility for dressing/ADLs 03/24/24: 120 deg L shoulder flexion maintained over several weeks w/o pain >1-2/10 , 60 deg ER from scaption LTG Duration 04/04/24 MET Assessment Summary Assessment Patient ed to perform isomet reactive ER if ER with band is painful and to stop if isomet reactive is painful. HEP reviewed and john all well except ER with band, of note patient did perform ER with band earlier this morning and reports performing through burning pain. AROM 125 deg left shoulder flexion with pain rating of 1/10 per patient. Physical Therapy Plan Frequency and Duration Frequency of Treatment 1-2x/wk Duration of treatment (weeks) 12 Plan of Care Start Date 03/24/24 Plan of Care End Date 06/20/24 Next Visit Focus/Plan Next Note Type Treatment Note Next Visit Plan Assess compliance log. progress resistance as able with isotonic ER/IR at 0 deg abd, wall slide with band at wall, supine > reclined > sit> standing flexion with 1-2# ( progress 2# from supine), miniband flex. progress resistance for row and low row , lat pull down with respect to neutral shoulder position w / body ROM limits: ER to tolerance in scaption, 120 deg FF in scaption Review HEP again.
--- NOTE | 2024-05-06 12:42 | PT.OTN ---
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 CRAFTSMAN Visits 1 Evaluation Information Evaluation Date 01/10/24 Precautions Precautions Reverse TSA precautions: no ext/ADD/IR (subscapularis not repaired) sling for comfort see protocol for restrictions 6 weeks: 01/24/24; 8 weeks: 02/06; 12 weeks: 03/07/24 Phase I: 3-6 weeks: PROM up to FF 120 (scaption plane) and ER to tolerance(scaption), submaximal pain free isometrics in scapular plane ( avoid ext); AAROM of cervical spine, wrist, elbow, hand Phase II after week 6 as appropriate PT-OP-B Current Condition Start: 01/10/24 07:24 Freq: Status: Active Protocol: Document 01/10/24 08:18 NM (Rec: 01/10/24 09:46 NM [id number]) Current Condition History of Current Condition Onset Date DOS 12/13/23 Current Complaints mobility, pain, strength History of Current Condition Pt had surgery for L rTSA on , by Dr. Blas. He states that Dr. Blas repaired his rotator cuff in 2021, but it atrophied and retore again, which is when pt opted for shoulder replacement. Pt had rotator cuff arthropathy. 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 Previously, he had L shoulder snapping, popping, grinding. He has had his first follow up post-op, reports that everything going well. Pt reports that he was having trouble with sling and gave up on it. He was sleeping in reclining chair with arm across chest. Currently sleeping in bed, rolled toward his shoulder. Pt reports that a week ago, he had aching pain in his L shoulder after he grabbed a Trina pitcher with his L, felt a nasty pain in his L shoulder and was unable to lift anything including a teacup for days. Reports that was gradually getting better, until last night (01/08). Reports that he was holding the rosales with his L hand, which caused him to feel a sharp pain. He is left handed but able to use R hand for writing/eating/ADLs. He had follow up with doctor on . Pt reports that his has been helping him with dressing and all activities, but he feels bad that she has to do it all and wants to help. has been driving and helping pt with [employer] job. Has had 1 fall pre- surgery, but fell on R shoulder; states ankles giving out. He has not been performing any of the exercises from his doctor on Sunday. 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 Current Functional Impairments (Reported) Functional Limitations- ADL's dressing assisting with dressing, ADLs, showering, grooming not sleeping with pillow behind arm Functional Limitations- Mobility/Gait strength loss Functional Limitations- 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 Patient rates pain .5/10 left shoulder start of session. Patient report ex log is in the car, comments he thinks he does stretches every other day, comments he did a little this morning. 123 deg AROM left shoulder scaption. PT-OP-F Manual Assessment Start: 01/10/24 07:24 Freq: Status: Active Protocol: Document 01/10/24 08:18 NM (Rec: 01/10/24 09:46 NM [id number]) Manual Assessments Soft Tissue Assessment Soft Tissue Mobility Assessment Increased tenderness, decreased length of latissimus dorsi and pectoralis Joint Mobility Assessment Joint Mobility Assessment Empty end feel with forward flexion and scaption ER. No L shoulder clicking, popping, dislocation with passive ROM. Full elbow and wrist AROM PT-OP-H Neuro Start: 01/10/24 07:24 Freq: Status: Active Protocol: Document 01/10/24 08:18 NM (Rec: 01/10/24 09:46 NM [id number]) Sensation Evaluation Comments Summary Comments BUE equally intact to light touch sensation, small decrease on L side near axilla PT-OP-J Posture/Palpation/Skin Start: 01/10/24 07:24 Freq: Status: Active Protocol: Document 01/10/24 08:18 NM (Rec: 01/10/24 09:46 NM [id number]) Posture Evaluation Position Sitting Head/C-Spine Posture Forward Head T-Spine Posture Increased Kyphosis Shoulder Posture (L) Rounded,(R) Rounded,(L) Forward,(R) Forward,(L) Elevated Scapula Posture (L) Protracted,(R) Protracted, (L) Elevated Arm Posture (L) Internally Rotated,(R) Internally Rotated Comments Posture Comments Elbow positioned by side at 0 deg abd, no use of sling Palpation Assessment Location L shoulder Palpation Details Tenderness along anterior shoulder with palpation and posterior cuff. Denies pain with palpation Skin Assessment Incisional Assessment Incision Appearance/Comments clean/dry/intact. Glue beginning to peel. Good healing w/o signs of infection , redness Small indention above scar from infection from previous rotator cuff repair PT-OP-K Range of Motion Start: 01/10/24 07:24 Freq: Status: Active Protocol: Document 04/23/24 09:41 NM (Rec: 04/23/24 10:34 NM [id number]) Shoulder Goniometric Range of Motion Shoulder L AROM Flexion 125 External Rotation at 0 degrees Abduction 60 Comments 02/12/24: reclined- 30 deg ER scaption 03/18/24: 55 deg ER, 120 deg flexion 03/24/24: 60 deg ER in scaption, 120 deg flexion 04/23/24: 125 deg flexion in scaption, 60 deg scaption ER PT-OP-M Strength Start: 01/10/24 07:24 Freq: Status: Active Protocol: Document 04/23/24 09:41 NM (Rec: 04/23/24 10:34 NM [id number]) Shoulder Strength Shoulder Manual Muscle Testing Left Flexion 3+ Fair+ External Rotation 3+ Fair+ Comments Did not formally assess due to precautions and protocol 02/12/24: AROM began in reclining position, against gravity 03/24/24: 3+/5 against gravity; able to perform exercises with 1# db 04/23/24: 4-/5 for all; progressing to 2# flexion and ER PT-OP-Q Treatments Start: 01/10/24 07:24 Freq: Status: Active Protocol: Document 05/06/24 08:12 AB (Rec: 05/06/24 12:42 AB [id number]) Therapeutic Exercises Standing Exercises flexion + ER miniband Standing Exercise Name Wall slide on forearms HEP Side bilateral Resistance level 1 band Reps/Minutes X10 Comments verbal and visual cues ER/IR band Standing Exercise Name HEP review Side left Resistance level 1 band Equipment Used towel roll btwn body for scaption Reps/Minutes X15 each shoulder flex/ext Side left Resistance 2# db Reps/Minutes 10 Comments full ROM rows Standing Exercise Name Row to neutral (isotonic) Side bilateral Resistance level 2 band Reps/Minutes 1x15 (w/ PT tactile cue to neutral position) scapular depression Standing Exercise Name UE's in sight Side bilateral Resistance Level 2 band Reps/Minutes 15x1 for 5 sec holds Comments verbal and visual cues to prevent fwd trunk flex/ant humeral rest position Other Exercises reclined shoulder scaption Other Exercise Name mini band, then 3 lb (3lb to HEP) Side left Resistance 3# db Reps/Minutes X10 each Comments VC to rest between reps, dec tension on band and perform in pain free range Manual Therapy Treatment Consent Patient gave verbal consent for manual Yes treatment Soft Tissue Mobilization left shoulder Body Location lat, UT, LS, rhomboids, subscapularis, pec Mobilization Type Cross-Friction,Rolling, Sustained Pressure Intensity/Depth moderate and superficial Body Position Sidelying Comments and hooklying Joint Mobilizations scapular Joint left shoulder Direction depression and adduction Grade III Body Position Sidelying Reps/Duration 10 Manual Techniques lat pin stretch for scaptiion Body Location left shoulder Body Position Sidelying Reps/Duration 10 scapular Type isometrics Body Location depression and adduction Reps/Duration X10 5 sec hold PT-OP-T Assessment and Plan Start: 01/10/24 07:24 Freq: Status: Active Protocol: Document 05/06/24 08:12 AB (Rec: 05/06/24 12:42 AB [id number]) Physical Therapy Assessment Goals Five Impairment sleep Impairment pt wakes 3x/night Short Term Goal (STG) Pt will report that he is waking <3x/night due to L shoulder pain in order to demonstrate improved pain management and QOL 02/07/24: waking at least 2x/ night STG Duration 03/06/24 MET Extractor Machine Operator Goal (LTG) Pt will report that he wakes up 1 or fewer times at night due to L shoulder pain in order to demonstrate improved pain management and QOL 03/24/24: 2-4x/night 04/11/24: a few times per night 04/23/24: pt still reporting that his L shoulder wakes him a 2-3x per night due to sleeping position with his LTG Duration 06/20/24; 04/23/24-NOT MET, GOAL UPDATED 03/24/24 Four Impairment pain Impairment currently 5/10 pain at rest, 10/10 reported with activity Short Term Goal (STG) Pt will report 5/10 pain or less in L shoulder with activity in order to demonstrate improved symptom management and QOL STG Duration 03/06/24 Extractor Machine Operator Goal (LTG) Pt will report 2/10 pain or less in L shoulder with activity in order to demonstrate improved symptom management and QOL 03/24/24: Pt consistently reports 1-2/10 L shoulder pain with activity, none at rest unless he does a movement that bites 04/23/24: 0/10 today before session, 1/10 reported during session LTG Duration 06/20/24; PROGRESSING, MET Three Impairment function, activity 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 Short Term Goal (STG) Pt will report that he is able to play piano with L shoulder pain <2/10 in order to demonstrate improved QOL and activity tolerance STG Duration 02/26/24 Extractor Machine Operator Goal (LTG) Pt will report that he is able to play piano without limitation and without increase in baseline pain in order to demonstrate improved QOL and activity tolerance 03/24/24: pt reports that he is able to play piano without limitation due to mobility or pain LTG Duration 04/04/24 MET Two Impairment strength Impairment did not assess due to precautions Short Term Goal (STG) Pt will have at least 3+/5 L shoulder flexion and abduction in scaption plane strength with pain less than 5/10 in order to demonstrate improved ability to lift objects 02/12/24: initiated AROM against gravity in reclined 03/24/24: currently 3+/5 against gravity; recently progressed to 1# db for reclined fwd flexion, pain 1-2/10 STG Duration 03/06/24 MET Fdc Goal (LTG) Pt will have at least 4/5 L shoulder flexion and abduction in scaption plane strength in order to demonstrate improved ability to lift objects 04/23/24: 4-/5; progression with lifting 1-2# in standing wit L arm LTG Duration 06/20/24; 04/23/24-NOT MET One Impairment ROM Impairment PROM currently 115 deg FF, 20 deg ER in scaption plane Short Term Goal (STG) Pt will have at least 120 deg of passive L forward flexion, full passive ER in scaption plane with pain <2/10 02/12/24: 120 deg forward flexion passively, 30 deg ER in scaption passively STG Duration 02/21/24 MET Fdc Goal (LTG) Pt will have at least 110 deg of active L forward shoulder flexion and functional ER of at least 30 degrees in scaption plane in order to demonstrate improved reaching and shoulder mobility for dressing/ADLs 03/24/24: 120 deg L shoulder flexion maintained over several weeks w/o pain >1-2/10 , 60 deg ER from scaption LTG Duration 04/04/24 MET Assessment Summary Assessment 124 deg AROM left shoulder scaption end of session with patient reporting feeling tired, not pain. Physical Therapy Plan Frequency and Duration Frequency of Treatment 1-2x/wk Duration of treatment (weeks) 12 Plan of Care Start Date 03/24/24 Plan of Care End Date 06/20/24 Next Visit Focus/Plan Next Note Type Treatment Note Next Visit Plan Assess compliance log. progress resistance as able with isotonic ER/IR at 0 deg abd, wall slide with band at wall, supine > reclined > sit> standing flexion with 1-2# ( progress 2# from supine), miniband flex. progress resistance for row and low row , lat pull down with respect to neutral shoulder position w / body ROM limits: ER to tolerance in scaption, 120 deg FF in scaption Review HEP again.
--- NOTE | 2024-05-13 11:52 | PT.OTN ---
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 MANAGER Visits 2 Evaluation Information Evaluation Date 01/10/24 Precautions Precautions Reverse TSA precautions: no ext/ADD/IR (subscapularis not repaired) sling for comfort see protocol for restrictions 6 weeks: 01/24/24; 8 weeks: 02/06; 12 weeks: 03/07/24 Phase I: 3-6 weeks: PROM up to FF 120 (scaption plane) and ER to tolerance(scaption), submaximal pain free isometrics in scapular plane ( avoid ext); AAROM of cervical spine, wrist, elbow, hand Phase II after week 6 as appropriate PT-OP-B Current Condition Start: 01/10/24 07:24 Freq: Status: Active Protocol: Document 01/10/24 08:18 NM (Rec: 01/10/24 09:46 NM [id number]) Current Condition History of Current Condition Onset Date DOS 12/13/23 Current Complaints mobility, pain, strength History of Current Condition Pt had surgery for L rTSA on , by Dr. Blas. He states that Dr. Blas repaired his rotator cuff in 2021, but it atrophied and retore again, which is when pt opted for shoulder replacement. Pt had rotator cuff arthropathy. 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 Previously, he had L shoulder snapping, popping, grinding. He has had his first follow up post-op, reports that everything going well. Pt reports that he was having trouble with sling and gave up on it. He was sleeping in reclining chair with arm across chest. Currently sleeping in bed, rolled toward his shoulder. Pt reports that a week ago, he had aching pain in his L shoulder after he grabbed a [employer]ina pitcher with his L, felt a nasty pain in his L shoulder and was unable to lift anything including a teacup for days. Reports that was gradually getting better, until last night (01/08). Reports that he was holding the rosales with his L hand, which caused him to feel a sharp pain. He is left handed but able to use R hand for writing/eating/ADLs. He had follow up with doctor on . Pt reports that his has been helping him with dressing and all activities, but he feels bad that she has to do it all and wants to help. has been driving and helping pt with [employer] job. Has had 1 fall pre- surgery, but fell on R shoulder; states ankles giving out. He has not been performing any of the exercises from his doctor on Sunday. 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, 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 Current Functional Impairments (Reported) Functional Limitations- ADL's dressing assisting with dressing, ADLs, showering, grooming not sleeping with pillow behind arm Functional Limitations- Mobility/Gait strength loss Functional Limitations- 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 Patient reports he is sore this morning post sleeping on the UE last night. Patient rates pain 1/10 left shoulder. AROM left shoulder flexion 120 deg start of session. Patient comments he did hoe in the garden yesterday. PT-OP-F Manual Assessment Start: 01/10/24 07:24 Freq: Status: Active Protocol: Document 01/10/24 08:18 NM (Rec: 01/10/24 09:46 NM [id number]) Manual Assessments Soft Tissue Assessment Soft Tissue Mobility Assessment Increased tenderness, decreased length of latissimus dorsi and pectoralis Joint Mobility Assessment Joint Mobility Assessment Empty end feel with forward flexion and scaption ER. No L shoulder clicking, popping, dislocation with passive ROM. Full elbow and wrist AROM PT-OP-H Neuro Start: 01/10/24 07:24 Freq: Status: Active Protocol: Document 01/10/24 08:18 NM (Rec: 01/10/24 09:46 NM [id number]) Sensation Evaluation Comments Summary Comments BUE equally intact to light touch sensation, small decrease on L side near axilla PT-OP-J Posture/Palpation/Skin Start: 01/10/24 07:24 Freq: Status: Active Protocol: Document 01/10/24 08:18 NM (Rec: 01/10/24 09:46 NM [id number]) Posture Evaluation Position Sitting Head/C-Spine Posture Forward Head T-Spine Posture Increased Kyphosis Shoulder Posture (L) Rounded,(R) Rounded,(L) Forward,(R) Forward,(L) Elevated Scapula Posture (L) Protracted,(R) Protracted, (L) Elevated Arm Posture (L) Internally Rotated,(R) Internally Rotated Comments Posture Comments Elbow positioned by side at 0 deg abd, no use of sling Palpation Assessment Location L shoulder Palpation Details Tenderness along anterior shoulder with palpation and posterior cuff. Denies pain with palpation Skin Assessment Incisional Assessment Incision Appearance/Comments clean/dry/intact. Glue beginning to peel. Good healing w/o signs of infection , redness Small indention above scar from infection from previous rotator cuff repair PT-OP-K Range of Motion Start: 01/10/24 07:24 Freq: Status: Active Protocol: Document 04/23/24 09:41 NM (Rec: 04/23/24 10:34 NM [id number]) Shoulder Goniometric Range of Motion Shoulder L AROM Flexion 125 External Rotation at 0 degrees Abduction 60 Comments 02/12/24: reclined- 30 deg ER scaption 03/18/24: 55 deg ER, 120 deg flexion 03/24/24: 60 deg ER in scaption, 120 deg flexion 04/23/24: 125 deg flexion in scaption, 60 deg scaption ER PT-OP-M Strength Start: 01/10/24 07:24 Freq: Status: Active Protocol: Document 04/23/24 09:41 NM (Rec: 04/23/24 10:34 NM [id number]) Shoulder Strength Shoulder Manual Muscle Testing Left Flexion 3+ Fair+ External Rotation 3+ Fair+ Comments Did not formally assess due to precautions and protocol 02/12/24: AROM began in reclining position, against gravity 03/24/24: 3+/5 against gravity; able to perform exercises with 1# db 04/23/24: 4-/5 for all; progressing to 2# flexion and ER PT-OP-Q Treatments Start: 01/10/24 07:24 Freq: Status: Active Protocol: Document 05/13/24 08:15 AB (Rec: 05/13/24 11:52 AB [id number]) Therapeutic Exercises 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 Supine Exercise Name no foam roller HEP review Side bilateral Reps/Minutes 3 min Comments verbal cues for breathing from diaphragm serratus punch Side bilateral Resistance 2lb Reps/Minutes X10 AROM scaption Supine Exercise Name fwd flexion in scaption plane Side left Reps/Minutes 10 X 10 sec hold Standing Exercises Lat stretch Side bilateral Reps/Minutes 10 sec X 5 Comments Verbal cues flexion + ER miniband Standing Exercise Name Wall slide on forearms HEP Side bilateral Resistance level 1 band Reps/Minutes X10 Comments verbal and visual cues ER/IR band Standing Exercise Name HEP review Side left Resistance level 1 band Equipment Used towel roll btwn body for scaption Reps/Minutes X15 each Other Exercises reclined shoulder scaption Other Exercise Name (3lb to HEP) Side left Resistance 3.3 lb ball Reps/Minutes X10 each Manual Therapy Treatment Consent Patient gave verbal consent for manual Yes treatment Soft Tissue Mobilization left shoulder Body Location lat, UT, LS, rhomboids, subscapularis, pec Mobilization Type Cross-Friction,Rolling, Sustained Pressure Intensity/Depth moderate and superficial Body Position Sidelying Comments and hooklying Joint Mobilizations scapular Joint left shoulder Direction depression and adduction Grade III Body Position Sidelying Reps/Duration 10 Manual Techniques scapular Type isometrics Body Location depression and adduction Reps/Duration X10 5 sec hold PT-OP-T Assessment and Plan Start: 01/10/24 07:24 Freq: Status: Active Protocol: Document 05/13/24 08:15 AB (Rec: 05/13/24 11:52 AB [id number]) Physical Therapy Assessment Goals Five Impairment sleep Impairment pt wakes 3x/night Short Term Goal (STG) Pt will report that he is waking <3x/night due to L shoulder pain in order to demonstrate improved pain management and QOL 02/07/24: waking at least 2x/ night STG Duration 03/06/24 MET Ship Superintendent Goal (LTG) Pt will report that he wakes up 1 or fewer times at night due to L shoulder pain in order to demonstrate improved pain management and QOL 03/24/24: 2-4x/night 04/11/24: a few times per night 04/23/24: pt still reporting that his L shoulder wakes him a 2-3x per night due to sleeping position with his LTG Duration 06/20/24; 04/23/24-NOT MET, GOAL UPDATED 03/24/24 Four Impairment pain Impairment currently 5/10 pain at rest, 10/10 reported with activity Short Term Goal (STG) Pt will report 5/10 pain or less in L shoulder with activity in order to demonstrate improved symptom management and QOL STG Duration 03/06/24 Fpc Goal (LTG) Pt will report 2/10 pain or less in L shoulder with activity in order to demonstrate improved symptom management and QOL 03/24/24: Pt consistently reports 1-2/10 L shoulder pain with activity, none at rest unless he does a movement that bites 04/23/24: 0/10 today before session, 1/10 reported during session LTG Duration 06/20/24; PROGRESSING, MET Three Impairment function, activity 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 Short Term Goal (STG) Pt will report that he is able to play piano with L shoulder pain <2/10 in order to demonstrate improved QOL and activity tolerance STG Duration 02/26/24 Ship Superintendent Goal (LTG) Pt will report that he is able to play piano without limitation and without increase in baseline pain in order to demonstrate improved QOL and activity tolerance 03/24/24: pt reports that he is able to play piano without limitation due to mobility or pain LTG Duration 04/04/24 MET Two Impairment strength Impairment did not assess due to precautions Short Term Goal (STG) Pt will have at least 3+/5 L shoulder flexion and abduction in scaption plane strength with pain less than 5/10 in order to demonstrate improved ability to lift objects 02/12/24: initiated AROM against gravity in reclined 03/24/24: currently 3+/5 against gravity; recently progressed to 1# db for reclined fwd flexion, pain 1-2/10 STG Duration 03/06/24 MET Ship Superintendent Goal (LTG) Pt will have at least 4/5 L shoulder flexion and abduction in scaption plane strength in order to demonstrate improved ability to lift objects 04/23/24: 4-/5; progression with lifting 1-2# in standing wit L arm LTG Duration 06/20/24; 04/23/24-NOT MET One Impairment ROM Impairment PROM currently 115 deg FF, 20 deg ER in scaption plane Short Term Goal (STG) Pt will have at least 120 deg of passive L forward flexion, full passive ER in scaption plane with pain <2/10 02/12/24: 120 deg forward flexion passively, 30 deg ER in scaption passively STG Duration 02/21/24 MET Fpc Goal (LTG) Pt will have at least 110 deg of active L forward shoulder flexion and functional ER of at least 30 degrees in scaption plane in order to demonstrate improved reaching and shoulder mobility for dressing/ADLs 03/24/24: 120 deg L shoulder flexion maintained over several weeks w/o pain >1-2/10 , 60 deg ER from scaption LTG Duration 04/04/24 MET Assessment Summary Assessment AROM left shoulder flexion 124 deg end of session rating pain left shoulder 10. Physical Therapy Plan Frequency and Duration Frequency of Treatment 1-2x/wk Duration of treatment (weeks) 12 Plan of Care Start Date 03/24/24 Plan of Care End Date 06/20/24 Next Visit Focus/Plan Next Note Type Treatment Note Next Visit Plan Assess compliance log. progress resistance as able with isotonic ER/IR at 0 deg abd, wall slide with band at wall, supine > reclined > sit> standing flexion with 1-2# ( progress 2# from supine), miniband flex. progress resistance for row and low row , lat pull down with respect to neutral shoulder position w / body ROM limits: ER to tolerance in scaption, 120 deg FF in scaption Review HEP again.
--- NOTE | 2024-05-20 13:39 | PT.OTN ---
Current Diagnoses Other specific arthropathies, not elsewhere classified, left shoulder (05/20/24) Unspecified rotator cuff tear or rupture of left shoulder, not specified as traumatic (05/20/24) Weakness (05/20/24) Physical Therapy Treatment Note PT-OP-A Visit Information Start: 01/10/24 07:24 Freq: Status: Active Protocol: Document 05/20/24 10:44 NM (Rec: 05/20/24 11:31 NM [id number]) Out-Patient Physical Therapy Visit Information Visit Information Visit Type Progress Note Visit Start Time 10:45 Visit Stop Time 11:25 Visit Number 33 Evaluation Information Evaluation Date 01/10/24 Precautions Precautions Reverse TSA precautions: no ext/ADD/IR (subscapularis not repaired) sling for comfort see protocol for restrictions 6 weeks: 01/24/24; 8 weeks: 02/06; 12 weeks: 03/07/24 Phase I: 3-6 weeks: PROM up to FF 120 (scaption plane) and ER to tolerance(scaption), submaximal pain free isometrics in scapular plane ( avoid ext); AAROM of cervical spine, wrist, elbow, hand Phase II after week 6 as appropriate PT-OP-B Current Condition Start: 01/10/24 07:24 Freq: Status: Active Protocol: Document 01/10/24 08:18 NM (Rec: 01/10/24 09:46 NM [id number]) Current Condition History of Current Condition Onset Date DOS 12/13/23 Current Complaints mobility, pain, strength History of Current Condition Pt had surgery for L rTSA on , by Dr. Blas. He states that Dr. Blas repaired his rotator cuff in 2021, but it atrophied and retore again, which is when pt opted for shoulder replacement. Pt had rotator cuff arthropathy. 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 Previously, he had L shoulder snapping, popping, grinding. He has had his first follow up post-op, reports that everything going well. Pt reports that he was having trouble with sling and gave up on it. He was sleeping in reclining chair with arm across chest. Currently sleeping in bed, rolled toward his shoulder. Pt reports that a week ago, he had aching pain in his L shoulder after he grabbed a Trina pitcher with his L, felt a nasty pain in his L shoulder and was unable to lift anything including a teacup for days. Reports that was gradually getting better, until last night (01/08). Reports that he was holding the rosales with his L hand, which caused him to feel a sharp pain. He is left handed but able to use R hand for writing/eating/ADLs. He had follow up with doctor on . Pt reports that his has been helping him with dressing and all activities, but he feels bad that she has to do it all and wants to help. has been driving and helping pt with [employer] job. Has had 1 fall pre- surgery, but fell on R shoulder; states ankles giving out. He has not been performing any of the exercises from his doctor on Sunday. 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 Current Functional Impairments (Reported) Functional Limitations- ADL's dressing assisting with dressing, ADLs, showering, grooming not sleeping with pillow behind arm Functional Limitations- Mobility/Gait strength loss Functional Limitations- 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 He reports feeling stronger, has been using exercise log. States no pain with HEP. He reports still has pain with sleeping for hours at a time, achy after HEP. States has not been doing all of his HEP (e. g. sidelying ER) PT-OP-F Manual Assessment Start: 01/10/24 07:24 Freq: Status: Active Protocol: Document 01/10/24 08:18 NM (Rec: 01/10/24 09:46 NM [id number]) Manual Assessments Soft Tissue Assessment Soft Tissue Mobility Assessment Increased tenderness, decreased length of latissimus dorsi and pectoralis Joint Mobility Assessment Joint Mobility Assessment Empty end feel with forward flexion and scaption ER. No L shoulder clicking, popping, dislocation with passive ROM. Full elbow and wrist AROM PT-OP-H Neuro Start: 01/10/24 07:24 Freq: Status: Active Protocol: Document 01/10/24 08:18 NM (Rec: 01/10/24 09:46 NM [id number]) Sensation Evaluation Comments Summary Comments BUE equally intact to light touch sensation, small decrease on L side near axilla PT-OP-J Posture/Palpation/Skin Start: 01/10/24 07:24 Freq: Status: Active Protocol: Document 01/10/24 08:18 NM (Rec: 01/10/24 09:46 NM [id number]) Posture Evaluation Position Sitting Head/C-Spine Posture Forward Head T-Spine Posture Increased Kyphosis Shoulder Posture (L) Rounded,(R) Rounded,(L) Forward,(R) Forward,(L) Elevated Scapula Posture (L) Protracted,(R) Protracted, (L) Elevated Arm Posture (L) Internally Rotated,(R) Internally Rotated Comments Posture Comments Elbow positioned by side at 0 deg abd, no use of sling Palpation Assessment Location L shoulder Palpation Details Tenderness along anterior shoulder with palpation and posterior cuff. Denies pain with palpation Skin Assessment Incisional Assessment Incision Appearance/Comments clean/dry/intact. Glue beginning to peel. Good healing w/o signs of infection , redness Small indention above scar from infection from previous rotator cuff repair PT-OP-K Range of Motion Start: 01/10/24 07:24 Freq: Status: Active Protocol: Document 05/20/24 10:44 NM (Rec: 05/20/24 13:10 NM [id number]) Shoulder Goniometric Range of Motion Shoulder L AROM Flexion 120 External Rotation at 0 degrees Abduction 60 Comments 6/25/24: reclined- 30 deg ER scaption 03/18/24: 55 deg ER, 120 deg flexion 03/24/24: 60 deg ER in scaption, 120 deg flexion 04/23/24: 125 deg flexion in scaption, 60 deg scaption ER 05/20/24: 120 deg flexion in scaption, 60 deg scaption ER PT-OP-M Strength Start: 01/10/24 07:24 Freq: Status: Active Protocol: Document 05/20/24 10:44 NM (Rec: 05/20/24 13:10 NM [id number]) Shoulder Strength Shoulder Manual Muscle Testing Left Flexion 4- Good- Abduction (C5) 4- Good- External Rotation 3+ Fair+ Internal Rotation 4- Good- Comments Did not formally assess due to precautions and protocol 02/12/24: AROM began in reclining position, against gravity 03/24/24: 3+/5 against gravity; able to perform exercises with 1# db 04/23/24: 4-/5 for all; progressing to 2# flexion and ER 05/20/24: 4-/5 for all except resisted ER 3+/5; progressing to 3# for flexion and ER with exercises PT-OP-Q Treatments Start: 01/10/24 07:24 Freq: Status: Active Protocol: Document 05/20/24 10:44 NM (Rec: 05/20/24 11:31 NM [id number]) Therapeutic Exercises Sidelying Exercises shoulder ER Side left Resistance 3# db Equipment Used with UE at side and with folded pillow under elbow Reps/Minutes 3x10 Standing Exercises elbow flexion Standing Exercise Name 1. 3# crate grape picker, 2. bicep curls Side left Resistance B crate grape picker, L bicep curl 5# db Reps/Minutes 1. 10, 2. 3x15 Comments pain free; reports mild pull at distal elbow overhead press Side left Resistance 2# db Reps/Minutes 15 Comments ~ lifting plate above head; challenging, feels the burn Lat stretch Side bilateral Reps/Minutes 10 sec X 5 Comments Verbal cues ER/IR band Standing Exercise Name HEP review Side left Resistance level 2 band for IR, level 1 band for ER (both bands) Equipment Used towel roll btwn body for scaption Reps/Minutes 3x10 IR, 2x10 ER Comments bands adjusted for HEP shoulder flex/ext Side left Resistance 3# db- added to HEP Reps/Minutes 2x10 Comments full ROM, no pain rows Standing Exercise Name bent over row (to neutral) Side bilateral Resistance 3# Reps/Minutes 2x10 Comments challenging; feels weak, pain free, good form and scap motion PT-OP-T Assessment and Plan Start: 01/10/24 07:24 Freq: Status: Active Protocol: Document 05/20/24 10:44 NM (Rec: 05/20/24 11:31 NM [id number]) Physical Therapy Assessment Goals Five Impairment sleep Impairment pt wakes 3x/night Short Term Goal (STG) Pt will report that he is waking <3x/night due to L shoulder pain in order to demonstrate improved pain management and QOL 02/07/24: waking at least 2x/ night STG Duration 03/06/24 MET Longterm Goal (LTG) Pt will report that he wakes up 1 or fewer times at night due to L shoulder pain in order to demonstrate improved pain management and QOL 03/24/24: 2-4x/night 04/11/24: a few times per night 04/23/24: pt still reporting that his L shoulder wakes him a 2-3x per night due to sleeping position with his 05/20/24: reports waking 3x/ night due to sleeping on L shoulder; does not wake if does not sleep on L shoulder, but cannot change position due to 's sleeping comfort LTG Duration 07/18/24; 05/20/24-NOT MET, GOAL UPDATED 03/24/24 Four Impairment pain Impairment currently 5/10 pain at rest, 10/10 reported with activity Short Term Goal (STG) Pt will report 5/10 pain or less in L shoulder with activity in order to demonstrate improved symptom management and QOL STG Duration 03/06/24 Pilot Goal (LTG) Pt will report 2/10 pain or less in L shoulder with activity in order to demonstrate improved symptom management and QOL 03/24/24: Pt consistently reports 1-2/10 L shoulder pain with activity, none at rest unless he does a movement that bites 04/23/24: 0/10 today before session, 1/10 reported during session 05/20/24: pt reports 0/10 pain during session LTG Duration 07/18/24; PROGRESSING, MET Three Impairment function, activity 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 Short Term Goal (STG) Pt will report that he is able to play piano with L shoulder pain <2/10 in order to demonstrate improved QOL and activity tolerance STG Duration 02/26/24 Pilot Goal (LTG) Pt will report that he is able to play piano without limitation and without increase in baseline pain in order to demonstrate improved QOL and activity tolerance 03/24/24: pt reports that he is able to play piano without limitation due to mobility or pain LTG Duration 04/04/24 MET Two Impairment strength Impairment did not assess due to precautions Short Term Goal (STG) Pt will have at least 3+/5 L shoulder flexion and abduction in scaption plane strength with pain less than 5/10 in order to demonstrate improved ability to lift objects 02/12/24: initiated AROM against gravity in reclined 03/24/24: currently 3+/5 against gravity; recently progressed to 1# db for reclined fwd flexion, pain 1-2/10 STG Duration 03/06/24 MET Pilot Goal (LTG) Pt will have at least 4/5 L shoulder flexion and abduction in scaption plane strength in order to demonstrate improved ability to lift objects 04/23/24: 4-/5; progression with lifting 1-2# in standing wit L arm 05/20/24: 4-/5 for all except resisted ER 3+/5; progressing to 3# for flexion and ER with exercises LTG Duration 07/18/24; 05/20/24-NOT MET, PROGRESSING One Impairment ROM Impairment PROM currently 115 deg FF, 20 deg ER in scaption plane Short Term Goal (STG) Pt will have at least 120 deg of passive L forward flexion, full passive ER in scaption plane with pain <2/10 02/12/24: 120 deg forward flexion passively, 30 deg ER in scaption passively STG Duration 02/21/24 MET Longterm Goal (LTG) Pt will have at least 110 deg of active L forward shoulder flexion and functional ER of at least 30 degrees in scaption plane in order to demonstrate improved reaching and shoulder mobility for dressing/ADLs 03/24/24: 120 deg L shoulder flexion maintained over several weeks w/o pain >1-2/10 , 60 deg ER from scaption LTG Duration 04/04/24 MET Assessment Summary Assessment Pt tolerated session well without any increase in L shoulder pain. He is able to progress his resistance with banded shoulder IR and ER, in addition to sidelying ER. Trialed overhead press and bent over row. Pt tolerated both well but requires cues for correct form and fatigues quickly. Pt will be missing most of Oct due to travel, will extend POC until pt sees referring surgeon. However, pt doing well and progressing toward all goals except for sleep goal. Physical Therapy Plan Frequency and Duration Frequency of Treatment 1-2x/wk Duration of treatment (weeks) 8 Plan of Care Start Date 05/20/24 Plan of Care End Date 07/18/24 Therapeutic Interventions Therapeutic Interventions Gait Training,Home Exercise Program,Joint Mobilizations, Manual Therapy,Neuromuscular Re-education,Orthotic/ Prosthetic Management,Patient/ Caregiver Education,Self-Care/ Home Management,Sensory Integration,Soft Tissue Mobilization,Taping, Therapeutic Activities, Therapeutic Exercises Modalities Cold Pack/Ice Massage,Electric Stimulation,Hot Packs, Ultrasound Next Visit Focus/Plan Next Note Type Treatment Note Next Visit Plan Assess compliance log. Assess tolerance to overhead lift, trial 45 deg abd; trial lat pull down. review bent over row. cont with ant deltoid strengthening. progress resistance as able with isotonic ER/IR at 0 deg abd, wall slide with band at wall, supine > reclined > sit> standing flexion with 1-2# ( progress 2# from supine). ROM limits: ER to tolerance in scaption, 120 deg FF in scaption
--- NOTE | 2024-05-20 13:40 | PT.OPPOC ---
Physical, Occupational & Speech Therapy At [facility] Current Diagnoses Other specific arthropathies, not elsewhere classified, left shoulder (05/20/24) Unspecified rotator cuff tear or rupture of left shoulder, not specified as traumatic (05/20/24) Weakness (05/20/24) Visit Care Team Role Provider Type Srini Siddiqui PA-C Family Provider Non-Staff Primary Care Provider Specialty: Medical Address: [address] [place] [address], [id number] Email: Jay Brown PA-C Attending Provider Non-Staff Referring Provider Specialty: Medical Address: [address] [place] [address], [id number] Email: Plan Of Care PT-OP-B Current Condition Start: 01/10/24 07:24 Freq: Status: Active Protocol: Document 01/10/24 08:18 NM (Rec: 01/10/24 09:46 NM [id number]) Current Condition History of Current Condition Onset Date DOS 12/13/23 Current Complaints mobility, pain, strength History of Current Condition Pt had surgery for L rTSA on , by Dr. Blas. He states that Dr. Blas repaired his rotator cuff in 2021, but it atrophied and retore again, which is when pt opted for shoulder replacement. Pt had rotator cuff arthropathy. 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 Previously, he had L shoulder snapping, popping, grinding. He has had his first follow up post-op, reports that everything going well. Pt reports that he was having trouble with sling and gave up on it. He was sleeping in reclining chair with arm across chest. Currently sleeping in bed, rolled toward his shoulder. Pt reports that a week ago, he had aching pain in his L shoulder after he grabbed a Trina pitcher with his L, felt a nasty pain in his L shoulder and was unable to lift anything including a teacup for days. Reports that was gradually getting better, until last night (01/08). Reports that he was holding the rosales with his L hand, which caused him to feel a sharp pain. He is left handed but able to use R hand for writing/eating/ADLs. He had follow up with doctor on . Pt reports that his has been helping him with dressing and all activities, but he feels bad that she has to do it all and wants to help. has been driving and helping pt with [email or web address] job. Has had 1 fall pre- surgery, but fell on R shoulder; states ankles giving out. He has not been performing any of the exercises from his doctor on Sunday. 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 Current Functional Impairments (Reported) Functional Limitations- ADL's dressing assisting with dressing, ADLs, showering, grooming not sleeping with pillow behind arm Functional Limitations- Mobility/Gait strength loss Functional Limitations- 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 [employer] ( unable to lift with both hands ), only using R hand right now Functional Limitations- Other going to bathroom driving PT-OP-T Assessment and Plan Start: 01/10/24 07:24 Freq: Status: Active Protocol: Document 05/20/24 10:44 NM (Rec: 05/20/24 11:31 NM [id number]) Physical Therapy Assessment Goals Five Impairment sleep Impairment pt wakes 3x/night Short Term Goal (STG) Pt will report that he is waking <3x/night due to L shoulder pain in order to demonstrate improved pain management and QOL 02/07/24: waking at least 2x/ night STG Duration 03/06/24 MET Ehs Manager Goal (LTG) Pt will report that he wakes up 1 or fewer times at night due to L shoulder pain in order to demonstrate improved pain management and QOL 03/24/24: 2-4x/night 04/11/24: a few times per night 04/23/24: pt still reporting that his L shoulder wakes him a 2-3x per night due to sleeping position with his 05/20/24: reports waking 3x/ night due to sleeping on L shoulder; does not wake if does not sleep on L shoulder, but cannot change position due to 's sleeping comfort LTG Duration 07/18/24; 05/20/24-NOT MET, GOAL UPDATED 03/24/24 Four Impairment pain Impairment currently 5/10 pain at rest, 10/10 reported with activity Short Term Goal (STG) Pt will report 5/10 pain or less in L shoulder with activity in order to demonstrate improved symptom management and QOL STG Duration 03/06/24 Penitentiary Goal (LTG) Pt will report 2/10 pain or less in L shoulder with activity in order to demonstrate improved symptom management and QOL 03/24/24: Pt consistently reports 1-2/10 L shoulder pain with activity, none at rest unless he does a movement that bites 04/23/24: 0/10 today before session, 1/10 reported during session 05/20/24: pt reports 0/10 pain during session LTG Duration 07/18/24; PROGRESSING, MET Three Impairment function, activity 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 Short Term Goal (STG) Pt will report that he is able to play piano with L shoulder pain <2/10 in order to demonstrate improved QOL and activity tolerance STG Duration 02/26/24 Ehs Manager Goal (LTG) Pt will report that he is able to play piano without limitation and without increase in baseline pain in order to demonstrate improved QOL and activity tolerance 03/24/24: pt reports that he is able to play piano without limitation due to mobility or pain LTG Duration 04/04/24 MET Two Impairment strength Impairment did not assess due to precautions Short Term Goal (STG) Pt will have at least 3+/5 L shoulder flexion and abduction in scaption plane strength with pain less than 5/10 in order to demonstrate improved ability to lift objects 02/12/24: initiated AROM against gravity in reclined 03/24/24: currently 3+/5 against gravity; recently progressed to 1# db for reclined fwd flexion, pain 1-2/10 STG Duration 03/06/24 MET Ehs Manager Goal (LTG) Pt will have at least 4/5 L shoulder flexion and abduction in scaption plane strength in order to demonstrate improved ability to lift objects 04/23/24: 4-/5; progression with lifting 1-2# in standing wit L arm 05/20/24: 4-/5 for all except resisted ER 3+/5; progressing to 3# for flexion and ER with exercises LTG Duration 07/18/24; 05/20/24-NOT MET, PROGRESSING One Impairment ROM Impairment PROM currently 115 deg FF, 20 deg ER in scaption plane Short Term Goal (STG) Pt will have at least 120 deg of passive L forward flexion, full passive ER in scaption plane with pain <2/10 02/12/24: 120 deg forward flexion passively, 30 deg ER in scaption passively STG Duration 02/21/24 MET Penitentiary Goal (LTG) Pt will have at least 110 deg of active L forward shoulder flexion and functional ER of at least 30 degrees in scaption plane in order to demonstrate improved reaching and shoulder mobility for dressing/ADLs 03/24/24: 120 deg L shoulder flexion maintained over several weeks w/o pain >1-2/10 , 60 deg ER from scaption LTG Duration 04/04/24 MET Assessment Summary Assessment Pt has been seen x32 visits since L rTSA in November 2023. Pt is currently 22 weeks post op . He is progressing well toward goals except sleeping tolerance. PT has educated pt on sleeping ergonomics and troubleshooted various strategies to assist pt comfort without success. Pt's L shoulder flexion continues to be 120 deg before and after exercise. He is progressing with his strength, currently 4 -/5 for flex/IR/abd except resisted ER 3+/5; progressing to 3# for flexion and ER with exercises. Pt has improved compliance with HEP following addition of exercise log. However, pt is still not performing all of HEP despite frequent exercise condensations of program. Pt is planning to follow up with surgeon in late May. He will be on vacation for most of May. Physical Therapy Plan Frequency and Duration Frequency of Treatment 1-2x/wk Duration of treatment (weeks) 8 Plan of Care Start Date 05/20/24 Plan of Care End Date 07/18/24 Therapeutic Interventions Therapeutic Interventions Gait Training,Home Exercise Program,Joint Mobilizations, Manual Therapy,Neuromuscular Re-education,Orthotic/ Prosthetic Management,Patient/ Caregiver Education,Self-Care/ Home Management,Sensory Integration,Soft Tissue Mobilization,Taping, Therapeutic Activities, Therapeutic Exercises Modalities Cold Pack/Ice Massage,Electric Stimulation,Hot Packs, Ultrasound Next Visit Focus/Plan Next Note Type Treatment Note Next Visit Plan Assess compliance log. Assess tolerance to overhead lift, trial 45 deg abd; trial lat pull down. review bent over row. cont with ant deltoid strengthening. progress resistance as able with isotonic ER/IR at 0 deg abd, wall slide with band at wall, supine > reclined > sit> standing flexion with 1-2# ( progress 2# from supine). ROM limits: ER to tolerance in scaption, 120 deg FF in scaption Plan of Care Dates Plan of Care Start Date 05/20/24 Plan of Care End Date 07/18/24 Electronically Signed by: Letitia Wu, PT 05/20/24 8520 If you are in agreement with this Plan of Care, please return a signed and dated copy. I have reviewed this Plan of Care and certify that the skilled therapy services above are required to meet the patient?s needs. Physician Signature Date Printed Name and Credentials Clinical Instructor Signature Printed Name and Credentials
--- NOTE | 2024-06-13 13:00 | PT.OTN ---
Current Diagnoses Other specific arthropathies, not elsewhere classified, left shoulder (06/13/24) Unspecified rotator cuff tear or rupture of left shoulder, not specified as traumatic (06/13/24) Weakness (06/13/24) Physical Therapy Treatment Note PT-OP-A Visit Information Start: 01/10/24 07:24 Freq: Status: Active Protocol: Document 06/13/24 10:47 NM (Rec: 06/13/24 11:33 NM [id number]) Out-Patient Physical Therapy Visit Information Visit Information Visit Type Treatment Note Visit Start Time 10:50 Visit Stop Time 11:28 Visit Number 34 Evaluation Information Evaluation Date 01/10/24 Precautions Precautions Reverse TSA precautions: no ext/ADD/IR (subscapularis not repaired) sling for comfort see protocol for restrictions 6 weeks: 01/24/24; 8 weeks: 02/06; 12 weeks: 03/07/24 Phase I: 3-6 weeks: PROM up to FF 120 (scaption plane) and ER to tolerance(scaption), submaximal pain free isometrics in scapular plane ( avoid ext); AAROM of cervical spine, wrist, elbow, hand Phase II after week 6 as appropriate PT-OP-B Current Condition Start: 01/10/24 07:24 Freq: Status: Active Protocol: Document 01/10/24 08:18 NM (Rec: 01/10/24 09:46 NM [id number]) Current Condition History of Current Condition Onset Date DOS 12/13/23 Current Complaints mobility, pain, strength History of Current Condition Pt had surgery for L rTSA on , by Dr. Blas. He states that Dr. lBas repaired his rotator cuff in 2021, but it atrophied and retore again, which is when pt opted for shoulder replacement. Pt had rotator cuff arthropathy. 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 Previously, he had L shoulder snapping, popping, grinding. He has had his first follow up post-op, reports that everything going well. Pt reports that he was having trouble with sling and gave up on it. He was sleeping in reclining chair with arm across chest. Currently sleeping in bed, rolled toward his shoulder. Pt reports that a week ago, he had aching pain in his L shoulder after he grabbed a [employer]ina pitcher with his L, felt a nasty pain in his L shoulder and was unable to lift anything including a teacup for days. Reports that was gradually getting better, until last night (01/08). Reports that he was holding the rosales with his L hand, which caused him to feel a sharp pain. He is left handed but able to use R hand for writing/eating/ADLs. He had follow up with doctor on . Pt reports that his has been helping him with dressing and all activities, but he feels bad that she has to do it all and wants to help. has been driving and helping pt with [employer] job. Has had 1 fall pre- surgery, but fell on R shoulder; states ankles giving out. He has not been performing any of the exercises from his doctor on Sunday. 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 Current Functional Impairments (Reported) Functional Limitations- ADL's dressing assisting with dressing, ADLs, showering, grooming not sleeping with pillow behind arm Functional Limitations- Mobility/Gait strength loss Functional Limitations- 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 States that L shoulder is doing well. He reports soreness after sleeping on L shoulder. He reports that he used the stretchy band ( demos IR and ER; wall slides with band) on trip. Pt reports that he still can't push onto his stomach when going to the bathroom with L hand. States washing L leg better with L arm. States can play piano ok, getting stronger at bicep, states lifting a little ( reports that he is putting thermos, coat, grocery bags) on L side (stops if feels pressure). PT-OP-F Manual Assessment Start: 01/10/24 07:24 Freq: Status: Active Protocol: Document 01/10/24 08:18 NM (Rec: 01/10/24 09:46 NM [id number]) Manual Assessments Soft Tissue Assessment Soft Tissue Mobility Assessment Increased tenderness, decreased length of latissimus dorsi and pectoralis Joint Mobility Assessment Joint Mobility Assessment Empty end feel with forward flexion and scaption ER. No L shoulder clicking, popping, dislocation with passive ROM. Full elbow and wrist AROM PT-OP-H Neuro Start: 01/10/24 07:24 Freq: Status: Active Protocol: Document 01/10/24 08:18 NM (Rec: 01/10/24 09:46 NM [id number]) Sensation Evaluation Comments Summary Comments BUE equally intact to light touch sensation, small decrease on L side near axilla PT-OP-J Posture/Palpation/Skin Start: 01/10/24 07:24 Freq: Status: Active Protocol: Document 01/10/24 08:18 NM (Rec: 01/10/24 09:46 NM [id number]) Posture Evaluation Position Sitting Head/C-Spine Posture Forward Head T-Spine Posture Increased Kyphosis Shoulder Posture (L) Rounded,(R) Rounded,(L) Forward,(R) Forward,(L) Elevated Scapula Posture (L) Protracted,(R) Protracted, (L) Elevated Arm Posture (L) Internally Rotated,(R) Internally Rotated Comments Posture Comments Elbow positioned by side at 0 deg abd, no use of sling Palpation Assessment Location L shoulder Palpation Details Tenderness along anterior shoulder with palpation and posterior cuff. Denies pain with palpation Skin Assessment Incisional Assessment Incision Appearance/Comments clean/dry/intact. Glue beginning to peel. Good healing w/o signs of infection , redness Small indention above scar from infection from previous rotator cuff repair PT-OP-K Range of Motion Start: 01/10/24 07:24 Freq: Status: Active Protocol: Document 05/20/24 10:44 NM (Rec: 05/20/24 13:10 NM [id number]) Shoulder Goniometric Range of Motion Shoulder L AROM Flexion 120 External Rotation at 0 degrees Abduction 60 Comments 02/12/24: reclined- 30 deg ER scaption 03/18/24: 55 deg ER, 120 deg flexion 03/24/24: 60 deg ER in scaption, 120 deg flexion 04/23/24: 125 deg flexion in scaption, 60 deg scaption ER 05/20/24: 120 deg flexion in scaption, 60 deg scaption ER PT-OP-M Strength Start: 01/10/24 07:24 Freq: Status: Active Protocol: Document 05/20/24 10:44 NM (Rec: 05/20/24 13:10 NM [id number]) Shoulder Strength Shoulder Manual Muscle Testing Left Flexion 4- Good- Abduction (C5) 4- Good- External Rotation 3+ Fair+ Internal Rotation 4- Good- Comments Did not formally assess due to precautions and protocol 02/12/24: AROM began in reclining position, against gravity 03/24/24: 3+/5 against gravity; able to perform exercises with 1# db 04/23/24: 4-/5 for all; progressing to 2# flexion and ER 05/20/24: 4-/5 for all except resisted ER 3+/5; progressing to 3# for flexion and ER with exercises PT-OP-Q Treatments Start: 01/10/24 07:24 Freq: Status: Active Protocol: Document 06/13/24 10:47 NM (Rec: 06/13/24 11:33 NM [id number]) Therapeutic Exercises Sitting Exercises shoulder IR Sitting Exercise Name 1. belly taps, 2. belly press w/ band Side left Resistance 1. AROM, 2. lvl 1 band (1) Reps/Minutes 1. 10, 2. 10 Comments PT tactile cue at elbow for ant position; cued no press only ROM Standing Exercises Lat stretch Side bilateral Equipment Used counter top Reps/Minutes 5x10 Comments start of session; lat tightness reported ER/IR band Standing Exercise Name HEP review Side left Resistance level 2 band for IR, level 2 band for ER (both bands) Equipment Used towel roll btwn body for scaption Reps/Minutes 3x15 IR, 2x15 ER Comments feels burn in IR; better trunk control; espinosa ER ROm to just past neutral Manual Therapy Treatment Consent Patient gave verbal consent for manual Yes treatment Soft Tissue Mobilization left shoulder Body Location lat, UT, LS, rhomboids, subscapularis, pec Mobilization Type Cross-Friction,Rolling, Sustained Pressure Intensity/Depth moderate and superficial Body Position Sidelying Comments and hooklying End of session. Tenderness at pec and lat. No other tenderness. Increased tightness of lat Self-Care/Home Management Treatment Education Other Education Educated on use of fingers and assistance of R hand to assist with self care massage into L abdomen PT-OP-T Assessment and Plan Start: 01/10/24 07:24 Freq: Status: Active Protocol: Document 06/13/24 10:47 NM (Rec: 06/13/24 11:33 NM [id number]) Physical Therapy Assessment Goals Five Impairment sleep Impairment pt wakes 3x/night Short Term Goal (STG) Pt will report that he is waking <3x/night due to L shoulder pain in order to demonstrate improved pain management and QOL 02/07/24: waking at least 2x/ night STG Duration 03/06/24 MET Nursing Home Goal (LTG) Pt will report that he wakes up 1 or fewer times at night due to L shoulder pain in order to demonstrate improved pain management and QOL 03/24/24: 2-4x/night 04/11/24: a few times per night 04/23/24: pt still reporting that his L shoulder wakes him a 2-3x per night due to sleeping position with his 05/20/24: reports waking 3x/ night due to sleeping on L shoulder; does not wake if does not sleep on L shoulder, but cannot change position due to 's sleeping comfort LTG Duration 07/18/24; 05/20/24-NOT MET, GOAL UPDATED 03/24/24 Four Impairment pain Impairment currently 5/10 pain at rest, 10/10 reported with activity Short Term Goal (STG) Pt will report 5/10 pain or less in L shoulder with activity in order to demonstrate improved symptom management and QOL STG Duration 03/06/24 Nursing Home Goal (LTG) Pt will report 2/10 pain or less in L shoulder with activity in order to demonstrate improved symptom management and QOL 03/24/24: Pt consistently reports 1-2/10 L shoulder pain with activity, none at rest unless he does a movement that bites 04/23/24: 0/10 today before session, 1/10 reported during session 05/20/24: pt reports 0/10 pain during session LTG Duration 07/18/24; PROGRESSING, MET Three Impairment function, activity 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 Short Term Goal (STG) Pt will report that he is able to play piano with L shoulder pain <2/10 in order to demonstrate improved QOL and activity tolerance STG Duration 02/26/24 Director Group Sales Goal (LTG) Pt will report that he is able to play piano without limitation and without increase in baseline pain in order to demonstrate improved QOL and activity tolerance 03/24/24: pt reports that he is able to play piano without limitation due to mobility or pain LTG Duration 04/04/24 MET Two Impairment strength Impairment did not assess due to precautions Short Term Goal (STG) Pt will have at least 3+/5 L shoulder flexion and abduction in scaption plane strength with pain less than 5/10 in order to demonstrate improved ability to lift objects 02/12/24: initiated AROM against gravity in reclined 03/24/24: currently 3+/5 against gravity; recently progressed to 1# db for reclined fwd flexion, pain 1-2/10 STG Duration 03/06/24 MET Nursing Home Goal (LTG) Pt will have at least 4/5 L shoulder flexion and abduction in scaption plane strength in order to demonstrate improved ability to lift objects 04/23/24: 4-/5; progression with lifting 1-2# in standing wit L arm 05/20/24: 4-/5 for all except resisted ER 3+/5; progressing to 3# for flexion and ER with exercises LTG Duration 07/18/24; 05/20/24-NOT MET, PROGRESSING One Impairment ROM Impairment PROM currently 115 deg FF, 20 deg ER in scaption plane Short Term Goal (STG) Pt will have at least 120 deg of passive L forward flexion, full passive ER in scaption plane with pain <2/10 02/12/24: 120 deg forward flexion passively, 30 deg ER in scaption passively STG Duration 02/21/24 MET Director Group Sales Goal (LTG) Pt will have at least 110 deg of active L forward shoulder flexion and functional ER of at least 30 degrees in scaption plane in order to demonstrate improved reaching and shoulder mobility for dressing/ADLs 03/24/24: 120 deg L shoulder flexion maintained over several weeks w/o pain >1-2/10 , 60 deg ER from scaption LTG Duration 04/04/24 MET Assessment Summary Assessment Pt tolerated session well. No L shoulder pain. Has 130 deg of L shoulder flexion in scaption. Pt able to progress to level 2 band for ER without pain, which is an improvement from last session. ROM is more limited for ER to neutral with resistance. He still reports limitations in IR ROM and strength when performing self massage for digestion self care mobilization. Trialed gentle belly presses and with band; PT cueing for hand/elbow position. Pt responds well but is challenging for him to perform . Pt would benefit from skilled PT for progressive L shoulder strengthening per protocol in order to improve lifting ADLs and self care ADLs. Physical Therapy Plan Frequency and Duration Frequency of Treatment 1-2x/wk Duration of treatment (weeks) 8 Plan of Care Start Date 05/20/24 Plan of Care End Date 07/18/24 Therapeutic Interventions Therapeutic Interventions Gait Training,Home Exercise Program,Joint Mobilizations, Manual Therapy,Neuromuscular Re-education,Orthotic/ Prosthetic Management,Patient/ Caregiver Education,Self-Care/ Home Management,Sensory Integration,Soft Tissue Mobilization,Taping, Therapeutic Activities, Therapeutic Exercises Modalities Cold Pack/Ice Massage,Electric Stimulation,Hot Packs, Ultrasound Next Visit Focus/Plan Next Note Type Progress Note Next Visit Plan Update HEP. Assess belly press HEP. Cont with band belly press. progress IR and ER banded. Trial upright row and crate lift > overhead carry Assess tolerance to overhead lift, trial 45 deg abd; trial lat pull down. review bent over row. cont with ant deltoid strengthening. progress resistance as able with isotonic ER/IR at 0 deg abd, wall slide with band at wall, supine > reclined > sit> standing flexion with 3-4# ( progress 2# from supine). ROM limits: ER to tolerance in scaption, 120 deg FF in scaption
--- NOTE | 2024-06-17 15:41 | PT.OTN ---
Current Diagnoses Other specific arthropathies, not elsewhere classified, left shoulder (06/17/24) Unspecified rotator cuff tear or rupture of left shoulder, not specified as traumatic (06/17/24) Weakness (06/17/24) Physical Therapy Treatment Note PT-OP-A Visit Information Start: 01/10/24 07:24 Freq: Status: Active Protocol: Document 06/17/24 13:00 NM (Rec: 06/17/24 13:45 NM [id number]) Out-Patient Physical Therapy Visit Information Visit Information Visit Type Progress Note Visit Start Time 13:04 Visit Stop Time 13:42 Visit Number 35 Evaluation Information Evaluation Date 01/10/24 Precautions Precautions Reverse TSA precautions: no ext/ADD/IR (subscapularis not repaired) sling for comfort see protocol for restrictions 6 weeks: 01/24/24; 8 weeks: 02/06; 12 weeks: 03/07/24 Phase I: 3-6 weeks: PROM up to FF 120 (scaption plane) and ER to tolerance(scaption), submaximal pain free isometrics in scapular plane ( avoid ext); AAROM of cervical spine, wrist, elbow, hand Phase II after week 6 as appropriate PT-OP-B Current Condition Start: 01/10/24 07:24 Freq: Status: Active Protocol: Document 01/10/24 08:18 NM (Rec: 01/10/24 09:46 NM [id number]) Current Condition History of Current Condition Onset Date DOS 12/13/23 Current Complaints mobility, pain, strength History of Current Condition Pt had surgery for L rTSA on , by Dr. Blas. He states that Dr. Blas repaired his rotator cuff in 2021, but it atrophied and retore again, which is when pt opted for shoulder replacement. Pt had rotator cuff arthropathy. 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 Previously, he had L shoulder snapping, popping, grinding. He has had his first follow up post-op, reports that everything going well. Pt reports that he was having trouble with sling and gave up on it. He was sleeping in reclining chair with arm across chest. Currently sleeping in bed, rolled toward his shoulder. Pt reports that a week ago, he had aching pain in his L shoulder after he grabbed a [employer] pitcher with his L, felt a nasty pain in his L shoulder and was unable to lift anything including a teacup for days. Reports that was gradually getting better, until last night (01/08). Reports that he was holding the rosales with his L hand, which caused him to feel a sharp pain. He is left handed but able to use R hand for writing/eating/ADLs. He had follow up with doctor on . Pt reports that his has been helping him with dressing and all activities, but he feels bad that she has to do it all and wants to help. has been driving and helping pt with [employer] job. Has had 1 fall pre- surgery, but fell on R shoulder; states ankles giving out. He has not been performing any of the exercises from his doctor on Sunday. 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 Current Functional Impairments (Reported) Functional Limitations- ADL's dressing assisting with dressing, ADLs, showering, grooming not sleeping with pillow behind arm Functional Limitations- Mobility/Gait strength loss Functional Limitations- 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 States sleeping difficulty common post-op, does not have an answer for pt. He has a 6 month follow up in November 2020 for an xray, 6 months after that. When pt is done with PT in Nov, surgeon told pt o keep up with exercise. Pt reports tired after last session on Sunday. Brought HEP PT-OP-F Manual Assessment Start: 01/10/24 07:24 Freq: Status: Active Protocol: Document 01/10/24 08:18 NM (Rec: 01/10/24 09:46 NM [id number]) Manual Assessments Soft Tissue Assessment Soft Tissue Mobility Assessment Increased tenderness, decreased length of latissimus dorsi and pectoralis Joint Mobility Assessment Joint Mobility Assessment Empty end feel with forward flexion and scaption ER. No L shoulder clicking, popping, dislocation with passive ROM. Full elbow and wrist AROM PT-OP-H Neuro Start: 01/10/24 07:24 Freq: Status: Active Protocol: Document 01/10/24 08:18 NM (Rec: 01/10/24 09:46 NM [id number]) Sensation Evaluation Comments Summary Comments BUE equally intact to light touch sensation, small decrease on L side near axilla PT-OP-J Posture/Palpation/Skin Start: 01/10/24 07:24 Freq: Status: Active Protocol: Document 01/10/24 08:18 NM (Rec: 01/10/24 09:46 NM [id number]) Posture Evaluation Position Sitting Head/C-Spine Posture Forward Head T-Spine Posture Increased Kyphosis Shoulder Posture (L) Rounded,(R) Rounded,(L) Forward,(R) Forward,(L) Elevated Scapula Posture (L) Protracted,(R) Protracted, (L) Elevated Arm Posture (L) Internally Rotated,(R) Internally Rotated Comments Posture Comments Elbow positioned by side at 0 deg abd, no use of sling Palpation Assessment Location L shoulder Palpation Details Tenderness along anterior shoulder with palpation and posterior cuff. Denies pain with palpation Skin Assessment Incisional Assessment Incision Appearance/Comments clean/dry/intact. Glue beginning to peel. Good healing w/o signs of infection , redness Small indention above scar from infection from previous rotator cuff repair PT-OP-K Range of Motion Start: 01/10/24 07:24 Freq: Status: Active Protocol: Document 06/17/24 13:00 NM (Rec: 06/17/24 13:45 NM [id number]) Shoulder Goniometric Range of Motion Shoulder L AROM Flexion 120 External Rotation at 0 degrees Abduction 60 Comments 02/12/24: reclined- 30 deg ER scaption 03/18/24: 55 deg ER, 120 deg flexion 03/24/24: 60 deg ER in scaption, 120 deg flexion 04/23/24: 125 deg flexion in scaption, 60 deg scaption ER 05/20/24: 120 deg flexion in scaption, 60 deg scaption ER 06/17/24: 130 deg flexion, 70 deg ER L PROM Flexion 115 Comments ER in scaption plane 20 deg; empty end feel 02/12/24: 120 deg forward flexion, 30 deg ER in scaption , 50 deg IR in scaption R AROM Flexion 155 Abduction 150 External Rotation at 0 degrees Abduction 70 Comments scaption: 150 deg PT-OP-M Strength Start: 01/10/24 07:24 Freq: Status: Active Protocol: Document 06/17/24 13:00 NM (Rec: 06/17/24 13:45 NM [id number]) Shoulder Strength Shoulder Manual Muscle Testing Left Flexion 4 Good Abduction (C5) 4 Good External Rotation 4 Good Internal Rotation 4 Good Comments Did not formally assess due to precautions and protocol 02/12/24: AROM began in reclining position, against gravity 03/24/24: 3+/5 against gravity; able to perform exercises with 1# db 04/23/24: 4-/5 for all; progressing to 2# flexion and ER 05/20/24: 4-/5 for all except resisted ER 3+/5; progressing to 3# for flexion and ER with exercises 06/17/24: Right Flexion 4 Good Abduction (C5) 4 Good External Rotation 4 Good Internal Rotation 4 Good PT-OP-Q Treatments Start: 01/10/24 07:24 Freq: Status: Active Protocol: Document 06/17/24 13:00 NM (Rec: 06/17/24 13:45 NM [id number]) Therapeutic Exercises Sitting Exercises shoulder IR Sitting Exercise Name 1. belly taps, 2. belly press w/ band Side left Resistance 1. AROM, 2. lvl 1 band (1) Reps/Minutes 1. 15, 2. 10 Comments PT tactile cue at elbow for ant position; cued no press only ROM Standing Exercises B ER Side bilateral Resistance level 1 band Reps/Minutes 10 sitting, 2x10 standing w/ mirror for feedback rows Standing Exercise Name bent over row (to neutral) Side bilateral Resistance 4# Reps/Minutes 2x15 Comments pain free Other Exercises box lifts Other Exercise Name 1.from knee ht to chest ht, 2. carries, 3. from waist to eye Side bilateral Resistance 6# in crate Reps/Minutes 1.10 ea, 2. 15 ft ea, 3. 10 ea Comments pain free but challenging motion reclined shoulder scaption Other Exercise Name performed in standing Side bilateral Resistance 3# db > 4# db Equipment Used mirror for feedback Reps/Minutes 10 ea wt level Manual Therapy Treatment Consent Patient gave verbal consent for manual Yes treatment Soft Tissue Mobilization left shoulder Body Location lat, UT, LS, rhomboids, subscapularis, pec Mobilization Type Cross-Friction,Rolling, Sustained Pressure Intensity/Depth moderate and superficial Body Position Sidelying Comments and hooklying End of session. Tenderness at pec and lat. No other tenderness. Increased tightness of lat PT-OP-T Assessment and Plan Start: 01/10/24 07:24 Freq: Status: Active Protocol: Document 06/17/24 13:00 NM (Rec: 06/17/24 13:45 NM [id number]) Physical Therapy Assessment Goals Five Impairment sleep Impairment pt wakes 3x/night Short Term Goal (STG) Pt will report that he is waking <3x/night due to L shoulder pain in order to demonstrate improved pain management and QOL 02/07/24: waking at least 2x/ night STG Duration 03/06/24 MET Blow Off Worker Goal (LTG) Pt will report that he wakes up 1 or fewer times at night due to L shoulder pain in order to demonstrate improved pain management and QOL 03/24/24: 2-4x/night 04/11/24: a few times per night 04/23/24: pt still reporting that his L shoulder wakes him a 2-3x per night due to sleeping position with his 05/20/24: reports waking 3x/ night due to sleeping on L shoulder; does not wake if does not sleep on L shoulder, but cannot change position due to 's sleeping comfort 06/17/24: still wakes up multiple times per night, change position helps LTG Duration 07/18/24; 06/17/24-NOT MET, GOAL UPDATED 03/24/24 Four Impairment pain Impairment currently 5/10 pain at rest, 10/10 reported with activity Short Term Goal (STG) Pt will report 5/10 pain or less in L shoulder with activity in order to demonstrate improved symptom management and QOL STG Duration 03/06/24 Blow Off Worker Goal (LTG) Pt will report 2/10 pain or less in L shoulder with activity in order to demonstrate improved symptom management and QOL 03/24/24: Pt consistently reports 1-2/10 L shoulder pain with activity, none at rest unless he does a movement that bites 04/23/24: 0/10 today before session, 1/10 reported during session 05/20/24: pt reports 0/10 pain during session 06/17/24: pt reports no pain with exercise LTG Duration 07/18/24; MET Three Impairment function, activity 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 Short Term Goal (STG) Pt will report that he is able to play piano with L shoulder pain <2/10 in order to demonstrate improved QOL and activity tolerance STG Duration 02/26/24 Blow Off Worker Goal (LTG) Pt will report that he is able to play piano without limitation and without increase in baseline pain in order to demonstrate improved QOL and activity tolerance 03/24/24: pt reports that he is able to play piano without limitation due to mobility or pain LTG Duration 04/04/24 MET Two Impairment strength Impairment did not assess due to precautions Short Term Goal (STG) Pt will have at least 3+/5 L shoulder flexion and abduction in scaption plane strength with pain less than 5/10 in order to demonstrate improved ability to lift objects 02/12/24: initiated AROM against gravity in reclined 03/24/24: currently 3+/5 against gravity; recently progressed to 1# db for reclined fwd flexion, pain 1-2/10 STG Duration 03/06/24 MET Blow Off Worker Goal (LTG) Pt will have at least 4/5 L shoulder flexion and abduction in scaption plane strength in order to demonstrate improved ability to lift objects 04/23/24: 4-/5; progression with lifting 1-2# in standing wit L arm 05/20/24: 4-/5 for all except resisted ER 3+/5; progressing to 3# for flexion and ER with exercises 06/17/24: 4/5 strength, lifting 4# in flexin in standing LTG Duration 07/18/24; 06/17/24- MET, PROGRESSING One Impairment ROM Impairment PROM currently 115 deg FF, 20 deg ER in scaption plane Short Term Goal (STG) Pt will have at least 120 deg of passive L forward flexion, full passive ER in scaption plane with pain <2/10 02/12/24: 120 deg forward flexion passively, 30 deg ER in scaption passively STG Duration 02/21/24 MET Blow Off Worker Goal (LTG) Pt will have at least 110 deg of active L forward shoulder flexion and functional ER of at least 30 degrees in scaption plane in order to demonstrate improved reaching and shoulder mobility for dressing/ADLs 03/24/24: 120 deg L shoulder flexion maintained over several weeks w/o pain >1-2/10 , 60 deg ER from scaption LTG Duration 04/04/24 MET Progress Towards Goals Progress Towards Goals Progressing Toward Goals,Goals Met Assessment Summary Assessment Pt tolerated session well, good response to progressions in therpeutic exercise. Trialed B shoulder ER with level 1 band; pain free but fatiguing. Able to progress to 4# dumbbells for flexion in scaption raises but only able to perform in limited reps due to fatigue. Trialed lifts from lower surface and to higher surfaces, pt reports ache in shoulder but no pain; challenging for him. Educated to continue with home ADLs at low resistance (e.g. limiting number of plates lifting into cabinet). Physical Therapy Plan Frequency and Duration Frequency of Treatment 1-2x/wk Duration of treatment (weeks) 8 Plan of Care Start Date 05/20/24 Plan of Care End Date 07/18/24 Therapeutic Interventions Therapeutic Interventions Gait Training,Home Exercise Program,Joint Mobilizations, Manual Therapy,Neuromuscular Re-education,Orthotic/ Prosthetic Management,Patient/ Caregiver Education,Self-Care/ Home Management,Sensory Integration,Soft Tissue Mobilization,Taping, Therapeutic Activities, Therapeutic Exercises Modalities Cold Pack/Ice Massage,Electric Stimulation,Hot Packs, Ultrasound Next Visit Focus/Plan Next Note Type Treatment Note Next Visit Plan Update HEP. Cont with band belly press. progress IR and ER banded resist. Prog rows, crate lift > overhead lift (5- 6#), trial lat pull down, ant deltoid strengthening. progress resistance as able with isotonic ER/IR at 0 deg abd and 45 deg abd, wall slide with band at wall, supine > reclined > sit> standing flexion with 4-5# (progress 2# from supine). ROM limits: ER to tolerance in scaption, 120 deg FF in scaption
--- NOTE | 2024-06-24 11:44 | PT.OTN ---
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 Visits 1 Evaluation Information Evaluation Date 01/10/24 Precautions Precautions Reverse TSA precautions: no ext/ADD/IR (subscapularis not repaired) sling for comfort see protocol for restrictions 6 weeks: 01/24/24; 8 weeks: 02/06; 12 weeks: 03/07/24 Phase I: 3-6 weeks: PROM up to FF 120 (scaption plane) and ER to tolerance(scaption), submaximal pain free isometrics in scapular plane ( avoid ext); AAROM of cervical spine, wrist, elbow, hand Phase II after week 6 as appropriate PT-OP-B Current Condition Start: 01/10/24 07:24 Freq: Status: Active Protocol: Document 01/10/24 08:18 NM (Rec: 01/10/24 09:46 NM [id number]) Current Condition History of Current Condition Onset Date DOS 12/13/23 Current Complaints mobility, pain, strength History of Current Condition Pt had surgery for L rTSA on , by Dr. Blas. He states that Dr. Blas repaired his rotator cuff in 2021, but it atrophied and retore again, which is when pt opted for shoulder replacement. Pt had rotator cuff arthropathy. 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 Previously, he had L shoulder snapping, popping, grinding. He has had his first follow up post-op, reports that everything going well. Pt reports that he was having trouble with sling and gave up on it. He was sleeping in reclining chair with arm across chest. Currently sleeping in bed, rolled toward his shoulder. Pt reports that a week ago, he had aching pain in his L shoulder after he grabbed a [employer] pitcher with his L, felt a nasty pain in his L shoulder and was unable to lift anything including a teacup for days. Reports that was gradually getting better, until last night (01/08). Reports that he was holding the rosales with his L hand, which caused him to feel a sharp pain. He is left handed but able to use R hand for writing/eating/ADLs. He had follow up with doctor on . Pt reports that his has been helping him with dressing and all activities, but he feels bad that she has to do it all and wants to help. has been driving and helping pt with [employer] job. Has had 1 fall pre- surgery, but fell on R shoulder; states ankles giving out. He has not been performing any of the exercises from his doctor on Sunday. 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, 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 Current Functional Impairments (Reported) Functional Limitations- ADL's dressing assisting with dressing, ADLs, showering, grooming not sleeping with pillow behind arm Functional Limitations- Mobility/Gait strength loss Functional Limitations- 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 Patient rates pain left shoulder 0/10 start of session . AROM 131 deg scaption left shoulder start of session. PT-OP-F Manual Assessment Start: 01/10/24 07:24 Freq: Status: Active Protocol: Document 01/10/24 08:18 NM (Rec: 01/10/24 09:46 NM [id number]) Manual Assessments Soft Tissue Assessment Soft Tissue Mobility Assessment Increased tenderness, decreased length of latissimus dorsi and pectoralis Joint Mobility Assessment Joint Mobility Assessment Empty end feel with forward flexion and scaption ER. No L shoulder clicking, popping, dislocation with passive ROM. Full elbow and wrist AROM PT-OP-H Neuro Start: 01/10/24 07:24 Freq: Status: Active Protocol: Document 01/10/24 08:18 NM (Rec: 01/10/24 09:46 NM [id number]) Sensation Evaluation Comments Summary Comments BUE equally intact to light touch sensation, small decrease on L side near axilla PT-OP-J Posture/Palpation/Skin Start: 01/10/24 07:24 Freq: Status: Active Protocol: Document 01/10/24 08:18 NM (Rec: 01/10/24 09:46 NM [id number]) Posture Evaluation Position Sitting Head/C-Spine Posture Forward Head T-Spine Posture Increased Kyphosis Shoulder Posture (L) Rounded,(R) Rounded,(L) Forward,(R) Forward,(L) Elevated Scapula Posture (L) Protracted,(R) Protracted, (L) Elevated Arm Posture (L) Internally Rotated,(R) Internally Rotated Comments Posture Comments Elbow positioned by side at 0 deg abd, no use of sling Palpation Assessment Location L shoulder Palpation Details Tenderness along anterior shoulder with palpation and posterior cuff. Denies pain with palpation Skin Assessment Incisional Assessment Incision Appearance/Comments clean/dry/intact. Glue beginning to peel. Good healing w/o signs of infection , redness Small indention above scar from infection from previous rotator cuff repair PT-OP-K Range of Motion Start: 01/10/24 07:24 Freq: Status: Active Protocol: Document 06/17/24 13:00 NM (Rec: 06/17/24 13:45 NM [id number]) Shoulder Goniometric Range of Motion Shoulder L AROM Flexion 120 External Rotation at 0 degrees Abduction 60 Comments 02/12/24: reclined- 30 deg ER scaption 03/18/24: 55 deg ER, 120 deg flexion 03/24/24: 60 deg ER in scaption, 120 deg flexion 04/23/24: 125 deg flexion in scaption, 60 deg scaption ER 05/20/24: 120 deg flexion in scaption, 60 deg scaption ER 06/17/24: 130 deg flexion, 70 deg ER L PROM Flexion 115 Comments ER in scaption plane 20 deg; empty end feel 02/12/24: 120 deg forward flexion, 30 deg ER in scaption , 50 deg IR in scaption R AROM Flexion 155 Abduction 150 External Rotation at 0 degrees Abduction 70 Comments scaption: 150 deg PT-OP-M Strength Start: 01/10/24 07:24 Freq: Status: Active Protocol: Document 06/17/24 13:00 NM (Rec: 06/17/24 13:45 NM [id number]) Shoulder Strength Shoulder Manual Muscle Testing Left Flexion 4 Good Abduction (C5) 4 Good External Rotation 4 Good Internal Rotation 4 Good Comments Did not formally assess due to precautions and protocol 02/12/24: AROM began in reclining position, against gravity 03/24/24: 3+/5 against gravity; able to perform exercises with 1# db 04/23/24: 4-/5 for all; progressing to 2# flexion and ER 05/20/24: 4-/5 for all except resisted ER 3+/5; progressing to 3# for flexion and ER with exercises 06/17/24: Right Flexion 4 Good Abduction (C5) 4 Good External Rotation 4 Good Internal Rotation 4 Good PT-OP-Q Treatments Start: 01/10/24 07:24 Freq: Status: Active Protocol: Document 06/24/24 10:42 AB (Rec: 06/24/24 11:43 AB [id number]) Therapeutic Exercises Standing Exercises push up plus Side bilateral Reps/Minutes X15 Comments verbal, visual and tactile cues rhythmic oscillation Standing Exercise Name statue of liberty position Side left Equipment Used yellow therabar Reps/Minutes 60 seconds Comments verbal and visual cues rows Standing Exercise Name 1. high row HEP 2. row Resistance level 4 for row level 3 then 4 for high row Reps/Minutes 2X15 each Comments X15 level 3 then level 4 for high row 4 for Row Other Exercises box lifts Other Exercise Name 1.from knee ht to chest ht, 2. carries, 3. from waist to eye Side bilateral Resistance 6# in crate Reps/Minutes 1. X 8 X 2 2. carries 3.toeye 2x10 wgt far then close to Patient in crate Comments carries ~30 feet this session overhead X 2 and X 1 Manual Therapy Treatment Consent Patient gave verbal consent for manual Yes treatment Soft Tissue Mobilization left shoulder Body Location lat, UT, LS, rhomboids, subscapularis, pec Mobilization Type Cross-Friction,Rolling, Sustained Pressure Intensity/Depth moderate and superficial Body Position Sidelying Comments and hooklying Joint Mobilizations scapular Joint left shoulder Direction depression and adduction Grade IV Body Position Sidelying Reps/Duration 10 each PT-OP-T Assessment and Plan Start: 01/10/24 07:24 Freq: Status: Active Protocol: Document 06/24/24 10:42 AB (Rec: 06/24/24 11:43 AB [id number]) Physical Therapy Assessment Goals Five Impairment sleep Impairment pt wakes 3x/night Short Term Goal (STG) Pt will report that he is waking <3x/night due to L shoulder pain in order to demonstrate improved pain management and QOL 02/07/24: waking at least 2x/ night STG Duration 03/06/24 MET Nursing Home Goal (LTG) Pt will report that he wakes up 1 or fewer times at night due to L shoulder pain in order to demonstrate improved pain management and QOL 03/24/24: 2-4x/night 04/11/24: a few times per night 04/23/24: pt still reporting that his L shoulder wakes him a 2-3x per night due to sleeping position with his 05/20/24: reports waking 3x/ night due to sleeping on L shoulder; does not wake if does not sleep on L shoulder, but cannot change position due to 's sleeping comfort 06/17/24: still wakes up multiple times per night, change position helps LTG Duration 07/18/24; 06/17/24-NOT MET, GOAL UPDATED 03/24/24 Four Impairment pain Impairment currently 5/10 pain at rest, 10/10 reported with activity Short Term Goal (STG) Pt will report 5/10 pain or less in L shoulder with activity in order to demonstrate improved symptom management and QOL STG Duration 03/06/24 Nursing Home Goal (LTG) Pt will report 2/10 pain or less in L shoulder with activity in order to demonstrate improved symptom management and QOL 03/24/24: Pt consistently reports 1-2/10 L shoulder pain with activity, none at rest unless he does a movement that bites 04/23/24: 0/10 today before session, 1/10 reported during session 05/20/24: pt reports 0/10 pain during session 06/17/24: pt reports no pain with exercise LTG Duration 07/18/24; MET Three Impairment function, activity 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 Short Term Goal (STG) Pt will report that he is able to play piano with L shoulder pain <2/10 in order to demonstrate improved QOL and activity tolerance STG Duration 02/26/24 Nursing Home Goal (LTG) Pt will report that he is able to play piano without limitation and without increase in baseline pain in order to demonstrate improved QOL and activity tolerance 03/24/24: pt reports that he is able to play piano without limitation due to mobility or pain LTG Duration 04/04/24 MET Two Impairment strength Impairment did not assess due to precautions Short Term Goal (STG) Pt will have at least 3+/5 L shoulder flexion and abduction in scaption plane strength with pain less than 5/10 in order to demonstrate improved ability to lift objects 02/12/24: initiated AROM against gravity in reclined 03/24/24: currently 3+/5 against gravity; recently progressed to 1# db for reclined fwd flexion, pain 1-2/10 STG Duration 03/06/24 MET Warrant Clerk Goal (LTG) Pt will have at least 4/5 L shoulder flexion and abduction in scaption plane strength in order to demonstrate improved ability to lift objects 04/23/24: 4-/5; progression with lifting 1-2# in standing wit L arm 05/20/24: 4-/5 for all except resisted ER 3+/5; progressing to 3# for flexion and ER with exercises 06/17/24: 4/5 strength, lifting 4# in flexin in standing LTG Duration 07/18/24; 06/17/24- MET, PROGRESSING One Impairment ROM Impairment PROM currently 115 deg FF, 20 deg ER in scaption plane Short Term Goal (STG) Pt will have at least 120 deg of passive L forward flexion, full passive ER in scaption plane with pain <2/10 02/12/24: 120 deg forward flexion passively, 30 deg ER in scaption passively STG Duration 02/21/24 MET Nursing Home Goal (LTG) Pt will have at least 110 deg of active L forward shoulder flexion and functional ER of at least 30 degrees in scaption plane in order to demonstrate improved reaching and shoulder mobility for dressing/ADLs 03/24/24: 120 deg L shoulder flexion maintained over several weeks w/o pain >1-2/10 , 60 deg ER from scaption LTG Duration 04/04/24 MET Assessment Summary Assessment Patient required increased verbal cues for using LE's for knee to waist and weight shift for eye level. AROM 133 deg scaption left shoulder end of session rating pain 0/10 and performing one additional eye level crate lift end of session with 6 lb( weight far end of crate ) with good mechanics and reports of no shoulder pain. Physical Therapy Plan Frequency and Duration Frequency of Treatment 1-2x/wk Duration of treatment (weeks) 8 Plan of Care Start Date 05/20/24 Plan of Care End Date 07/18/24 Next Visit Focus/Plan Next Note Type Treatment Note Next Visit Plan Update HEP. Cont with band belly press. progress IR and ER banded resist. Prog rows, crate lift > overhead lift (5- 6#), ant deltoid strengthening. progress resistance as able with isotonic ER/IR at 0 deg abd and 45 deg abd, wall slide with band at wall, supine > reclined > sit> standing flexion with 4-5# (progress 2# from supine). ROM limits: ER to tolerance in scaption, 120 deg FF in scaption
--- NOTE | 2024-07-01 12:29 | PT.OTN ---
Current Diagnoses Other specific arthropathies, not elsewhere classified, left shoulder (07/01/24) Unspecified rotator cuff tear or rupture of left shoulder, not specified as traumatic (07/01/24) Weakness (07/01/24) Physical Therapy Treatment Note PT-OP-A Visit Information Start: 01/10/24 07:24 Freq: Status: Active Protocol: Document 07/01/24 09:03 AB (Rec: 07/01/24 12:29 AB [id number]) Out-Patient Physical Therapy Visit Information Visit Information Visit Type Treatment Note Visit Note Access Code [email or web address] Visit Start Time 10:47 Visit Stop Time 11:30 Visit Number 37 Number of RADIOLOGY PHYSICIAN ASSISTANT Visits 2 Evaluation Information Evaluation Date 01/10/24 Precautions Precautions Reverse TSA precautions: no ext/ADD/IR (subscapularis not repaired) sling for comfort see protocol for restrictions 6 weeks: 01/24/24; 8 weeks: 02/06; 12 weeks: 03/07/24 Phase I: 3-6 weeks: PROM up to FF 120 (scaption plane) and ER to tolerance(scaption), submaximal pain free isometrics in scapular plane ( avoid ext); AAROM of cervical spine, wrist, elbow, hand Phase II after week 6 as appropriate PT-OP-B Current Condition Start: 01/10/24 07:24 Freq: Status: Active Protocol: Document 01/10/24 08:18 NM (Rec: 01/10/24 09:46 NM [id number]) Current Condition History of Current Condition Onset Date DOS 12/13/23 Current Complaints mobility, pain, strength History of Current Condition Pt had surgery for L rTSA on , by Dr. Blas. He states that Dr. Blas repaired his rotator cuff in 2021, but it atrophied and retore again, which is when pt opted for shoulder replacement. Pt had rotator cuff arthropathy. 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 Previously, he had L shoulder snapping, popping, grinding. He has had his first follow up post-op, reports that everything going well. Pt reports that he was having trouble with sling and gave up on it. He was sleeping in reclining chair with arm across chest. Currently sleeping in bed, rolled toward his shoulder. Pt reports that a week ago, he had aching pain in his L shoulder after he grabbed a [employer] pitcher with his L, felt a nasty pain in his L shoulder and was unable to lift anything including a teacup for days. Reports that was gradually getting better, until last night (01/08). Reports that he was holding the rosales with his L hand, which caused him to feel a sharp pain. He is left handed but able to use R hand for writing/eating/ADLs. He had follow up with doctor on . Pt reports that his has been helping him with dressing and all activities, but he feels bad that she has to do it all and wants to help. has been driving and helping pt with [employer] job. Has had 1 fall pre- surgery, but fell on R shoulder; states ankles giving out. He has not been performing any of the exercises from his doctor on Sunday. 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, 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 Current Functional Impairments (Reported) Functional Limitations- ADL's dressing assisting with dressing, ADLs, showering, grooming not sleeping with pillow behind arm Functional Limitations- Mobility/Gait strength loss Functional Limitations- 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 AROM left shoulder flexion 125 deg start of session. Patient reports he has been a little lax with the exercise over the past week, but has been doing curls. PT-OP-F Manual Assessment Start: 01/10/24 07:24 Freq: Status: Active Protocol: Document 01/10/24 08:18 NM (Rec: 01/10/24 09:46 NM [id number]) Manual Assessments Soft Tissue Assessment Soft Tissue Mobility Assessment Increased tenderness, decreased length of latissimus dorsi and pectoralis Joint Mobility Assessment Joint Mobility Assessment Empty end feel with forward flexion and scaption ER. No L shoulder clicking, popping, dislocation with passive ROM. Full elbow and wrist AROM PT-OP-H Neuro Start: 01/10/24 07:24 Freq: Status: Active Protocol: Document 01/10/24 08:18 NM (Rec: 01/10/24 09:46 NM [id number]) Sensation Evaluation Comments Summary Comments BUE equally intact to light touch sensation, small decrease on L side near axilla PT-OP-J Posture/Palpation/Skin Start: 01/10/24 07:24 Freq: Status: Active Protocol: Document 01/10/24 08:18 NM (Rec: 01/10/24 09:46 NM [id number]) Posture Evaluation Position Sitting Head/C-Spine Posture Forward Head T-Spine Posture Increased Kyphosis Shoulder Posture (L) Rounded,(R) Rounded,(L) Forward,(R) Forward,(L) Elevated Scapula Posture (L) Protracted,(R) Protracted, (L) Elevated Arm Posture (L) Internally Rotated,(R) Internally Rotated Comments Posture Comments Elbow positioned by side at 0 deg abd, no use of sling Palpation Assessment Location L shoulder Palpation Details Tenderness along anterior shoulder with palpation and posterior cuff. Denies pain with palpation Skin Assessment Incisional Assessment Incision Appearance/Comments clean/dry/intact. Glue beginning to peel. Good healing w/o signs of infection , redness Small indention above scar from infection from previous rotator cuff repair PT-OP-K Range of Motion Start: 01/10/24 07:24 Freq: Status: Active Protocol: Document 06/17/24 13:00 NM (Rec: 06/17/24 13:45 NM [id number]) Shoulder Goniometric Range of Motion Shoulder L AROM Flexion 120 External Rotation at 0 degrees Abduction 60 Comments 02/12/24: reclined- 30 deg ER scaption 03/18/24: 55 deg ER, 120 deg flexion 03/24/24: 60 deg ER in scaption, 120 deg flexion 04/23/24: 125 deg flexion in scaption, 60 deg scaption ER 05/20/24: 120 deg flexion in scaption, 60 deg scaption ER 06/17/24: 130 deg flexion, 70 deg ER L PROM Flexion 115 Comments ER in scaption plane 20 deg; empty end feel 02/12/24: 120 deg forward flexion, 30 deg ER in scaption , 50 deg IR in scaption R AROM Flexion 155 Abduction 150 External Rotation at 0 degrees Abduction 70 Comments scaption: 150 deg PT-OP-M Strength Start: 01/10/24 07:24 Freq: Status: Active Protocol: Document 06/17/24 13:00 NM (Rec: 06/17/24 13:45 NM [id number]) Shoulder Strength Shoulder Manual Muscle Testing Left Flexion 4 Good Abduction (C5) 4 Good External Rotation 4 Good Internal Rotation 4 Good Comments Did not formally assess due to precautions and protocol 02/12/24: AROM began in reclining position, against gravity 03/24/24: 3+/5 against gravity; able to perform exercises with 1# db 04/23/24: 4-/5 for all; progressing to 2# flexion and ER 05/20/24: 4-/5 for all except resisted ER 3+/5; progressing to 3# for flexion and ER with exercises 06/17/24: Right Flexion 4 Good Abduction (C5) 4 Good External Rotation 4 Good Internal Rotation 4 Good PT-OP-Q Treatments Start: 01/10/24 07:24 Freq: Status: Active Protocol: Document 07/01/24 09:03 AB (Rec: 07/01/24 12:29 AB [id number]) Therapeutic Exercises Supine Exercises AROM scaption Supine Exercise Name fwd flexion in scaption plane Side bilateral Resistance 4 lb then 3 lb Reps/Minutes X2 with 4 lb X15 with 3lb Comments reports pain ~15 deg from mat when lowering UE , no pain with 3 lb Sidelying Exercises open book Side bilateral Reps/Minutes 5 X each side Comments verbal and visual cues Standing Exercises shoulder IR Standing Exercise Name 1. belly press taps 2. belly press with band Side left Resistance level 2 band to HEP for level 2 Reps/Minutes 1. X15 2. X 10 Comments monitored for pain B ER Side bilateral Resistance level 1 band Reps/Minutes X10 Comments Verbal cues for positioning, monitored for pain push up plus Side bilateral Reps/Minutes X15 Comments verbal cues shoulder flex/ext Side left Resistance 3# db- added to HEP Reps/Minutes X15 L initiated bilateral X 5 Comments full ROM, no pain rhythmic oscillation Standing Exercise Name statue of liberty position Side left Equipment Used yellow therabar Reps/Minutes 60 seconds Comments verbal and visual cues Manual Therapy Treatment Soft Tissue Mobilization left shoulder Body Location lat, UT, LS, rhomboids, subscapularis, pec Mobilization Type Cross-Friction,Rolling, Sustained Pressure Intensity/Depth moderate and superficial Body Position Sidelying Comments and hooklying Joint Mobilizations scapular Joint left shoulder Direction depression and adduction Grade IV Body Position Sidelying Reps/Duration 10 each PT-OP-T Assessment and Plan Start: 01/10/24 07:24 Freq: Status: Active Protocol: Document 07/01/24 09:03 AB (Rec: 07/01/24 12:29 AB [id number]) Physical Therapy Assessment Goals Five Impairment sleep Impairment pt wakes 3x/night Short Term Goal (STG) Pt will report that he is waking <3x/night due to L shoulder pain in order to demonstrate improved pain management and QOL 02/07/24: waking at least 2x/ night STG Duration 03/06/24 MET Nursing Home Goal (LTG) Pt will report that he wakes up 1 or fewer times at night due to L shoulder pain in order to demonstrate improved pain management and QOL 03/24/24: 2-4x/night 04/11/24: a few times per night 04/23/24: pt still reporting that his L shoulder wakes him a 2-3x per night due to sleeping position with his 05/20/24: reports waking 3x/ night due to sleeping on L shoulder; does not wake if does not sleep on L shoulder, but cannot change position due to 's sleeping comfort 06/17/24: still wakes up multiple times per night, change position helps LTG Duration 07/18/24; 06/17/24-NOT MET, GOAL UPDATED 03/24/24 Four Impairment pain Impairment currently 5/10 pain at rest, 10/10 reported with activity Short Term Goal (STG) Pt will report 5/10 pain or less in L shoulder with activity in order to demonstrate improved symptom management and QOL STG Duration 03/06/24 General Lithographic Worker Goal (LTG) Pt will report 2/10 pain or less in L shoulder with activity in order to demonstrate improved symptom management and QOL 03/24/24: Pt consistently reports 1-2/10 L shoulder pain with activity, none at rest unless he does a movement that bites 04/23/24: 0/10 today before session, 1/10 reported during session 05/20/24: pt reports 0/10 pain during session 06/17/24: pt reports no pain with exercise LTG Duration 07/18/24; MET Three Impairment function, activity 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 Short Term Goal (STG) Pt will report that he is able to play piano with L shoulder pain <2/10 in order to demonstrate improved QOL and activity tolerance STG Duration 02/26/24 Nursing Home Goal (LTG) Pt will report that he is able to play piano without limitation and without increase in baseline pain in order to demonstrate improved QOL and activity tolerance 03/24/24: pt reports that he is able to play piano without limitation due to mobility or pain LTG Duration 04/04/24 MET Two Impairment strength Impairment did not assess due to precautions Short Term Goal (STG) Pt will have at least 3+/5 L shoulder flexion and abduction in scaption plane strength with pain less than 5/10 in order to demonstrate improved ability to lift objects 02/12/24: initiated AROM against gravity in reclined 03/24/24: currently 3+/5 against gravity; recently progressed to 1# db for reclined fwd flexion, pain 1-2/10 STG Duration 03/06/24 MET Nursing Home Goal (LTG) Pt will have at least 4/5 L shoulder flexion and abduction in scaption plane strength in order to demonstrate improved ability to lift objects 04/23/24: 4-/5; progression with lifting 1-2# in standing wit L arm 05/20/24: 4-/5 for all except resisted ER 3+/5; progressing to 3# for flexion and ER with exercises 06/17/24: 4/5 strength, lifting 4# in flexin in standing LTG Duration 07/18/24; 06/17/24- MET, PROGRESSING One Impairment ROM Impairment PROM currently 115 deg FF, 20 deg ER in scaption plane Short Term Goal (STG) Pt will have at least 120 deg of passive L forward flexion, full passive ER in scaption plane with pain <2/10 02/12/24: 120 deg forward flexion passively, 30 deg ER in scaption passively STG Duration 02/21/24 MET Nursing Home Goal (LTG) Pt will have at least 110 deg of active L forward shoulder flexion and functional ER of at least 30 degrees in scaption plane in order to demonstrate improved reaching and shoulder mobility for dressing/ADLs 03/24/24: 120 deg L shoulder flexion maintained over several weeks w/o pain >1-2/10 , 60 deg ER from scaption LTG Duration 04/04/24 MET Assessment Summary Assessment Patient reports having no pain , just tired end of session. AROM left shoulder flexion 128 deg likely decreased due to fatigue. Physical Therapy Plan Frequency and Duration Frequency of Treatment 1-2x/wk Duration of treatment (weeks) 8 Plan of Care Start Date 05/20/24 Plan of Care End Date 07/18/24 Next Visit Focus/Plan Next Note Type Treatment Note Next Visit Plan Update HEP. assess john to level 2 band with band belly press. progress IR and ER banded resist. Prog rows, crate lift > overhead lift (5- 6#), ant deltoid strengthening. progress resistance as able with isotonic ER/IR at 0 deg abd and 45 deg abd, wall slide with band at wall, supine > reclined > sit> standing flexion with 4-5# (progress 3# from supine). ROM limits: ER to tolerance in scaption, 120 deg FF in scaption
--- NOTE | 2024-07-08 15:40 | PT.OTN ---
Current Diagnoses Other specific arthropathies, not elsewhere classified, left shoulder (07/08/24) Unspecified rotator cuff tear or rupture of left shoulder, not specified as traumatic (07/08/24) Weakness (07/08/24) Physical Therapy Treatment Note PT-OP-A Visit Information Start: 01/10/24 07:24 Freq: Status: Active Protocol: Document 07/08/24 13:50 NM (Rec: 07/08/24 14:29 NM [id number]) Out-Patient Physical Therapy Visit Information Visit Information Visit Type Discharge Summary Visit Start Time 13:51 Visit Stop Time 14:30 Visit Number 38 Evaluation Information Evaluation Date 01/10/24 Precautions Precautions Reverse TSA precautions: no ext/ADD/IR (subscapularis not repaired) sling for comfort see protocol for restrictions 6 weeks: 01/24/24; 8 weeks: 02/06; 12 weeks: 03/07/24 Phase I: 3-6 weeks: PROM up to FF 120 (scaption plane) and ER to tolerance(scaption), submaximal pain free isometrics in scapular plane ( avoid ext); AAROM of cervical spine, wrist, elbow, hand Phase II after week 6 as appropriate PT-OP-B Current Condition Start: 01/10/24 07:24 Freq: Status: Active Protocol: Document 01/10/24 08:18 NM (Rec: 01/10/24 09:46 NM [id number]) Current Condition History of Current Condition Onset Date DOS 12/13/23 Current Complaints mobility, pain, strength History of Current Condition Pt had surgery for L rTSA on , by Dr. Blas. He states that Dr. Blas repaired his rotator cuff in 2021, but it atrophied and retore again, which is when pt opted for shoulder replacement. Pt had rotator cuff arthropathy. 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 Previously, he had L shoulder snapping, popping, grinding. He has had his first follow up post-op, reports that everything going well. Pt reports that he was having trouble with sling and gave up on it. He was sleeping in reclining chair with arm across chest. Currently sleeping in bed, rolled toward his shoulder. Pt reports that a week ago, he had aching pain in his L shoulder after he grabbed a [employer]ina pitcher with his L, felt a nasty pain in his L shoulder and was unable to lift anything including a teacup for days. Reports that was gradually getting better, until last night (01/08). Reports that he was holding the rosales with his L hand, which caused him to feel a sharp pain. He is left handed but able to use R hand for writing/eating/ADLs. He had follow up with doctor on . Pt reports that his has been helping him with dressing and all activities, but he feels bad that she has to do it all and wants to help. has been driving and helping pt with [employer] job. Has had 1 fall pre- surgery, but fell on R shoulder; states ankles giving out. He has not been performing any of the exercises from his doctor on Sunday. 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, 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 Current Functional Impairments (Reported) Functional Limitations- ADL's dressing assisting with dressing, ADLs, showering, grooming not sleeping with pillow behind arm Functional Limitations- Mobility/Gait strength loss Functional Limitations- 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 Pt reports still getting used to shoulder aching at night; MD recommends rolling off shoulder. He reports no other limitations with ADLs. Pt feels like he has bounced back. Has been careful with lifting per requirement; has been compliant with lifting requirements for work PT-OP-F Manual Assessment Start: 01/10/24 07:24 Freq: Status: Active Protocol: Document 01/10/24 08:18 NM (Rec: 01/10/24 09:46 NM [id number]) Manual Assessments Soft Tissue Assessment Soft Tissue Mobility Assessment Increased tenderness, decreased length of latissimus dorsi and pectoralis Joint Mobility Assessment Joint Mobility Assessment Empty end feel with forward flexion and scaption ER. No L shoulder clicking, popping, dislocation with passive ROM. Full elbow and wrist AROM PT-OP-H Neuro Start: 01/10/24 07:24 Freq: Status: Active Protocol: Document 01/10/24 08:18 NM (Rec: 01/10/24 09:46 NM [id number]) Sensation Evaluation Comments Summary Comments BUE equally intact to light touch sensation, small decrease on L side near axilla PT-OP-J Posture/Palpation/Skin Start: 01/10/24 07:24 Freq: Status: Active Protocol: Document 01/10/24 08:18 NM (Rec: 01/10/24 09:46 NM [id number]) Posture Evaluation Position Sitting Head/C-Spine Posture Forward Head T-Spine Posture Increased Kyphosis Shoulder Posture (L) Rounded,(R) Rounded,(L) Forward,(R) Forward,(L) Elevated Scapula Posture (L) Protracted,(R) Protracted, (L) Elevated Arm Posture (L) Internally Rotated,(R) Internally Rotated Comments Posture Comments Elbow positioned by side at 0 deg abd, no use of sling Palpation Assessment Location L shoulder Palpation Details Tenderness along anterior shoulder with palpation and posterior cuff. Denies pain with palpation Skin Assessment Incisional Assessment Incision Appearance/Comments clean/dry/intact. Glue beginning to peel. Good healing w/o signs of infection , redness Small indention above scar from infection from previous rotator cuff repair PT-OP-K Range of Motion Start: 01/10/24 07:24 Freq: Status: Active Protocol: Document 07/08/24 13:50 NM (Rec: 07/08/24 14:29 NM [id number]) Shoulder Goniometric Range of Motion Shoulder L AROM Flexion 140 External Rotation at 0 degrees Abduction 60 Comments 02/12/24: reclined- 30 deg ER scaption 03/18/24: 55 deg ER, 120 deg flexion 03/24/24: 60 deg ER in scaption, 120 deg flexion 04/23/24: 125 deg flexion in scaption, 60 deg scaption ER 05/20/24: 120 deg flexion in scaption, 60 deg scaption ER 06/17/24: 130 deg flexion, 70 deg ER PT-OP-M Strength Start: 01/10/24 07:24 Freq: Status: Active Protocol: Document 07/08/24 13:50 NM (Rec: 07/08/24 14:29 NM [id number]) Shoulder Strength Shoulder Manual Muscle Testing Left Flexion 4 Good Abduction (C5) 4 Good External Rotation 4 Good Internal Rotation 4 Good Comments Did not formally assess due to precautions and protocol 02/12/24: AROM began in reclining position, against gravity 03/24/24: 3+/5 against gravity; able to perform exercises with 1# db 04/23/24: 4-/5 for all; progressing to 2# flexion and ER 05/20/24: 4-/5 for all except resisted ER 3+/5; progressing to 3# for flexion and ER with exercises 07/08/24: 4/5, 4# lifting db PT-OP-Q Treatments Start: 01/10/24 07:24 Freq: Status: Active Protocol: Document 07/08/24 13:50 NM (Rec: 07/08/24 14:29 NM [id number]) Therapeutic Exercises Standing Exercises push up plus Side bilateral Reps/Minutes 15 flexion + ER miniband Side bilateral Resistance level 1 band Reps/Minutes 10 ER/IR band Standing Exercise Name HEP review Side left Resistance level 3 band for IR, level 2 band for ER (both bands) Equipment Used towel roll btwn body for scaption Reps/Minutes 2x10 IR, 2x15 ER Comments feels burn in IR; better trunk control; espinosa ER ROm to just past neutral shoulder flex/ext Side left Resistance 5# > 4# db Reps/Minutes 8 ea resistance Comments cued form wall slide scaption Standing Exercise Name HEP Side bilateral Resistance level 2 band Reps/Minutes 10 rows Standing Exercise Name row Resistance level 4 Reps/Minutes 2X15 each Self-Care/Home Management Treatment Education Patient Education Pain Management,Safety Other Education 8 min- PT educated pt on continuing to be compliant with lifting limits advised by referring surgeon. Also educated pt that he can return to PT for L shoulder strengthening in future if needed with new referral. Issued level 3 tband for IR Educated on slow return to strengthening program (pt asked about gym in future when comfortable with tbands); recommended low weights and not attempting to perform all exercises with equal resistance on R and L shoulder until L strength more comparable to R side. Recommended ask surgeon when appropriate for return to gym if concerned PT-OP-T Assessment and Plan Start: 01/10/24 07:24 Freq: Status: Active Protocol: Document 07/08/24 13:50 NM (Rec: 07/08/24 14:29 NM [id number]) Physical Therapy Assessment Goals Five Impairment sleep Impairment pt wakes 3x/night Short Term Goal (STG) Pt will report that he is waking <3x/night due to L shoulder pain in order to demonstrate improved pain management and QOL 02/07/24: waking at least 2x/ night STG Duration 03/06/24 MET Sod Stripper Goal (LTG) Pt will report that he wakes up 1 or fewer times at night due to L shoulder pain in order to demonstrate improved pain management and QOL 03/24/24: 2-4x/night 04/11/24: a few times per night 04/23/24: pt still reporting that his L shoulder wakes him a 2-3x per night due to sleeping position with his 05/20/24: reports waking 3x/ night due to sleeping on L shoulder; does not wake if does not sleep on L shoulder, but cannot change position due to 's sleeping comfort 06/17/24: still wakes up multiple times per night, change position helps LTG Duration 07/18/24; 06/17/24-NOT MET, GOAL UPDATED 03/24/24 Four Impairment pain Impairment currently 5/10 pain at rest, 10/10 reported with activity Short Term Goal (STG) Pt will report 5/10 pain or less in L shoulder with activity in order to demonstrate improved symptom management and QOL STG Duration 03/06/24 Sod Stripper Goal (LTG) Pt will report 2/10 pain or less in L shoulder with activity in order to demonstrate improved symptom management and QOL 03/24/24: Pt consistently reports 1-2/10 L shoulder pain with activity, none at rest unless he does a movement that bites 04/23/24: 0/10 today before session, 1/10 reported during session 05/20/24: pt reports 0/10 pain during session 06/17/24: pt reports no pain with exercise LTG Duration 07/18/24; MET Three Impairment function, activity 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 Short Term Goal (STG) Pt will report that he is able to play piano with L shoulder pain <2/10 in order to demonstrate improved QOL and activity tolerance STG Duration 02/26/24 Sod Stripper Goal (LTG) Pt will report that he is able to play piano without limitation and without increase in baseline pain in order to demonstrate improved QOL and activity tolerance 03/24/24: pt reports that he is able to play piano without limitation due to mobility or pain LTG Duration 04/04/24 MET Two Impairment strength Impairment did not assess due to precautions Short Term Goal (STG) Pt will have at least 3+/5 L shoulder flexion and abduction in scaption plane strength with pain less than 5/10 in order to demonstrate improved ability to lift objects 02/12/24: initiated AROM against gravity in reclined 03/24/24: currently 3+/5 against gravity; recently progressed to 1# db for reclined fwd flexion, pain 1-2/10 STG Duration 03/06/24 MET Sod Stripper Goal (LTG) Pt will have at least 4/5 L shoulder flexion and abduction in scaption plane strength in order to demonstrate improved ability to lift objects 04/23/24: 4-/5; progression with lifting 1-2# in standing wit L arm 05/20/24: 4-/5 for all except resisted ER 3+/5; progressing to 3# for flexion and ER with exercises 06/17/24: 4/5 strength, lifting 4# in flexin in standing LTG Duration 07/18/24; 06/17/24- MET One Impairment ROM Impairment PROM currently 115 deg FF, 20 deg ER in scaption plane Short Term Goal (STG) Pt will have at least 120 deg of passive L forward flexion, full passive ER in scaption plane with pain <2/10 02/12/24: 120 deg forward flexion passively, 30 deg ER in scaption passively STG Duration 02/21/24 MET Sod Stripper Goal (LTG) Pt will have at least 110 deg of active L forward shoulder flexion and functional ER of at least 30 degrees in scaption plane in order to demonstrate improved reaching and shoulder mobility for dressing/ADLs 03/24/24: 120 deg L shoulder flexion maintained over several weeks w/o pain >1-2/10 , 60 deg ER from scaption LTG Duration 04/04/24 MET Progress Towards Goals Progress Towards Goals Progressing Toward Goals,Goals Met Assessment Summary Assessment Pt tolerated session well. Emphasis on establishing maintenance program for discharge today. Pt requires minimal cues for correct execution. Reports discomfort in shoulder during 5# flexion raises; none with 4# so educated to continue with 4# at home. Progressed to level 4 band for rows. Pt still most challenged with banded ER and IR in neutral; however, able to achieve flexion overhead with ER in standing with band. PT and pt discussed discharge today as last visit scheduled outside of plan of care; PT and pt in agreement. Educated to continue to use R hand to assist with bowel mobility due to limitations with L shoulder ROM per new joint restrictions. Pt verbalizes understanding Physical Therapy Plan Frequency and Duration Frequency of Treatment 1-2x/wk Duration of treatment (weeks) 8 Plan of Care Start Date 05/20/24 Plan of Care End Date 07/18/24 Therapeutic Interventions Therapeutic Interventions Gait Training,Home Exercise Program,Joint Mobilizations, Manual Therapy,Neuromuscular Re-education,Orthotic/ Prosthetic Management,Patient/ Caregiver Education,Self-Care/ Home Management,Sensory Integration,Soft Tissue Mobilization,Taping, Therapeutic Activities, Therapeutic Exercises Modalities Cold Pack/Ice Massage,Electric Stimulation,Hot Packs, Ultrasound Discharge Physical Therapy Discharge Reasons Goals Met Discharge Comments Goals met except sleeping goal and plan of care ending. Pt is progressing with strengthening and has met all other goals; pt plan of care also expiring. PT and pt in agreement about discharge today. Issued maintenance program and educated pt on performing at least 3x/wk for 6 months. Pt educated that can return to PT with new referral in future if needed for strengthening. Pt verbalizes understanding and will be discharged to maintenance program Next Visit Focus/Plan Next Note Type Discharge Summary Next Visit Plan discharge from PT
== END 2024-07-09 15:10 | disposition home or self-care (01) ==
LOC: PHYS 13:45
PROVIDERS: Family Provider Physician Assistant Medical; PCP Physician Assistant Medical; Referring Provider Physician Assistant Surgical; Visit Provider Physician Assistant Surgical
DX: M75.102 Unspecified rotator cuff tear or rupture of left shoulder, not specified as traumatic (principal); M12.812 Other specific arthropathies, not elsewhere classified, left shoulder; R53.1 Weakness
CPT/HCPCS: 97110; 97112; 97140; 97162; 97530; 97535

== ENCOUNTER 2024-12-02 10:45 | Outpatient (RCR) | payer MEDICARE, MEDICAID, SELFPAY ==
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
== END 2024-12-03 14:37 | disposition home or self-care (01) ==
LOC: PHYS 10:45
PROVIDERS: Family Provider Physician Assistant Medical; PCP Physician Assistant Medical; Referring Provider Physician Assistant Medical; Visit Provider Physician Assistant Medical
DX: M54.42 Lumbago with sciatica, left side (principal); G89.29 Other chronic pain; M47.816 Spondylosis without myelopathy or radiculopathy, lumbar region
CPT/HCPCS: 97110; 97140; 97162; 97535

== ENCOUNTER → 2025-02-10 12:00 | Outpatient (CLI) | payer MEDICARE, MEDICAID, SELFPAY ==
--- NOTE | 2025-02-10 12:09 | DI.RAD.S_ITS ---
PROCEDURE: XR CHEST 2V INDICATIONS: cough fatigue x 10 days TECHNIQUE: 2 views of the chest were acquired. COMPARISON: [facility], CR, XR CHEST 1V, 12/22/2023, 15:19. FINDINGS: Surgical changes and devices: None. Lungs and pleura: Lungs are clear. No pleural effusions or pneumothorax. Mediastinum: Mediastinal contours are normal. Heart size is normal. Bones and chest wall: No suspicious bony abnormalities. Soft tissues appear unremarkable. IMPRESSION: No acute cardiopulmonary abnormality is seen. Dictated by: Renae Cali M.D. on 02/10/2025 at 12:41 Approved by: Renae Cali M.D. on 02/10/2025 at 12:41
[2025-02-10 13:02] LABS: Add Manual Diff / Slide Review NO; Basophils Absolute Auto 100 /uL (0-100); Basophils Percent Auto 0.9 % (0-2); Eosinophils Absolute Auto 100 /uL (0-450); Eosinophils Percent Auto 1.2 % (2-4); Hematocrit 43.9 % (41-53); Hemoglobin 14.9 g/dL (13.5-17.5); Lymphocytes Absolute Auto 1300 /uL (1100-4500); Lymphocytes Percent Auto 12.1 % (25-40); Mean Corpuscular HGB Conc 34.1 % (30-36); Mean Corpuscular Hemoglobin 30.8 PG (26-34); Mean Corpuscular Volume 90.4 fL (80-100); Monocytes Absolute Auto 800 /uL (0-900); Monocytes Percent Auto 7.3 % (3-14); Neutrophils Absolute Auto 8600 /uL (1500-7000); Neutrophils Percent Auto 78.5 % (50-75); Platelet Count 250 X10^3/uL (150-400); Red Blood Cell Count 4.85 X10^6/uL (4.5-5.9); Red Cell Distribution Width 14.4 % (11.6-14.8); White Blood Cell Count 10.9 X10^3/uL (4.5-11.0)
[2025-02-10 13:26] LABS: Alanine Aminotransferase 30 IU/L (<50); Albumin 4.4 g/dL (3.5-5.0); Albumin Globulin Ratio 1.8 (1.0-2.8); Alkaline Phosphatase 84 U/L (38-126); Aspartate Aminotransferase 26 IU/L (17-59); BUN Creatinine Ratio 17.6 (6-22); Bilirubin Total 0.6 mg/dL (0.2-1.3); Blood Urea Nitrogen 21 mg/dL (9-20); Calcium 9.4 mg/dL (8.4-10.2); Carbon Dioxide 24 mmol/L (22-32); Chloride 108 mmol/L (98-107); Estimated Glomerular Filt Rate > 60 mL/min (>60); Globulin 2.4 g/dL (1.7-4.1); Glucose 99 mg/dL (70-99); HEMOLYSIS < 15 (0-50); Potassium 4.9 mmol/L (3.4-5.1); Sodium 141 mmol/L (137-145); Total Protein 6.8 g/dL (6.3-8.2)
== END ==
PROVIDERS: Family Provider Physician Assistant Medical; PCP Physician Assistant Medical; Referring Provider Physician Assistant Medical; Visit Provider Physician Assistant
DX: J06.9 Acute upper respiratory infection, unspecified (principal); R53.83 Other fatigue
CPT/HCPCS: 36415; 71046; 80053; 84443; 85025

== ENCOUNTER → 2025-02-10 12:08 | Outpatient (CLI) | payer MEDICARE, MEDICAID, SELFPAY ==
[2025-02-10 13:36] LABS: COVID-19 CEPHEID 4-PLEX PCR POSITIVE (Negative); Influenza A - CEPHEID Flu A NEGATIVE (NEGATIVE); Influenza B - CEPHEID Flu B NEGATIVE (NEGATIVE); Respiratory Syncytial Virus Negative (Negative)
== END ==
PROVIDERS: Family Provider Physician Assistant Medical; PCP Physician Assistant Medical; Visit Provider Physician Assistant
DX: R05.1 Acute cough (principal)
CPT/HCPCS: 0241U; 36415; 71046; 80053; 84443; 85025